=== PATIENT | female | born 1945 | race Caucasian/White ===

== ENCOUNTER 2020-04-28 06:48 | Day surgery (SDC) | payer MEDICARE, SELFPAY ==
[2020-04-22 16:08] VITALS: BMI 57.5
--- NOTE | 2020-04-24 07:47 | MHC.SHP ---
Pre-Procedural Eval Section A The patient is an INPATIENT: No The History & Physical has been completed within 30 days and I have reviewed it.: Yes Section B Chief Complaint: Cataract Right Eye Allergies: Allergies Allergy/AdvReac Type Severity Reaction Status Date / Time iodine [Iodine] Allergy Intermediate SWELLING, Verified 04/23/20 14:51 blister, hives Penicillins Allergy Intermediate SWELLING, Verified 04/23/20 14:51 hives, rash Iodinated Contrast Media Allergy Mild HIVES-CAT Verified 04/23/20 14:51 [IV Dye, Iodine Containing] SCAN DYE beeswax [BEESWAX] Allergy Unknown SWELLING Verified 04/23/20 14:51 tetanus toxoid, adsorbed Allergy Unknown LOCAL Verified 04/23/20 14:51 [Tetanus Toxoid,Adsorbed] INJ.SITE SWELLING pneumococcal vaccine AdvReac Unknown fever, Verified 04/23/20 14:51 chills Plan Diagnosis/Plan: Unchanged Patient has been examined and remains a candidate for the planned procedure
--- NOTE | 2020-04-25 13:00 | P.CONAN_ITS ---
Documented by User: Ximena Monet 04/25/20 13:01 HPI - Anesthesia Eval Consult details Narrative: 74yo F for cataract PMFSH Past Medical History Medical History Bladder cancer Cataract Dyslipidemia Endometrial cancer Essential hypertension Ex-smoker for more than 1 year GERD (gastroesophageal reflux disease) Hiatal hernia History of pneumonia Hx of Clostridium difficile infection Hx of gout Immunization refused Impaired fasting glucose Mild intermittent asthma without complication Mixed stress and urge urinary incontinence Morbid obesity Osteopenia of neck of left femur Recurrent major 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 Sleep apnea, unspecified Snores Urinary incontinence Family History Family History Father Heart disease Mother No problems noted. Maternal Grandfather Heart disease Maternal Grandmother Heart disease Paternal Grandfather Heart disease Paternal Grandmother Heart disease Surgical History Surgical History History of bladder surgery History of neck surgery History of vaginal hysterectomy Hx of colonoscopy Hx of cystoscopy Social History Social History Are you a primary career and guidance counselor to a significant other at home: No Do you presently have visiting nurse or other home services: No Alcohol intake: never Smoking Status: Former smoker Smoked in Last 30 Days: No Smoking Quit Date: 2007 Use of substances other than those prescribed or required for medical reasons: No Have you been hit, kicked, punched, or otherwise hurt by someone within the past year? If so, by whom?: No Advance Directives: No Advance Directives Information Provided: No Advance Directives on File: No Recently lost weight without trying: No Meds Allergies Allergy/AdvReac Type Severity Reaction Status Date / Time iodine [Iodine] Allergy Intermediate SWELLING, Verified 04/23/20 14:51 blister, hives Penicillins Allergy Intermediate SWELLING, Verified 04/23/20 14:51 hives, rash Iodinated Contrast Media Allergy Mild HIVES-CAT Verified 04/23/20 14:51 [IV Dye, Iodine Containing] SCAN DYE beeswax [BEESWAX] Allergy Unknown SWELLING Verified 04/23/20 14:51 tetanus toxoid, adsorbed Allergy Unknown LOCAL Verified 04/23/20 14:51 [Tetanus Toxoid,Adsorbed] INJ.SITE SWELLING pneumococcal vaccine AdvReac Unknown fever, Verified 04/23/20 14:51 chills Home Medications Medication Instructions Recorded Confirmed Type albuterol sulfate [ProAir HFA] 2 puff INHALATION Q4-6H PRN 04/22/20 04/23/20 History aspirin [Aspir-81] 81 mg PO DAILY 04/22/20 04/23/20 History cetirizine [Zyrtec] 5 mg PO DAILY 04/22/20 04/23/20 History cholecalciferol (vitamin D3) 25 mcg PO DAILY 04/22/20 04/23/20 History [Vitamin D3] citalopram 1 tab PO DAILY 04/22/20 04/23/20 History coenzyme Q10 [CoQ-10] 100 mg PO DAILY 04/22/20 04/23/20 History fluticasone propionate 1 spray INTRANASAL QAM PRN 04/22/20 04/23/20 History furosemide 20 mg PO DAILY 04/22/20 04/23/20 History lisinopril 1 tab PO DAILY 04/22/20 04/23/20 History metoprolol succinate 2 tab PO DAILY 04/22/20 04/23/20 History mirabegron [Myrbetriq] 1 tab PO DAILY 04/22/20 04/23/20 History pantoprazole 1 tab PO DAILY 04/22/20 04/23/20 History tolterodine 1 cap PO DAILY 04/22/20 04/23/20 History turmeric mg PO 04/22/20 04/23/20 History Exam Exam Date and Time: April 25, 2020 1300 Height,Weight and Vital Signs: Height 4 ft 9 in Weight 120.656 kg Pertinent Lab Results Pertinent Lab Results: Laboratory Tests 03/08/19 02/25/20 08:42 09:41 WBC 7.3 Hgb 13.5 Hct 41.8 Plt Count 204 D Sodium 142 Potassium 4.2 Chloride 102 BUN 19 H Creatinine 0.73 Assessment and Plan Assessment Anesthesia Assessment: Chart Reviewed Documented by User: Asiya Sandoval 04/28/20 07:35 [facility] Past Medical History Medical History Bladder cancer Cataract Dyslipidemia Endometrial cancer Essential hypertension Ex-smoker for more than 1 year GERD (gastroesophageal reflux disease) Hiatal hernia History of pneumonia Hx of Clostridium difficile infection Hx of gout Immunization refused Impaired fasting glucose Mild intermittent asthma without complication Mixed stress and urge urinary incontinence Morbid obesity Osteopenia of neck of left femur Recurrent major 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 Sleep apnea, unspecified Snores Urinary incontinence Family History Family History Father Heart disease Mother No problems noted. Maternal Grandfather Heart disease Maternal Grandmother Heart disease Paternal Grandfather Heart disease Paternal Grandmother Heart disease Surgical History Surgical History History of bladder surgery History of neck surgery History of vaginal hysterectomy Hx of colonoscopy Hx of cystoscopy Social History Social History Are you a primary career and guidance counselor to a significant other at home: No Do you presently have visiting nurse or other home services: No Alcohol intake: never Smoking Status: Former smoker Smoked in Last 30 Days: No Smoking Quit Date: 2007 Use of substances other than those prescribed or required for medical reasons: No Have you been hit, kicked, punched, or otherwise hurt by someone within the past year? If so, by whom?: No Advance Directives: No Advance Directives Information Provided: No Advance Directives on File: No Recently lost weight without trying: No Meds Allergies Allergy/AdvReac Type Severity Reaction Status Date / Time iodine [Iodine] Allergy Intermediate SWELLING, Verified 04/23/20 14:51 blister, hives Penicillins Allergy Intermediate SWELLING, Verified 04/23/20 14:51 hives, rash Iodinated Contrast Media Allergy Mild HIVES-CAT Verified 04/23/20 14:51 [IV Dye, Iodine Containing] SCAN DYE beeswax [BEESWAX] Allergy Unknown SWELLING Verified 04/23/20 14:51 tetanus toxoid, adsorbed Allergy Unknown LOCAL Verified 04/23/20 14:51 [Tetanus Toxoid,Adsorbed] INJ.SITE SWELLING pneumococcal vaccine AdvReac Unknown fever, Verified 04/23/20 14:51 chills Home Medications Medication Instructions Recorded Confirmed Type albuterol sulfate [ProAir HFA] 2 puff INHALATION Q4-6H PRN 04/22/20 04/23/20 History aspirin [Aspir-81] 81 mg PO DAILY 04/22/20 04/23/20 History cetirizine [Zyrtec] 5 mg PO DAILY 04/22/20 04/23/20 History cholecalciferol (vitamin D3) 25 mcg PO DAILY 04/22/20 04/23/20 History [Vitamin D3] citalopram 1 tab PO DAILY 04/22/20 04/23/20 History coenzyme Q10 [CoQ-10] 100 mg PO DAILY 04/22/20 04/23/20 History fluticasone propionate 1 spray INTRANASAL QAM PRN 04/22/20 04/23/20 History furosemide 20 mg PO DAILY 04/22/20 04/23/20 History lisinopril 1 tab PO DAILY 04/22/20 04/23/20 History metoprolol succinate 2 tab PO DAILY 04/22/20 04/23/20 History mirabegron [Myrbetriq] 1 tab PO DAILY 04/22/20 04/23/20 History pantoprazole 1 tab PO DAILY 04/22/20 04/23/20 History tolterodine 1 cap PO DAILY 04/22/20 04/23/20 History turmeric mg PO 04/22/20 04/23/20 History Exam Airway Mallampati Class: III TM Dist: <=3cm Neck ROM: Full Loose/Missing/Broken Teeth: Yes (Missing 1 bottom, top 2 front cemented, 1 broken bottom) Heart: RRR Lungs: CTA BL Assessment and Plan Final Anesthetic Review NPO: Yes ASA Class: III Final Preanesthetic Review: Meds/Allgs Chart Reviewed and Consent Obtained/Reviewed Patient Risk: Intermediate Procedure Risk: Low Anesthetic Plan Anesthetic Plan: MAC: Disposition: Standard PACU
[2020-04-28] MEDS: Tetracaine HCl/PF 0.5% Oph Sol 4 ML DROPS 1 DROP EYE-RIGHT (07:55)
[2020-04-28] MEDS: Tropicamide 1 % Ophth Sol 3 ML BTL 1 DROP EYE-RIGHT ×3 (07:56→08:06)
--- NOTE | 2020-04-28 08:27 | PC.NURSE ---
BP RANGES 207/71 PRE, 213/62, 230/92, 206/70 ANESTH AT [facility] [id number]
[2020-04-28 08:32] VITALS: BP 198/67; PULSE 74; RESP 18; O2SAT 92
[2020-04-28 08:37] VITALS: BP 149/72; PULSE 73; RESP 18; O2SAT 90
[2020-04-28 08:44] VITALS: BP 163/85; PULSE 71; RESP 20; O2SAT 92
[2020-04-28] MEDS: Lactated Ringers 500 ML 50 ML IV (08:49)
[2020-04-28 08:50] VITALS: BP 198/67; PULSE 74
[2020-04-28] MEDS: Labetalol HCL 100 MG/20 ML VIAL 10 MG IVPUSH (08:50)
--- NOTE | 2020-04-28 09:17 | HO.PNOPHT ---
Ophthalmology Procedure Procedure Ophthalmology Lenses: GLYNN [id number] (20) Procedure Notes: PREOPERATIVE DIAGNOSIS: Decreased visual acuity right eye secondary to cataract POSTOPERATIVE DIAGNOSIS: Same PROCEDURE: Right cataract extraction with intraocular lens insertion SURGEON: Reza Mckeon M.D. ANESTHESIA: Topical/MAC ESTIMATED BLOOD LOSS: None COMPLICATIONS: None After obtaining informed consent, the patient was brought to the operating room suite and placed in the supine position. After adequate sedation per anesthesia, topical drops of Tetracaine were given to the right eye. The eye was then prepped and draped in the usual sterile fashion. The operating room microscope was then positioned over the operative eye and a lid speculum placed. A paracentesis was created. Viscoelastic was then instilled into the anterior chamber. A three plane incision was then created temporally, utilizing a 2.85 mm keratome. Capsulotomy forceps were then utilized to create a circular tear capsulotomy. Hydrodissection and hydrodelineation were carried out until adequate mobilization of the nucleus occurred. Phacoemulsification was then utilized to remove the dense central nucleus followed by removal of the cortical material utilizing the automated aspiration irrigation unit. Viscoelastic was instilled into the posterior capsular bag followed by placement of a posterior chamber intraocular lens without difficulty. The residual Viscoelastic was then removed utilizing the automated IA machine. The wound was checked and found to be watertight. The patient tolerated the procedure well and the lid speculum was removed. Intracameral injection of Vigamox 0.1 mL followed by a subtenon injection of Kenalog-40 0.2 mL were administered. The patient will be seen in the a.m.
== END 2020-04-28 09:50 | disposition home or self-care (01) ==
PROVIDERS: PCP Internal Medicine; Visit Provider Ophthalmology
PROC: (CPT 66985; principal; 2020-04-28 08:20)
DX: H25.11 Age-related nuclear cataract, right eye (principal); H54.7 Unspecified visual loss; C67.9 Malignant neoplasm of bladder, unspecified; Z85.42 Personal history of malignant neoplasm of other parts of uterus; I10 Essential (primary) hypertension; J45.20 Mild intermittent asthma, uncomplicated; Z79.82 Long term (current) use of aspirin; Z79.51 Long term (current) use of inhaled steroids; Z79.899 Other long term (current) drug therapy; Z88.0 Allergy status to penicillin; Z91.041 Radiographic dye allergy status; Z87.891 Personal history of nicotine dependence
CPT/HCPCS: 66984; J2250; J3010; J3300; V2632

== ENCOUNTER 2020-05-12 07:23 | Day surgery (SDC) | payer MEDICARE, SELFPAY ==
--- NOTE | 2020-05-08 08:22 | MHC.SHP ---
Pre-Procedural Eval Section A The patient is an INPATIENT: No The History & Physical has been completed within 30 days and I have reviewed it.: Yes Section B Chief Complaint: Cataract Left Eye Allergies: Allergies Allergy/AdvReac Type Severity Reaction Status Date / Time iodine [Iodine] Allergy Intermediate SWELLING, Verified 04/23/20 14:51 blister, hives Penicillins Allergy Intermediate SWELLING, Verified 04/23/20 14:51 hives, rash Iodinated Contrast Media Allergy Mild HIVES-CAT Verified 04/23/20 14:51 [IV Dye, Iodine Containing] SCAN DYE beeswax [BEESWAX] Allergy Unknown SWELLING Verified 04/23/20 14:51 tetanus toxoid, adsorbed Allergy Unknown LOCAL Verified 04/23/20 14:51 [Tetanus Toxoid,Adsorbed] INJ.SITE SWELLING pneumococcal vaccine AdvReac Unknown fever, Verified 04/23/20 14:51 chills Plan Diagnosis/Plan: Unchanged Patient has been examined and remains a candidate for the planned procedure
[2020-05-08 09:37] VITALS: BMI 57.5
--- NOTE | 2020-05-09 08:50 | P.CONAN_ITS ---
Documented by User: Ximena Monet 05/09/20 14:03 HPI - Anesthesia Eval Consult details Narrative: 74yo F for cataract PCP cleared 1st eye 04/28/20: [facility] 1 PMFSH Past Medical History Medical History Bladder cancer Cataract Dyslipidemia Endometrial cancer Essential hypertension Ex-smoker for more than 1 year GERD (gastroesophageal reflux disease) Hiatal hernia History of pneumonia Hx of Clostridium difficile infection Hx of gout Immunization refused Impaired fasting glucose Mild intermittent asthma without complication Mixed stress and urge urinary incontinence Morbid obesity Osteopenia of neck of left femur Recurrent major 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 Sleep apnea, unspecified Snores Urinary incontinence Family History Family History Father Heart disease Mother No problems noted. Maternal Grandfather Heart disease Maternal Grandmother Heart disease Paternal Grandfather Heart disease Paternal Grandmother Heart disease Surgical History Surgical History Cataract extraction status, right eye History of bladder surgery History of neck surgery History of vaginal hysterectomy Hx of colonoscopy Hx of cystoscopy Social History Social History Alcohol intake: never Smoking Status: Former smoker Advance Directives: No Advance Directives Information Provided: No Advance Directives on File: No Meds Allergies Allergy/AdvReac Type Severity Reaction Status Date / Time iodine [Iodine] Allergy Intermediate SWELLING, Verified 04/23/20 14:51 blister, hives Penicillins Allergy Intermediate SWELLING, Verified 04/23/20 14:51 hives, rash Iodinated Contrast Media Allergy Mild HIVES-CAT Verified 04/23/20 14:51 [IV Dye, Iodine Containing] SCAN DYE beeswax [BEESWAX] Allergy Unknown SWELLING Verified 04/23/20 14:51 tetanus toxoid, adsorbed Allergy Unknown LOCAL Verified 04/23/20 14:51 [Tetanus Toxoid,Adsorbed] INJ.SITE SWELLING pneumococcal vaccine AdvReac Unknown fever, Verified 04/23/20 14:51 chills Home Medications Medication Instructions Recorded Confirmed Type albuterol sulfate [ProAir HFA] 2 puff INHALATION Q4-6H PRN 04/22/20 04/23/20 History aspirin [Aspir-81] 81 mg PO DAILY 04/22/20 04/23/20 History cetirizine [Zyrtec] 5 mg PO DAILY 04/22/20 04/23/20 History cholecalciferol (vitamin D3) 25 mcg PO DAILY 04/22/20 04/23/20 History [Vitamin D3] citalopram 1 tab PO DAILY 04/22/20 04/23/20 History coenzyme Q10 [CoQ-10] 100 mg PO DAILY 04/22/20 04/23/20 History fluticasone propionate 1 spray INTRANASAL QAM PRN 04/22/20 04/23/20 History furosemide 20 mg PO DAILY 04/22/20 04/23/20 History lisinopril 1 tab PO DAILY 04/22/20 04/23/20 History metoprolol succinate 2 tab PO DAILY 04/22/20 04/23/20 History mirabegron [Myrbetriq] 1 tab PO DAILY 04/22/20 04/23/20 History pantoprazole 1 tab PO DAILY 04/22/20 04/23/20 History tolterodine 1 cap PO DAILY 04/22/20 04/23/20 History turmeric mg PO 04/22/20 04/23/20 History Exam Exam Date and Time: May 09, 2020 0850 Height,Weight and Vital Signs: Height 4 ft 9 in Weight 120.6 kg Assessment and Plan Assessment Anesthesia Assessment: Chart Reviewed Documented by User: Diana Alba 05/12/20 08:35 [facility] Past Medical History Medical History Bladder cancer Cataract Dyslipidemia Endometrial cancer Essential hypertension Ex-smoker for more than 1 year GERD (gastroesophageal reflux disease) Hiatal hernia History of pneumonia Hx of Clostridium difficile infection Hx of gout Immunization refused Impaired fasting glucose Mild intermittent asthma without complication Mixed stress and urge urinary incontinence Morbid obesity Osteopenia of neck of left femur Recurrent major 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 Sleep apnea, unspecified Snores Urinary incontinence Family History Family History Father Heart disease Mother No problems noted. Maternal Grandfather Heart disease Maternal Grandmother Heart disease Paternal Grandfather Heart disease Paternal Grandmother Heart disease Surgical History Surgical History Cataract extraction status, right eye History of bladder surgery History of neck surgery History of vaginal hysterectomy Hx of colonoscopy Hx of cystoscopy Social History Social History Alcohol intake: never Smoking Status: Former smoker Advance Directives: No Advance Directives Information Provided: No Advance Directives on File: No Meds Allergies Allergy/AdvReac Type Severity Reaction Status Date / Time iodine [Iodine] Allergy Intermediate SWELLING, Verified 04/23/20 14:51 blister, hives Penicillins Allergy Intermediate SWELLING, Verified 04/23/20 14:51 hives, rash Iodinated Contrast Media Allergy Mild HIVES-CAT Verified 04/23/20 14:51 [IV Dye, Iodine Containing] SCAN DYE beeswax [BEESWAX] Allergy Unknown SWELLING Verified 04/23/20 14:51 tetanus toxoid, adsorbed Allergy Unknown LOCAL Verified 04/23/20 14:51 [Tetanus Toxoid,Adsorbed] INJ.SITE SWELLING pneumococcal vaccine AdvReac Unknown fever, Verified 04/23/20 14:51 chills Home Medications Medication Instructions Recorded Confirmed Type albuterol sulfate [ProAir HFA] 2 puff INHALATION Q4-6H PRN 04/22/20 04/23/20 History aspirin [Aspir-81] 81 mg PO DAILY 04/22/20 04/23/20 History cetirizine [Zyrtec] 5 mg PO DAILY 04/22/20 04/23/20 History cholecalciferol (vitamin D3) 25 mcg PO DAILY 04/22/20 04/23/20 History [Vitamin D3] citalopram 1 tab PO DAILY 04/22/20 04/23/20 History coenzyme Q10 [CoQ-10] 100 mg PO DAILY 04/22/20 04/23/20 History fluticasone propionate 1 spray INTRANASAL QAM PRN 04/22/20 04/23/20 History furosemide 20 mg PO DAILY 04/22/20 04/23/20 History lisinopril 1 tab PO DAILY 04/22/20 04/23/20 History metoprolol succinate 2 tab PO DAILY 04/22/20 04/23/20 History mirabegron [Myrbetriq] 1 tab PO DAILY 04/22/20 04/23/20 History pantoprazole 1 tab PO DAILY 04/22/20 04/23/20 History tolterodine 1 cap PO DAILY 04/22/20 04/23/20 History turmeric mg PO 04/22/20 04/23/20 History Exam Airway Mallampati Class: II TM Dist: >3cm Neck ROM: Limited Heart: RRR Lungs: CTA Assessment and Plan Assessment Anesthesia Assessment: Anesthesia Plan Discussed and Chart Reviewed Final Anesthetic Review NPO: Yes ASA Class: III Final Preanesthetic Review: Meds/Allgs Chart Reviewed, Consent Obtained/Reviewed and Anes Risks/Benef Reviewed Patient Risk: Intermediate Procedure Risk: Low Anesthetic Plan Anesthetic Plan: MAC: Disposition: Standard PACU
[2020-05-12] MEDS: Tetracaine HCl/PF 0.5% Oph Sol 4 ML DROPS 1 DROP EYE-LEFT (08:57)
[2020-05-12] MEDS: Tropicamide 1 % Ophth Sol 3 ML BTL 1 DROP EYE-LEFT ×3 (08:59→09:04)
[2020-05-12 09:07] VITALS: BP 186/66; PULSE 71; RESP 18; TEMP 36.2; O2SAT 94
--- NOTE | 2020-05-12 09:34 | HO.PNOPHT ---
Ophthalmology Procedure Procedure Ophthalmology Viscoelastic: Nguyen Brunsont Dual Pack Pro Ophthalmology Lenses: TECNIS [id number] (19.5) Procedure Notes: PREOPERATIVE DIAGNOSIS: Decreased visual acuity left eye secondary to cataract POSTOPERATIVE DIAGNOSIS: Same PROCEDURE: Left cataract extraction with intraocular lens insertion SURGEON: Reza Mckeon M.D. ANESTHESIA: Topical/MAC ESTIMATED BLOOD LOSS: None COMPLICATIONS: None After obtaining informed consent, the patient was brought to the operation room suite and placed in the supine position. After adequate sedation per anesthesia, topical drops of Tetracaine were given to the left eye. The eye was then prepped and draped in the usual sterile fashion. The operating room microscope was then positioned over the operative eye and a lid speculum placed. A paracentesis was created. Viscoelastic was then instilled into the anterior chamber. A three plane incision was then created temporally, utilizing a 2.85 mm keratome. Capsulotomy forceps were then utilized to create a circular tear capsulotomy. Hydrodissection and hydrodelineation were carried out until adequate mobilization of the nucleus occurred. Phacoemulsification was then utilized to remove the dense central nucleus followed by removal of the cortical material utilizing the automated aspiration irrigation unit. Viscoat elastic was instilled into the posterior capsular bag followed by placement of a posterior chamber intraocular lens without difficulty. The residual Viscoat elastic was then removed utilizing the automated IA machine. The wound was check and found to be watertight. The patient tolerated the procedure well and the lid speculum was removed. Intracameral injection of Vigamox 0.1 mL followed by a subtenon injection of Kenalog-40 0.2 mL were administered. The patient will be seen in the a.m.
[2020-05-12 09:37] VITALS: BP 146/76; PULSE 78; RESP 18; TEMP 36.4; O2SAT 100
== END 2020-05-12 10:00 | disposition home or self-care (01) ==
PROVIDERS: PCP Internal Medicine; Visit Provider Ophthalmology
PROC: (CPT 66985; principal; 2020-05-12 09:20)
DX: H25.12 Age-related nuclear cataract, left eye (principal); H54.7 Unspecified visual loss; H35.033 Hypertensive retinopathy, bilateral; I10 Essential (primary) hypertension; J45.20 Mild intermittent asthma, uncomplicated; C67.9 Malignant neoplasm of bladder, unspecified; G47.33 Obstructive sleep apnea (adult) (pediatric); Z85.42 Personal history of malignant neoplasm of other parts of uterus; Z79.51 Long term (current) use of inhaled steroids; Z79.82 Long term (current) use of aspirin; Z79.899 Other long term (current) drug therapy; Z87.891 Personal history of nicotine dependence; Z88.0 Allergy status to penicillin
CPT/HCPCS: 66984; J2250; J3300; V2632

== ENCOUNTER → 2020-07-24 11:03 | Outpatient (BNVA) | payer MEDICARE, SELFPAY | PROVIDERS: PCP Internal Medicine; Referring Provider Internal Medicine; Visit Provider Urology | DX: C67.9 Malignant neoplasm of bladder, unspecified (principal); N39.46 Mixed incontinence; Z79.899 Other long term (current) drug therapy | CPT/HCPCS: 52000; 81002; 99212 ==

== ENCOUNTER 2020-12-17 06:49 | Outpatient (REF) | payer MEDICARE, SELFPAY ==
[2020-12-17 11:37] LABS: Estimated Average Glucose 103 mg/dL; Hemoglobin A1c % 5.2 %
[2020-12-17 11:52] LABS: Alanine Aminotransferase 11 U/L (0-31); Anion Gap 12 (12-20); Aspartate Amino Transferase 13 U/L (5-31); Blood Urea Nitrogen 24 mg/dL (9-16); Calcium 9.1 mg/dL (8.4-10.2); Carbon Dioxide 34 mmol/L (22-29); Chloride 102 mmol/L (96-108); Cholesterol 128 mg/dL; Estimated Glomerular Filt Rate > 60; Glucose Fasting 114 mg/dL (60-99); HDL Cholesterol 36 mg/dL; LDL Cholesterol Calculated 70 mg/dl; Potassium 5.1 mmol/L (3.3-5.1); Sodium 143 mmol/L (135-145); Triglycerides 113 mg/dL
[2020-12-17 12:15] LABS: Vitamin D 25-OH Total 43.4 ng/mL (>30)
[2020-12-18 11:25] LABS: Glucose Urine UA NEG (NEG); Leukocyte Esterase Urine 1+ (NEG); Nitrite Urine NEG (NEG); Specific Gravity - Urine 1.025 (1.005-1.025); UACC Culture Trigger YES; Urine Blood TRACE (NEG); Urine Ketones NEG (NEG); Urine Protein TRACE MG/DL (NEG-TRACE)
[2020-12-18 11:26] LABS: Appearance Urine CLOUDY; Color Urine YELLOW
[2020-12-18 11:42] LABS: Bacteria Urine 2+ /LPF; Mucus Urine 1+ /LPF; RBC Urine 0 /HPF (0); Squamous Epithelial Cell Urine 1+ /LPF; WBC Urine TNTC /HPF (0-4)
== END 2020-12-17 06:50 | disposition home or self-care (01) ==
LOC: HO.HMGCLDS 06:49
PROVIDERS: PCP Internal Medicine; Visit Provider Internal Medicine
DX: E66.01 Morbid (severe) obesity due to excess calories (principal); E78.5 Hyperlipidemia, unspecified; I10 Essential (primary) hypertension; M85.852 Other specified disorders of bone density and structure, left thigh; R73.01 Impaired fasting glucose; Z78.0 Asymptomatic menopausal state
CPT/HCPCS: 36415; 80048; 80061; 81001; 81003; 82306; 83036; 84450; 84460; 87086; 87088; 87186

== ENCOUNTER 2021-01-28 08:24 | Outpatient (REF) | payer MEDICARE, SELFPAY ==
--- NOTE | ~2021-01-28 | MM_ITS ---
EXAMINATION: MM SCREENING DIGITAL BREAST TOMOSYNTHESIS, BILATERAL CLINICAL INFORMATION: Screening. Asymptomatic. The lifetime risk of breast cancer based on the Tyrer-Cuzick Model is 2%. COMPARISON: Mammography: 01/23/2020, 01/17/2019, 12/27/2017 TECHNIQUE: Digital breast tomosynthesis is performed in both the craniocaudal and mediolateral oblique views along with computer-aided detection (CAD). Synthesized 2D images are generated from the tomosynthesis. Additional right MLO and additional left MLO x2 views are provided. FINDINGS: There are scattered areas of fibroglandular density (ACR BI-RADS breast composition Category b). Breast tissue composition is on spectrum with dominantly fatty. Background stromal and fibroglandular densities are stable. There is no developing density. There is no interval mass or architectural abnormality or abnormal calcifications. The axilla and skin contours are unremarkable. MM/MM tomosynthesis screening BI IMPRESSION: No mammographic evidence of malignancy. ASSESSMENT: BI-RADS 1: Negative RECOMMENDATION: Routine annual mammography screening. This patient's information was entered into a reminder system with a target due date for their next mammogram.
== END 2021-01-28 08:25 | disposition home or self-care (01) ==
LOC: HO.MAMMO 08:24
PROVIDERS: Visit Provider Internal Medicine
DX: Z12.31 Encounter for screening mammogram for malignant neoplasm of breast (principal)
CPT/HCPCS: 77063; 77067

== ENCOUNTER → 2021-02-26 11:42 | Outpatient (BNVA) | payer MEDICARE, SELFPAY | PROVIDERS: PCP Internal Medicine; Visit Provider Urology | DX: N39.0 Urinary tract infection, site not specified (principal) | CPT/HCPCS: Q3014 ==

== ENCOUNTER 2021-03-17 10:01 | Outpatient (REF) | payer MEDICARE, SELFPAY ==
[2021-03-17 16:55] LABS: Urine Cytology See Pathology rpt
== END 2021-03-17 10:02 | disposition home or self-care (01) ==
LOC: HO.LAB 10:01
PROVIDERS: PCP Internal Medicine; Visit Provider Urology
DX: C67.9 Malignant neoplasm of bladder, unspecified (principal); N39.0 Urinary tract infection, site not specified
CPT/HCPCS: 52000; 88112; 99212

== ENCOUNTER → 2021-09-03 12:52 | Outpatient (BNVA) | payer MEDICARE, SELFPAY | PROVIDERS: PCP Internal Medicine; Visit Provider Urology | DX: Z13.89 Encounter for screening for other disorder (principal) ==

== ENCOUNTER → 2021-09-15 08:58 | Outpatient (BNVA) | payer MEDICARE, SELFPAY | PROVIDERS: PCP Internal Medicine; Visit Provider Urology | DX: N39.0 Urinary tract infection, site not specified (principal); N39.46 Mixed incontinence; C67.9 Malignant neoplasm of bladder, unspecified | CPT/HCPCS: 52000; 99212 ==

== ENCOUNTER → 2021-10-27 13:08 | Outpatient (BNVA) | payer MEDICARE, SELFPAY | PROVIDERS: PCP Internal Medicine; Visit Provider Urology | DX: Z13.89 Encounter for screening for other disorder (principal) | CPT/HCPCS: Q3014 ==

== ENCOUNTER → 2021-11-02 06:00 | Day surgery (SDC) | payer MEDICARE, SELFPAY ==
[2021-10-27 16:52] VITALS: BMI 57.6
--- NOTE | 2021-10-30 10:08 | HO.ANESPROP2 ---
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 (Acute) Impaired fasting glucose (Acute) Dyslipidemia (Acute) GERD (gastroesophageal reflux disease) (Acute) Osteopenia of neck of left femur (Acute) Mild intermittent asthma without complication (Acute) Bladder cancer (Acute) Essential hypertension (Acute) Cataract (Acute) Past Medical History Medical History (Updated 10/27/21 @ 16:59 by Brandi Goodman, RN) Bladder cancer Cataract Dyslipidemia Endometrial cancer Essential hypertension Ex-smoker for more than 1 year GERD (gastroesophageal reflux disease) Hiatal hernia History of pneumonia Hx of Clostridium difficile infection Hx of gout Immunization refused Impaired fasting glucose Mild intermittent asthma without complication Mixed stress and urge urinary incontinence Morbid obesity Murmur Nocturnal leg cramps OAB (overactive bladder) Osteopenia of neck of left femur Recurrent major 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 Sleep apnea, unspecified Snores Urinary incontinence UTI (urinary tract infection) Family History Family History Father Heart disease Mother No problems noted. Maternal Grandfather Heart disease Maternal Grandmother Heart disease Paternal Grandfather Heart disease Paternal Grandmother Heart disease Surgical History Surgical History (Updated 10/27/21 @ 16:46 by Brandi Goodman, MAKSIM) Cataract extraction status, right eye History of bladder surgery History of neck surgery History of vaginal hysterectomy Hx of bilateral cataract extraction Hx of colonoscopy Hx of cystoscopy Social History Social History Are you a primary assisted living care manager to a significant other at home: No Do you presently have visiting nurse or other home services: Yes ([employer] 4 hours/week) Alcohol intake: never Patient Tobacco Use Status: Former Tobacco user Quit Date: 2007 Tobacco use type: Cigarette Meds Allergies Allergy/AdvReac Type Severity Reaction Status Date / Time bee pollen [bee stings] Allergy Severe Anaphylaxis Verified 10/27/21 16:47 beeswax [BEESWAX] Allergy Intermediate Hives Verified 10/27/21 16:17 Iodinated Contrast Media Allergy Intermediate HIVES-CAT Verified 10/27/21 16:17 [IV Dye, Iodine Containing] SCAN DYE iodine [Iodine] Allergy Intermediate SWELLING, Verified 10/27/21 16:17 blister, hives Penicillins Allergy Intermediate SWELLING, Verified 10/27/21 16:17 hives, rash Sulfa (Sulfonamide Allergy Intermediate Hives Verified 10/27/21 16:17 Antibiotics) tetanus toxoid, adsorbed Allergy Intermediate LOCAL Verified 10/27/21 16:17 [Tetanus Toxoid,Adsorbed] INJ.SITE SWELLING pneumococcal vaccine AdvReac Intermediate fever, Verified 10/27/21 16:17 chills Home Medications Medication Instructions Recorded Confirmed Last Taken Type aspirin 81 mg tablet,delayed 81 mg PO DAILY 04/22/20 10/27/21 Unknown History release cetirizine 10 mg tablet (Zyrtec) 5 mg PO BEDTIME 04/22/20 10/27/21 Unknown History cholecalciferol (vitamin D3) 25 25 mcg PO DAILY 04/22/20 10/27/21 Unknown History mcg (1,000 unit) tablet (Vitamin D3) coenzyme Q10 100 mg capsule 100 mg PO DAILY 04/22/20 10/27/21 Unknown History (CoQ-10) turmeric 400 mg capsule 800 mg PO BID 04/22/20 10/27/21 Unknown History ascorbic acid (vitamin C) 500 mg 500 mg PO DAILY 10/27/21 10/27/21 Unknown History chewable tablet (Vitamin C) atorvastatin 40 mg tablet 40 mg PO BEDTIME 10/27/21 10/27/21 Unknown History tolterodine 4 mg capsule,extended 4 mg PO BEDTIME 10/27/21 10/27/21 Unknown History release 24 hr Exam Exam Date and Time: October 30, 2021 1008 Height,Weight and Vital Signs: Height 4 ft 10 in Weight 125.191 kg Assessment and Plan Assessment Anesthesia Assessment: Chart Reviewed
[2021-11-02 06:26] VITALS: BP 261/63; PULSE 84; RESP 20; TEMP 36.5; O2SAT 91
[2021-11-02] MEDS: Lactated Ringers 1,000 ML 100 ML IVCONT (06:44)
[2021-11-02 06:47] VITALS: BP 155/40; PULSE 74; RESP 20; O2SAT 89
[2021-11-02] MEDS: Albuterol Sulfate (0.083%) 2.5 MG/3 ML VIAL.NEB INHALE (06:56)
[2021-11-02 06:57] VITALS: PULSE 76; RESP 20; O2SAT 89
--- NOTE | 2021-11-02 07:04 | PC.NURSE ---
receiving resp treatment
--- NOTE | 2021-11-02 07:30 | MHC.SHP ---
Pre-Procedural Eval Section A Date of Service: 11/02/21 The patient is an INPATIENT: No Changes since office visit: No Cold of Flu in the past 2 weeks, No New Medical Problems, No Changes in Medication and No Patient answered all questions The History & Physical has been completed within 30 days and I have reviewed it.: Yes Section B Chief Complaint: urge incontinance Details of Present Illness: interstim lead and generator change Allergies: Allergies Allergy/AdvReac Type Severity Reaction Status Date / Time bee pollen [bee stings] Allergy Severe Anaphylaxis Verified 10/27/21 16:47 beeswax [BEESWAX] Allergy Intermediate Hives Verified 10/27/21 16:17 Iodinated Contrast Media Allergy Intermediate HIVES-CAT Verified 10/27/21 16:17 [IV Dye, Iodine Containing] SCAN DYE iodine [Iodine] Allergy Intermediate SWELLING, Verified 10/27/21 16:17 blister, hives Penicillins Allergy Intermediate SWELLING, Verified 10/27/21 16:17 hives, rash Sulfa (Sulfonamide Allergy Intermediate Hives Verified 10/27/21 16:17 Antibiotics) tetanus toxoid, adsorbed Allergy Intermediate LOCAL Verified 10/27/21 16:17 [Tetanus Toxoid,Adsorbed] INJ.SITE SWELLING pneumococcal vaccine AdvReac Intermediate fever, Verified 10/27/21 16:17 chills Plan Diagnosis/Plan: Unchanged (lead and generator change) I have reviewed the history and physical and performed a pertinent physical examination on my patient. No changes have occurred unless specified.
--- NOTE | 2021-11-02 07:41 | PC.NURSE ---
patient cancelled per anesthesia due to low o2 sats. patient states shes always low. no change in assessment after resp treatment. to be rescheduled.
--- NOTE | 2021-11-02 07:46 | PC.NURSE ---
iv removed asisted into wheelchair. ride already awaiting.
== END ==
PROVIDERS: PCP Internal Medicine; Visit Provider Urology
DX: N39.41 Urge incontinence (principal); Z53.8 Procedure and treatment not carried out for other reasons; R09.02 Hypoxemia; G47.33 Obstructive sleep apnea (adult) (pediatric); J45.20 Mild intermittent asthma, uncomplicated; Z87.891 Personal history of nicotine dependence
CPT/HCPCS: 94640

== ENCOUNTER → 2021-11-09 15:27 | Outpatient (BNVA) | payer MEDICARE, SELFPAY | PROVIDERS: PCP Internal Medicine; Visit Provider Internal Medicine | DX: Z01.811 Encounter for preprocedural respiratory examination (principal); J98.4 Other disorders of lung; J44.9 Chronic obstructive pulmonary disease, unspecified; G47.33 Obstructive sleep apnea (adult) (pediatric); E66.01 Morbid (severe) obesity due to excess calories; Z68.43 Body mass index [BMI] 50.0-59.9, adult | CPT/HCPCS: 99202 ==

== ENCOUNTER → 2021-12-07 10:55 | Outpatient (BNVA) | payer MEDICARE, SELFPAY | PROVIDERS: PCP Internal Medicine; Visit Provider Internal Medicine | DX: J44.9 Chronic obstructive pulmonary disease, unspecified (principal); J98.4 Other disorders of lung; G47.33 Obstructive sleep apnea (adult) (pediatric); E66.01 Morbid (severe) obesity due to excess calories; Z68.43 Body mass index [BMI] 50.0-59.9, adult | CPT/HCPCS: 94010; 99212 ==

== ENCOUNTER → 2021-12-11 14:18 | Outpatient (BNVA) | payer MEDICARE, SELFPAY | PROVIDERS: PCP Internal Medicine; Visit Provider Urology | DX: C67.9 Malignant neoplasm of bladder, unspecified (principal); N32.81 Overactive bladder | CPT/HCPCS: Q3014 ==

== ENCOUNTER 2021-12-21 05:59 | Day surgery (SDC) | payer MEDICARE, SELFPAY ==
[2021-12-14 12:32] VITALS: BMI 57.6
--- NOTE | 2021-12-18 08:43 | HO.ANESPROP2 ---
Documented by User: Ximena Monet NP 12/18/21 08:48 HPI - Anesthesia Eval Consult details Narrative: 76yo F for Interstim Generator Change Previously cx'd 10/2021 for low O2 sat. Seen by pulmo 12/07/21 - resp status stable, refuses NADEEM tx, remains high surgical risk PMF Active Problems Active Problems: All Active Problems (Updated 12/11/21 @ 14:27 by Sánchez Mcmillan MD) OAB (overactive bladder) (Acute) NADEEM (obstructive sleep apnea) (Acute) COPD (chronic obstructive pulmonary disease) (Acute) Restrictive lung disease (Acute) Recurrent UTI (Acute) Nocturnal leg cramps (Acute) UTI (urinary tract infection) (Acute) Immunization refused (Acute) Mixed stress and urge urinary incontinence (Acute) Morbid obesity (Acute) Recurrent major 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 (Acute) Impaired fasting glucose (Acute) Dyslipidemia (Acute) GERD (gastroesophageal reflux disease) (Acute) Osteopenia of neck of left femur (Acute) Mild intermittent asthma without complication (Acute) Bladder cancer (Acute) Essential hypertension (Acute) Cataract (Acute) Past Medical History Medical History Endometrial cancer Ex-smoker for more than 1 year Hiatal hernia History of pneumonia Hx of Clostridium difficile infection Hx of gout Murmur Sleep apnea, unspecified Snores Urinary incontinence Family History Family History Father Heart disease Mother No problems noted. Maternal Grandfather Heart disease Maternal Grandmother Heart disease Paternal Grandfather Heart disease Paternal Grandmother Heart disease Surgical History Surgical History Cataract extraction status, right eye History of bladder surgery History of neck surgery History of vaginal hysterectomy Hx of bilateral cataract extraction Hx of colonoscopy Hx of cystoscopy Social History Social History Are you a primary child care counselor to a significant other at home: No Do you presently have visiting nurse or other home services: No Alcohol intake: never Patient Tobacco Use Status: Former Tobacco user Quit Date: 2007 Tobacco use type: Cigarette Meds Allergies Allergy/AdvReac Type Severity Reaction Status Date / Time bee pollen [bee stings] Allergy Severe Anaphylaxis Verified 12/18/21 13:37 beeswax [BEESWAX] Allergy Intermediate Hives Verified 12/18/21 13:37 Iodinated Contrast Media Allergy Intermediate HIVES-CAT Verified 12/18/21 13:37 [IV Dye, Iodine Containing] SCAN DYE iodine [Iodine] Allergy Intermediate SWELLING, Verified 12/18/21 13:37 blister, hives Penicillins Allergy Intermediate SWELLING, Verified 12/18/21 13:37 hives, rash Sulfa (Sulfonamide Allergy Intermediate Hives Verified 12/18/21 13:37 Antibiotics) tetanus toxoid, adsorbed Allergy Intermediate LOCAL Verified 12/18/21 13:37 [Tetanus Toxoid,Adsorbed] INJ.SITE SWELLING pneumococcal vaccine AdvReac Intermediate fever, Verified 12/18/21 13:37 chills Home Medications Medication Instructions Recorded Confirmed Last Taken Type aspirin 81 mg tablet,delayed 81 mg PO DAILY 04/22/20 12/14/21 12/07/21 History release cetirizine 10 mg tablet (Zyrtec) 5 mg PO BEDTIME 04/22/20 12/14/21 Unknown History cholecalciferol (vitamin D3) 25 25 mcg PO DAILY 04/22/20 12/14/21 Unknown History mcg (1,000 unit) tablet (Vitamin D3) coenzyme Q10 100 mg capsule 100 mg PO DAILY 04/22/20 12/14/21 Unknown History (CoQ-10) turmeric 400 mg capsule 800 mg PO BID 04/22/20 12/14/21 Unknown History ascorbic acid (vitamin C) 500 mg 500 mg PO DAILY 10/27/21 12/14/21 Unknown History chewable tablet (Vitamin C) atorvastatin 40 mg tablet 40 mg PO BEDTIME 10/27/21 12/14/21 Unknown History tolterodine 4 mg capsule,extended 4 mg PO BEDTIME 10/27/21 12/14/21 Unknown History release 24 hr furosemide 20 mg tablet 20 mg PO DAILY PRN Edema 11/09/21 12/14/21 Unknown History Exam Exam Date and Time: December 18, 2021 0843 Height,Weight and Vital Signs: Height 4 ft 10 in Weight 125.191 kg Narrative Narrative: Per pulmo in office spirometry note: Severe obstructive and restrictive disorder. Numbers are slightly better than last month. Assessment and Plan Assessment Anesthesia Assessment: Chart Reviewed Documented by User: Matheus Vaughan MD 12/21/21 15:37 PMFSH Past Medical History Medical History Endometrial cancer Ex-smoker for more than 1 year Hiatal hernia History of pneumonia Hx of Clostridium difficile infection Hx of gout Murmur Sleep apnea, unspecified Snores Urinary incontinence Family History Family History Father Heart disease Mother No problems noted. Maternal Grandfather Heart disease Maternal Grandmother Heart disease Paternal Grandfather Heart disease Paternal Grandmother Heart disease Family history of problems with anesthesia: No Surgical History Surgical History Cataract extraction status, right eye History of bladder surgery History of neck surgery History of vaginal hysterectomy Hx of bilateral cataract extraction Hx of colonoscopy Hx of cystoscopy History of Problems with Anesthesia: No Social History Social History Are you a primary child care counselor to a significant other at home: No Do you presently have visiting nurse or other home services: No Alcohol intake: never Patient Tobacco Use Status: Former Tobacco user Quit Date: 2007 Tobacco use type: Cigarette Meds Allergies Allergy/AdvReac Type Severity Reaction Status Date / Time bee pollen [bee stings] Allergy Severe Anaphylaxis Verified 12/18/21 13:37 beeswax [BEESWAX] Allergy Intermediate Hives Verified 12/18/21 13:37 Iodinated Contrast Media Allergy Intermediate HIVES-CAT Verified 12/18/21 13:37 [IV Dye, Iodine Containing] SCAN DYE iodine [Iodine] Allergy Intermediate SWELLING, Verified 12/18/21 13:37 blister, hives Penicillins Allergy Intermediate SWELLING, Verified 12/18/21 13:37 hives, rash Sulfa (Sulfonamide Allergy Intermediate Hives Verified 12/18/21 13:37 Antibiotics) tetanus toxoid, adsorbed Allergy Intermediate LOCAL Verified 12/18/21 13:37 [Tetanus Toxoid,Adsorbed] INJ.SITE SWELLING pneumococcal vaccine AdvReac Intermediate fever, Verified 12/18/21 13:37 chills Home Medications Medication Instructions Recorded Confirmed Last Taken Type aspirin 81 mg tablet,delayed 81 mg PO DAILY 04/22/20 12/14/21 12/07/21 History release cetirizine 10 mg tablet (Zyrtec) 5 mg PO BEDTIME 04/22/20 12/14/21 Unknown History cholecalciferol (vitamin D3) 25 25 mcg PO DAILY 04/22/20 12/14/21 Unknown History mcg (1,000 unit) tablet (Vitamin D3) coenzyme Q10 100 mg capsule 100 mg PO DAILY 04/22/20 12/14/21 Unknown History (CoQ-10) turmeric 400 mg capsule 800 mg PO BID 04/22/20 12/14/21 Unknown History ascorbic acid (vitamin C) 500 mg 500 mg PO DAILY 10/27/21 12/14/21 Unknown History chewable tablet (Vitamin C) atorvastatin 40 mg tablet 40 mg PO BEDTIME 10/27/21 12/14/21 Unknown History tolterodine 4 mg capsule,extended 4 mg PO BEDTIME 10/27/21 12/14/21 Unknown History release 24 hr furosemide 20 mg tablet 20 mg PO DAILY PRN Edema 11/09/21 12/14/21 Unknown History Exam Airway Mallampati Class: III TM Dist: >3cm Neck ROM: Full Loose/Missing/Broken Teeth: Yes (Chipped teeth , extremely poor dentition ) Heart: S1,S2 Lungs: distant breath sounds Assessment and Plan Assessment Anesthesia Assessment: Anesthesia Plan Discussed Final Anesthetic Review Family History of Problems with Anesthesia: No History of Problems with Anesthesia: No NPO: Yes ASA Class: III Final Preanesthetic Review: Meds/Allgs Chart Reviewed, Consent Obtained/Reviewed and Anes Risks/Benef Reviewed Patient Risk: High Procedure Risk: Intermediate Anesthetic Plan Anesthetic Plan: MAC: Disposition: Standard PACU
--- NOTE | ~2021-12-21 | FL_ITS ---
EXAMINATION: XR FLUOROSCOPY WITH IMAGES CLINICAL INFORMATION: Interstim generator change. COMPARISON: None. TECHNIQUE: Fluoroscopy performed by Dr. Sánchez Mcmillan. Fluoroscopy time: 1.6 minutes DAP: 19.2 Gy-cm2 Images: 2 FINDINGS: Neurostimulator wire is seen traversing anterior to the right sacrum. FL/FL guidance in OR IMPRESSION: Fluoroscopy for pain management with neurostimulator.
[2021-12-21] MEDS: Lactated Ringers 1,000 ML 100 ML IVCONT (06:42)
[2021-12-21] MEDS: Albuterol Sulfate (0.083%) 2.5 MG/3 ML VIAL.NEB INHALE (06:52)
[2021-12-21 06:54] VITALS: PULSE 80; RESP 16; O2SAT 96
[2021-12-21 07:21] VITALS: BP 180/73; PULSE 79; RESP 20; TEMP 36.4; O2SAT 93
--- NOTE | 2021-12-21 07:22 | SUR.PREOP ---
pt required multiple iv attempts. dr. golden assisted and inserted iv
--- NOTE | 2021-12-21 07:36 | MHC.SHP ---
Pre-Procedural Eval Section A Date of Service: 12/21/21 The patient is an INPATIENT: No Changes since office visit: No Cold of Flu in the past 2 weeks, No New Medical Problems, No Changes in Medication and No Patient answered all questions The History & Physical has been completed within 30 days and I have reviewed it.: No Section B Chief Complaint: urge incontinence Details of Present Illness: interstim exchange Relevant Family History (Specify if Yes): Yes Relevant Social History: None Present Medications: see Short Stay Collaborative assessment Medical History: Significant History History of Previous Operations: Relevant previous surgery/procedure and date(s) Allergies: Allergies Allergy/AdvReac Type Severity Reaction Status Date / Time bee pollen [bee stings] Allergy Severe Anaphylaxis Verified 12/18/21 13:37 beeswax [BEESWAX] Allergy Intermediate Hives Verified 12/18/21 13:37 Iodinated Contrast Media Allergy Intermediate HIVES-CAT Verified 12/18/21 13:37 [IV Dye, Iodine Containing] SCAN DYE iodine [Iodine] Allergy Intermediate SWELLING, Verified 12/18/21 13:37 blister, hives Penicillins Allergy Intermediate SWELLING, Verified 12/18/21 13:37 hives, rash Sulfa (Sulfonamide Allergy Intermediate Hives Verified 12/18/21 13:37 Antibiotics) tetanus toxoid, adsorbed Allergy Intermediate LOCAL Verified 12/18/21 13:37 [Tetanus Toxoid,Adsorbed] INJ.SITE SWELLING pneumococcal vaccine AdvReac Intermediate fever, Verified 12/18/21 13:37 chills Review of Systems Sugical H&P ROS: Negative: Constitution, Cardiovascular, Respiratory, Neurological, Psychiatric, Hem-Onc, Allergic/Immunologic, Gastrointestinal, Genitourinary, Musculoskeletal, Integumentary, Endocrine and Eyes/Ears/Nose/Throat Exam Surgical H&P Exam: Normal: HEENT, Normal: Heart, Normal: Lungs, Normal: Extremities, Normal: Abdomen, Normal: Skin and Normal: Neurological Plan Diagnosis/Plan: Unchanged (pulmonary optimizeed - plan interstime generator and lead change) I have reviewed the history and physical and performed a pertinent physical examination on my patient. No changes have occurred unless specified.
--- NOTE | 2021-12-21 10:02 | W.PM.OPN ---
Operative Note Operative Note Date of Service: 12/21/21 Narrative: PreOperative Diagnosis: Overactive bladder with urinary urgency and frequency Post Operative Diagnosis: Overactive bladder with urinary urgency and frequency Procedure: 1.) Removal of InterStim lead 2.) Removal of InterStim battery 3.) Placement of InterStim lead - on left S3 4.) Placement of InterStim battery Surgeon: Dr Sánchez Mcmillan Anesthesia: sedation Indications for procedure: failing implant Procedure: After informed consent was verified the patient was brought to the operating room. Sedation anesthesia was administered per protocol. The patient was placed in a prone position and prepped and draped in a sterile fashion. Safety pause time-out was performed. Local anesthetic was infiltrated around the initial battery pocket incision on the right lateral superior buttock. Incision was made and taken down till the battery was encountered. The battery pocket was opened and a battery brought out to the skin. Using the C-arm and a snap the lead entering S3 on the right side was targeted. Local anesthetic was infiltrated around the prior incision and incision made through the skin. Using blunt dissection the original lead was isolated and brought up through our skin incision. This was get disconnected from the battery to give us the full lead in the sacral position. The lead was dissected down until we could palpate the transition to the thickened plastic. Using a right angle clamp we were able to fully withdrawal the old lead from its position in the S3 foramen. Using the C-arm in an AP and lateral view the finding needle was introduced into the S3 foramen running from a caudad to chordal direction. Using the group leader semiconductor testing we could confirm OK toe movement and Sintia response. The internal introducer from the needle was removed and the control lead placed. The find needle was removed and the dilator sheath introduced. Under fluoroscopic guidance the dilator sheath was advanced till the marker was seen mid point through the sacral bone on the lateral image. The internal cannula from the dilator was removed. The guidewire was removed. The active lead was then introduced through the dilator sheath and advanced so that the 3rd and 4th marked electrodes crossed the internal boundary line of the sacrum. The testing electrode was then hooked up to each of the wire electrodes 0 through 3 and Sintia and toe response is was seen at higher magnitude than desirable. Attention was directed to the left side. Using the C-arm in an AP and lateral view the finding needle was introduced into the S3 foramen running from a caudad to chordal direction. Using the group leader semiconductor testing we could confirm good toe movement and Sintia response. The internal introducer from the needle was removed and the control lead placed. The find needle was removed and the dilator sheath introduced. Under fluoroscopic guidance the dilator sheath was advanced till the marker was seen mid point through the sacral bone on the lateral image. Under live fluoroscopy the introducer sheath was removed deploying the tines of the wire ensuring that the live wire remained in the previously described position. The tunneling device was then used to bridge the distance between the sacral vertical incision and the desired location of the battery pocket. The live wire was placed through the tunneling device and brought out into the battery pocket. The sacral incision was washed with water. A new battery was connected to the live wire and placed into the subcutaneous pocket. The battery was tested and had positive garbage pick up man and displayed normal impedance on all 4 channels. The battery pocket had been washed with sterile water prior to placement of the battery. Interrupted 3-0 Vicryl sutures were used to close the defect spaces and bring skin edges together. Running 4-0 Monocryl sutures were used to appose skin edges. Incisions were dressed using skin glue followed by Tegaderm dressing. Patient tolerated procedure well was extubated in operating room transferred in stable condition to the recovery area. CPT full device replacement 80292, [id number], [id number]
[2021-12-21 10:09] VITALS: BP 116/96; PULSE 91; RESP 22; TEMP 37.3; O2SAT 97
[2021-12-21 10:14] VITALS: BP 136/69; PULSE 94; RESP 17; O2SAT 95
[2021-12-21 10:29] VITALS: BP 108/54; PULSE 87; RESP 20; O2SAT 93
== END 2021-12-21 11:00 | disposition home or self-care (01) ==
PROVIDERS: PCP Internal Medicine; Visit Provider Urology
PROC: (CPT 63685; principal; 2021-12-21 07:30)
DX: C67.9 Malignant neoplasm of bladder, unspecified (principal); N32.81 Overactive bladder; N39.46 Mixed incontinence; R39.15 Urgency of urination; R35.0 Frequency of micturition; G47.33 Obstructive sleep apnea (adult) (pediatric); J44.9 Chronic obstructive pulmonary disease, unspecified; J45.20 Mild intermittent asthma, uncomplicated; E78.5 Hyperlipidemia, unspecified; I10 Essential (primary) hypertension; R73.01 Impaired fasting glucose; Z88.0 Allergy status to penicillin; Z88.2 Allergy status to sulfonamides; Z88.7 Allergy status to serum and vaccine; Z91.041 Radiographic dye allergy status; Z87.891 Personal history of nicotine dependence
CPT/HCPCS: 64590; 64561; 94640; C1767; C1778; C1787; J1100; J1580; J1956; J2250; J2370; J2405; J3010

== ENCOUNTER 2022-01-05 14:52 | Outpatient (REF) | payer MEDICARE, SELFPAY | END 2022-01-05 14:53 | disposition home or self-care (01) | LOC: HO.LAB 14:52 | PROVIDERS: Visit Provider Urology | DX: C67.9 Malignant neoplasm of bladder, unspecified (principal); N32.81 Overactive bladder | CPT/HCPCS: 99212 ==

== ENCOUNTER → 2022-02-01 11:08 | Outpatient (BNVA) | payer MEDICARE, SELFPAY | PROVIDERS: PCP Internal Medicine; Visit Provider Internal Medicine | DX: J44.9 Chronic obstructive pulmonary disease, unspecified (principal); E66.01 Morbid (severe) obesity due to excess calories; Z68.43 Body mass index [BMI] 50.0-59.9, adult | CPT/HCPCS: 99212 ==

== ENCOUNTER → 2022-03-17 08:56 | Outpatient (BNVA) | payer MEDICARE, SELFPAY | PROVIDERS: PCP Internal Medicine; Visit Provider Urology | DX: C67.9 Malignant neoplasm of bladder, unspecified (principal); N32.81 Overactive bladder; N39.0 Urinary tract infection, site not specified | CPT/HCPCS: 52000; 88112; 99212 ==

== ENCOUNTER 2022-03-17 16:58 | Outpatient (REF) | payer MEDICARE, SELFPAY ==
[2022-03-17 17:01] LABS: Urine Cytology See Pathology rpt
== END 2022-03-17 16:59 | disposition home or self-care (01) ==
LOC: HO.LNP 16:58
PROVIDERS: Visit Provider Urology
DX: Z13.89 Encounter for screening for other disorder (principal)
CPT/HCPCS: 88112

== ENCOUNTER 2022-04-22 11:50 | Outpatient (REF) | payer MEDICARE, SELFPAY ==
[2022-04-22 14:05] LABS: Appearance Urine Cloudy; Color Urine Yellow; Glucose Urine UA Negative (Negative); Leukocyte Esterase Urine Moderate (2+) (Negative); Nitrite Urine Positive (Negative); UMIC TRIGGER UACC YES; Urine Blood Trace (Negative); Urine Ketones Negative (Negative); Urine Protein 30 (1+) mg/dL (Neg-Trace)
[2022-04-22 14:12] LABS: Alanine Aminotransferase 7 U/L (0-31); Anion Gap 17 (12-20); Aspartate Amino Transferase 13 U/L (5-31); Blood Urea Nitrogen 16 mg/dL (9-16); Calcium 9.1 mg/dL (8.4-10.2); Carbon Dioxide 31 mmol/L (22-29); Chloride 102 mmol/L (96-108); Cholesterol 140 mg/dL; Estimated Glomerular Filt Rate > 60; Glucose Fasting 107 mg/dL (60-99); HDL Cholesterol 35 mg/dL; LDL Cholesterol Calculated 83 mg/dl; Potassium 4.9 mmol/L (3.3-5.1); Sodium 145 mmol/L (135-145); Triglycerides 114 mg/dL
[2022-04-22 14:33] LABS: Vitamin D 25-OH Total 54.4 ng/mL (>30)
[2022-04-22 14:38] LABS: Bacteria Urine 4+ (None Seen); Hyaline Casts Urine 0-2 /LPF (0-2); RBC Urine 0-2 /HPF (0-2); UACC Culture Trigger YES; WBC Urine >50 /HPF (0-5)
== END 2022-04-22 11:51 | disposition home or self-care (01) ==
LOC: HO.HMGCLDS 11:50
PROVIDERS: PCP Internal Medicine; Visit Provider Internal Medicine
DX: E78.5 Hyperlipidemia, unspecified (principal); I10 Essential (primary) hypertension; M85.852 Other specified disorders of bone density and structure, left thigh; N39.0 Urinary tract infection, site not specified; R30.0 Dysuria; R73.01 Impaired fasting glucose; E66.01 Morbid (severe) obesity due to excess calories
CPT/HCPCS: 36415; 80048; 80061; 81001; 81003; 82306; 84450; 84460; 87086; 87088; 87186

== ENCOUNTER → 2022-09-08 11:17 | Outpatient (BNVA) | payer MEDICARE, SELFPAY | PROVIDERS: PCP Internal Medicine; Visit Provider Internal Medicine | DX: J44.9 Chronic obstructive pulmonary disease, unspecified (principal); E66.01 Morbid (severe) obesity due to excess calories; G47.33 Obstructive sleep apnea (adult) (pediatric) | CPT/HCPCS: 99212 ==

== ENCOUNTER 2022-09-13 14:51 | Outpatient (REF) | payer MEDICARE, SELFPAY ==
[2022-09-13 16:43] LABS: Appearance Urine Turbid; Color Urine Dark Yellow; Glucose Urine UA Negative (Negative); Leukocyte Esterase Urine Large (3+) (Negative); Nitrite Urine Positive (Negative); PH 5.5 (5.0-9.0); UMIC TRIGGER UA YES; Urine Blood Trace (Negative); Urine Ketones Trace mg/dL (Negative); Urine Protein 30 (1+) mg/dL (Neg-Trace)
[2022-09-13 17:00] LABS: Bacteria Urine 4+ (None Seen); Hyaline Casts Urine 0-2 /LPF (0-2); Squamous Epithelial Cell Urine >20 /HPF (0-2); WBC Urine >50 /HPF (0-5)
== END 2022-09-13 14:52 | disposition home or self-care (01) ==
LOC: HO.HMGCLDS 14:51
PROVIDERS: PCP Internal Medicine; Visit Provider Urology
DX: N39.0 Urinary tract infection, site not specified (principal)
CPT/HCPCS: 81001; 87086; 87088; 87186

== ENCOUNTER 2022-10-05 10:52 | Outpatient (REF) | payer MEDICARE, SELFPAY | END 2022-10-05 10:53 | disposition home or self-care (01) | LOC: HO.LAB 10:52 | PROVIDERS: PCP Internal Medicine; Visit Provider Urology | DX: C67.9 Malignant neoplasm of bladder, unspecified (principal) | CPT/HCPCS: 52000; 88121; 99212 ==

== ENCOUNTER → 2022-11-23 13:23 | Outpatient (REF) | payer MEDICARE, SELFPAY ==
--- NOTE | 2022-11-23 14:53 | ECG_ITS ---
Test Reason : HYPERKALEMIA Blood Pressure : / mmHG Vent. Rate : 079 BPM Atrial Rate : 079 BPM P-R Int : 164 ms QRS Dur : 092 ms QT Int : 374 ms P-R-T Axes : 036 026 005 degrees QTc Int : 428 ms Artifact in tracing Normal sinus rhythm Likely Normal ECG When compared with ECG of 18-APR-2017 12:58, due to artifact, difficult to compare pt sitting in wheelchair Referred By: Jessica Li Electronically Signed By:MAE MO
[2022-11-23 15:02] LABS: MANUAL DIFF FLAG NO
[2022-11-23 15:13] LABS: Basophils Absolute Auto 0.1 X10*3/uL (0.0-0.2); Basophils Percent Auto 0.7 % (0-2); Eosinophils Absolute Auto 0.1 X10*3/uL (0.0-0.4); Eosinophils Percent Auto 1.4 % (0-4); Hematocrit 43.6 % (37.0-47.0); Hemoglobin 13.1 g/dl (12.0-16.0); Imm Gran Abs Auto 0.12 X10*3/uL (0.00-0.03); Imm Gran Pct Auto 1.3 % (0.0-0.4); Lymphocytes Absolute Auto 1.4 X10*3/uL (1.2-4.9); Lymphocytes Percent Auto 15.4 % (20-40); Mean Corpuscular Volume 103.3 fL (80.0-98.0); Monocytes Absolute Auto 0.6 X10*3/uL (0.1-1.2); Monocytes Percent Auto 6.4 % (2-11); Neutrophils Absolute Auto 6.8 x10*3/uL (2.0-8.3); Neutrophils Percent Auto 74.8 % (45-73); Platelet Count 200 X10*3/uL (160-400); Red Blood Count 4.22 X10*6/uL (4.20-5.50); Red Cell Distribution Width 16.7 % (11.0-16.0); White Blood Count 9.1 X10*3/uL (4.8-10.8)
[2022-11-23 15:27] LABS: Estimated Average Glucose 100 mg/dL; Hemoglobin A1c % 5.1 %
[2022-11-23 15:42] LABS: Alanine Aminotransferase 11 U/L (0-31); Anion Gap 11 (12-20); Aspartate Amino Transferase 11 U/L (5-31); Blood Urea Nitrogen 19 mg/dL (9-16); Calcium 9.4 mg/dL (8.4-10.2); Carbon Dioxide 33 mmol/L (22-29); Chloride 104 mmol/L (96-108); Cholesterol 113 mg/dL; Estimated Glomerular Filt Rate > 60; Glucose Fasting 95 mg/dL (60-99); HDL Cholesterol 33 mg/dL; LDL Cholesterol Calculated 64 mg/dl; Sodium 143 mmol/L (135-145); Triglycerides 84 mg/dL
== END ==
LOC: HO.CARD 13:23
PROVIDERS: PCP Internal Medicine; Visit Provider Internal Medicine
DX: Z01.818 Encounter for other preprocedural examination (principal); E78.5 Hyperlipidemia, unspecified; I10 Essential (primary) hypertension; K21.9 Gastro-esophageal reflux disease without esophagitis; N39.0 Urinary tract infection, site not specified; C67.9 Malignant neoplasm of bladder, unspecified; E66.01 Morbid (severe) obesity due to excess calories; G47.33 Obstructive sleep apnea (adult) (pediatric); J44.9 Chronic obstructive pulmonary disease, unspecified; J45.20 Mild intermittent asthma, uncomplicated; R73.01 Impaired fasting glucose
CPT/HCPCS: 36415; 80048; 80061; 83036; 84450; 84460; 85025; 93005; 94010; 94618; 99212

== ENCOUNTER → 2022-11-30 10:29 | Outpatient (BNVA) | payer MEDICARE, SELFPAY | PROVIDERS: PCP Internal Medicine; Visit Provider Urology | DX: N32.81 Overactive bladder (principal); C67.9 Malignant neoplasm of bladder, unspecified; Z79.899 Other long term (current) drug therapy | CPT/HCPCS: Q3014 ==

== ENCOUNTER 2022-12-06 10:15 | Day surgery (SDC) | payer MEDICARE, SELFPAY ==
[2022-12-01 16:12] VITALS: BMI 55.2
--- NOTE | 2022-12-02 14:55 | P.CONAN_ITS ---
Documented by User: Ximena Monet NP 12/03/22 10:50 HPI - Anesthesia Eval Consult details Narrative: 77yo F for Cystoscopy Bladder biopsy and Fulguration with Gencitabine High pulmo risk per Dr Lozano - NADEEM but declines tx, new supplemental O2 @ 2L, wheelchair bound [facility] Active Problems Active Problems: All Active Problems (Updated 12/01/22 @ 16:08 by Brandi Goodman, RN) Recurrent UTI (Acute) Overactive bladder (Acute) Respiratory failure with hypoxia (Acute) Intertrigo (Acute) Pneumococcal vaccination declined (Acute) Influenza vaccination declined (Acute) NADEEM (obstructive sleep apnea) (Acute) COPD (chronic obstructive pulmonary disease) (Acute) Nocturnal leg cramps (Acute) UTI (urinary tract infection) (Acute) Immunization refused (Acute) Mixed stress and urge urinary incontinence (Acute) Morbid obesity (Acute) Recurrent major 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 (Acute) Impaired fasting glucose (Acute) Dyslipidemia (Acute) GERD (gastroesophageal reflux disease) (Acute) Osteopenia of neck of left femur (Acute) Mild intermittent asthma without complication (Acute) Bladder cancer (Acute) Essential hypertension (Acute) Cataract (Acute) Past Medical History Medical History (Updated 12/06/22 @ 10:28 by Dede Swann RN) Bladder cancer Cataract COPD (chronic obstructive pulmonary disease) Difficult intravenous access Dyslipidemia Endometrial cancer Essential hypertension Ex-smoker for more than 1 year GERD (gastroesophageal reflux disease) Hiatal hernia History of pneumonia Hx of Clostridium difficile infection Hx of gout Immunization refused Impaired fasting glucose Influenza vaccination declined Intertrigo Mild intermittent asthma without complication Mixed stress and urge urinary incontinence Morbid obesity Murmur Myocardial infarct Nocturnal leg cramps OAB (overactive bladder) NADEEM (obstructive sleep apnea) Osteopenia of neck of left femur Pneumococcal vaccination declined Recurrent major 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 Respiratory failure with hypoxia Restrictive lung disease Sleep apnea, unspecified Snores Supplemental oxygen dependent Urinary incontinence UTI (urinary tract infection) Family History Family History Father Heart disease Mother No problems noted. Maternal Grandfather Heart disease Maternal Grandmother Heart disease Paternal Grandfather Heart disease Paternal Grandmother Heart disease Family history of problems with anesthesia: No Surgical History Surgical History Cataract extraction status, right eye History of bladder surgery History of neck surgery History of urologic surgery History of vaginal hysterectomy Hx of bilateral cataract extraction Hx of colonoscopy Hx of cystoscopy History of Problems with Anesthesia: No Social History Social History Housing: House Are you a primary human services care specialist to a significant other at home: Yes (spouse had recent knee replacement) Do you presently have visiting nurse or other home services: No Alcohol intake: never Patient Tobacco Use Status: Former Tobacco user Quit Date: 2007 Tobacco use type: Cigarette e-Cigarette/Vaping Use: Never Used Second Hand Smoke Exposure: No Use of substances other than those prescribed or required for medical reasons: No Have you been hit, kicked, punched, or otherwise hurt by someone within the past year? If so, by whom?: No Are you DNR?: No Advance Directives: No Advance Directives Information Provided: Yes Advance Directives on File: No Recently lost weight without trying: No Current occupational status: disabled Cognitive needs: No Hearing needs: No Vision needs: Yes Meds Allergies Allergy/AdvReac Type Severity Reaction Status Date / Time bee pollen [bee stings] Allergy Severe Anaphylaxis Verified 12/03/22 02:48 tetanus toxoid, adsorbed Allergy Severe LOCAL Verified 12/03/22 02:48 [Tetanus Toxoid,Adsorbed] INJ.SITE SWELLING beeswax [BEESWAX] Allergy Intermediate Hives Verified 12/03/22 02:48 Iodinated Contrast Media Allergy Intermediate HIVES-CAT Verified 12/03/22 02:48 [IV Dye, Iodine Containing] SCAN DYE iodine [Iodine] Allergy Intermediate SWELLING, Verified 12/03/22 02:48 blister, hives Penicillins Allergy Intermediate SWELLING, Verified 12/03/22 02:48 hives, rash Sulfa (Sulfonamide Allergy Intermediate Hives Verified 12/03/22 02:48 Antibiotics) pneumococcal vaccine AdvReac Intermediate fever, Verified 12/03/22 02:48 chills pollen AdvReac Mild Nasal Uncoded 12/03/22 02:48 congestion Home Medications Medication Instructions Recorded Confirmed Last Taken Type aspirin 81 mg tablet,delayed 81 mg PO DAILY 04/22/20 12/01/22 12/07/21 History release cholecalciferol (vitamin D3) 25 25 mcg PO DAILY 04/22/20 12/01/22 Unknown History mcg (1,000 unit) tablet (Vitamin D3) coenzyme Q10 100 mg capsule 100 mg PO DAILY 04/22/20 12/01/22 Unknown History (CoQ-10) turmeric 400 mg capsule 800 mg PO BID 04/22/20 12/01/22 Unknown History ascorbic acid (vitamin C) 500 mg 500 mg PO DAILY 10/27/21 12/01/22 Unknown History chewable tablet (Vitamin C) furosemide 20 mg tablet 20 mg PO DAILY PRN Edema 11/09/21 12/01/22 Unknown History Exam Exam Date and Time: December 02, 2022 1455 Height,Weight and Vital Signs: Height 4 ft 10 in Weight 119.748 kg Pertinent Lab Results Pertinent Lab Results: Laboratory Tests 11/23/22 11/23/22 15:00 15:00 WBC 9.1 Hgb 13.1 Hct 43.6 Plt Count 200 Sodium 143 Potassium 5.0 Chloride 104 Carbon Dioxide 33 H BUN 19 H Creatinine 0.79 Narrative Narrative: EKG 11/2022 Vent. Rate : 079 BPM ? ? Atrial Rate : 079 BPM ?? P-R Int : 164 ms? QRS Dur : 092 ms ? ? QT Int : 374 ms ? ? ? P-R-T Axes : 036 026 005 degrees ?? QTc Int : 428 ms ? Artifact in tracing Normal sinus rhythm Likely? Normal ECG When compared with ECG of 18-APR-2017 12:58, due to artifact, difficult to compare pt sitting in wheelchair spirometry 11/2022 FVC 50%? FEV1 32%. ? FEV1/FVC 49 fef 25-75? 15% The results are similar to last year. O2 sat at rest 84%,? on O2 2 L/minute is 96% Assessment and Plan Assessment Anesthesia Assessment: Chart Reviewed Final Anesthetic Review Family History of Problems with Anesthesia: No History of Problems with Anesthesia: No Documented by User: Gaudencio Trivedi MD 12/06/22 11:40 [facility] Past Medical History Medical History (Updated 12/06/22 @ 10:28 by Dede Swann RN) Bladder cancer Cataract COPD (chronic obstructive pulmonary disease) Difficult intravenous access Dyslipidemia Endometrial cancer Essential hypertension Ex-smoker for more than 1 year GERD (gastroesophageal reflux disease) Hiatal hernia History of pneumonia Hx of Clostridium difficile infection Hx of gout Immunization refused Impaired fasting glucose Influenza vaccination declined Intertrigo Mild intermittent asthma without complication Mixed stress and urge urinary incontinence Morbid obesity Murmur Myocardial infarct Nocturnal leg cramps OAB (overactive bladder) NADEEM (obstructive sleep apnea) Osteopenia of neck of left femur Pneumococcal vaccination declined Recurrent major 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 Respiratory failure with hypoxia Restrictive lung disease Sleep apnea, unspecified Snores Supplemental oxygen dependent Urinary incontinence UTI (urinary tract infection) Family History Family History Father Heart disease Mother No problems noted. Maternal Grandfather Heart disease Maternal Grandmother Heart disease Paternal Grandfather Heart disease Paternal Grandmother Heart disease Surgical History Surgical History Cataract extraction status, right eye History of bladder surgery History of neck surgery History of urologic surgery History of vaginal hysterectomy Hx of bilateral cataract extraction Hx of colonoscopy Hx of cystoscopy Social History Social History Housing: House Are you a primary human services care specialist to a significant other at home: Yes (spouse had recent knee replacement) Do you presently have visiting nurse or other home services: No Alcohol intake: never Patient Tobacco Use Status: Former Tobacco user Quit Date: 2007 Tobacco use type: Cigarette e-Cigarette/Vaping Use: Never Used Second Hand Smoke Exposure: No Use of substances other than those prescribed or required for medical reasons: No Have you been hit, kicked, punched, or otherwise hurt by someone within the past year? If so, by whom?: No Are you DNR?: No Advance Directives: No Advance Directives Information Provided: Yes Advance Directives on File: No Recently lost weight without trying: No Current occupational status: disabled Cognitive needs: No Hearing needs: No Vision needs: Yes Meds Allergies Allergy/AdvReac Type Severity Reaction Status Date / Time bee pollen [bee stings] Allergy Severe Anaphylaxis Verified 12/03/22 02:48 tetanus toxoid, adsorbed Allergy Severe LOCAL Verified 12/03/22 02:48 [Tetanus Toxoid,Adsorbed] INJ.SITE SWELLING beeswax [BEESWAX] Allergy Intermediate Hives Verified 12/03/22 02:48 Iodinated Contrast Media Allergy Intermediate HIVES-CAT Verified 12/03/22 02:48 [IV Dye, Iodine Containing] SCAN DYE iodine [Iodine] Allergy Intermediate SWELLING, Verified 12/03/22 02:48 blister, hives Penicillins Allergy Intermediate SWELLING, Verified 12/03/22 02:48 hives, rash Sulfa (Sulfonamide Allergy Intermediate Hives Verified 12/03/22 02:48 Antibiotics) pneumococcal vaccine AdvReac Intermediate fever, Verified 12/03/22 02:48 chills pollen AdvReac Mild Nasal Uncoded 12/03/22 02:48 congestion Home Medications Medication Instructions Recorded Confirmed Last Taken Type aspirin 81 mg tablet,delayed 81 mg PO DAILY 04/22/20 12/01/22 12/07/21 History release cholecalciferol (vitamin D3) 25 25 mcg PO DAILY 04/22/20 12/01/22 Unknown History mcg (1,000 unit) tablet (Vitamin D3) coenzyme Q10 100 mg capsule 100 mg PO DAILY 04/22/20 12/01/22 Unknown History (CoQ-10) turmeric 400 mg capsule 800 mg PO BID 04/22/20 12/01/22 Unknown History ascorbic acid (vitamin C) 500 mg 500 mg PO DAILY 10/27/21 12/01/22 Unknown History chewable tablet (Vitamin C) furosemide 20 mg tablet 20 mg PO DAILY PRN Edema 11/09/21 12/01/22 Unknown History Exam Airway Mallampati Class: II TM Dist: >3cm Neck ROM: Limited Loose/Missing/Broken Teeth: No Heart: ok Lungs: Diminished BS, normal exp phase, no wheeze. Assessment and Plan Assessment Anesthesia Assessment: Anesthesia Plan Discussed Final Anesthetic Review NPO: Yes ASA Class: IV (very high risk) Final Preanesthetic Review: No Changes in Pt Med Stat, Meds/Allgs Chart Reviewed, Consent Obtained/Reviewed and Anes Risks/Benef Reviewed Patient Risk: High (very high risk. Extended disc of risk.) Procedure Risk: Low Anesthetic Plan Anesthetic Plan: MAC: and Agree w/ Assess. and Plan Disposition: Standard PACU
[2022-12-06] VITALS (10 sets, daily range): BP systolic 105–168; BP diastolic 64–106; PULSE 64–75; RESP 16–20; TEMP 36.2–36.8; O2SAT 92–100
[2022-12-06] MEDS: Lactated Ringers 1,000 ML 50 ML IVCONT (11:16)
--- NOTE | 2022-12-06 11:16 | P.HPSUR_ITS ---
Pre-Procedural Eval Section A Date of Service: 12/06/22 Changes since office visit: No Cold of Flu in the past 2 weeks, No New Medical Problems, No Changes in Medication and No Patient answered all questions The History & Physical has been completed within 30 days and I have reviewed it.: Yes Section B Chief Complaint: Malignant neoplasm of bladder, unspecified Details of Present Illness: recurrent superficial bladder cancer Allergies: Allergies Allergy/AdvReac Type Severity Reaction Status Date / Time bee pollen [bee stings] Allergy Severe Anaphylaxis Verified 12/03/22 02:48 tetanus toxoid, adsorbed Allergy Severe LOCAL Verified 12/03/22 02:48 [Tetanus Toxoid,Adsorbed] INJ.SITE SWELLING beeswax [BEESWAX] Allergy Intermediate Hives Verified 12/03/22 02:48 Iodinated Contrast Media Allergy Intermediate HIVES-CAT Verified 12/03/22 02:48 [IV Dye, Iodine Containing] SCAN DYE iodine [Iodine] Allergy Intermediate SWELLING, Verified 12/03/22 02:48 blister, hives Penicillins Allergy Intermediate SWELLING, Verified 12/03/22 02:48 hives, rash Sulfa (Sulfonamide Allergy Intermediate Hives Verified 12/03/22 02:48 Antibiotics) pneumococcal vaccine AdvReac Intermediate fever, Verified 12/03/22 02:48 chills pollen AdvReac Mild Nasal Uncoded 12/03/22 02:48 congestion Review of Systems Sugical H&P ROS: Negative: Constitution, Cardiovascular, Respiratory, Neurological, Psychiatric, Hem-Onc, Allergic/Immunologic, Gastrointestinal, Genitourinary, Musculoskeletal, Integumentary, Endocrine and Eyes/Ears/Nose/Throat Exam Surgical H&P Exam: Normal: HEENT, Normal: Heart, Normal: Lungs, Normal: Extremities, Normal: Abdomen, Normal: Skin and Normal: Neurological Plan Diagnosis/Plan: Unchanged ( cystoscopy, bladder biopsy, fulguration, gemci tabine) I have reviewed the history and physical and performed a pertinent physical examination on my patient. No changes have occurred unless specified. Time Spent With Patient Time: Total time managing care of this patient today ____ minutes.
--- NOTE | 2022-12-06 11:30 | PC.NURSE ---
PATIENT STATES SHES BEEN COUGHING UP WHITE AND YELLOW SPUTUM FOR A COUPLE OF WEEKS. NO RESP DISTRESS. HOB 90 DEGREES. USED BEDSIDE INHALER PER MD KHALIL.
--- NOTE | 2022-12-06 12:39 | W.PM.OPN ---
Operative Note Operative Note Date of Service: 12/06/22 Narrative: PreOperative Diagnosis: bladder cancer Post Operative Diagnosis: bladder cancer Procedure: cystoscopy, bladder biopsy, fulguration, gemcitabine Surgeon: Dr Sánchez Mcmillan Anesthesia: LMA Indications for procedure: Superficial bladder cancer. Here for cystoscopy, bladder biopsy. Evaluation. Procedure: After informed consent was verified the patient was brought to the operating room and placed in a supine position. Anesthesia was administered per protocol. The patient was placed in modified dorsal lithotomy position and prepped and draped in a sterile fashion. Safety pause time-out was performed. Antibiotics being given. Cystoscopy was performed. Red area midline posterior above trigone. Area biopsied. Area approximately size of 2 quarters was fulgurated. At the end of fulguration bladder was emptied. Eighteen Kiswahili Briggs catheter placed. 2 g of gemcitabine in 100 cc normal saline instilled. This will be kept for approximately 1 hour before being drained from bladder with 3 L of bladder irrigation. The patient tolerated the procedure well. They were extubated in operating room and transferred in stable conditions recovery area. Pathology: Bladder biopsies Drains: Briggs
== END 2022-12-06 15:26 | disposition home or self-care (01) ==
PROVIDERS: PCP Internal Medicine; Visit Provider Urology
PROC: 0T5B8ZZ Destruction of Bladder, Via Natural or Artificial Opening Endoscopic (ICD-10-PCS; CPT 52214; principal; 2022-12-06 12:20)
DX: C67.9 Malignant neoplasm of bladder, unspecified (principal); N39.46 Mixed incontinence; N32.81 Overactive bladder; G47.33 Obstructive sleep apnea (adult) (pediatric); I10 Essential (primary) hypertension; E78.5 Hyperlipidemia, unspecified; J44.9 Chronic obstructive pulmonary disease, unspecified; J45.20 Mild intermittent asthma, uncomplicated; R73.01 Impaired fasting glucose; E66.01 Morbid (severe) obesity due to excess calories; Z79.82 Long term (current) use of aspirin; Z79.899 Other long term (current) drug therapy; Z91.030 Bee allergy status; Z91.041 Radiographic dye allergy status; Z88.0 Allergy status to penicillin; Z88.7 Allergy status to serum and vaccine; Z88.2 Allergy status to sulfonamides; Z87.891 Personal history of nicotine dependence
CPT/HCPCS: 52214; 51720; J1956; J3010; J9201

== ENCOUNTER 2022-12-21 11:10 | Outpatient (AMB) | payer MEDICARE, SELFPAY ==
--- NOTE | 2022-12-21 11:15 | A.OFFVIS_ITS ---
Intake Intake Visit Reasons: 2 week (gemcitabine/bx results) Intake Note: Patient presents today for 2 weeks Biopsy Results. Welder Tack Required: No Accompanied by: Other Relationship Allergies bee pollen [bee stings] Allergy (Severe, Verified 03/14/23 11:18) Anaphylaxis tetanus toxoid, adsorbed [Tetanus Toxoid,Adsorbed] Allergy (Severe, Verified 03/14/23 11:18) LOCAL INJ.SITE SWELLING beeswax [BEESWAX] Allergy (Intermediate, Verified 03/14/23 11:18) Hives Iodinated Contrast Media [IV Dye, Iodine Containing] Allergy (Intermediate, Verified 03/14/23 11:18) HIVES-CAT SCAN DYE iodine [Iodine] Allergy (Intermediate, Verified 03/14/23 11:18) SWELLING, blister, hives Penicillins Allergy (Intermediate, Verified 03/14/23 11:18) SWELLING, hives, rash Sulfa (Sulfonamide Antibiotics) Allergy (Intermediate, Verified 03/14/23 11:18) Hives pneumococcal vaccine Adverse Reaction (Intermediate, Verified 03/14/23 11:18) fever, chills pollen Adverse Reaction (Mild, Uncoded 03/14/23 11:18) Nasal congestion HPI HPI Comments History of Present Illness Details Morena is a pleasant female. She is a patient Dr. Li. She is seen for the following urologic conditions - bladder cancer - urinary frequency urgency Biopsy performed Superficial bladder cancer biopsy with mitomycin-C Three month follow-up cystoscopy Bladder cancer - low-grade superficial Diagnosed by Dr. Betancourt 2019 Underwent TURBT with 6 week gemcitabine induction Cystoscopy - 03/24 NAD, 09/22 NAD - significant trabe culation, 03/25 diverticulum in bladder, redness right sidewall, 10/24 persistence area redness Cytology 03/25 NAD Urinary frequency/urgency Has InterStim had been placed many years ago InterStim revision 12/23 - new lead and battery InterStim had been working but decreased efficacy when came off medications Back on 15 mg Myrbetriq and restarted tolterodine PFSH Medical History Gait instability Restrictive lung disease Myocardial infarct Supplemental oxygen dependent Difficult intravenous access Respiratory failure with hypoxia Intertrigo Pneumococcal vaccination declined Influenza vaccination declined NADEEM (obstructive sleep apnea) COPD (chronic obstructive pulmonary disease) Restrictive lung disease OAB (overactive bladder) Murmur Nocturnal leg cramps UTI (urinary tract infection) Endometrial cancer Immunization refused Mixed stress and urge urinary incontinence Morbid obesity Recurrent major 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 Impaired fasting glucose Dyslipidemia Osteopenia of neck of left femur Mild intermittent asthma without complication Essential hypertension Cataract Hx of gout Hx of Clostridium difficile infection Urinary incontinence Hiatal hernia GERD (gastroesophageal reflux disease) Sleep apnea, unspecified Snores Ex-smoker for more than 1 year Bladder cancer History of pneumonia Surgical History History of urologic surgery Hx of bilateral cataract extraction Cataract extraction status, right eye Hx of colonoscopy Hx of cystoscopy History of neck surgery History of vaginal hysterectomy History of bladder surgery Family History Father Heart disease Mother No problems noted. Maternal Grandfather Heart disease Maternal Grandmother Heart disease Paternal Grandfather Heart disease Paternal Grandmother Heart disease Social History Housing: House Are you a primary healthcare business analyst to a significant other at home: Yes (spouse had recent knee replacement) Do you presently have visiting nurse or other home services: No Alcohol intake: never Patient Tobacco Use Status: Former Tobacco user Quit Date: 2007 Tobacco use type: Cigarette e-Cigarette/Vaping Use: Never Used Second Hand Smoke Exposure: No Current occupational status: disabled Cognitive needs: No Hearing needs: No Vision needs: Yes Review of Systems Const Denies chills and Denies fever(s) Card Reports no additional complaints and Denies syncope Resp Denies cough GI Denies abdominal pain and Denies heartburn Reports as per HPI and Denies change in libido Neuro Denies syncope Psych Denies change in libido Endo Denies change in libido Physical Exam Const General: cooperative, healthy appearing, comfortable and no acute distress Orientation/consciousness: patient oriented x3 HEENT Face and sinus: Yes normal facial exam Mouth: moist mucous membranes Neck Neck: Yes normal visual inspection, Yes full ROM and Yes trachea midline Chest Chest palpation & inspection: normal inspection of the chest Resp Effort & Inspection: normal respiratory effort, able to speak in complete sentences and no respiratory distress GI Inspection: Yes normal to inspection Back/Spine/Pelvis Cervical Spine: normal cervical lordosis Thoracic/Lumbar Spine: thoracic and lumbar spine normal to inspection Skin General skin exam: no rashes or lesions noted Neuro General: patient oriented x3, gait normal, tone normal and moves all extremities Extrem General: Yes normal to inspection and Yes capillary refill normal Assessment & Plan Assessment & Plan (1) Overactive bladder: Comment: InterStim revision in 2021 Code(s): N32.81 - Overactive bladder (2) Bladder cancer: Comment: 2019 low-grade Code(s): C67.9 - Malignant neoplasm of bladder, unspecified Plan Three month follow-up cystoscopy Patient Instructions: Imaging studies, laboratory and physical exam results were discussed and reviewed in detail. No major barriers to patient understanding were identified. An opportunity to ask questions regarding the treatment plan was provided. All questions were answered. The patient expressed understanding and agreement with the above treatment plan. The patient is aware they should contact our office by phone for worsening of their current condition or the appearance of new urologic symptoms. Compliance is encouraged with any medications and followup testing that is ordered. It is a privilege to participate in the urologic care of your patient. If you have any questions or concerns regarding treatment for the above conditions, or other urologic issues, please do not hesitate to contact me. The office telephone contact is [phone]. This note is constructed using voice recognition software. While every effort has been made to ensure accuracy director errors may have been included. Yours sincerely, Dr Sánchez Mcmillan MD, [facility] - Urology Providers of Expert, Compassionate Care for the Genitourinary System Coding Level of Care Code Est Pt Level 3 (18250) Diagnoses Overactive bladder N32.81 Bladder cancer C67.9
== END 2022-12-21 11:32 | disposition home or self-care (01) ==
LOC: HO.HUSH 11:10
PROVIDERS: PCP Internal Medicine; Visit Provider Urology
DX: N32.81 Overactive bladder (principal); C67.9 Malignant neoplasm of bladder, unspecified
CPT/HCPCS: 99213

== ENCOUNTER → 2022-12-21 11:10 | Outpatient (BNVA) | payer MEDICARE, SELFPAY | PROVIDERS: PCP Internal Medicine; Visit Provider Urology | DX: C67.9 Malignant neoplasm of bladder, unspecified (principal); R39.15 Urgency of urination; R35.0 Frequency of micturition; Z96.0 Presence of urogenital implants | CPT/HCPCS: 99212 ==

== ENCOUNTER → 2022-12-23 13:45 | Outpatient (BNVA) | payer MEDICARE, SELFPAY | PROVIDERS: PCP Internal Medicine; Visit Provider Internal Medicine | DX: J44.9 Chronic obstructive pulmonary disease, unspecified (principal); J96.91 Respiratory failure, unspecified with hypoxia; J98.4 Other disorders of lung; G47.33 Obstructive sleep apnea (adult) (pediatric); E66.01 Morbid (severe) obesity due to excess calories; Z87.891 Personal history of nicotine dependence; Z99.81 Dependence on supplemental oxygen | CPT/HCPCS: 99212 ==

== ENCOUNTER 2023-01-27 13:22 | Outpatient (REF) | payer MEDICARE, SELFPAY ==
[2023-01-27 13:34] LABS: Appearance Urine Cloudy; Color Urine Yellow; Glucose Urine UA Negative (Negative); Leukocyte Esterase Urine Moderate (2+) (Negative); Nitrite Urine Negative (Negative); PH 6.5 (5.0-9.0); Specific Gravity - Urine 1.015 (1.005-1.025); UMIC TRIGGER UACC YES; Urine Blood Trace (Negative); Urine Ketones Negative (Negative); Urine Protein 30 (1+) mg/dL (Neg-Trace)
[2023-01-27 13:39] LABS: Bacteria Urine 4+ (None Seen); Hyaline Casts Urine 0-2 /LPF (0-2); UACC Culture Trigger YES; WBC Urine >50 /HPF (0-5)
== END 2023-01-27 13:23 | disposition home or self-care (01) ==
LOC: HO.LNP 13:22
PROVIDERS: Visit Provider Urology
DX: N39.0 Urinary tract infection, site not specified (principal)
CPT/HCPCS: 81001; 87086; 87088; 87186

== ENCOUNTER 2023-02-09 10:00 | Outpatient (AMB) | payer MEDICARE, SELFPAY ==
[2023-02-09 11:03] VITALS: BP 140/68; PULSE 83; O2SAT 96
--- NOTE | 2023-02-09 11:03 | A.OFFVIS_ITS ---
Intake Vital Signs 02/09/23 11:03 BP 140/68 H Blood Pressure Location Lt radial Position Sitting Pulse 83 Pulse Source Pulse Oximeter Pulse Oximetry (%) 96 Oxygen Delivery Method Nasal Cannula Oxygen Flow Rate 2 Intake Visit Reasons: 6 minute walk Allergies bee pollen [bee stings] Allergy (Severe, Verified 02/09/23 11:04) Anaphylaxis tetanus toxoid, adsorbed [Tetanus Toxoid,Adsorbed] Allergy (Severe, Verified 03/26 11:04) LOCAL INJ.SITE SWELLING beeswax [BEESWAX] Allergy (Intermediate, Verified 02/09/23 11:04) Hives Iodinated Contrast Media [IV Dye, Iodine Containing] Allergy (Intermediate, Verified 02/09/23 11:04) HIVES-CAT SCAN DYE iodine [Iodine] Allergy (Intermediate, Verified 02/09/23 11:04) SWELLING, blister, hives Penicillins Allergy (Intermediate, Verified 02/09/23 11:04) SWELLING, hives, rash Sulfa (Sulfonamide Antibiotics) Allergy (Intermediate, Verified 02/09/23 11:04) Hives pneumococcal vaccine Adverse Reaction (Intermediate, Verified 02/09/23 11:04) fever, chills pollen Adverse Reaction (Mild, Uncoded 02/09/23 11:04) Nasal congestion Medication List - Last Reconciled 02/09/23 by Jennifer Philip LPN albuterol sulfate 90 mcg/actuation 2 puffs inhalation Q6H PRN ascorbic acid (vitamin C) (Vitamin C) 500 mg PO DAILY aspirin 81 mg PO DAILY atorvastatin 40 mg PO BEDTIME [bariatric wheelchair As directed] cholecalciferol (vitamin D3) (Vitamin D3) 25 mcg PO DAILY citalopram 20 mg PO DAILY clotrimazole-betamethasone 1-0.05 % 1 appl topical BID 10 days coenzyme Q10 (CoQ-10) 200 mg PO DAILY fluticasone propionate 50 mcg/actuation 1 spray intranasal QAM PRN 30 days furosemide 20 mg PO DAILY PRN ipratropium-albuterol 0.5 mg-3 mg(2.5 mg base)/3 mL 3 mL inhalation Q4-6H PRN 30 days lisinopril 2.5 mg PO DAILY metoprolol succinate ER 100 mg (2 x 50 mg) PO DAILY mirabegron ER (Myrbetriq) 50 mg PO DAILY 90 days pantoprazole 40 mg PO DAILY tolterodine ER 4 mg PO BEDTIME turmeric 500 mg PO DAILY turmeric root extract 500 mg PO DAILY PFSH Medical History (Updated 02/08/23 @ 15:35 by Jessica Li MD) Bladder cancer Cataract COPD (chronic obstructive pulmonary disease) Difficult intravenous access Dyslipidemia Endometrial cancer Essential hypertension Ex-smoker for more than 1 year Gait instability GERD (gastroesophageal reflux disease) Hiatal hernia History of pneumonia Hx of Clostridium difficile infection Hx of gout Immunization refused Impaired fasting glucose Influenza vaccination declined Intertrigo Mild intermittent asthma without complication Mixed stress and urge urinary incontinence Morbid obesity Murmur Myocardial infarct Nocturnal leg cramps OAB (overactive bladder) NADEEM (obstructive sleep apnea) Osteopenia of neck of left femur Pneumococcal vaccination declined Recurrent major 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 Respiratory failure with hypoxia Restrictive lung disease Restrictive lung disease Sleep apnea, unspecified Snores Supplemental oxygen dependent Urinary incontinence UTI (urinary tract infection) Surgical History Cataract extraction status, right eye History of bladder surgery History of neck surgery History of urologic surgery History of vaginal hysterectomy Hx of bilateral cataract extraction Hx of colonoscopy Hx of cystoscopy Family History Father Heart disease Mother No problems noted. Maternal Grandfather Heart disease Maternal Grandmother Heart disease Paternal Grandfather Heart disease Paternal Grandmother Heart disease Social History Housing: House Are you a primary care management associate to a significant other at home: Yes (spouse had recent knee replacement) Do you presently have visiting nurse or other home services: No Alcohol intake: never Patient Tobacco Use Status: Former Tobacco user Quit Date: 2007 Tobacco use type: Cigarette e-Cigarette/Vaping Use: Never Used Second Hand Smoke Exposure: No Current occupational status: disabled Cognitive needs: No Hearing needs: No Vision needs: Yes Office Procedures 6 Minute Walk Time:: 10:00 SPO2 % at rest: 91 (on room air) Pulse at rest: 83 SPO2 % during excercise: 83 Pulse during excercise: 106 SPO2 % after excercise: 95 Pulse after excercise: 88 Distance in yards walked: 150 Rudy Score: 2 Performance Observations:: Morena walked on level ground with the assistance of a walker. Her SPO2 decreased to 87% on room air, pulsed O2 started and did not recover her SPO2 at any setting as it dropped to 83%. O2 started at 2 lpm continuous with an increase of her SPO2 to 87%, O2 increased to 3 lpm and her SPO2 recovered to 94%. She maintained her SPO2 90-94% on 3 lpm continuous O2. 15582 - 6 Minute Walk Assessment & Plan Assessment & Plan (1) COPD (chronic obstructive pulmonary disease): Comment: PATIENT DOES HAVE CHRONIC COUGH WITH CHEST CONGESTION PROBABLY DUE TO CHRONIC OBSTRUCTIVE PULMONARY DISORDER. FOR THIS SHE HAS BEEN PRESCRIBED IPRATROPIUM/ALBUTEROL SOLUTION TO USE IN THE NEBULIZER Q 6 HOURS W/A AND P.R.N. THIS WORKS MUCH BETTER FOR HER THAN USE OF ANY INHALERS. Code(s): J44.9 - Chronic obstructive pulmonary disease, unspecified Orders: Orders AMB 6 minute walk Today J44.9 - Chronic obstructive pulmonary disease, unspecified Coding Level of Care Code Established Pt Est Pt Level 1 (38707) Patient Type Established Diagnoses COPD (chronic obstructive pulmonary disease) J44.9 CPT Codes Coding ([id number]) Comment NURSE VISIT ONLY
[2023-02-09 11:32] VITALS: PULSE 83; O2SAT 91
== END 2023-02-09 10:46 | disposition home or self-care (01) ==
PROVIDERS: PCP Internal Medicine; Visit Provider Internal Medicine
DX: J44.9 Chronic obstructive pulmonary disease, unspecified (principal)
CPT/HCPCS: 94618

== ENCOUNTER → 2023-02-09 10:00 | Outpatient (BNVA) | payer MEDICARE, SELFPAY | PROVIDERS: PCP Internal Medicine; Visit Provider Internal Medicine | DX: J44.9 Chronic obstructive pulmonary disease, unspecified (principal) | CPT/HCPCS: 94618; 99211 ==

== ENCOUNTER 2023-03-04 13:07 | Outpatient (REF) | payer MEDICARE, SELFPAY ==
[2023-03-04 16:45] LABS: Appearance Urine Cloudy; Color Urine Yellow; Glucose Urine UA Negative (Negative); Leukocyte Esterase Urine Small (1+) (Negative); Nitrite Urine Negative (Negative); Specific Gravity - Urine 1.015 (1.005-1.025); UMIC TRIGGER UACC YES; Urine Blood Large (3+) (Negative); Urine Ketones Negative (Negative); Urine Protein 100 (2+) mg/dL (Neg-Trace)
[2023-03-04 18:29] LABS: Bacteria Urine 2+ (None Seen); Hyaline Casts Urine 0-2 /LPF (0-2); Squamous Epithelial Cell Urine >20 /HPF (0-2); UACC Culture Trigger YES; WBC Urine 21-50 /HPF (0-5)
== END 2023-03-04 13:08 | disposition home or self-care (01) ==
LOC: HO.HMGCLNP 13:07
PROVIDERS: PCP Internal Medicine; Visit Provider Urology
DX: N39.0 Urinary tract infection, site not specified (principal)
CPT/HCPCS: 81001; 81003; 87086; 87088; 87186

== ENCOUNTER 2023-03-14 10:54 | Outpatient (AMB) | payer MEDICARE, SELFPAY ==
--- NOTE | 2023-03-14 10:59 | MHC.OFFVIS ---
Intake Vital Signs 03/14/23 11:13 Height 4 ft 10 in Weight 258 lb BMI 53.9 BMI Reason not done Patient refused/unable BP 120/52 L Blood Pressure Location Lt brachial Position Sitting Pulse 69 Pulse Source Pulse Oximeter Pulse Oximetry (%) 98 Oxygen Delivery Method Nasal Cannula Oxygen Flow Rate 2 Intake Visit Reasons: Obstructive sleep apnea, COPD follow-up Intake Note: pt is here for follow up and states she is doing well, she is doing fine. Automation Test Engineer Required: No Allergies bee pollen [bee stings] Allergy (Severe, Verified 03/14/23 11:18) Anaphylaxis tetanus toxoid, adsorbed [Tetanus Toxoid,Adsorbed] Allergy (Severe, Verified 03/14/23 11:18) LOCAL INJ.SITE SWELLING beeswax [BEESWAX] Allergy (Intermediate, Verified 03/14/23 11:18) Hives Iodinated Contrast Media [IV Dye, Iodine Containing] Allergy (Intermediate, Verified 03/14/23 11:18) HIVES-CAT SCAN DYE iodine [Iodine] Allergy (Intermediate, Verified 03/14/23 11:18) SWELLING, blister, hives Penicillins Allergy (Intermediate, Verified 03/14/23 11:18) SWELLING, hives, rash Sulfa (Sulfonamide Antibiotics) Allergy (Intermediate, Verified 03/14/23 11:18) Hives pneumococcal vaccine Adverse Reaction (Intermediate, Verified 03/14/23 11:18) fever, chills pollen Adverse Reaction (Mild, Uncoded 03/14/23 11:18) Nasal congestion Medication List - Last Reconciled 03/14/23 by Bonnie Lozano MD albuterol sulfate 90 mcg/actuation 2 puffs inhalation Q6H PRN ascorbic acid (vitamin C) (Vitamin C) 500 mg PO DAILY aspirin 81 mg PO DAILY atorvastatin 40 mg PO BEDTIME [bariatric transport wheelchair As directed] cholecalciferol (vitamin D3) (Vitamin D3) 25 mcg PO DAILY citalopram 20 mg PO DAILY clotrimazole-betamethasone 1-0.05 % 1 appl topical BID 10 days coenzyme Q10 (CoQ-10) 200 mg PO DAILY estradiol 0.01%(0.1mg/gram) 1 appful vaginal BID fluticasone propionate 50 mcg/actuation 1 spray intranasal QAM PRN 30 days furosemide 20 mg PO DAILY PRN ipratropium-albuterol 0.5 mg-3 mg(2.5 mg base)/3 mL 3 mL inhalation Q4-6H PRN 30 days lisinopril 2.5 mg PO DAILY metoprolol succinate ER 100 mg (2 x 50 mg) PO DAILY mirabegron ER (Myrbetriq) 50 mg PO DAILY 90 days pantoprazole 40 mg PO DAILY tolterodine ER 4 mg PO BEDTIME turmeric 500 mg PO DAILY turmeric root extract 500 mg PO DAILY Do you need a note to return to daycare/school/sports/work: No HPI Obstructive sleep apnea HPI Details 77 years old morbidly obese confined to the wheelchair, but very pleasant lady, Is here for follow-up after she was started on oxygen during the daytime as well. She does have obstructive sleep apnea but has not been able to use CPAP. She uses O2 2.5 L/minute during the night, claims that she sleeps well mostly with propped up had side of the bed. During the daytime she is using oxygen continuously and breathing has been stable. Luckily she has had no respiratory infection. She does have DuoNeb updrafts at home which she uses only once or twice a day, but she can use every 6 hours as needed. In her case we cannot expect her to lose much weight, but she claims that she is a few lb vice president tax than before and this is probably due to diuresis . [facility] Medical History Gait instability Restrictive lung disease Myocardial infarct Supplemental oxygen dependent Difficult intravenous access Respiratory failure with hypoxia Intertrigo Pneumococcal vaccination declined Influenza vaccination declined NADEEM (obstructive sleep apnea) COPD (chronic obstructive pulmonary disease) Restrictive lung disease OAB (overactive bladder) Murmur Nocturnal leg cramps UTI (urinary tract infection) Endometrial cancer Immunization refused Mixed stress and urge urinary incontinence Morbid obesity Recurrent major 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 Impaired fasting glucose Dyslipidemia Osteopenia of neck of left femur Mild intermittent asthma without complication Essential hypertension Cataract Hx of gout Hx of Clostridium difficile infection Urinary incontinence Hiatal hernia GERD (gastroesophageal reflux disease) Sleep apnea, unspecified Snores Ex-smoker for more than 1 year Bladder cancer History of pneumonia Surgical History History of urologic surgery Hx of bilateral cataract extraction Cataract extraction status, right eye Hx of colonoscopy Hx of cystoscopy History of neck surgery History of vaginal hysterectomy History of bladder surgery Family History Father Heart disease Mother No problems noted. Maternal Grandfather Heart disease Maternal Grandmother Heart disease Paternal Grandfather Heart disease Paternal Grandmother Heart disease Social History Housing: House Are you a primary career transition specialist to a significant other at home: Yes (spouse had recent knee replacement) Do you presently have visiting nurse or other home services: No Alcohol intake: never Patient Tobacco Use Status: Former Tobacco user Quit Date: 2007 Tobacco use type: Cigarette e-Cigarette/Vaping Use: Never Used Second Hand Smoke Exposure: No Current occupational status: disabled Cognitive needs: No Hearing needs: No Vision needs: Yes Review of Systems Const All systems reviewed & are unremarkable except as noted in HPI and below Eyes Reports no additional complaints ENT Reports no additional complaints Card Denies chest pain, Denies irregular heart rhythm and Reports leg edema Resp Reports cough (mild intermittent ) and Denies wheezing GI Reports no additional complaints Reports urinary incontinence Musc Reports no additional complaints and Reports abnormal gait (Non ambulatory) Skin/Breast Reports system reviewed and no additional complaints, except as documented Neuro Reports abnormal gait (Non ambulatory) Psych Reports no additional complaints Aller/Immun Denies wheezing Physical Exam Vital Signs: Last Vital Signs Pulse 69 03/14/23 11:13 BP 120/52 L 03/14/23 11:13 Pulse Ox 98 03/14/23 11:13 Oxygen Delivery Method Nasal Cannula 03/14/23 11:13 Oxygen Flow Rate 2 03/14/23 11:13 BMI result Body Mass Index 53.9 Const Other: SHE IS GROSSLY OBESE, BUT CANNOT BE WEIGHED. HAS A LARGE AND SHORT NECK. WITH A ROUND FACE. TYPICAL PHYSICAL FEATURES OF OBSTRUCTIVE SLEEP APNEA. General: comfortable (In a wheelchair), no acute distress, alert and awake Orientation/consciousness: patient oriented x3 HEENT Head: Yes normal to inspection General nose exam: No nasal polyps present and No nasal discharge present Face and sinus: Yes sinuses nontender Mouth: oropharynx abnormals (Oropharynx is crowded, Mallampati class 4) Throat: Yes posterior oropharynx normal Eyes General: appearance normal, both eyes and all related structures Neck Neck: Yes normal visual inspection, Yes no lymphadenopathy, Yes trachea midline, Yes no JVD and Yes other (Very obese and short) Thyroid: Thyroid normal Chest Chest palpation & inspection: normal inspection of the chest, normal palpation of entire chest wall and no tenderness Resp Other: Percussion note is not perceptible because of gross obesity. Breath sounds are heard equally in the upper parts of the chest and diminished over the lower lobes. No wheezes rhonchi or crepitations were heard. Cardio Palpation: normal PMI Rate: regular rate Rhythm: regular rhythm Heart sounds: no gallops and no murmurs GI Palpation (GI): Soft to palpation, nontender, No hepatosplenomegaly present, no masses and Other GI palpation findings present (Abdomen grossly obese) Auscultation: normal bowel sounds Back/Spine/Pelvis Thoracic/Lumbar Spine: thoracic and lumbar spine normal to inspection and thoraco-lumbar ROM limited Skin General skin exam: no rashes or lesions noted Neuro General: patient oriented x3, No gait normal (Gait is impaired because of her morbid obesity) and no focal motor deficits Cranial nerves: Yes CN's II-XII intact bilaterally Extrem General: Yes normal to inspection, Yes no calf tenderness and Yes edema (Edema around the ankles, stasis edema) Psych Appearance: grossly normal and well kempt Speech and movement: Normal speech and movement present Assessment & Plan Assessment & Plan (1) Morbid obesity: Comment: THIS PATIENT HAS SUPER MORBID OBESITY. PATIENT CLAIMS THAT SHE HAS LOST ABOUT 8 LB OF WEIGHT, BUT COULD NOT BE WEIGHED HERE IN THE OFFICE. THERE IS NO POTENTIAL FOR HER TO LOSE WEIGHT. Code(s): E66.01 - Morbid (severe) obesity due to excess calories (2) COPD (chronic obstructive pulmonary disease): Comment: PATIENT DOES HAVE CHRONIC COUGH WITH CHEST CONGESTION PROBABLY DUE TO CHRONIC OBSTRUCTIVE PULMONARY DISORDER. FOR THIS SHE HAS BEEN PRESCRIBED IPRATROPIUM/ALBUTEROL SOLUTION TO USE IN THE NEBULIZER Q 6 HOURS W/A AND P.R.N. THIS WORKS MUCH BETTER FOR HER THAN USE OF ANY INHALERS. Code(s): J44.9 - Chronic obstructive pulmonary disease, unspecified (3) Restrictive lung disease: Comment: PATIENT MUST HAVE SIGNIFICANT RESTRICTIVE LUNG DISORDER BECAUSE OF HER MORBID OBESITY. SHE WILL TRY TO LOSE WEIGHT. SHE DOES HAVE INCENTIVE SPIROMETRY DEVICE AT HOME AND IS INSTRUCTED TO DO DEEP BREATHING EXERCISES 3 TO 4 TIMES A DAY. Code(s): J98.4 - Other disorders of lung (4) NADEEM (obstructive sleep apnea): Comment: *BECAUSE OF HER MORBID OBESITY SHE HAS FEATURES OF OBSTRUCTIVE SLEEP APNEA. HOWEVER SHE WOULD NOT CONSENT FOR ANY WORKUP OR TREATMENT AT THIS TIME . Code(s): G47.33 - Obstructive sleep apnea (adult) (pediatric) Coding Level of Care Code Est Pt Level 4 (85105) Diagnoses Morbid obesity E66.01 COPD (chronic obstructive pulmonary disease) J44.9 Restrictive lung disease J98.4 NADEEM (obstructive sleep apnea) G47.33
[2023-03-14 11:13] VITALS: BP 120/52; PULSE 69; O2SAT 98; BMI 53.9
== END 2023-03-14 11:33 | disposition home or self-care (01) ==
PROVIDERS: PCP Internal Medicine; Visit Provider Internal Medicine
DX: E66.01 Morbid (severe) obesity due to excess calories (principal); J44.9 Chronic obstructive pulmonary disease, unspecified; J98.4 Other disorders of lung; G47.33 Obstructive sleep apnea (adult) (pediatric)
CPT/HCPCS: 99214

== ENCOUNTER → 2023-03-14 10:54 | Outpatient (BNVA) | payer MEDICARE, SELFPAY | PROVIDERS: Visit Provider Internal Medicine | DX: J44.9 Chronic obstructive pulmonary disease, unspecified (principal); J98.4 Other disorders of lung; E66.01 Morbid (severe) obesity due to excess calories; Z68.43 Body mass index [BMI] 50.0-59.9, adult; G47.33 Obstructive sleep apnea (adult) (pediatric) | CPT/HCPCS: 99212 ==

== ENCOUNTER 2023-03-28 09:13 | Outpatient (REF) | payer MEDICARE, SELFPAY ==
[2023-03-28 12:31] LABS: Hematocrit 37.8 % (37.0-47.0); Hemoglobin 11.7 g/dl (12.0-16.0)
[2023-03-28 13:03] LABS: Alanine Aminotransferase 9 U/L (0-31); Anion Gap 14 (12-20); Aspartate Amino Transferase 15 U/L (5-31); Blood Urea Nitrogen 13 mg/dL (9-16); Calcium 9.3 mg/dL (8.4-10.2); Carbon Dioxide 29 mmol/L (22-29); Chloride 102 mmol/L (96-108); Cholesterol 130 mg/dL (<200); Estimated Glomerular Filt Rate > 60; Glucose Fasting 98 mg/dL (60-99); HDL Cholesterol 39 mg/dL (>40); LDL Cholesterol Calculated 75 mg/dL (<100); Potassium 4.1 mmol/L (3.3-5.1); Sodium 141 mmol/L (135-145); Triglycerides 84 mg/dL (<150); Vitamin D 25-OH Total 45.4 ng/mL (>30)
== END 2023-03-28 09:14 | disposition home or self-care (01) ==
LOC: HO.HMGCLDS 09:13
PROVIDERS: PCP Internal Medicine; Visit Provider Internal Medicine
DX: Z00.01 Encounter for general adult medical examination with abnormal findings (principal); C67.9 Malignant neoplasm of bladder, unspecified; I10 Essential (primary) hypertension; J45.20 Mild intermittent asthma, uncomplicated; M85.852 Other specified disorders of bone density and structure, left thigh; K21.9 Gastro-esophageal reflux disease without esophagitis; E78.5 Hyperlipidemia, unspecified; R73.01 Impaired fasting glucose; E66.01 Morbid (severe) obesity due to excess calories
CPT/HCPCS: 36415; 80048; 80061; 82306; 84450; 84460; 85014; 85018

== ENCOUNTER 2023-03-30 09:31 | Outpatient (AMB) | payer MEDICARE, SELFPAY ==
[2023-03-30 09:33] VITALS: BP 132/62; PULSE 73; O2SAT 99; BMI 54.1
--- NOTE | 2023-03-30 09:33 | MHC.OFFWIV ---
Intake Vital Signs 03/30/23 09:33 Height 4 ft 10 in Intake Visit Reasons: pe Intake Note: pt is here for physical exam Patient Tobacco Use Status: Former Tobacco user Quit Date: 2007 Allergies bee pollen [bee stings] Allergy (Severe, Verified 03/30/23 09:34) Anaphylaxis tetanus toxoid, adsorbed [Tetanus Toxoid,Adsorbed] Allergy (Severe, Verified 03/30/23 09:34) LOCAL INJ.SITE SWELLING beeswax [BEESWAX] Allergy (Intermediate, Verified 03/30/23 09:34) Hives Iodinated Contrast Media [IV Dye, Iodine Containing] Allergy (Intermediate, Verified 03/30/23 09:34) HIVES-CAT SCAN DYE iodine [Iodine] Allergy (Intermediate, Verified 03/30/23 09:34) SWELLING, blister, hives Penicillins Allergy (Intermediate, Verified 03/30/23 09:34) SWELLING, hives, rash Sulfa (Sulfonamide Antibiotics) Allergy (Intermediate, Verified 03/30/23 09:34) Hives pneumococcal vaccine Adverse Reaction (Intermediate, Verified 03/30/23 09:34) fever, chills pollen Adverse Reaction (Mild, Uncoded 03/14/23 11:18) Nasal congestion Do you need a note to return to daycare/school/sports/work: Yes PFSH Medical History Gait instability Restrictive lung disease Myocardial infarct Supplemental oxygen dependent Difficult intravenous access Respiratory failure with hypoxia Intertrigo Pneumococcal vaccination declined Influenza vaccination declined NADEEM (obstructive sleep apnea) COPD (chronic obstructive pulmonary disease) Restrictive lung disease OAB (overactive bladder) Murmur Nocturnal leg cramps UTI (urinary tract infection) Endometrial cancer Immunization refused Mixed stress and urge urinary incontinence Morbid obesity Recurrent major 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 Impaired fasting glucose Dyslipidemia Osteopenia of neck of left femur Mild intermittent asthma without complication Essential hypertension Cataract Hx of gout Hx of Clostridium difficile infection Urinary incontinence Hiatal hernia GERD (gastroesophageal reflux disease) Sleep apnea, unspecified Snores Ex-smoker for more than 1 year Bladder cancer History of pneumonia Surgical History History of urologic surgery Hx of bilateral cataract extraction Cataract extraction status, right eye Hx of colonoscopy Hx of cystoscopy History of neck surgery History of vaginal hysterectomy History of bladder surgery Family History Father Heart disease Mother No problems noted. Maternal Grandfather Heart disease Maternal Grandmother Heart disease Paternal Grandfather Heart disease Paternal Grandmother Heart disease Social History Housing: House Are you a primary manager care management to a significant other at home: Yes (spouse had recent knee replacement) Do you presently have visiting nurse or other home services: No Alcohol intake: never Patient Tobacco Use Status: Former Tobacco user Quit Date: 2007 Tobacco use type: Cigarette e-Cigarette/Vaping Use: Never Used Second Hand Smoke Exposure: No Current occupational status: disabled Cognitive needs: No Hearing needs: No Vision needs: Yes Coding
--- NOTE | 2023-03-30 09:42 | MHC.PC.OV ---
Vital Signs 03/30/23 09:33 Height 4 ft 10 in Weight 259 lb BMI 54.1 BP 132/62 Blood Pressure Location Lt brachial Position Sitting Pulse 73 Pulse Source Pulse Oximeter Pulse Oximetry (%) 99 Intake Visit Reasons: pe Intake Note: pt is here for physical exam Accompanied by: Spouse Allergies bee pollen [bee stings] Allergy (Severe, Verified 03/30/23 10:05) Anaphylaxis tetanus toxoid, adsorbed [Tetanus Toxoid,Adsorbed] Allergy (Severe, Verified 03/30/23 10:05) LOCAL INJ.SITE SWELLING beeswax [BEESWAX] Allergy (Intermediate, Verified 03/30/23 10:05) Hives Iodinated Contrast Media [IV Dye, Iodine Containing] Allergy (Intermediate, Verified 03/30/23 10:05) HIVES-CAT SCAN DYE iodine [Iodine] Allergy (Intermediate, Verified 03/30/23 10:05) SWELLING, blister, hives Penicillins Allergy (Intermediate, Verified 03/30/23 10:05) SWELLING, hives, rash Sulfa (Sulfonamide Antibiotics) Allergy (Intermediate, Verified 03/30/23 10:05) Hives pneumococcal vaccine Adverse Reaction (Intermediate, Verified 03/30/23 10:05) fever, chills pollen Adverse Reaction (Mild, Uncoded 03/30/23 10:05) Nasal congestion Medication List - Last Reconciled 03/30/23 by Jessica Li MD albuterol sulfate 90 mcg/actuation 2 puffs inhalation Q6H PRN ascorbic acid (vitamin C) (Vitamin C) 500 mg PO DAILY aspirin 81 mg PO DAILY atorvastatin 40 mg PO BEDTIME [bariatric transport wheelchair As directed] cholecalciferol (vitamin D3) (Vitamin D3) 25 mcg PO DAILY citalopram 20 mg PO DAILY clotrimazole-betamethasone 1-0.05 % 1 appl topical BID 10 days coenzyme Q10 (CoQ-10) 300 mg PO DAILY estradiol 0.01%(0.1mg/gram) 1 appful vaginal BID fluticasone propionate 50 mcg/actuation 1 spray intranasal QAM PRN 30 days ipratropium-albuterol 0.5 mg-3 mg(2.5 mg base)/3 mL 3 mL inhalation Q4-6H PRN 30 days lisinopril 2.5 mg PO DAILY metoprolol succinate ER 100 mg (2 x 50 mg) PO DAILY mirabegron ER (Myrbetriq) 50 mg PO DAILY 90 days pantoprazole 40 mg PO DAILY tolterodine ER 4 mg PO BEDTIME turmeric 500 mg PO DAILY Tobacco use date assessed: 11/30/22 Fall risk assessment: No Falls in past year Last assessed Fall Risk: 03/30/23 Dental Screening Dental Screen Date: 03/30/23 Did you have a dental visit in the last 12 months?: No Did you have a dental problem in the last 6 months where you did not have access to dental care?: No Was dental information given to patient?: Patient declined HPI pe HPI Details 77-year-old lady with obstructive sleep apnea currently on nasal oxygen, COPD, morbid obesity, dyslipidemia, impaired fasting glucose, GERD, osteopenia mild intermittent asthma and history of bladder cancer, here today for her physical exam. She has been trying to follow recommended diet, but unable to do any exercise, confined to her wheelchair. Has no new complaints at present time. [facility] Medical History (Updated 03/30/23 @ 10:24 by Jessica Li MD) History of ME (myocardial infarction) Anemia Heartburn symptom Gait instability Restrictive lung disease Myocardial infarct Supplemental oxygen dependent Difficult intravenous access Respiratory failure with hypoxia Intertrigo Pneumococcal vaccination declined Influenza vaccination declined NADEEM (obstructive sleep apnea) COPD (chronic obstructive pulmonary disease) Restrictive lung disease OAB (overactive bladder) Murmur Nocturnal leg cramps UTI (urinary tract infection) Endometrial cancer Immunization refused Mixed stress and urge urinary incontinence Morbid obesity Recurrent major 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 Impaired fasting glucose Dyslipidemia Osteopenia of neck of left femur Mild intermittent asthma without complication Essential hypertension Cataract Hx of gout Hx of Clostridium difficile infection Urinary incontinence Hiatal hernia GERD (gastroesophageal reflux disease) Sleep apnea, unspecified Snores Ex-smoker for more than 1 year Bladder cancer History of pneumonia Surgical History History of urologic surgery Hx of bilateral cataract extraction Cataract extraction status, right eye Hx of colonoscopy Hx of cystoscopy History of neck surgery History of vaginal hysterectomy History of bladder surgery Family History Father Heart disease Mother No problems noted. Maternal Grandfather Heart disease Maternal Grandmother Heart disease Paternal Grandfather Heart disease Paternal Grandmother Heart disease Social History Housing: House Are you a primary insurance healthcare representative to a significant other at home: Yes (spouse had recent knee replacement) Do you presently have visiting nurse or other home services: No Alcohol intake: never Patient Tobacco Use Status: Former Tobacco user Quit Date: 2007 Tobacco use type: Cigarette e-Cigarette/Vaping Use: Never Used Second Hand Smoke Exposure: No Current occupational status: disabled Cognitive needs: No Hearing needs: No Vision needs: Yes Questionnaire PHQ-9 Over the last 2 weeks, how often have you been bothered by any of the following problems? 1. Little interest or pleasure in doing things: not at all 2. Feeling down, depressed, or hopeless: several days 3. Trouble falling or staying asleep, or sleeping too much: nearly every day 4. Feeling tired or having little energy: nearly every day 5. Poor appetite or overeating: not at all 6. Feeling bad about yourself - or that you are a failure or have let yourself or your family down: not at all 7. Trouble concentrating on things, such as reading the newspaper or watching television: not at all 8. Moving or speaking so slowly that other people could have noticed. Or the opposite - being so fidgety or restless that you have been moving around a lot more than usual: not at all 9. Thoughts that you would be better off or of hurting yourself in some way: not at all Total score: 7 Depression Screening Interpretation: Positive Depression Screening Follow-up: Existing condition, In treatment and Community Mental Health Worker F/U 11589 - PHQ-9 Billing: Yes Source: Developed by Drs. Flaco Banuelos, Gracia Cash, Roque Seo and colleagues, with an educational glory from [employer]. Thrive Questionnaire Date Thrive assessed: 03/30/23 I am a: Patient What is your living situation today?: I have a steady place to live Within the past 12 months, did the food you bought not last and you didn't have the money to get more?: Never true Within the past 12 months, did you worry whether your food would run out before you got money to buy more?: Never true Do you have trouble paying for medicines?: Yes Do you have trouble getting transportation to medical appointments?: No Do you have trouble paying your heating and electricity bill?: Yes Do you have trouble taking care of your child, family member or friend?: No Do you have trouble with day-to-day activities such as bathing, preparing meals, shopping, managing finances, etc.?: Yes Are you interested in more education?: No Please select the resources that you would like help with: None Currently or been in a relationship where the following occur: no concerns reported DEONTE-7 AMB Questionnaire DEONTE-7 Date DEONTE - 7 assessed: 03/30/23 Feeling nervous, anxious, or on edge: 1 = Several days Not being able to stop or control worryin = Several days Worrying too much about different things: 1 = Several days Trouble relaxin = Several days Being so restless that it is hard to sit still: 0 = Not at all Becoming easily annoyed or irritable: 1 = Several days Feeling afraid as if something awful might happen: 0 = Not at all Total DEONTE-7 score (0-4 normal; 5-9 mild; 10-14 moderate; 15-21 severe): 5 Source: Developed by Drs. Flaco Banuelos, Gracia Cash, Roque Seo and colleagues, with an educational glory from [employer]. DEONTE-7 Assessment Billing DEONTE-7 Assessment Tool: DEONTE-7 Assessment 93258 Review of Systems Const Denies fever(s), Denies headache(s), Denies weakness and Denies weight loss Eyes Reports no additional complaints ENT Reports no additional complaints and Denies headache(s) Card Denies chest pain, Denies irregular heart rhythm and Reports leg edema Resp Reports cough (mild intermittent ) and Denies wheezing GI Reports no additional complaints Denies dysuria and Reports urinary incontinence Musc Reports no additional complaints and Reports abnormal gait (Wheelchair borne) Skin/Breast Reports system reviewed and no additional complaints, except as documented Neuro Reports abnormal gait (Wheelchair borne), Denies headache(s) and Denies weakness Psych Reports no additional complaints Endo Reports no additional complaints Chuck/Lymph Reports no additional complaints Aller/Immun Denies wheezing Physical exam (Primary Care) Vital Signs: Last Vital Signs Pulse 73 09/27/23 09:33 BP 132/62 03/30/23 09:33 Pulse Ox 99 03/30/23 09:33 BMI result Body Mass Index 54.1 Tobacco/Smoking Status: Tobacco use Status Tobacco use date assessed 11/30/22 03/30/23 09:48 Patient Tobacco Use Status Former Tobacco user 03/30/23 09:48 Tobacco use type Cigarette 03/30/23 09:48 e-Cigarette/Vaping Use Never Used 03/30/23 09:48 PHQ-9: PHQ-9 Score PHQ-9: Total score 7 03/30/23 10:42 Depression Screening Interpretation: Positive Depression Screening Follow-up: Existing condition, In treatment and Community Mental Health Worker F/U Thrive Assessment: Date of Thrive Assessment Date Thrive assessed 03/30/23 03/30/23 10:42 Currently or been in a relationship where the following occur: no concerns reported Const Other: Alert oriented x3, no acute cardiorespiratory distress noted morbidly obese, partner present in room Orientation/consciousness: patient oriented x3 HENMT Head: Yes normocephalic and Yes atraumatic Mouth: Normal oral and palatal mucosa present and moist mucous membranes Eyes General: appearance normal, both eyes and all related structures Neck Neck: Yes full ROM, Yes no lymphadenopathy and Yes supple Resp Auscultation: clear to auscultation bilaterally and other (Oxygen supplementation by nasal cannula) Cardio Other: S1-S2 present regular rate and rhythm GI Inspection: Yes obesity Palpation (GI): Soft to palpation, nontender, no guarding and no masses Auscultation: normal bowel sounds General: Yes no CVA tenderness Back/Spine/Pelvis Back: no CVA tenderness and No back tenderness Neuro Other: Uses a walker General: patient oriented x3, moves all extremities, Normal light touch and pain sensation, no focal motor deficits and CN's II-XI intact bilaterally Psych Appearance: grossly normal and well kempt Mental Status: mental status grossly normal Speech and movement: Normal speech and movement present Affect: normal affect Attitude: cooperative Thought process: Normal thought process present Results Reviewed Results Reviewed: ENTERED: 03/28/23 ANDRE ASHLEY: ORDERED: Met Prof Fast, AST, ALT, Lipid Panel, Vitamin D 25-OH Test Result Flag Reference Site Sodium 141 135-145 mmol/L Potassium 4.1 3.3-5.1 mmol/L CL 102 96-108 mmol/L CO2 29 22-29 mmol/L Gap 14 12-20 BUN 13 9-16 mg/dL Creat 0.67 0.5-1.4 mg/dL EGFR > 60 NOTE: For -[place] individuals, multiply the result by 1.210. Chronic Kidney Disease: Estimated GFR < 60 mL/min/1.73m2 Severe Kidney Disease: Estimated GFR < 15 mL/min/1.73m2 FBS 98 60-99 mg/dL CA 9.3 8.4-10.2 mg/dL AST (GOT) 15 5-31 U/L ALT (GPT) 9 0-31 U/L Triglyceride 84 <150 mg/dL Desirable Triglyceride: less than 150 mg/dL Borderline High Triglyceride 150-199 mg/dL High Triglyceride: 200-499 mg/dL Very High Triglyceride: greater than or equal to 5OO mg/dL Cholesterol 130 <200 mg/dL Desirable Cholesterol: less than 200 mg/dL Borderline High Cholesterol: 200-239 mg/dL High Cholesterol: greater than 239 mg/dL LDL Calculated 75 <100 mg/dL Desirable LDL: less than 100 mg/dL Near Optimal/Above Optimal LDL: 110-129 mg/dL Borderline High LDL: 130-159 mg/dL High LDL: 160-189 mg/dL Very High LDL: greater than or equal to 190 mg/dL HDL 39 L >40 mg/dL Desirable HDL: greater than 40 mg/dL Note: This HDL assay may give artificially low results in patients with liver disease. Vit D 25-OH Tot 45.4 >30 ng/mL Health Based Reference Values* < 20 ng/mL Deficient 20-30 ng/mL Insufficient > 30 ng/mL Sufficient Laboratory Tests 03/28/23 09:18 Hgb 11.7 L Hct 37.8 Assessment and Plan Assessment & Plan (1) Annual visit for general adult medical examination with abnormal findings: Code(s): Z00.01 - Encounter for general adult medical examination with abnormal findings Plan: Will check appropriate labs. Recommended dental visit every 6 months and regular eye exams. Take adequate calcium in diet and vitamin-D 3 at 2000 IU per cap once a day, in addition to weight-bearing exercises to help maintain good muscle tone and weight control. Instructed to do self-breast exam, and recommended to get yearly mammogram,. Patient does not want to get any vaccines. Declines colonoscopy (2) GERD (gastroesophageal reflux disease): Code(s): K21.9 - Gastro-esophageal reflux disease without esophagitis Plan: currently on pantoprazole which was discontinued and changed to famotidine 40 mg daily, avoidance of triggers for heartburn (3) Essential hypertension: Code(s): I10 - Essential (primary) hypertension Plan: Blood pressure at goal of less than 130/80. Continue with current medication. Reinforced importance of following a low sodium diet, getting regular exercise, and lowering stress levels. (4) Osteopenia of neck of left femur: Code(s): M85.852 - Other specified disorders of bone density and structure, left thigh Plan: Continue taking vitamin-D 3 supplements at least 2000 units daily and increase adequate calcium from dietary sources. (5) Mild intermittent asthma without complication: Code(s): J45.20 - Mild intermittent asthma, uncomplicated Plan: Continue with albuterol inhaler as needed for episodes of bronchospasm and wheezing (6) Bladder cancer: Comment: 2019 low-grade Code(s): C67.9 - Malignant neoplasm of bladder, unspecified Plan: Followed by urology (7) Recurrent major 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: Code(s): F33.42 - Major depressive disorder, recurrent, in full remission Plan: Currently on citalopram 20 mg once a day (8) Pneumococcal vaccination declined: Code(s): Z28.21 - Immunization not carried out because of patient refusal Plan: Patient does not want to get any vaccines (9) Influenza vaccination declined: Code(s): Z28.21 - Immunization not carried out because of patient refusal Plan: Declines getting any vaccination (10) NADEEM (obstructive sleep apnea): Comment: *BECAUSE OF HER MORBID OBESITY SHE HAS FEATURES OF OBSTRUCTIVE SLEEP APNEA. HOWEVER SHE WOULD NOT CONSENT FOR ANY WORKUP OR TREATMENT AT THIS TIME . Code(s): G47.33 - Obstructive sleep apnea (adult) (pediatric) Plan: Followed by Pulmonary (11) COPD (chronic obstructive pulmonary disease): Comment: PATIENT DOES HAVE CHRONIC COUGH WITH CHEST CONGESTION PROBABLY DUE TO CHRONIC OBSTRUCTIVE PULMONARY DISORDER. FOR THIS SHE HAS BEEN PRESCRIBED IPRATROPIUM/ALBUTEROL SOLUTION TO USE IN THE NEBULIZER Q 6 HOURS W/A AND P.R.N. THIS WORKS MUCH BETTER FOR HER THAN USE OF ANY INHALERS. Code(s): J44.9 - Chronic obstructive pulmonary disease, unspecified Plan: Followed by Pulmonary (12) Overactive bladder: Comment: InterStim revision in 2021 Code(s): N32.81 - Overactive bladder Plan: Currently onTolterodine ER 4 mg at bedtime (13) Restrictive lung disease: Comment: PATIENT MUST HAVE SIGNIFICANT RESTRICTIVE LUNG DISORDER BECAUSE OF HER MORBID OBESITY. SHE WILL TRY TO LOSE WEIGHT. SHE DOES HAVE INCENTIVE SPIROMETRY DEVICE AT HOME AND IS INSTRUCTED TO DO DEEP BREATHING EXERCISES 3 TO 4 TIMES A DAY. Code(s): J98.4 - Other disorders of lung Plan: Followed by Dr. Lozano (14) History of ME (myocardial infarction): Code(s): I25.2 - Old myocardial infarction Plan: Continue aspirin 81 mg daily (15) Anemia: Code(s): D64.9 - Anemia, unspecified Orders: Orders Complete Blood Count Auto Diff 3 Months D64.9 - Anemia, unspecified IRON PROFILE 3 Months D64.9 - Anemia, unspecified Medications: New famotidine 40 mg PO DAILY 90 tabs 2RF R12 - Heartburn, K21.9 - Gastro-esophageal reflux disease without esophagitis Discontinued pantoprazole Discontinued Reason: Doctor's Order 40 mg PO DAILY 90 tabs 1RF Coding Level of Care Code Est Pt Prev Care >65y(90746) Diagnoses Annual visit for general adult medical examination with abnormal findings Z00.01 GERD (gastroesophageal reflux disease) K21.9 Essential hypertension I10 Osteopenia of neck of left femur M85.852 Mild intermittent asthma without complication J45.20 Bladder cancer C67.9 Recurrent major 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 F33.42 Pneumococcal vaccination declined Z28.21 Influenza vaccination declined Z28.21 NADEEM (obstructive sleep apnea) G47.33 COPD (chronic obstructive pulmonary disease) J44.9 Overactive bladder N32.81 Restrictive lung disease J98.4 History of ME (myocardial infarction) I25.2 Anemia D64.9 Additional Codes DEONTE-7 Assessment Billing - DEONET-7 Assessment Tool: DEONTE-7 Assessment 32953 ([id number])
== END 2023-03-30 10:23 | disposition home or self-care (01) ==
PROVIDERS: Visit Provider Internal Medicine
DX: J44.9 Chronic obstructive pulmonary disease, unspecified (principal); F33.42 Major depressive disorder, recurrent, in full remission; Z85.51 Personal history of malignant neoplasm of bladder; K21.9 Gastro-esophageal reflux disease without esophagitis; I10 Essential (primary) hypertension; M85.852 Other specified disorders of bone density and structure, left thigh; J45.20 Mild intermittent asthma, uncomplicated; Z28.21 Immunization not carried out because of patient refusal; G47.33 Obstructive sleep apnea (adult) (pediatric); N32.81 Overactive bladder
CPT/HCPCS: 99214

== ENCOUNTER 2023-04-20 09:34 | Outpatient (AMB) | payer MEDICARE, SELFPAY ==
--- NOTE | 2023-04-20 09:36 | MHC.OFFVIS ---
Intake Intake Visit Reasons: Cysto Intake Note: Patient presents today for a CYSTOSCOPY Procedure: Meds: Tolterodine, Myrbetriq, Estradiol & Furosemide Allergies to Antibiotic: Penicillin & Sulfa Blood Thinner: Aspirin Urinalysis test cleared for Cysto Disposable Uro-G Cystoscope Cannula: Lot: [id number] Exp: 11/14/2024 After School Program Assistant Required: No Accompanied by: Self / Same As Patient Allergies bee pollen [bee stings] Allergy (Severe, Verified 04/20/23 09:53) Anaphylaxis tetanus toxoid, adsorbed [Tetanus Toxoid,Adsorbed] Allergy (Severe, Verified 04/20/23 09:53) LOCAL INJ.SITE SWELLING beeswax [BEESWAX] Allergy (Intermediate, Verified 04/20/23 09:53) Hives Iodinated Contrast Media [IV Dye, Iodine Containing] Allergy (Intermediate, Verified 04/20/23 09:53) HIVES-CAT SCAN DYE iodine [Iodine] Allergy (Intermediate, Verified 04/20/23 09:53) SWELLING, blister, hives Penicillins Allergy (Intermediate, Verified 04/20/23 09:53) SWELLING, hives, rash Sulfa (Sulfonamide Antibiotics) Allergy (Intermediate, Verified 04/20/23 09:53) Hives pneumococcal vaccine Adverse Reaction (Intermediate, Verified 04/20/23 09:53) fever, chills pollen Adverse Reaction (Mild, Uncoded 04/20/23 09:53) Nasal congestion Medication List - Last Reconciled 04/20/23 by Asuncion Ace MD albuterol sulfate 90 mcg/actuation 2 puffs inhalation Q6H PRN ascorbic acid (vitamin C) (Vitamin C) 500 mg PO DAILY aspirin 81 mg PO DAILY atorvastatin 40 mg PO BEDTIME [bariatric transport wheelchair As directed] cholecalciferol (vitamin D3) (Vitamin D3) 25 mcg PO DAILY citalopram 20 mg PO DAILY clotrimazole-betamethasone 1-0.05 % 1 appl topical BID 10 days coenzyme Q10 (CoQ-10) 300 mg PO DAILY estradiol 0.01%(0.1mg/gram) 1 appful vaginal BID famotidine 40 mg PO DAILY fluticasone propionate 50 mcg/actuation 1 spray intranasal QAM PRN 30 days ipratropium-albuterol 0.5 mg-3 mg(2.5 mg base)/3 mL 3 mL inhalation Q4-6H PRN 30 days lisinopril 2.5 mg PO DAILY metoprolol succinate ER 100 mg (2 x 50 mg) PO DAILY mirabegron ER (Myrbetriq) 50 mg PO DAILY 90 days nitrofurantoin monohyd/m-cryst 100 mg (Macrobid) 100 mg PO BID 3 days tolterodine ER 4 mg PO BEDTIME turmeric 500 mg PO DAILY HPI HPI Comments History of Present Illness Details Morena is a 77-year-old female who presents today to the office for a follow-up. 04/20/23? She is followed today for a Cystoscopy procedure. She has a past medical history significant for bladder cancer, diagnosed by Dr. Betancourt in 2019. She is currently followed by Dr. Mcmillan. Most recent Cystoscopy on 12/06/22, I reviewed the operative notes which indicates erythematous area and gemcitabine irrigation was done at that time. The Patient is also followed for mixed urinary incontinence and has InterStim placed. She is also on medications for the bladder, Myrbetriq 50 mg and tolterodine 4 mg. I reviewed the urine culture results from 03/04/23 which came back Escherichia coli > 100,000 cfu/mL.? 04/20/23: Evaluation today?UA?Leukocytes: 1 +; blood: negative. Cystoscopy procedure: Consent was obtained to perform cystoscopy procedure. Cystoscopy findings: Small erythematous area noted as described by Dr. Mcmillan notes, no other new findings noted. 04/20/23: Plan: Re-ordered tolterodine 4 mg. Continue Myrbetriq 50 mg. Follow-up office cystoscopy with Dr. Mcmillan in 6 months. [facility] Medical History History of ND (myocardial infarction) Anemia Heartburn symptom Gait instability Restrictive lung disease Myocardial infarct Supplemental oxygen dependent Difficult intravenous access Respiratory failure with hypoxia Intertrigo Pneumococcal vaccination declined Influenza vaccination declined NADEEM (obstructive sleep apnea) COPD (chronic obstructive pulmonary disease) Restrictive lung disease OAB (overactive bladder) Murmur Nocturnal leg cramps UTI (urinary tract infection) Endometrial cancer Immunization refused Mixed stress and urge urinary incontinence Morbid obesity Recurrent major 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 Impaired fasting glucose Dyslipidemia Osteopenia of neck of left femur Mild intermittent asthma without complication Essential hypertension Cataract Hx of gout Hx of Clostridium difficile infection Urinary incontinence Hiatal hernia GERD (gastroesophageal reflux disease) Sleep apnea, unspecified Snores Ex-smoker for more than 1 year Bladder cancer History of pneumonia Surgical History History of urologic surgery Hx of bilateral cataract extraction Cataract extraction status, right eye Hx of colonoscopy Hx of cystoscopy History of neck surgery History of vaginal hysterectomy History of bladder surgery Family History Father Heart disease Mother No problems noted. Maternal Grandfather Heart disease Maternal Grandmother Heart disease Paternal Grandfather Heart disease Paternal Grandmother Heart disease Social History Housing: House Are you a primary healthcare recruiter to a significant other at home: Yes (spouse had recent knee replacement) Do you presently have visiting nurse or other home services: No Alcohol intake: never Patient Tobacco Use Status: Former Tobacco user Quit Date: 2007 Tobacco use type: Cigarette e-Cigarette/Vaping Use: Never Used Second Hand Smoke Exposure: No Current occupational status: disabled Cognitive needs: No Hearing needs: No Vision needs: Yes Review of Systems Const All systems reviewed & are unremarkable except as noted in HPI and below Reports no additional complaints Eyes Reports no additional complaints ENT Reports no additional complaints Resp Details: O2 Therapy nasal cannula GI Reports no additional complaints Reports no additional complaints Musc Reports no additional complaints Skin/Breast Denies rash and Denies unusual bruising Neuro Reports no additional complaints Psych Reports no additional complaints Endo Reports no additional complaints Chuck/Lymph Reports no additional complaints Aller/Immun Reports no additional complaints Office Procedures Cystoscopy Consent Discussed risk and benefit or proposed procedure with the patient. Information consent for procedure given to the patient. Discussed technical aspects, risks, benefits and alternatives in full. Addressed all of the patient's questions and concerns regarding the procedure. The patient demonstrated knowledge and understanding. They wish to proceed with this procedure. Preparation The patient was prepped in the usual manner. A nailhead setter was present and in the room. Genitalia was prepped with betadine solution in a sterile manner. Lidocaine Jelly 2% was placed into the urethra and 16Fr flexible Olympus cystoscope was inserted into the meatus after adequate lubrication. Procedure Time out per protocol performed. Bladder Inspection Cystoscopy findings: Bladder Inspection: The bladder was inspected in its entirety with utilization retroflexion displaying: Tumor(s): no papillary lesions noted Trabeculation: N/A Mucosal Erthema: mild erythematous area, similar finding as noted in prior op findings, no new lesions noted Urethra: normal [id number] DISPOSABLE SCOPE URO-G FLEXIBLE SCOPE Procedure code (CPT) selection complete Office Meds lidocaine HCl 2 % mucosal jelly in applicator Performing Provider: Asuncion Ace MD Performing Location: [facility] Administered by: Tello Lee LPN on 04/20/23 10:30 Dose Route Admin Location Dispensed Lot Number Expiration Date ND Clean Up Worker 10 mL intra-urethral 20 mL naproxen 500 mg tablet Performing Provider: Asuncion Ace MD Performing Location: [facility] Administered by: Tello Lee LPN on 04/20/23 10:30 Dose Route Admin Location Dispensed Lot Number Expiration Date NDC Clean Up Worker 500 mg PO 1 tab ciprofloxacin HCl 500 mg tablet Performing Provider: Asuncion Ace MD Performing [facility] Administered by: Tello Lee LPN on 04/20/23 10:30 Dose Route Admin Location Dispensed Lot Number Expiration Date NDC Clean Up Worker 500 mg PO 1 tab Results AMB Urinalysis, Automated UA Leukoctes 70 Brodie/uL Last Edit by VITALY Galvez on 04/20/23 10:22 1+ Cas Parks 04/20/23 10:22 UA Nitrite Negative Last Edit by VITALY Galvez on 04/20/23 10:22 UA Urobilinogen 0.2 mg/dL Last Edit by VITALY Galvez on 04/20/23 10:22 UA Protein 15 mg/dL Last Edit by VITALY Galvez on 04/20/23 10:22 UA pH 6.0 Last Edit by VITALY Galvez on 04/20/23 10:22 UA Blood 0 Kye/uL Last Edit by VITALY Galvez on 04/20/23 10:22 UA Specific [place] 1.015 Last Edit by Cas Parks VITALY on 04/20/23 10:22 UA Ketone Negative Last Edit by Maryannellen Charly VITALY on 04/20/23 10:22 UA Bilirubin 0 mg/dL Last Edit by Cas Parks JASONA on 04/20/23 10:22 UA Glucose 0 mg/dL Last Edit by Maryannellen Charly VITALY on 04/20/23 10:22 Results Reviewed Results Reviewed: Laboratory Last Values Urine pH (Auto) 6.0 04/20/23 10:09 Specific [place] (Auto) 1.015 04/20/23 10:09 Urine Protein (Auto) 15 mg/dL 04/20/23 10:09 Glucose (UA)(Auto) 0 mg/dL 04/20/23 10:09 Urine Ketones (Auto) Negative 04/20/23 10:09 Urine Blood (Auto) 0 Kye/uL 04/20/23 10:09 Urine Nitrite (Auto) Negative 04/20/23 10:09 Urine Bilirubin (Auto) 0 mg/dL 04/20/23 10:09 Urine Urobilinogen (Auto) 0.2 mg/dL 04/20/23 10:09 Leukocyte Esterase (Auto) 70 Brodie/uL 04/20/23 10:09 Ordered:? Urine Culture? Procedure?Result?Verified?Site ? Urine Culture? Final?03/06/23 ? ? ?Organism 1?Escherichia coli ? Quant?> 100,000 cfu/mL ? E coli? M.I.C.? ? RX? --------- ---?Ampicillin?8? S?Ceftriaxone? <=0.25? ? ?S?Gentamicin?<=1? S?Levofloxacin?<=0.12? ? ?S?Nitrofurantoin?<=16?S?Trimethoprim/Sulfamethoxazole? <=20?S Assessment & Plan Assessment & Plan (1) Overactive bladder: Comment: InterStim revision in 2021 Code(s): N32.81 - Overactive bladder (2) Bladder cancer: Comment: 2018 low-grade Code(s): C67.9 - Malignant neoplasm of bladder, unspecified Plan Re-ordered tolterodine 4 mg. Continue Myrbetriq 50 mg. Follow-up office cystoscopy with Dr. Mcmillan in 6 months.? Orders: Orders AMB Urinalysis Automated 04/20/23 Z13.9 - Encounter for screening, unspecified AMB Cystoscopy 04/20/23 C67.9 - Malignant neoplasm of bladder, unspecified Medications: New nitrofurantoin monohyd/m-cryst 100 mg (Macrobid) must administer with a meal/food 100 mg PO BID 6 caps 0RF 3 days Refilled tolterodine ER 4 mg PO BEDTIME 90 caps 2RF mirabegron ER (Myrbetriq) 50 mg PO DAILY 90 tabs 2RF 90 days Patient Instructions: The patient had an opportunity to ask questions regarding treatment plan. All questions were answered. Imaging, Laboratory studies and physical exam results were discussed and reviewed in detail. No major barriers to understanding were identified. The patient expressed understanding and agreement with the above treatment plan.? ? ? The patient is aware they should contact our office by phone for worsening of their current condition or the appearance of new symptoms. Compliance is encouraged with any medications and followup testing that is ordered.? ? ? It is a privilege to be allowed the opportunity to participate in the urologic care of your patient. If you have any questions or concerns regarding treatment for the above conditions please do not hesitate to contact me. The office telephone contact is [phone].? ? ? This note is constructed in part using voice recognition software. While every effort has been made to ensure accuracy fermentation scientist errors may have been included.? ? ? Yours sincerely,? ? ? Asuncion Ace MD? ? Coding Level of Care Code Est Pt Level 3 (01338) Diagnoses Overactive bladder N32.81 Bladder cancer C67.9 CPT Codes Cystoscopy - CPT: 18885-[id number] ([id number])
== END 2023-04-20 11:31 | disposition home or self-care (01) ==
PROVIDERS: PCP Internal Medicine; Visit Provider Urology
DX: N32.81 Overactive bladder (principal); C67.9 Malignant neoplasm of bladder, unspecified
CPT/HCPCS: 52000; 99213

== ENCOUNTER → 2023-04-20 09:34 | Outpatient (BNVA) | payer MEDICARE, SELFPAY | PROVIDERS: PCP Internal Medicine; Visit Provider Urology | DX: N32.81 Overactive bladder (principal); C67.9 Malignant neoplasm of bladder, unspecified | CPT/HCPCS: 52000; 81003; 99212 ==

== ENCOUNTER 2023-06-30 10:49 | Outpatient (REF) | payer MEDICARE, SELFPAY ==
[2023-06-30 13:35] LABS: MANUAL DIFF FLAG NO
[2023-06-30 13:47] LABS: Basophils Percent Auto 0.4 % (0-2); Eosinophils Absolute Auto 0.1 X10*3/uL (0.0-0.4); Eosinophils Percent Auto 1.9 % (0-4); Hematocrit 35.2 % (37.0-47.0); Hemoglobin 10.7 g/dl (12.0-16.0); Imm Gran Abs Auto 0.08 X10*3/uL (0.00-0.03); Imm Gran Pct Auto 1.2 % (0.0-0.4); Lymphocytes Absolute Auto 1.2 X10*3/uL (1.2-4.9); Lymphocytes Percent Auto 17.8 % (20-40); Mean Corpuscular HGB Conc 30.4 g/dl (31.0-35.0); Mean Corpuscular Hemoglobin 31.5 pg (27.0-33.0); Mean Corpuscular Volume 103.5 fL (80.0-98.0); Mean Platelet Volume 11.2 fL (9.4-12.3); Monocytes Absolute Auto 0.5 X10*3/uL (0.1-1.2); Monocytes Percent Auto 6.9 % (2-11); Neutrophils Absolute Auto 4.8 x10*3/uL (2.0-8.3); Neutrophils Percent Auto 71.8 % (45-73); Platelet Count 180 X10*3/uL (160-400); Red Cell Distribution Width 14.2 % (11.0-16.0); White Blood Count 6.7 X10*3/uL (4.8-10.8)
[2023-06-30 14:06] LABS: Iron 82 mcg/dL (30-160); Percent Iron Saturation 29 % (15-50); Total Iron Binding Capacity 278 mcg/dL (228-428); Unsaturated Iron Binding 196 ug/dL
== END 2023-06-30 10:50 | disposition home or self-care (01) ==
LOC: HO.HMGCLDS 10:49
PROVIDERS: PCP Internal Medicine; Visit Provider Internal Medicine
DX: D64.9 Anemia, unspecified (principal)
CPT/HCPCS: 36415; 83540; 85025

== ENCOUNTER 2023-08-24 09:35 | Outpatient (AMB) | payer MEDICARE, SELFPAY ==
[2023-08-24 09:39] VITALS: BP 122/78; PULSE 79; O2SAT 97
--- NOTE | 2023-08-24 09:39 | A.OFFVIS_ITS ---
Intake Vital Signs 08/24/23 09:39 Height 4 ft 10 in BP 122/78 Blood Pressure Location Lt brachial Position Sitting Pulse 79 Pulse Source Pulse Oximeter Pulse Oximetry (%) 97 Oxygen Delivery Method Nasal Cannula Oxygen Flow Rate 3 Intake Visit Reasons: copd Intake Note: pt is here for follow up and has not been feeling well for a couple of weeks, using mucinex, and cough syrup, cough drops, and is struggling with this, in am when coughing it is very thick and dark brown, almost black than turns to green. Imaging Technologist Required: No Allergies bee pollen [bee stings] Allergy (Severe, Verified 08/24/23 09:51) Anaphylaxis tetanus toxoid, adsorbed [Tetanus Toxoid,Adsorbed] Allergy (Severe, Verified 08/24/23 09:51) LOCAL INJ.SITE SWELLING beeswax [BEESWAX] Allergy (Intermediate, Verified 08/24/23 09:51) Hives Iodinated Contrast Media [IV Dye, Iodine Containing] Allergy (Intermediate, Verified 08/24/23 09:51) HIVES-CAT SCAN DYE iodine [Iodine] Allergy (Intermediate, Verified 08/24/23 09:51) SWELLING, blister, hives Penicillins Allergy (Intermediate, Verified 08/24/23 09:51) SWELLING, hives, rash Sulfa (Sulfonamide Antibiotics) Allergy (Intermediate, Verified 08/24/23 09:51) Hives pneumococcal vaccine Adverse Reaction (Intermediate, Verified 08/24/23 09:51) fever, chills pollen Adverse Reaction (Mild, Uncoded 08/24/23 09:51) Nasal congestion Medication List - Last Reconciled 08/24/23 by Bonnie Lozano MD albuterol sulfate 90 mcg/actuation 2 puffs inhalation Q6H PRN ascorbic acid (vitamin C) (Vitamin C) 500 mg PO DAILY aspirin 81 mg PO DAILY atorvastatin 40 mg PO BEDTIME [bariatric transport wheelchair As directed] cholecalciferol (vitamin D3) (Vitamin D3) 25 mcg PO DAILY citalopram 20 mg PO DAILY clotrimazole-betamethasone 1-0.05 % 1 appl topical BID 10 days coenzyme Q10 (CoQ-10) 300 mg PO DAILY estradiol 0.01%(0.1mg/gram) 1 appful vaginal BID estradiol 0.01%(0.1mg/gram) pea-sized to urethra daily; 30 days famotidine 40 mg PO DAILY fluticasone propionate 50 mcg/actuation 1 spray intranasal QAM PRN 30 days furosemide 20 mg PO QAM PRN ipratropium-albuterol 0.5 mg-3 mg(2.5 mg base)/3 mL 3 mL inhalation Q4-6H PRN 30 days lisinopril 2.5 mg PO DAILY metoprolol succinate ER 100 mg (2 x 50 mg) PO DAILY mirabegron ER (Myrbetriq) 50 mg PO DAILY 90 days pantoprazole 40 mg PO DAILY tolterodine ER 4 mg PO BEDTIME turmeric 500 mg PO DAILY HPI copd HPI Details 78 years old female with morbid obesity and confined to the wheelchair, Comes for her. Follow-up after 2 months During the past 1 week she had many members of the family in the house, She has contracted upper respiratory infection. She has had frequent cough with congested feeling, and complains of increased shortness. Of breath on minimal effort Denies fever chills or expectoration of any yellowish phlegm. In general she feels quite tired. [facility] Medical History (Updated 08/24/23 @ 10:39 by Bonnie Lozano MD) Acute bronchitis Anemia, macrocytic History of [place] (myocardial infarction) Anemia Heartburn symptom Gait instability Restrictive lung disease Myocardial infarct Supplemental oxygen dependent Difficult intravenous access Respiratory failure with hypoxia Intertrigo Pneumococcal vaccination declined Influenza vaccination declined NADEEM (obstructive sleep apnea) COPD (chronic obstructive pulmonary disease) Restrictive lung disease OAB (overactive bladder) Murmur Nocturnal leg cramps UTI (urinary tract infection) Endometrial cancer Immunization refused Mixed stress and urge urinary incontinence Morbid obesity Recurrent major 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 Impaired fasting glucose Dyslipidemia Osteopenia of neck of left femur Mild intermittent asthma without complication Essential hypertension Cataract Hx of gout Hx of Clostridium difficile infection Urinary incontinence Hiatal hernia GERD (gastroesophageal reflux disease) Sleep apnea, unspecified Snores Ex-smoker for more than 1 year Bladder cancer History of pneumonia Surgical History History of urologic surgery Hx of bilateral cataract extraction Cataract extraction status, right eye Hx of colonoscopy Hx of cystoscopy History of neck surgery History of vaginal hysterectomy History of bladder surgery Family History Father Heart disease Mother No problems noted. Maternal Grandfather Heart disease Maternal Grandmother Heart disease Paternal Grandfather Heart disease Paternal Grandmother Heart disease Social History Housing: House Are you a primary healthcare corporate account director to a significant other at home: Yes (spouse had recent knee replacement) Do you presently have visiting nurse or other home services: No Alcohol intake: never Patient Tobacco Use Status: Former Tobacco user Quit Date: 2007 Tobacco use type: Cigarette e-Cigarette/Vaping Use: Never Used Second Hand Smoke Exposure: No Current occupational status: disabled Cognitive needs: No Hearing needs: No Vision needs: Yes Review of Systems Const All systems reviewed & are unremarkable except as noted in HPI and below Eyes Reports no additional complaints ENT Reports no additional complaints Card Denies chest pain, Denies irregular heart rhythm and Reports leg edema Resp Reports cough (mild intermittent ) and Denies wheezing GI Reports no additional complaints Reports urinary incontinence Musc Reports no additional complaints and Reports abnormal gait (Non ambulatory) Skin/Breast Reports system reviewed and no additional complaints, except as documented Neuro Reports abnormal gait (Non ambulatory) Psych Reports no additional complaints Aller/Immun Denies wheezing Physical Exam Vital Signs: Last Vital Signs Pulse 79 08/24/23 09:39 BP 122/78 08/24/23 09:39 Pulse Ox 97 08/24/23 09:39 Oxygen Delivery Method Nasal Cannula 08/24/23 09:39 Oxygen Flow Rate 3 08/24/23 09:39 Const Other: SHE IS GROSSLY OBESE, BUT CANNOT BE WEIGHED. HAS A LARGE AND SHORT NECK. WITH A ROUND FACE. TYPICAL PHYSICAL FEATURES OF OBSTRUCTIVE SLEEP APNEA. General: comfortable (In a wheelchair), no acute distress, alert and awake Orientation/consciousness: patient oriented x3 HEENT Head: Yes normal to inspection General nose exam: No nasal polyps present and No nasal discharge present Face and sinus: Yes sinuses nontender Mouth: oropharynx abnormals (Oropharynx is crowded, Mallampati class 4) Throat: Yes posterior oropharynx normal Eyes General: appearance normal, both eyes and all related structures Neck Neck: Yes normal visual inspection, Yes no lymphadenopathy, Yes trachea midline, Yes no JVD and Yes other (Very obese and short) Thyroid: Thyroid normal Chest Chest palpation & inspection: normal inspection of the chest, normal palpation of entire chest wall and no tenderness Resp Other: Percussion note is not perceptible because of gross obesity. Breath sounds are heard equally in the upper parts of the chest and diminished over the lower lobes. No wheezes rhonchi or crepitations were heard. However during breathing she had dry hacking cough, Cardio Palpation: normal PMI Rate: regular rate Rhythm: regular rhythm Heart sounds: no gallops and no murmurs GI Palpation (GI): Soft to palpation, nontender, No hepatosplenomegaly present, no masses and Other GI palpation findings present (Abdomen grossly obese) Auscultation: normal bowel sounds Back/Spine/Pelvis Thoracic/Lumbar Spine: thoracic and lumbar spine normal to inspection and t horaco-lumbar ROM limited Skin General skin exam: no rashes or lesions noted Neuro General: patient oriented x3, No gait normal (Gait is impaired because of her morbid obesity) and no focal motor deficits Cranial nerves: Yes CN's II-XII intact bilaterally Extrem General: Yes normal to inspection, Yes no calf tenderness and Yes edema (Edema around the ankles, stasis edema) Psych Appearance: grossly normal and well kempt Speech and movement: Normal speech and movement present Assessment & Plan Assessment & Plan (1) Morbid obesity: Comment: THIS PATIENT HAS SUPER MORBID OBESITY. THERE IS NO POTENTIAL FOR HER TO LOSE WEIGHT. Code(s): E66.01 - Morbid (severe) obesity due to excess calories Plan: Again discussed about her obesity . (2) NADEEM (obstructive sleep apnea): Comment: *BECAUSE OF HER MORBID OBESITY SHE HAS FEATURES OF OBSTRUCTIVE SLEEP APNEA. HOWEVER SHE WOULD NOT CONSENT FOR ANY WORKUP OR TREATMENT AT THIS TIME . Code(s): G47.33 - Obstructive sleep apnea (adult) (pediatric) Plan: No further action. Do use O2 2 L/minute at night, (3) COPD (chronic obstructive pulmonary disease): Comment: PATIENT DOES HAVE CHRONIC COUGH WITH CHEST CONGESTION PROBABLY DUE TO CHRONIC OBSTRUCTIVE PULMONARY DISORDER. She is prone to have recurrent acute bronchitis causing acute exacerbation. Code(s): J44.9 - Chronic obstructive pulmonary disease, unspecified Plan: Continue DuoNeb updrafts Q 4-6 hours while awake. Albuterol HFA 2 puffs Q 4-6 hours p.r.n. during the daytime Continue to do deep breathing exercises 3 to 4 times a day. (4) Acute bronchitis: Comment: At present she seems to have acute viral bronchitis, causing an acute exacerbation of COPD. Code(s): J20.9 - Acute bronchitis, unspecified Plan: Doxycycline 100 b.i.d. for 10 days. Prednisone 20 mg b.i.d. for 1 week. .Steam inhalations 2 to 3 times a day (5) Restrictive lung disease: Comment: PATIENT MUST HAVE SIGNIFICANT RESTRICTIVE LUNG DISORDER BECAUSE OF HER MORBID OBESITY. SHE WILL TRY TO LOSE WEIGHT. SHE DOES HAVE INCENTIVE SPIROMETRY DEVICE AT HOME AND IS INSTRUCTED TO DO DEEP BREATHING EXERCISES 3 TO 4 TIMES A DAY. Code(s): J98.4 - Other disorders of lung Plan: Patient was given a new incentive spirometry device. From the office Again reinforced that she should do deep breathing exercises every 2-3 hours during the daytime. Medications: New doxycycline hyclate 100 mg PO BID 10 days 20 tabs 0RF prednisone 20 mg PO BID 1 week 14 tabs 0RF ac excerbation of copd Coding Level of Care Code Est Pt Level 4 (62062) Diagnoses Morbid obesity E66.01 NADEEM (obstructive sleep apnea) G47.33 COPD (chronic obstructive pulmonary disease) J44.9 Acute bronchitis J20.9 Restrictive lung disease J98.4
== END 2023-08-24 10:05 | disposition home or self-care (01) ==
PROVIDERS: PCP Internal Medicine; Visit Provider Internal Medicine
DX: E66.01 Morbid (severe) obesity due to excess calories (principal); G47.33 Obstructive sleep apnea (adult) (pediatric); J44.9 Chronic obstructive pulmonary disease, unspecified; J20.9 Acute bronchitis, unspecified; J98.4 Other disorders of lung
CPT/HCPCS: 99214

== ENCOUNTER → 2023-08-24 09:35 | Outpatient (BNVA) | payer MEDICARE, SELFPAY | PROVIDERS: PCP Internal Medicine; Visit Provider Internal Medicine | DX: G47.33 Obstructive sleep apnea (adult) (pediatric) (principal); J44.9 Chronic obstructive pulmonary disease, unspecified; J20.9 Acute bronchitis, unspecified; J98.4 Other disorders of lung; E66.01 Morbid (severe) obesity due to excess calories | CPT/HCPCS: 99212 ==

== ENCOUNTER 2023-09-20 09:52 | Outpatient (REF) | payer MEDICARE, SELFPAY ==
[2023-09-20 13:43] LABS: Basophils Percent Auto 0.5 % (0-2); Eosinophils Absolute Auto 0.2 X10*3/uL (0.0-0.4); Eosinophils Percent Auto 3.2 % (0-4); Hematocrit 37.3 % (37.0-47.0); Hemoglobin 11.4 g/dl (12.0-16.0); Imm Gran Abs Auto 0.06 X10*3/uL (0.00-0.03); Lymphocytes Absolute Auto 1.2 X10*3/uL (1.2-4.9); Lymphocytes Percent Auto 20.7 % (20-40); MANUAL DIFF FLAG SCAN; Mean Corpuscular HGB Conc 30.6 g/dl (31.0-35.0); Mean Corpuscular Volume 101.4 fL (80.0-98.0); Monocytes Absolute Auto 0.4 X10*3/uL (0.1-1.2); Monocytes Percent Auto 7.1 % (2-11); Neutrophils Percent Auto 67.5 % (45-73); PLT CLUMP 1; Red Blood Count 3.68 X10*6/uL (4.20-5.50); Red Cell Distribution Width 14.6 % (11.0-16.0); SCAN SMEAR FLAG 1
[2023-09-20 14:17] LABS: SLIDE REVIEW VERIFIED
[2023-09-20 14:29] LABS: Vitamin D 25-OH Total 39.3 ng/mL (>30)
[2023-09-20 14:30] LABS: Folate 11.2 ng/mL (> or = 4.0); Vitamin B12 365 pg/mL (200-900)
[2023-09-20 14:31] LABS: Alanine Aminotransferase 12 U/L (0-31); Anion Gap 16 (12-20); Aspartate Amino Transferase 24 U/L (5-31); Blood Urea Nitrogen 14 mg/dL (9-16); Calcium 9.5 mg/dL (8.4-10.2); Carbon Dioxide 30 mmol/L (22-29); Chloride 100 mmol/L (96-108); Cholesterol 138 mg/dL (<200); Estimated Glomerular Filt Rate > 60; Glucose Fasting 99 mg/dL (60-99); HDL Cholesterol 44 mg/dL (>40); Iron 83 mcg/dL (30-160); LDL Cholesterol Calculated 78 mg/dL (<100); Percent Iron Saturation 30 % (15-50); Potassium 4.8 mmol/L (3.3-5.1); Sodium 141 mmol/L (135-145); Total Iron Binding Capacity 277 mcg/dL (228-428); Triglycerides 83 mg/dL (<150); Unsaturated Iron Binding 194 ug/dL
== END 2023-09-20 09:53 | disposition home or self-care (01) ==
LOC: HO.HMGCLDS 09:52
PROVIDERS: PCP Internal Medicine; Visit Provider Internal Medicine
DX: D53.9 Nutritional anemia, unspecified (principal); I25.2 Old myocardial infarction; E78.5 Hyperlipidemia, unspecified; R73.01 Impaired fasting glucose; I10 Essential (primary) hypertension
CPT/HCPCS: 36415; 80048; 80061; 82306; 82607; 82746; 83540; 84450; 84460; 85025

== ENCOUNTER 2023-09-30 10:38 | Outpatient (AMB) | payer MEDICARE, SELFPAY ==
--- NOTE | 2023-09-30 11:23 | A.OFFPC_ITS ---
Vital Signs 09/30/23 11:28 Height 4 ft 10 in Weight 256 lb BMI 53.5 BP 130/80 Blood Pressure Location Lt radial Position Sitting Pulse 73 Pulse Source Pulse Oximeter Pulse Oximetry (%) 99 Oxygen Delivery Method Nasal Cannula Intake Visit Reasons: follow up for anemia Intake Note: Pt is here today for her f/u anemia Allergies bee pollen [bee stings] Allergy (Severe, Verified 10/02/23 01:26) Anaphylaxis tetanus toxoid, adsorbed [Tetanus Toxoid,Adsorbed] Allergy (Severe, Verified 10/02/23 01:26) LOCAL INJ.SITE SWELLING beeswax [BEESWAX] Allergy (Intermediate, Verified 10/02/23 01:26) Hives Iodinated Contrast Media [IV Dye, Iodine Containing] Allergy (Intermediate, Verified 10/02/23:26) HIVES-CAT SCAN DYE iodine [Iodine] Allergy (Intermediate, Verified 10/02/23 01:26) SWELLING, blister, hives Penicillins Allergy (Intermediate, Verified 10/02/23 01:26) SWELLING, hives, rash Sulfa (Sulfonamide Antibiotics) Allergy (Intermediate, Verified 10/02/23 01:26) Hives pneumococcal vaccine Adverse Reaction (Intermediate, Verified 10/02/23 01:26) fever, chills pollen Adverse Reaction (Mild, Uncoded 10/02/23:26) Nasal congestion Medication List - Last Reconciled 10/02/23 by Jessica Li MD ascorbic acid (vitamin C) (Vitamin C) 500 mg PO DAILY aspirin 81 mg PO DAILY atorvastatin 40 mg PO BEDTIME [bariatric transport wheelchair As directed] cholecalciferol (vitamin D3) (Vitamin D3) 25 mcg PO DAILY citalopram 20 mg PO DAILY clotrimazole-betamethasone 1-0.05 % 1 appl topical BID 10 days coenzyme Q10 (CoQ-10) 300 mg PO DAILY commode (bedside commode) Bariatric commode estradiol 0.01%(0.1mg/gram) pea-sized to urethra daily; 30 days fluticasone propionate 50 mcg/actuation 1 spray intranasal QAM PRN 30 days furosemide 20 mg PO QAM PRN ipratropium-albuterol 0.5 mg-3 mg(2.5 mg base)/3 mL 3 mL inhalation Q4-6H PRN 30 days lisinopril 2.5 mg PO DAILY metoprolol succinate ER 100 mg (2 x 50 mg) PO DAILY mirabegron ER (Myrbetriq) 50 mg PO DAILY 90 days pantoprazole 40 mg PO DAILY [Transport chair As directed] turmeric 500 mg PO DAILY Tobacco use date assessed: 09/30/23 Fall risk assessment: No Falls in past year Last assessed Fall Risk: 09/30/23 Dental Screening Dental Screen Date: 09/30/23 Did you have a dental visit in the last 12 months?: No Was dental information given to patient?: No HPI follow up for anemia HPI Details 78-year-old lady with history of bladder cancer diagnosed in 2019, has history of mixed urinary incontinence currently followed by Urology. She had InterStim placed did not really of afford any of her incontinence and is currently on Mybetriq and tolterodine, which patient states only helps a little bit. She is requesting a prescription for bedside commode at as she is having difficulty controlling her urine and occasionally has accidents , as she is unable to make it to the bathroom in time. Is also requesting a prescription for a transport chair will refer with of 22 in to accommodate her size. Latest fasting labs showed results within normal except for presence of anemia, which is actually improved from last check. Iron levels are normal. [facility] Medical History (Updated 10/02/23 @ 01:48 by Jessica Li MD) Acute bronchitis Anemia, macrocytic History of AR (myocardial infarction) Heartburn symptom Gait instability Restrictive lung disease Myocardial infarct Supplemental oxygen dependent Difficult intravenous access Respiratory failure with hypoxia Intertrigo Pneumococcal vaccination declined Influenza vaccination declined NADEEM (obstructive sleep apnea) COPD (chronic obstructive pulmonary disease) Restrictive lung disease OAB (overactive bladder) Murmur Nocturnal leg cramps UTI (urinary tract infection) Endometrial cancer Immunization refused Mixed stress and urge urinary incontinence Morbid obesity Recurrent major 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 Impaired fasting glucose Dyslipidemia Osteopenia of neck of left femur Mild intermittent asthma without complication Essential hypertension Cataract Hx of gout Hx of Clostridium difficile infection Urinary incontinence Hiatal hernia GERD (gastroesophageal reflux disease) Sleep apnea, unspecified Snores Ex-smoker for more than 1 year Bladder cancer History of pneumonia Surgical History History of urologic surgery Hx of bilateral cataract extraction Cataract extraction status, right eye Hx of colonoscopy Hx of cystoscopy History of neck surgery History of vaginal hysterectomy History of bladder surgery Family History Father Heart disease Mother No problems noted. Maternal Grandfather Heart disease Maternal Grandmother Heart disease Paternal Grandfather Heart disease Paternal Grandmother Heart disease Social History Housing: House Are you a primary managed care director to a significant other at home: Yes (spouse had recent knee replacement) Do you presently have visiting nurse or other home services: No Alcohol intake: never Patient Tobacco Use Status: Former Tobacco user Quit Date: 2007 Tobacco use type: Cigarette e-Cigarette/Vaping Use: Never Used Second Hand Smoke Exposure: No Current occupational status: disabled Cognitive needs: No Hearing needs: No Vision needs: Yes Questionnaire Thrive Questionnaire Date Thrive assessed: 03/30/23 AUDIT C Alcohol Use Questionnaire (AUDIT-C) 1. How often do you have a drink containing alcohol?: Monthly or less 2. How many drinks containing alcohol do you have on a typical day when you are drinking?: 1 or 2 3. How often do you have six or more drinks on one occasion?: Never Total Score: 1 DEONTE-7 AMB Questionnaire DEONTE-7 Date DEONTE - 7 assessed: 03/30/23 Feeling nervous, anxious, or on edge: 1 = Several days Not being able to stop or control worryin = Several days Worrying too much about different things: 1 = Several days Trouble relaxin = Not at all Being so restless that it is hard to sit still: 0 = Not at all Becoming easily annoyed or irritable: 1 = Several days Feeling afraid as if something awful might happen: 0 = Not at all Total DEONTE-7 score (0-4 normal; 5-9 mild; 10-14 moderate; 15-21 severe): 4 Source: Developed by Drs. Flaco Banuelos, Gracia Cash, Roque Seo and colleagues, with an educational glory from [employer]. DEONTE-7 Assessment Billing DEONTE-7 Assessment Tool: DEONTE-7 Assessment 04797 Review of Systems Const Denies daytime sleepiness, Denies difficulty sleeping, Denies fever(s), Denies frequent falls and Denies headache(s) Eyes Details: sees Dr Mckeon Reports no additional complaints ENT Reports no additional complaints and Denies headache(s) Card Denies chest pain, Denies irregular heart rhythm and Reports leg edema Resp Reports cough (mild intermittent ) and Denies wheezing GI Reports no additional complaints Reports as per HPI Musc Reports no additional complaints and Reports abnormal gait (Non ambulatory) Skin/Breast Reports system reviewed and no additional complaints, except as documented Neuro Reports abnormal gait (Non ambulatory), Denies frequent falls and Denies headache(s) Psych Reports no additional complaints Endo Reports no additional complaints Chuck/Lymph Reports no additional complaints Aller/Immun Denies wheezing Physical exam (Primary Care) Vital Signs: Last Vital Signs Pulse 73 09/30/23 11:28 BP 130/80 09/30/23 11:28 Pulse Ox 99 09/30/23 11:28 Oxygen Delivery Method Nasal Cannula 09/30/23 11:28 BMI result Body Mass Index 53.5 Tobacco/Smoking Status: Tobacco use Status Tobacco use date assessed 09/30/23 09/30/23 11:35 Patient Tobacco Use Status Former Tobacco user 09/30/23 11:24 Tobacco use type Cigarette 09/30/23 11:24 e-Cigarette/Vaping Use Never Used 09/30/23 11:24 Thrive Assessment: Date of Thrive Assessment Date Thrive assessed 03/30/23 09/30/23 11:24 Const Other: Alert oriented x3, no acute cardiorespiratory distress noted morbidly obese, partner present in room Orientation/consciousness: patient oriented x3 HENMN Head: Yes normocephalic and Yes atraumatic Mouth: Normal oral and palatal mucosa present and moist mucous membranes Eyes General: appearance normal, both eyes and all related structures Neck Neck: Yes full ROM, Yes no lymphadenopathy and Yes supple Resp Auscultation: clear to auscultation bilaterally and other (Oxygen supplementation by nasal cannula) Cardio Other: S1-S2 present regular rate and rhythm GI Inspection: Yes obesity Palpation (GI): Soft to palpation, nontender, no guarding and no masses Auscultation: normal bowel sounds General: Yes no CVA tenderness Back/Spine/Pelvis Back: no CVA tenderness and No back tenderness Skin General skin exam: no rashes or lesions noted Neuro Other: Uses a walker General: patient oriented x3, moves all extremities, Normal light touch and pain sensation, no focal motor deficits and CN's II-XI intact bilaterally Psych Appearance: grossly normal and well kempt Mental Status: mental status grossly normal Speech and movement: Normal speech and movement present Affect: normal affect Attitude: cooperative Thought process: Normal thought process present Results Reviewed Results Reviewed: Name: Morena Estrada Age/Sex: 78/F : 1945 Unit#: [id number] Attend Dr: Jessica Li MD Re09/20/23 Status: DEP REF Location: [facility] Disch: SPEC : [id number] SANDEE: 09/20/23 STATUS: COMP REQ : [id number] RECD: 09/20/[address]: Jessica Li MD COMP: 09/20/23 ENTERED: 09/20/[address] [facility] [address]: ORDERED: CBC Auto Diff, SLIDE REVIEW Test Result Flag Reference WBC 6.0 4.8-10.8 X10*3/uL RBC 3.68 L 4.20-5.50 X10*6/uL HGB 11.4 L 12.0-16.0 g/dl HCT 37.3 37.0-47.0 % MCV 101.4 H 80.0-98.0 fL MCH 31.0 27.0-33.0 pg MCHC 30.6 L 31.0-35.0 g/dl RDW 14.6 11.0-16.0 % PLT Test not performed 160-400 X10*3/uL Unable to obtain an accurate platelet count. Short draw - platelet clumps noted on smear. MPV Test not performed 9.4-12.3 fL Neut Pct Auto 67.5 45-73 % ImGran Pct Auto 1.0 H 0.0-0.4 % Lymp Pct Auto 20.7 20-40 % [place] Pct Auto 7.1 2-11 % Eos Pct Auto 3.2 0-4 % Baso Pct Auto 0.5 0-2 % NRBC Pct Auto 0.0 0.0-0.2 /100WBC ANC Neut Abs # 4.0 2.0-8.3 x10*3/uL ImGran Abs Auto 0.06 H 0.00-0.03 X10*3/uL Lymph Abs Auto 1.2 1.2-4.9 X10*3/uL [place] Abs Auto 0.4 0.1-1.2 X10*3/uL Eos Abs Auto 0.2 0.0-0.4 X10*3/uL Baso Abs Auto 0.0 0.0-0.2 X10*3/uL NRBC Abs Auto 0.000 0.0-0.012 X10*3/uL SLIDE REVIEW VERIFIED Name: Morena Estrada Age/Sex: 78/F : 1945 Unit#: [id number] Attend Dr: Jessica Li MD Re09/20/23 Status: DEP REF Location: [facility] Disch: SPEC : [id number] SANDEE: 09/20/23 STATUS: COMP REQ : [id number] RECD: 09/20/[address]: Jessica Li MD COMP: 09/20/23 ENTERED: 09/20/[address]: ORDERED: Met Prof Fast, IRON PROF, AST, ALT, Lipid Panel, Vitamin D 25-OH Test Result Flag Reference Sodium 141 135-145 mmol/L Potassium 4.8 3.3-5.1 mmol/L Moderate Hemolysis CL 100 96-108 mmol/L CO2 30 H 22-29 mmol/L Gap 16 12-20 BUN 14 9-16 mg/dL Creat 0.71 0.5-1.4 mg/dL EGFR > 60 NOTE: For -Japanese individuals, multiply the result by 1.210. Chronic Kidney Disease: Estimated GFR < 60 mL/min/1.73m2 Severe Kidney Disease: Estimated GFR < 15 mL/min/1.73m2 FBS 99 60-99 mg/dL CA 9.5 8.4-10.2 mg/dL Iron 83 30-160 mcg/dL Moderate Hemolysis TIBC 277 228-428 mcg/dL Saturation 30 15-50 % UIBC 194 ug/dL AST (GOT) 24 5-31 U/L Moderate Hemolysis ALT (GPT) 12 0-31 U/L Triglyceride 83 <150 mg/dL Desirable Triglyceride: less than 150 mg/dL Borderline High Triglyceride 150-199 mg/dL High Triglyceride: 200-499 mg/dL Very High Triglyceride: greater than or equal to 5OO mg/dL Cholesterol 138 <200 mg/dL Desirable Cholesterol: less than 200 mg/dL Borderline High Cholesterol: 200-239 mg/dL High Cholesterol: greater than 239 mg/dL LDL Calculated 78 <100 mg/dL Desirable LDL: less than 100 mg/dL Near Optimal/Above Optimal LDL: 110-129 mg/dL Borderline High LDL: 130-159 mg/dL High LDL: 160-189 mg/dL Very High LDL: greater than or equal to 190 mg/dL HDL 44 >40 mg/dL Desirable HDL: greater than 40 mg/dL Note: This HDL assay may give artificially low results in patients with liver disease. Vit D 25-OH Tot 39.3 >30 ng/mL Health Based Reference Values* < 20 ng/mL Deficient 20-30 ng/mL Insufficient > 30 ng/mL Sufficient Assessment and Plan Assessment & Plan (1) Gait instability: Code(s): R26.81 - Unsteadiness on feet Plan: Prescription was sent for a transport chair measuring approximately 22 in she needs widest diameter (2) COPD (chronic obstructive pulmonary disease): Comment: PATIENT DOES HAVE CHRONIC COUGH WITH CHEST CONGESTION PROBABLY DUE TO CHRONIC OBSTRUCTIVE PULMONARY DISORDER. She is prone to have recurrent acute bronchitis causing acute exacerbation. Code(s): J44.9 - Chronic obstructive pulmonary disease, unspecified Plan: Followed by Pulmonary (3) Bladder cancer: Comment: 2019 low-grade Code(s): C67.9 - Malignant neoplasm of bladder, unspecified Plan: Followed by Urology (4) Mixed stress and urge urinary incontinence: Code(s): N39.46 - Mixed incontinence Plan: Currently on Mirabegron and tolterodine, which affords only slight improvement. Prescription was sent for bedside commode, as she has difficulty reaching the bathroom in time whenever she needs to urinate. Occasionally gets accidents on the way to the bathroom. (5) Anemia, macrocytic: Code(s): D53.9 - Nutritional anemia, unspecified Plan: Latest CBC showed improving hemoglobin hematocrit level as compared to last check. Continue healthy eating habits , with diet filled with green leafy vegetables , fish, dairy, whole grain Medications: New [Transport chair] As directed 1 ea 0RF Gait instability C67.9 - Malignant neoplasm of bladder, unspecified, J44.9 - Chronic obstructive pulmonary disease, unspecified, J98.4 - Other disorders of lung, R26.81 - Unsteadiness on feet Coding Level of Care Code Est Pt Level 4 (68524) Diagnoses Gait instability R26.81 COPD (chronic obstructive pulmonary disease) J44.9 Bladder cancer C67.9 Mixed stress and urge urinary incontinence N39.46 Anemia, macrocytic D53.9 Additional Codes DEONTE-7 Assessment Billing - DEONTE-7 Assessment Tool: DEONTE-7 Assessment 83921 ([id number])
[2023-09-30 11:28] VITALS: BP 130/80; PULSE 73; O2SAT 99; BMI 53.5
== END 2023-09-30 14:02 | disposition home or self-care (01) ==
PROVIDERS: PCP Internal Medicine; Visit Provider Internal Medicine
DX: R26.81 Unsteadiness on feet (principal); J44.9 Chronic obstructive pulmonary disease, unspecified; C67.9 Malignant neoplasm of bladder, unspecified; N39.46 Mixed incontinence; D53.9 Nutritional anemia, unspecified
CPT/HCPCS: 99214

== ENCOUNTER 2023-10-20 09:05 | Outpatient (REF) | payer MEDICARE, SELFPAY | END 2023-10-20 09:06 | disposition home or self-care (01) | LOC: HO.LNP 09:05 | PROVIDERS: PCP Internal Medicine; Visit Provider Urology | DX: C67.9 Malignant neoplasm of bladder, unspecified (principal); N32.81 Overactive bladder; Z79.899 Other long term (current) drug therapy | CPT/HCPCS: 52000; 81003; 88121; 99212 ==

== ENCOUNTER 2023-10-20 09:05 | Outpatient (AMB) | payer MEDICARE, SELFPAY ==
--- NOTE | 2023-10-20 09:07 | A.OFFVIS_ITS ---
Intake Intake Visit Reasons: cysto(Confirmed) Intake Note: Patient is Present for Cystoscopy Urology Med: Myrbetriq, Estradiol Antibiotic Allergy: Penicillins, Sulfa, Blood Thinner: Aspirin URO- G Disposable Cystoscope lot: [id number] exp:05/12/2026 Allergies bee pollen [bee stings] Allergy (Severe, Verified 10/20/23 09:14) Anaphylaxis tetanus toxoid, adsorbed [Tetanus Toxoid,Adsorbed] Allergy (Severe, Verified 10/20/23 09:14) LOCAL INJ.SITE SWELLING beeswax [BEESWAX] Allergy (Intermediate, Verified 10/20/23 09:14) Hives Iodinated Contrast Media [IV Dye, Iodine Containing] Allergy (Intermediate, Verified 10/20/23 09:14) HIVES-CAT SCAN DYE iodine [Iodine] Allergy (Intermediate, Verified 10/20/23 09:14) SWELLING, blister, hives Penicillins Allergy (Intermediate, Verified 10/20/23 09:14) SWELLING, hives, rash Sulfa (Sulfonamide Antibiotics) Allergy (Intermediate, Verified 10/20/23 09:14) Hives pneumococcal vaccine Adverse Reaction (Intermediate, Verified 10/20/23 09:14) fever, chills pollen Adverse Reaction (Mild, Uncoded 10/20/23 09:14) Nasal congestion HPI HPI Comments History of Present Illness Details Morena is a pleasant female. She is a patient Dr. Li. She is seen for the following urologic conditions - bladder cancer - urinary frequency urgency Continues with Bladder cancer - low-grade superficial Diagnosed by Dr. Betancourt 2019 Underwent TURBT with 6 week gemcitabine induction Cystoscopy - 03/24 NAD, 09/22 NAD - significant trabe culation, 03/25 diverticulum in bladder, redness right sidewall, 10/24 persistence area redness, 10/25 persistent red area Cytology 03/25 NAD Urinary frequency/urgency Has InterStim had been placed many years ago InterStim revision 12/23 - new lead and battery InterStim had been working but decreased efficacy when came off medications [facility] Medical History (Updated 10/02/23 @ 01:48 by Jessica Li MD) Acute bronchitis Anemia, macrocytic History of CT (myocardial infarction) Heartburn symptom Gait instability Restrictive lung disease Myocardial infarct Supplemental oxygen dependent Difficult intravenous access Respiratory failure with hypoxia Intertrigo Pneumococcal vaccination declined Influenza vaccination declined NADEEM (obstructive sleep apnea) COPD (chronic obstructive pulmonary disease) Restrictive lung disease OAB (overactive bladder) Murmur Nocturnal leg cramps UTI (urinary tract infection) Endometrial cancer Immunization refused Mixed stress and urge urinary incontinence Morbid obesity Recurrent major 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 Impaired fasting glucose Dyslipidemia Osteopenia of neck of left femur Mild intermittent asthma without complication Essential hypertension Cataract Hx of gout Hx of Clostridium difficile infection Urinary incontinence Hiatal hernia GERD (gastroesophageal reflux disease) Sleep apnea, unspecified Snores Ex-smoker for more than 1 year Bladder cancer History of pneumonia Surgical History History of urologic surgery Hx of bilateral cataract extraction Cataract extraction status, right eye Hx of colonoscopy Hx of cystoscopy History of neck surgery History of vaginal hysterectomy History of bladder surgery Family History Father Heart disease Mother No problems noted. Maternal Grandfather Heart disease Maternal Grandmother Heart disease Paternal Grandfather Heart disease Paternal Grandmother Heart disease Social History Housing: House Are you a primary home health caregiver to a significant other at home: Yes (spouse had recent knee replacement) Do you presently have visiting nurse or other home services: No Alcohol intake: never Patient Tobacco Use Status: Former Tobacco user Quit Date: 2007 Tobacco use type: Cigarette e-Cigarette/Vaping Use: Never Used Second Hand Smoke Exposure: No Current occupational status: disabled Cognitive needs: No Hearing needs: No Vision needs: Yes Review of Systems Const Denies chills and Denies fever(s) Card Reports no additional complaints and Denies syncope Resp Denies cough GI Denies abdominal pain and Denies heartburn Reports as per HPI and Denies change in libido Neuro Denies syncope Psych Denies change in libido Endo Denies change in libido Physical Exam Const General: cooperative, healthy appearing, comfortable and no acute distress Orientation/consciousness: patient oriented x3 HEENT Face and sinus: Yes normal facial exam Mouth: moist mucous membranes Neck Neck: Yes normal visual inspection, Yes full ROM and Yes trachea midline Chest Chest palpation & inspection: normal inspection of the chest Resp Effort & Inspection: normal respiratory effort, able to speak in complete sentences and no respiratory distress GI Inspection: Yes normal to inspection Back/Spine/Pelvis Cervical Spine: normal cervical lordosis Thoracic/Lumbar Spine: thoracic and lumbar spine normal to inspection Skin General skin exam: no rashes or lesions noted Neuro General: patient oriented x3, gait normal, tone normal and moves all extremities Extrem General: Yes normal to inspection and Yes capillary refill normal Office Procedures Cystoscopy Consent Discussed risk and benefit or proposed procedure with the patient. Information consent for procedure given to the patient. Discussed technical aspects, risks, benefits and alternatives in full. Addressed all of the patient's questions and concerns regarding the procedure. The patient demonstrated knowledge and understanding. They wish to proceed with this procedure. Preparation The patient was prepped in the usual manner. A sql programmer analyst was present and in the room. Genitalia was prepped with betadine solution in a sterile manner. Lidocaine Jelly 2% was placed into the urethra and 16Fr flexible Olympus cystoscope was inserted into the meatus after adequate lubrication. Procedure Meatus normal position Urethra normal Bladder examination with retroflexion of cystoscope Bladder Orifices normal shape and position Trigone normal Bladder Capacity normal Trabeculations grade 1 Cellule Formation - Diverticulum Formation - Mucosal Erythema posterior wall slight redness patch stable Bladder Tumor - [id number] DISPOSABLE SCOPE URO-G FLEXIBLE SCOPE Procedure code (CPT) selection complete Office Meds lidocaine HCl 2 % mucosal jelly in applicator Performing Provider: Sánchez Mcmillan MD Performing Location: [facility] Administered by: Tello Lee LPN on 10/20/23 09:36 Dose Route Admin Location Dispensed Lot Number Expiration Date NDC Sample Checker 10 mL intra-urethral 10 mL nitrofurantoin monohydrate/macrocrystals 100 mg capsule Performing Provider: Sánchez Mcmillan MD Performing Location: [facility] Administered by: Tello Lee LPN on 10/20/23 09:36 Dose Route Admin Location Dispensed Lot Number Expiration Date NDC Sample Checker 100 mg PO 1 cap naproxen 500 mg tablet Performing Provider: Sánchez Mcmillan MD Performing Location: [facility] Administered by: Tello Lee LPN on 10/20/23 09:36 Dose Route Admin Location Dispensed Lot Number Expiration Date NDC Sample Checker 500 mg PO 1 tab Results AMB Urinalysis, Automated UA Leukoctes 0 Brodie/uL Last Edit by Lisa Do, RMA on 10/20/23 09:25 UA Nitrite Negative Last Edit by Lisa Do, RMA on 10/20/23 09:25 UA Urobilinogen 1 mg/dL Last Edit by Lisa Do, RMA on 10/20/23 09:25 UA Protein 15 mg/dL Last Edit by Lisa Do, RMA on 10/20/23 09:25 UA pH 6.0 Last Edit by Lisa Do, RMA on 10/20/23 09:25 UA Blood 0 Kye/uL Last Edit by Lisa Do, RMA on 10/20/23 09:25 UA Specific Roberts 1.015 Last Edit by Lisa Do, A on 10/20/23 09: 25 UA Ketone Negative Last Edit by Lsia Do, RMA on 10/20/23 09:25 UA Bilirubin 0 mg/dL Last Edit by Lisa Do, A on 10/20/23 09:25 UA Glucose 0 mg/dL Last Edit by Lisa Do, A on 10/20/23 09:25 Results Reviewed Results Reviewed: Laboratory Last Values Urine pH (Auto) 6.0 10/20/23 09:08 Specific Roberts (Auto) 1.015 10/20/23 09:08 Urine Protein (Auto) 15 mg/dL 10/20/23 09:08 Glucose (UA)(Auto) 0 mg/dL 10/20/23 09:08 Urine Ketones (Auto) Negative 10/20/23 09:08 Urine Blood (Auto) 0 Kye/uL 10/20/23 09:08 Urine Nitrite (Auto) Negative 10/20/23 09:08 Urine Bilirubin (Auto) 0 mg/dL 10/20/23 09:08 Urine Urobilinogen (Auto) 1 mg/dL 10/20/23 09:08 Leukocyte Esterase (Auto) 0 Brodie/uL 10/20/23 09:08 Assessment & Plan Assessment & Plan (1) Overactive bladder: Comment: InterStim revision in 2021 Code(s): N32.81 - Overactive bladder (2) Bladder cancer: Comment: 2019 low-grade Code(s): C67.9 - Malignant neoplasm of bladder, unspecified Plan Six-month follow-up cystoscopy Orders: Orders AMB Urinalysis Automated Today C67.9 - Malignant neoplasm of bladder, unspecified, Z13.9 - Encounter for screening, unspecified AMB Cystoscopy Today C67.9 - Malignant neoplasm of bladder, unspecified FISH Bladder Cancer Today C67.9 - Malignant neoplasm of bladder, unspecified Patient Instructions: Imaging studies, laboratory and physical exam results were discussed and reviewed in detail. No major barriers to patient understanding were identified. An opportunity to ask questions regarding the treatment plan was provided. All questions were answered. The patient expressed understanding and agreement with the above treatment plan. The patient is aware they should contact our office by phone for worsening of their current condition or the appearance of new urologic symptoms. Compliance is encouraged with any medications and followup testing that is ordered. It is a privilege to participate in the urologic care of your patient. If you have any questions or concerns regarding treatment for the above conditions, or other urologic issues, please do not hesitate to contact me. The office telephone contact is [phone]. This note is constructed using voice recognition software. While every effort has been made to ensure accuracy primary care md errors may have been included. Yours sincerely, Dr Sánchez Mcmillan MD, [facility] - Urology Providers of Expert, Compassionate Care for the Genitourinary System Coding Level of Care Code Est Pt Level 3 (64350) Diagnoses Overactive bladder N32.81 Bladder cancer C67.9 CPT Codes Cystoscopy - CPT: 74892-[id number] ([id number])
== END 2023-10-20 09:47 | disposition home or self-care (01) ==
PROVIDERS: PCP Internal Medicine; Visit Provider Urology
DX: C67.9 Malignant neoplasm of bladder, unspecified (principal); N32.81 Overactive bladder
CPT/HCPCS: 52000; 99213

== ENCOUNTER 2023-10-26 09:25 | Outpatient (AMB) | payer MEDICARE, SELFPAY ==
[2023-10-26 09:32] VITALS: BP 110/70; PULSE 69; O2SAT 100
--- NOTE | 2023-10-26 09:32 | MHC.OFFVIS ---
Vital Signs 10/26/23 09:32 Height 4 ft 10 in BP 110/70 Blood Pressure Location Lt radial Pulse 69 Pulse Source Pulse Oximeter Pulse Oximetry (%) 100 Oxygen Delivery Method Nasal Cannula Oxygen Flow Rate 3 Intake Visit Reasons: COPD Intake Note: pt is here for follow up and still have her legs swelling, some breaks of O2, does not do too much. 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 Allergies bee pollen [bee stings] Allergy (Severe, Verified 10/26/23 09:40) Anaphylaxis tetanus toxoid, adsorbed [Tetanus Toxoid,Adsorbed] Allergy (Severe, Verified 10/26/23 09:40) LOCAL INJ.SITE SWELLING beeswax [BEESWAX] Allergy (Intermediate, Verified 10/26/23 09:40) Hives Iodinated Contrast Media [IV Dye, Iodine Containing] Allergy (Intermediate, Verified 10/26/23 09:40) HIVES-CAT SCAN DYE iodine [Iodine] Allergy (Intermediate, Verified 10/26/23 09:40) SWELLING, blister, hives Penicillins Allergy (Intermediate, Verified 10/26/23 09:40) SWELLING, hives, rash Sulfa (Sulfonamide Antibiotics) Allergy (Intermediate, Verified 10/26/23 09:40) Hives pneumococcal vaccine Adverse Reaction (Intermediate, Verified 10/26/23 09:40) fever, chills pollen Adverse Reaction (Mild, Uncoded 10/26/23 09:40) Nasal congestion Medication List - Last Reconciled 10/26/23 by Bonnie Lozano MD ascorbic acid (vitamin C) (Vitamin C) 500 mg PO DAILY aspirin 81 mg PO DAILY atorvastatin 40 mg PO BEDTIME [bariatric transport wheelchair As directed] cholecalciferol (vitamin D3) (Vitamin D3) 25 mcg PO DAILY citalopram 20 mg PO DAILY clotrimazole-betamethasone 1-0.05 % 1 appl topical BID 10 days coenzyme Q10 (CoQ-10) 300 mg PO DAILY commode (bedside commode) Bariatric commode estradiol 0.01%(0.1mg/gram) pea-sized to urethra daily; 30 days fluticasone propionate 50 mcg/actuation 1 spray intranasal QAM PRN 30 days furosemide 20 mg PO QAM PRN ipratropium-albuterol 0.5 mg-3 mg(2.5 mg base)/3 mL 3 mL inhalation Q4-6H PRN 30 days lisinopril 2.5 mg PO DAILY metoprolol succinate ER 100 mg (2 x 50 mg) PO DAILY mirabegron ER (Myrbetriq) 50 mg PO DAILY 90 days pantoprazole 40 mg PO DAILY [Transport chair As directed] turmeric 500 mg PO DAILY Do you need a note to return to daycare/school/sports/work: No HPI HPI COPD: Details: 78 years old, morbidly obese, pleasant lady, who has very severe restrictive lung disorder due to obesity, NADEEM, and chronic respiratory insufficiency, Comes here for follow-up after 2 months. She has been doing well, except that she is confined to the large bariatric chair and does not move around much. Has been free from any. Acute respiratory infection She uses DuoNeb, updrafts t.i.d. oxygen 2 L/minute continuously at night and p.r.n. during the daytime. Remains in good spirits. [facility] Medical History Acute bronchitis Anemia, macrocytic History of [place] (myocardial infarction) Heartburn symptom Gait instability Restrictive lung disease Myocardial infarct Supplemental oxygen dependent Difficult intravenous access Respiratory failure with hypoxia Intertrigo Pneumococcal vaccination declined Influenza vaccination declined NADEEM (obstructive sleep apnea) COPD (chronic obstructive pulmonary disease) Restrictive lung disease OAB (overactive bladder) Murmur Nocturnal leg cramps UTI (urinary tract infection) Endometrial cancer Immunization refused Mixed stress and urge urinary incontinence Morbid obesity Recurrent major 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 Impaired fasting glucose Dyslipidemia Osteopenia of neck of left femur Mild intermittent asthma without complication Essential hypertension Cataract Hx of gout Hx of Clostridium difficile infection Urinary incontinence Hiatal hernia GERD (gastroesophageal reflux disease) Sleep apnea, unspecified Snores Ex-smoker for more than 1 year Bladder cancer History of pneumonia Surgical History History of urologic surgery Hx of bilateral cataract extraction Cataract extraction status, right eye Hx of colonoscopy Hx of cystoscopy History of neck surgery History of vaginal hysterectomy History of bladder surgery Family History Father Heart disease Mother No problems noted. Maternal Grandfather Heart disease Maternal Grandmother Heart disease Paternal Grandfather Heart disease Paternal Grandmother Heart disease Social History Housing: House Are you a primary care director rn to a significant other at home: Yes (spouse had recent knee replacement) Do you presently have visiting nurse or other home services: No Alcohol intake: never Patient Tobacco Use Status: Former Tobacco user Quit Date: 2007 Tobacco use type: Cigarette e-Cigarette/Vaping Use: Never Used Second Hand Smoke Exposure: No Current occupational status: disabled Cognitive needs: No Hearing needs: No Vision needs: Yes Review of Systems Const All systems reviewed & are unremarkable except as noted in HPI and below Eyes Reports no additional complaints ENT Reports no additional complaints Card Denies chest pain, Denies irregular heart rhythm and Reports leg edema Resp Reports cough (mild intermittent ) and Denies wheezing GI Reports no additional complaints Reports urinary incontinence Musc Reports no additional complaints and Reports abnormal gait (Non ambulatory) Skin/Breast Reports system reviewed and no additional complaints, except as documented Neuro Reports abnormal gait (Non ambulatory) Psych Reports no additional complaints Aller/Immun Denies wheezing Physical Exam Const Other: SHE IS GROSSLY OBESE, BUT CANNOT BE WEIGHED. HAS A LARGE AND SHORT NECK. WITH A ROUND FACE. TYPICAL PHYSICAL FEATURES OF OBSTRUCTIVE SLEEP APNEA. General: comfortable (In a wheelchair), no acute distress, alert and awake Orientation/consciousness: patient oriented x3 HEENT Head: Yes normal to inspection General nose exam: No nasal polyps present and No nasal discharge present Face and sinus: Yes sinuses nontender Mouth: oropharynx abnormals (Oropharynx is crowded, Mallampati class 4) Throat: Yes posterior oropharynx normal Eyes General: appearance normal, both eyes and all related structures Neck Neck: Yes normal visual inspection, Yes no lymphadenopathy, Yes trachea midline, Yes no JVD and Yes other (Very obese and short) Thyroid: Thyroid normal Chest Chest palpation & inspection: normal inspection of the chest, normal palpation of entire chest wall and no tenderness Resp Other: Percussion note is not perceptible because of gross obesity. Breath sounds are heard equally in the upper parts of the chest and diminished over the lower lobes. No wheezes rhonchi or crepitations were heard. NO COUGH with breathing efforts . Cardio Palpation: normal PMI Rate: regular rate Rhythm: regular rhythm Heart sounds: no gallops and no murmurs GI Palpation (GI): Soft to palpation, nontender, No hepatosplenomegaly present, no masses and Other GI palpation findings present (Abdomen grossly obese) Auscultation: normal bowel sounds Back/Spine/Pelvis Thoracic/Lumbar Spine: thoracic and lumbar spine normal to inspection and thoraco-lumbar ROM limited Skin General skin exam: no rashes or lesions noted Neuro General: patient oriented x3, No gait normal (Gait is impaired because of her morbid obesity) and no focal motor deficits Cranial nerves: Yes CN's II-XII intact bilaterally Extrem General: Yes normal to inspection, Yes no calf tenderness and Yes edema (Edema around the ankles, stasis edema) Psych Appearance: grossly normal and well kempt Speech and movement: Normal speech and movement present Assessment & Plan Assessment & Plan (1) Morbid obesity: Comment: THIS PATIENT HAS SUPER MORBID OBESITY. THERE IS NO POTENTIAL FOR HER TO LOSE WEIGHT. Code(s): E66.01 - Morbid (severe) obesity due to excess calories Category: Medical Plan: as above (2) COPD (chronic obstructive pulmonary disease): Comment: PATIENT DOES HAVE CHRONIC COUGH WITH CHEST CONGESTION PROBABLY DUE TO CHRONIC OBSTRUCTIVE PULMONARY DISORDER. She is prone to have recurrent acute bronchitis causing acute exacerbation. Code(s): J44.9 - Chronic obstructive pulmonary disease, unspecified Category: Medical Plan: Continue DuoNeb updrafts t.i.d. and q.6 hours p.r.n. (3) NADEEM (obstructive sleep apnea): Comment: *BECAUSE OF HER MORBID OBESITY SHE HAS FEATURES OF OBSTRUCTIVE SLEEP APNEA. HOWEVER SHE WOULD NOT CONSENT FOR ANY WORKUP OR TREATMENT AT THIS TIME . Code(s): G47.33 - Obstructive sleep apnea (adult) (pediatric) Category: Medical Plan: as above (4) Restrictive lung disease: Comment: PATIENT MUST HAVE SIGNIFICANT RESTRICTIVE LUNG DISORDER BECAUSE OF HER MORBID OBESITY. SHE WILL TRY TO LOSE WEIGHT. SHE DOES HAVE INCENTIVE SPIROMETRY DEVICE AT HOME AND IS INSTRUCTED TO DO DEEP BREATHING EXERCISES 3 TO 4 TIMES A DAY. Code(s): J98.4 - Other disorders of lung Category: Medical Plan: Stressed that she should do deep breathing exercises 3 to 4 times a day, and actually as much as possible Coding Level of Care Code Est Pt Level 3 (33714) Diagnoses Morbid obesity E66.01 COPD (chronic obstructive pulmonary disease) J44.9 NADEEM (obstructive sleep apnea) G47.33 Restrictive lung disease J98.4
== END 2023-10-26 09:50 | disposition home or self-care (01) ==
PROVIDERS: PCP Internal Medicine; Visit Provider Internal Medicine
DX: E66.01 Morbid (severe) obesity due to excess calories (principal); J44.9 Chronic obstructive pulmonary disease, unspecified; G47.33 Obstructive sleep apnea (adult) (pediatric); J98.4 Other disorders of lung
CPT/HCPCS: 99213

== ENCOUNTER → 2023-10-26 09:25 | Outpatient (BNVA) | payer MEDICARE, SELFPAY | PROVIDERS: PCP Internal Medicine; Visit Provider Internal Medicine | DX: J44.9 Chronic obstructive pulmonary disease, unspecified (principal); G47.33 Obstructive sleep apnea (adult) (pediatric); J98.4 Other disorders of lung; E66.01 Morbid (severe) obesity due to excess calories | CPT/HCPCS: 99212 ==

== ENCOUNTER 2023-12-29 08:49 | Outpatient (REF) | payer MEDICARE, SELFPAY ==
[2023-12-29 11:40] LABS: MANUAL DIFF FLAG NO
[2023-12-29 11:41] LABS: Basophils Absolute Auto 0.1 X10*3/uL (0.0-0.2); Basophils Percent Auto 0.7 % (0-2); Eosinophils Absolute Auto 0.2 X10*3/uL (0.0-0.4); Eosinophils Percent Auto 2.4 % (0-4); Hematocrit 37.2 % (37.0-47.0); Hemoglobin 11.1 g/dl (12.0-16.0); Imm Gran Abs Auto 0.06 X10*3/uL (0.00-0.03); Imm Gran Pct Auto 0.9 % (0.0-0.4); Lymphocytes Absolute Auto 1.3 X10*3/uL (1.2-4.9); Lymphocytes Percent Auto 18.6 % (20-40); Mean Corpuscular HGB Conc 29.8 g/dl (31.0-35.0); Mean Corpuscular Hemoglobin 30.4 pg (27.0-33.0); Mean Corpuscular Volume 101.9 fL (80.0-98.0); Monocytes Absolute Auto 0.4 X10*3/uL (0.1-1.2); Monocytes Percent Auto 6.2 % (2-11); Neutrophils Absolute Auto 4.8 x10*3/uL (2.0-8.3); Neutrophils Percent Auto 71.2 % (45-73); Platelet Count 173 X10*3/uL (160-400); Red Blood Count 3.65 X10*6/uL (4.20-5.50); Red Cell Distribution Width 14.5 % (11.0-16.0); White Blood Count 6.8 X10*3/uL (4.8-10.8)
[2023-12-29 12:13] LABS: Alanine Aminotransferase 10 U/L (0-31); Anion Gap 13 (12-20); Aspartate Amino Transferase 14 U/L (5-31); Blood Urea Nitrogen 15 mg/dL (9-16); Calcium 9.5 mg/dL (8.4-10.2); Carbon Dioxide 31 mmol/L (22-29); Chloride 104 mmol/L (96-108); Cholesterol 119 mg/dL (<200); Estimated Glomerular Filt Rate > 60; Glucose Fasting 105 mg/dL (60-99); HDL Cholesterol 42 mg/dL (>40); LDL Cholesterol Calculated 67 mg/dL (<100); Potassium 5.2 mmol/L (3.3-5.1); Sodium 143 mmol/L (135-145); Triglycerides 50 mg/dL (<150)
== END 2023-12-29 08:50 | disposition home or self-care (01) ==
LOC: HO.HMGCLDS 08:49
PROVIDERS: PCP Internal Medicine; Visit Provider Internal Medicine
DX: D53.9 Nutritional anemia, unspecified (principal); I10 Essential (primary) hypertension; E78.5 Hyperlipidemia, unspecified; R73.01 Impaired fasting glucose
CPT/HCPCS: 36415; 80048; 80061; 84450; 84460; 85025

== ENCOUNTER 2023-12-30 09:13 | Outpatient (AMB) | payer MEDICARE, SELFPAY ==
--- NOTE | 2023-12-30 09:05 | MHC.PC.OV ---
Intake Visit Reasons: 3 mo. f/u Andr. [phone] Intake Note: Pt is having a telehealth for her 3mo. f/u Allergies bee pollen [bee stings] Allergy (Severe, Verified 12/30/23 09:29) Anaphylaxis tetanus toxoid, adsorbed [Tetanus Toxoid,Adsorbed] Allergy (Severe, Verified 12/30/23 09:29) LOCAL INJ.SITE SWELLING beeswax [BEESWAX] Allergy (Intermediate, Verified 12/30/23 09:29) Hives Iodinated Contrast Media [IV Dye, Iodine Containing] Allergy (Intermediate, Verified 12/30/23 09:29) HIVES-CAT SCAN DYE iodine [Iodine] Allergy (Intermediate, Verified 12/30/23 09:29) SWELLING, blister, hives Penicillins Allergy (Intermediate, Verified 12/30/23 09:29) SWELLING, hives, rash Sulfa (Sulfonamide Antibiotics) Allergy (Intermediate, Verified 12/30/23 09:29) Hives pneumococcal vaccine Adverse Reaction (Intermediate, Verified 12/30/23 09:29) fever, chills pollen Adverse Reaction (Mild, Uncoded 12/30/23 09:29) Nasal congestion Medication List - Last Reconciled 12/30/23 by Jessica Li MD ascorbic acid (vitamin C) (Vitamin C) 500 mg PO DAILY aspirin 81 mg PO DAILY atorvastatin 40 mg PO BEDTIME [bariatric transport wheelchair As directed] cholecalciferol (vitamin D3) (Vitamin D3) 25 mcg PO DAILY citalopram 20 mg PO DAILY clotrimazole-betamethasone 1-0.05 % 1 appl topical BID 10 days coenzyme Q10 (CoQ-10) 300 mg PO DAILY commode (bedside commode) Bariatric commode estradiol 0.01%(0.1mg/gram) pea-sized to urethra daily; 30 days fluticasone propionate 50 mcg/actuation 1 spray intranasal QAM PRN 30 days furosemide 20 mg PO QAM PRN ipratropium-albuterol 0.5 mg-3 mg(2.5 mg base)/3 mL mL inhalation Q4-6H PRN lisinopril 2.5 mg PO DAILY metoprolol succinate ER 100 mg (2 x 50 mg) PO DAILY mirabegron ER (Myrbetriq) 50 mg PO DAILY 90 days pantoprazole 40 mg PO DAILY [Transport chair As directed] turmeric 500 mg PO DAILY Tobacco use date assessed: 12/30/23 Fall risk assessment: No Falls in past year Last assessed Fall Risk: 12/30/23 Dental Screening Dental Screen Date: 12/30/23 Did you have a dental visit in the last 12 months?: No Was dental information given to patient?: Patient has dentist HPI 3 mo. f/u Andr. [phone] HPI Details 78-year-old lady with history of bladder cancer , mixed urinary incontinence currently followed by Urology, has history of myocardial infarction, restrictive lung disease due to morbid obesity and obstructive sleep apnea, has prediabetes , dyslipidemia , osteopenia, and hypertension, here today for follow-up.. She is mostly housebound now, has to have her oxygen tank nearby at all times , and has urinary incontinence. She states that her depression is is mostly coming from from a lot of stress dealing with her son and granddaughter who are both living with them. [facility] Medical History Pain around toenail Hypertrophic toenail Acute bronchitis Anemia, macrocytic History of [place] (myocardial infarction) Heartburn symptom Gait instability Restrictive lung disease Myocardial infarct Supplemental oxygen dependent Difficult intravenous access Respiratory failure with hypoxia Intertrigo Pneumococcal vaccination declined Influenza vaccination declined NADEEM (obstructive sleep apnea) COPD (chronic obstructive pulmonary disease) Restrictive lung disease OAB (overactive bladder) Murmur Nocturnal leg cramps UTI (urinary tract infection) Endometrial cancer Immunization refused Mixed stress and urge urinary incontinence Morbid obesity Recurrent major 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 Impaired fasting glucose Dyslipidemia Osteopenia of neck of left femur Mild intermittent asthma without complication Essential hypertension Cataract Hx of gout Hx of Clostridium difficile infection Urinary incontinence Hiatal hernia GERD (gastroesophageal reflux disease) Sleep apnea, unspecified Snores Ex-smoker for more than 1 year Bladder cancer History of pneumonia Surgical History History of urologic surgery Hx of bilateral cataract extraction Cataract extraction status, right eye Hx of colonoscopy Hx of cystoscopy History of neck surgery History of vaginal hysterectomy History of bladder surgery Family History Father Heart disease Mother No problems noted. Maternal Grandfather Heart disease Maternal Grandmother Heart disease Paternal Grandfather Heart disease Paternal Grandmother Heart disease Social History Housing: House Are you a primary daycare teacher to a significant other at home: Yes (spouse had recent knee replacement) Do you presently have visiting nurse or other home services: No Alcohol intake: never Patient Tobacco Use Status: Former Tobacco user Tobacco use type: Cigarette e-Cigarette/Vaping Use: Never Used Second Hand Smoke Exposure: No Current occupational status: disabled Cognitive needs: No Hearing needs: No Vision needs: Yes Questionnaire PHQ-9 Over the last 2 weeks, how often have you been bothered by any of the following problems? 1. Little interest or pleasure in doing things: not at all 2. Feeling down, depressed, or hopeless: several days 3. Trouble falling or staying asleep, or sleeping too much: more than half the days 4. Feeling tired or having little energy: several days 5. Poor appetite or overeating: several days 6. Feeling bad about yourself - or that you are a failure or have let yourself or your family down: not at all 7. Trouble concentrating on things, such as reading the newspaper or watching television: several days 8. Moving or speaking so slowly that other people could have noticed. Or the opposite - being so fidgety or restless that you have been moving around a lot more than usual: several days 9. Thoughts that you would be better off or of hurting yourself in some way: not at all Total score: 7 Depression Screening Interpretation: Positive Depression Screening Follow-up: Existing condition and In treatment Depression Screening Done: Yes 96209 - PHQ-9 Billing: Yes Source: Developed by Drs. Flaco Banuelos, Gracia Cash, Roque Seo and colleagues, with an educational glory from [employer]. Thrive Questionnaire Date Thrive assessed: 12/30/23 I am a: Patient What is your living situation today?: I have a steady place to live Within the past 12 months, did the food you bought not last and you didn't have the money to get more?: Never true Within the past 12 months, did you worry whether your food would run out before you got money to buy more?: Never true Do you have trouble paying for medicines?: Yes Do you have trouble getting transportation to medical appointments?: No Do you have trouble paying your heating and electricity bill?: No Do you have trouble taking care of your child, family member or friend?: No Do you have trouble with day-to-day activities such as bathing, preparing meals, shopping, managing finances, etc.?: No Are you currently unemployed and looking for a job?: No Are you interested in more education?: No THRIVE Score: 0 AUDIT C Alcohol Use Questionnaire (AUDIT-C) 1. How often do you have a drink containing alcohol?: Never Total Score: 0 DEONTE-7 AMB Questionnaire DEONTE-7 Date DEONTE - 7 assessed: 12/30/23 Feeling nervous, anxious, or on edge: 1 = Several days Not being able to stop or control worryin = Several days Worrying too much about different things: 1 = Several days Trouble relaxin = Several days Being so restless that it is hard to sit still: 0 = Not at all Becoming easily annoyed or irritable: 0 = Not at all Feeling afraid as if something awful might happen: 1 = Several days Total DEONTE-7 score (0-4 normal; 5-9 mild; 10-14 moderate; 15-21 severe): 5 Source: Developed by Drs. Flaco Banuelos, Gracia Cash, Roque Seo and colleagues, with an educational glory from [employer]. DEONTE-7 Assessment Billing DEONTE-7 Assessment Tool: DEONTE-7 Assessment 20608 Review of Systems Const All systems reviewed & are unremarkable except as noted in HPI and below Eyes Reports no additional complaints ENT Reports no additional complaints Card Denies chest pain, Denies irregular heart rhythm and Reports leg edema Resp Reports cough (mild intermittent ) and Denies wheezing GI Reports no additional complaints Reports urinary incontinence Musc Reports no additional complaints and Reports abnormal gait (Non ambulatory) Skin/Breast Reports system reviewed and no additional complaints, except as documented Neuro Reports abnormal gait (Non ambulatory) Psych Reports no additional complaints Chuck/Lymph Reports no additional complaints Aller/Immun Denies wheezing Physical exam (Primary Care) Tobacco/Smoking Status: Tobacco use Status Tobacco use date assessed 12/30/23 12/30/23 09:08 Patient Tobacco Use Status Former Tobacco user 12/30/23 09:08 Tobacco use type Cigarette 12/30/23 09:08 e-Cigarette/Vaping Use Never Used 12/30/23 09:08 PHQ-9: PHQ-9 Score PHQ-9: Total score 9 12/30/23 09:38 Depression Screening Interpretation: Positive Depression Screening Follow-up: Existing condition and In treatment Thrive Assessment: Date of Thrive Assessment Date Thrive assessed 12/30/23 12/30/23 09:09 Telehealth Telehealth Telehealth Platform: combionic Location of provider rendering services: practice address Location of patient: address on file Patient Identification confirmed using: Name, : Yes Telehealth method: video Patient verbally consented to treatment: Yes Patient verbally consented to billing insurance company: Yes Patient informed of any privacy concerns related to visit: Yes Minutes spent on Phone/Video with Pt.: 15 Results Reviewed Results Reviewed: Name: Morena Estrada Age/Sex: 78/F : 1945 Unit#: [id number] Attend Dr: Jessica Li MD Re12/29/23 Status: DEP [facility] Disch: SPEC : [id number] SANDEE: 12/29/23 STATUS: COMP REQ : [id number] RECD: 12/29/23-[address]: Jessica Li MD COMP: 12/29/23-1212 ENTERED: 12/29/23-[address]: ORDERED: Met Prof Fast, AST, ALT, Lipid Panel Test Result Flag Reference Sodium 143 135-145 mmol/L Potassium 5.2 H 3.3-5.1 mmol/L CL 104 96-108 mmol/L CO2 31 H 22-29 mmol/L Gap 13 12-20 BUN 15 9-16 mg/dL Creat 0.73 0.5-1.4 mg/dL EGFR > 60 NOTE: For -[place] individuals, multiply the result by 1.210. Chronic Kidney Disease: Estimated GFR < 60 mL/min/1.73m2 Severe Kidney Disease: Estimated GFR < 15 mL/min/1.73m2 FBS 105 H 60-99 mg/dL A fasting glucose from 100-125 mg/dl is considered impaired (pre-diabetes). CA 9.5 8.4-10.2 mg/dL AST (GOT) 14 5-31 U/L ALT (GPT) 10 0-31 U/L Triglyceride 50 <150 mg/dL Desirable Triglyceride: less than 150 mg/dL Borderline High Triglyceride 150-199 mg/dL High Triglyceride: 200-499 mg/dL Very High Triglyceride: greater than or equal to 5OO mg/dL Cholesterol 119 <200 mg/dL Desirable Cholesterol: less than 200 mg/dL Borderline High Cholesterol: 200-239 mg/dL High Cholesterol: greater than 239 mg/dL LDL Calculated 67 <100 mg/dL Desirable LDL: less than 100 mg/dL Near Optimal/Above Optimal LDL: 110-129 mg/dL Borderline High LDL: 130-159 mg/dL High LDL: 160-189 mg/dL Very High LDL: greater than or equal to 190 mg/dL HDL 42 >40 mg/dL Desirable HDL: greater than 40 mg/dL Note: This HDL assay may give artificially low results in patients with liver disease. Assessment and Plan Assessment & Plan (1) Recurrent major 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: Code(s): F33.42 - Major depressive disorder, recurrent, in full remission Plan: Continue with citalopram 20 mg once a day, declines counseling. (2) Impaired fasting glucose: Code(s): R73.01 - Impaired fasting glucose Plan: Your previous fasting blood sugars were elevated above 100 mg/dL. Impaired glucose metabolism increases the risk for developing diabetes mellitus type 2, as well as heart attack and stroke later on. Lifestyle changes that promotes weight loss, healthy eating habits, and regular exercise are important, and can prevent the progression to diabetes (3) Dyslipidemia: Code(s): E78.5 - Hyperlipidemia, unspecified Plan: Currently on atorvastatin 40 mg at night (4) Anemia, macrocytic: Code(s): D53.9 - Nutritional anemia, unspecified Plan: Likely due to chronic disease, will recheck another CBC in 4 months. Orders: Orders Basic Metabolic Panel Fasting 04/03/24 D53.9 - Nutritional anemia, unspecified, E78.5 - Hyperlipidemia, unspecified, F33.42 - Major depressive disorder, recurrent, in full remission, I10 - Essential (primary) hypertension, I25.2 - Old myocardial infarction, R73.01 - Impaired fasting glucose Complete Blood Count Auto Diff 04/03/24 D53.9 - Nutritional anemia, unspecified, E78.5 - Hyperlipidemia, unspecified, F33.42 - Major depressive disorder, recurrent, in full remission, I10 - Essential (primary) hypertension, I25.2 - Old myocardial infarction, R73.01 - Impaired fasting glucose Aspartate Amino Transferase 04/03/24 D53.9 - Nutritional anemia, unspecified, E78.5 - Hyperlipidemia, unspecified, F33.42 - Major depressive disorder, recurrent, in full remission, I10 - Essential (primary) hypertension, I25.2 - Old myocardial infarction, R73.01 - Impaired fasting glucose Lipid Panel 04/03/24 D53.9 - Nutritional anemia, unspecified, E78.5 - Hyperlipidemia, unspecified, F33.42 - Major depressive disorder, recurrent, in full remission, I10 - Essential (primary) hypertension, I25.2 - Old myocardial infarction, R73.01 - Impaired fasting glucose Alanine Aminotransferase 04/03/24 D53.9 - Nutritional anemia, unspecified, E78.5 - Hyperlipidemia, unspecified, F33.42 - Major depressive disorder, recurrent, in full remission, I10 - Essential (primary) hypertension, I25.2 - Old myocardial infarction, R73.01 - Impaired fasting glucose Vitamin D 25-OH Total 04/03/24 D53.9 - Nutritional anemia, unspecified, E78.5 - Hyperlipidemia, unspecified, F33.42 - Major depressive disorder, recurrent, in full remission, I10 - Essential (primary) hypertension, I25.2 - Old myocardial infarction, R73.01 - Impaired fasting glucose Coding Level of Care Code Tele Est Pt Level 4 (69212) Complex EM visit Add On G2211 Diagnoses Recurrent major 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 F33.42 Impaired fasting glucose R73.01 Dyslipidemia E78.5 Anemia, macrocytic D53.9 Additional Codes DEONTE-7 Assessment Billing - DEONTE-7 Assessment Tool: DEONTE-7 Assessment 27326 ([id number])
== END 2023-12-30 11:48 | disposition home or self-care (01) ==
LOC: HO.HMGC 09:13
PROVIDERS: PCP Internal Medicine; Visit Provider Internal Medicine
DX: R73.01 Impaired fasting glucose (principal); F33.42 Major depressive disorder, recurrent, in full remission; E78.5 Hyperlipidemia, unspecified; D53.9 Nutritional anemia, unspecified
CPT/HCPCS: 99214; G2211

== ENCOUNTER 2024-02-23 09:49 | Outpatient (AMB) | payer MEDICARE, SELFPAY ==
--- NOTE | 2024-02-23 09:54 | MHC.OFFVIS ---
Vital Signs 02/23/24 09:55 Height 4 ft 10 in Weight 261 lb 3.964 oz BMI 54.6 BP 124/78 Blood Pressure Location Lt radial Position Sitting Pulse 67 Pulse Source Pulse Oximeter Pulse Oximetry (%) 96 Oxygen Delivery Method Nasal Cannula Oxygen Flow Rate 2.5 Intake Visit Reasons: COPD Intake Note: pt is here for follow up and states she is feeling tired, using nebulizer 3-4 times a day. Electrostatic Painter Required: No Allergies bee pollen [bee stings] Allergy (Severe, Verified 02/23/24 10:02) Anaphylaxis tetanus toxoid, adsorbed [Tetanus Toxoid,Adsorbed] Allergy (Severe, Verified 02/23/24 10:02) LOCAL INJ.SITE SWELLING beeswax [BEESWAX] Allergy (Intermediate, Verified 02/23/24 10:02) Hives Iodinated Contrast Media [IV Dye, Iodine Containing] Allergy (Intermediate, Verified 02/23/24 10:02) HIVES-CAT SCAN DYE iodine [Iodine] Allergy (Intermediate, Verified 02/23/24 10:02) SWELLING, blister, hives Penicillins Allergy (Intermediate, Verified 02/23/24 10:02) SWELLING, hives, rash Sulfa (Sulfonamide Antibiotics) Allergy (Intermediate, Verified 02/23/24 10:02) Hives pneumococcal vaccine Adverse Reaction (Intermediate, Verified 02/23/24 10:02) fever, chills pollen Adverse Reaction (Mild, Uncoded 02/23/24 10:02) Nasal congestion Medication List - Last Reconciled 02/23/24 by Bonnie Lozano MD ascorbic acid (vitamin C) (Vitamin C) 500 mg PO DAILY aspirin 81 mg PO DAILY atorvastatin 40 mg PO BEDTIME [bariatric transport wheelchair As directed] cholecalciferol (vitamin D3) (Vitamin D3) 25 mcg PO DAILY citalopram 20 mg PO DAILY clotrimazole-betamethasone 1-0.05 % 1 appl topical BID 10 days coenzyme Q10 (CoQ-10) 300 mg PO DAILY commode (bedside commode) Bariatric commode estradiol 0.01%(0.1mg/gram) pea-sized to urethra daily; 30 days fluticasone propionate 50 mcg/actuation 1 spray intranasal QAM PRN 30 days furosemide 20 mg PO QAM PRN ipratropium-albuterol 0.5 mg-3 mg(2.5 mg base)/3 mL mL inhalation Q4-6H PRN lisinopril 2.5 mg PO DAILY metoprolol succinate ER 100 mg (2 x 50 mg) PO DAILY mirabegron ER (Myrbetriq) 50 mg PO DAILY 90 days pantoprazole 40 mg PO DAILY [Transport chair As directed] turmeric 500 mg PO DAILY Do you need a note to return to daycare/school/sports/work: No HPI HPI COPD: Details: 78 years old female very pleasant, with super morbid obesity, , COPD chronic respiratory failure, mostly in bariatric chair, Comes for follow.-up after 6 months . she is doing fairly well with her usual, shortness of breath mild cough but no wheezing . As put on a few more lb of weight. Claims that she feels more tired. Not doing deep breathing exercises because there is something wrong with the incentive spirometry device. Uses O2 2 L/minute continuously and also using updrafts 4 times a day. [facility] Medical History (Updated 02/23/24 @ 10:23 by Bonnie Lozano MD) Respiratory failure with hypoxia Pain around toenail Hypertrophic toenail Acute bronchitis Anemia, macrocytic History of [place] (myocardial infarction) Heartburn symptom Gait instability Restrictive lung disease Myocardial infarct Supplemental oxygen dependent Difficult intravenous access Intertrigo Pneumococcal vaccination declined Influenza vaccination declined NADEEM (obstructive sleep apnea) COPD (chronic obstructive pulmonary disease) Restrictive lung disease OAB (overactive bladder) Murmur Nocturnal leg cramps UTI (urinary tract infection) Endometrial cancer Immunization refused Mixed stress and urge urinary incontinence Morbid obesity Recurrent major 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 Impaired fasting glucose Dyslipidemia Osteopenia of neck of left femur Mild intermittent asthma without complication Essential hypertension Cataract Hx of gout Hx of Clostridium difficile infection Urinary incontinence Hiatal hernia GERD (gastroesophageal reflux disease) Sleep apnea, unspecified Snores Ex-smoker for more than 1 year Bladder cancer History of pneumonia Surgical History History of urologic surgery Hx of bilateral cataract extraction Cataract extraction status, right eye Hx of colonoscopy Hx of cystoscopy History of neck surgery History of vaginal hysterectomy History of bladder surgery Family History Father Heart disease Mother No problems noted. Maternal Grandfather Heart disease Maternal Grandmother Heart disease Paternal Grandfather Heart disease Paternal Grandmother Heart disease Social History Housing: House Are you a primary care worker to a significant other at home: Yes (spouse had recent knee replacement) Do you presently have visiting nurse or other home services: No Alcohol intake: never Patient Tobacco Use Status: Former Tobacco user Tobacco use type: Cigarette e-Cigarette/Vaping Use: Never Used Second Hand Smoke Exposure: No Current occupational status: disabled Cognitive needs: No Hearing needs: No Vision needs: Yes Review of Systems Const All systems reviewed & are unremarkable except as noted in HPI and below Eyes Reports no additional complaints ENT Reports no additional complaints Card Denies chest pain, Denies irregular heart rhythm and Reports leg edema Resp Reports cough (mild intermittent ) and Denies wheezing GI Reports no additional complaints Reports urinary incontinence Musc Reports no additional complaints and Reports abnormal gait (Non ambulatory) Skin/Breast Reports system reviewed and no additional complaints, except as documented Neuro Reports abnormal gait (Non ambulatory) Psych Reports no additional complaints Aller/Immun Denies wheezing Physical Exam Vital Signs: Last Vital Signs Pulse 67 02/23/24 09:55 BP 124/78 02/23/24 09:55 Pulse Ox 96 02/23/24 09:55 Oxygen Delivery Method Nasal Cannula 02/23/24 09:55 Oxygen Flow Rate 2.5 02/23/24 09:55 BMI result Body Mass Index 54.6 Const Other: SHE IS GROSSLY OBESE, BUT CANNOT BE WEIGHED. HAS A LARGE AND SHORT NECK. WITH A ROUND FACE. TYPICAL PHYSICAL FEATURES OF OBSTRUCTIVE SLEEP APNEA. General: comfortable (In a wheelchair), no acute distress, alert and awake Orientation/consciousness: patient oriented x3 HEENT Head: Yes normal to inspection General nose exam: No nasal polyps present and No nasal discharge present Face and sinus: Yes sinuses nontender Mouth: oropharynx abnormals (Oropharynx is crowded, Mallampati class 4) Throat: Yes posterior oropharynx normal Eyes General: appearance normal, both eyes and all related structures Neck Neck: Yes normal visual inspection, Yes no lymphadenopathy, Yes trachea midline, Yes no JVD and Yes other (Very obese and short) Thyroid: Thyroid normal Chest Chest palpation & inspection: normal inspection of the chest, normal palpation of entire chest wall and no tenderness Resp Other: Percussion note is not perceptible because of gross obesity. Breath sounds are heard equally in the upper parts of the chest and diminished over the lower lobes. No wheezes rhonchi or crepitations were heard. NO COUGH with breathing efforts . Cardio Palpation: normal PMI Rate: regular rate Rhythm: regular rhythm Heart sounds: no gallops and no murmurs GI Palpation (GI): Soft to palpation, nontender, No hepatosplenomegaly present, no masses and Other GI palpation findings present (Abdomen grossly obese) Auscultation: normal bowel sounds Back/Spine/Pelvis Thoracic/Lumbar Spine: thoracic and lumbar spine normal to inspection and thoraco-lumbar ROM limited Skin General skin exam: no rashes or lesions noted Neuro General: patient oriented x3, No gait normal (Gait is impaired because of her morbid obesity) and no focal motor deficits Cranial nerves: Yes CN's II-XII intact bilaterally Extrem General: Yes normal to inspection, Yes no calf tenderness, Yes edema (Edema around the ankles, stasis edema) and Yes venous stasis dermatitis Psych Appearance: grossly normal and well kempt Speech and movement: Normal speech and movement present Assessment & Plan Assessment & Plan (1) Morbid obesity: Comment: THIS PATIENT HAS SUPER MORBID OBESITY. THERE IS NO POTENTIAL FOR HER TO LOSE WEIGHT. Code(s): E66.01 - Morbid (severe) obesity due to excess calories Category: Medical Plan: talked to her about her being overweight again. as noted already she does not have any potential to lose weight. (2) NADEEM (obstructive sleep apnea): Comment: *BECAUSE OF HER MORBID OBESITY SHE HAS FEATURES OF OBSTRUCTIVE SLEEP APNEA. HOWEVER SHE WOULD NOT CONSENT FOR ANY WORKUP OR TREATMENT AT THIS TIME . Code(s): G47.33 - Obstructive sleep apnea (adult) (pediatric) Category: Medical Plan: as above (3) COPD (chronic obstructive pulmonary disease): Comment: PATIENT DOES HAVE CHRONIC COUGH WITH CHEST CONGESTION PROBABLY DUE TO CHRONIC OBSTRUCTIVE PULMONARY DISORDER. She is prone to have recurrent acute bronchitis causing acute exacerbation. Code(s): J44.9 - Chronic obstructive pulmonary disease, unspecified Category: Medical Plan: continue to use ipratropium -albuterol solution in the nebulizer 3 times a day. and may use an extra treatment p.r.n. if there is any acute distress. (4) Restrictive lung disease: Comment: PATIENT MUST HAVE SIGNIFICANT RESTRICTIVE LUNG DISORDER BECAUSE OF HER MORBID OBESITY. SHE WILL TRY TO LOSE WEIGHT. SHE DOES HAVE INCENTIVE SPIROMETRY DEVICE AT HOME AND IS INSTRUCTED TO DO DEEP BREATHING EXERCISES 3 TO 4 TIMES A DAY. Code(s): J98.4 - Other disorders of lung Category: Medical Plan: I GAVE HER A NEW INCENTIVE SPIROMETRY DEVICE ,WITH DEMONSTRATION TO DO DEEP BREATHING EXERCISES. SHE SHOULD DO THE BREATHING EXERCISES OFTEN SHE CAN. Coding Level of Care Code Est Pt Level 3 (82869) Diagnoses Morbid obesity E66.01 NADEEM (obstructive sleep apnea) G47.33 COPD (chronic obstructive pulmonary disease) J44.9 Restrictive lung disease J98.4
[2024-02-23 09:55] VITALS: BP 124/78; PULSE 67; O2SAT 96; BMI 54.6
== END 2024-02-23 10:15 | disposition home or self-care (01) ==
PROVIDERS: PCP Internal Medicine; Visit Provider Internal Medicine
DX: E66.01 Morbid (severe) obesity due to excess calories (principal); G47.33 Obstructive sleep apnea (adult) (pediatric); J44.9 Chronic obstructive pulmonary disease, unspecified; J98.4 Other disorders of lung
CPT/HCPCS: 99213

== ENCOUNTER → 2024-02-23 09:49 | Outpatient (BNVA) | payer MEDICARE, SELFPAY | PROVIDERS: PCP Internal Medicine; Visit Provider Internal Medicine | DX: J44.9 Chronic obstructive pulmonary disease, unspecified (principal); J96.10 Chronic respiratory failure, unspecified whether with hypoxia or hypercapnia; J98.4 Other disorders of lung; E66.01 Morbid (severe) obesity due to excess calories; G47.33 Obstructive sleep apnea (adult) (pediatric); Z99.81 Dependence on supplemental oxygen | CPT/HCPCS: 99212 ==

== ENCOUNTER → 2024-02-29 13:31 | Outpatient (RCR) | payer MEDICARE, SELFPAY ==
[2020-04-24 13:27] VITALS: BP 184/80; PULSE 81; RESP 20; TEMP 37; O2SAT 93
[2020-04-24 13:29] VITALS: BMI 53.6
[2020-04-24 14:15] LABS: Glucose Urine UA NEG (NEG); Leukocyte Esterase Urine 2+ (NEG); Nitrite Urine NEG (NEG); Urine Blood NEG (NEG); Urine Ketones NEG (NEG); Urine Protein NEG (NEG-TRACE)
[2020-04-24 14:19] LABS: Appearance Urine HAZY; Color Urine YELLOW
[2020-04-24 14:34] LABS: Bacteria Urine 1+ /LPF; RBC Urine 0 /HPF (0); Squamous Epithelial Cell Urine 1+ /LPF; WBC Urine TNTC /HPF (0-4)
[2020-04-24] MEDS: Lidocaine HCl 2 % Urojet 10 ML JEL.PF.APP TOPICAL (15:09)
--- NOTE | 2020-04-24 16:46 | MHC.HEMONC ---
pt here for 1st Gemcitabine via urinary catheter She was educated re: procedure and post procedure voiding and joycelyn care. She did her u/a and it was reviewed by Dr Mcmillan who came over for consent signing. U/A showed WBC TNTC but he wanted us to proceed with Gemcitabine. Pt tolerated insertion of catheter with moderate discomfort, tolerated Gemcitabine installation. She did have some trouble holding urine and was a little incontinent so was placed on bedpan. She was cleaned thoroughly and she did her first void post procedure in our toilet. Bleach routine reviewed with her and used here. Environmental services to clean the stretcher appropriately.
[2020-05-01 13:36] VITALS: BP 194/89; PULSE 68; RESP 14; TEMP 36.5; O2SAT 96; BMI 54.8
[2020-05-01 13:47] LABS: Glucose Urine UA NEG (NEG); Leukocyte Esterase Urine NEG (NEG); Nitrite Urine NEG (NEG); Specific Gravity - Urine 1.025 (1.005-1.025); Urine Blood NEG (NEG); Urine Ketones NEG (NEG); Urine Protein NEG (NEG-TRACE)
[2020-05-01 13:53] LABS: Appearance Urine HAZY; Color Urine YELLOW
[2020-05-01] MEDS: Lidocaine HCl 2 % Urojet 10 ML JEL.PF.APP TOPICAL (14:07)
[2020-05-01 14:15] LABS: Bacteria Urine TRACE /LPF; RBC Urine 0 /HPF (0)
[2020-05-01 14:16] LABS: Squamous Epithelial Cell Urine 2+ /LPF
--- NOTE | 2020-05-01 16:49 | MHC.HEMONC ---
Pt here for bladder installation. Urine sent to lab, results reported to Dr Cornoa. Order received to proceed with procedure. Pt catheterized, bladder emptied. Medication instilled into catheter. Pt placed on bedpan, encouraged to hold urine for 1 hour. After 1 hour, pt to BR, voided, joycelyn area washed. Next appointment scheduled in 1 week. Pt tolerated procedure well.
[2020-05-08 13:52] LABS: Glucose Urine UA NEG (NEG); Leukocyte Esterase Urine NEG (NEG); Nitrite Urine NEG (NEG); PH 5.5 (5.0-8.0); Urine Blood NEG (NEG); Urine Ketones NEG (NEG); Urine Protein NEG (NEG-TRACE)
[2020-05-08 13:56] LABS: Appearance Urine CLEAR; Color Urine YELLOW
[2020-05-08 14:08] LABS: RBC Urine 0 /HPF (0); Squamous Epithelial Cell Urine TRACE /LPF; WBC Urine 0-2 /HPF (0-4)
[2020-05-08] MEDS: Lidocaine HCl 2 % Urojet 10 ML JEL.PF.APP TOPICAL (14:30)
--- NOTE | 2020-05-08 15:20 | MHC.HEMONC ---
pt here for #3/#3 Intravesicular Gemcitabine. She has been doing well except for fatigue. Urine analysis looks improved and Dr Mcmillan informed. Pt tolerated catheterization and installation of Gemcitabine without difficulty. remained on bedpan for skight urinary incontinence after procedure.
[2020-05-08 15:25] VITALS: BP 139/60; PULSE 79; RESP 20; TEMP 37; O2SAT 98
[2020-05-15 13:12] LABS: Glucose Urine UA NEG (NEG); Leukocyte Esterase Urine 1+ (NEG); Nitrite Urine NEG (NEG); PH 5.5 (5.0-8.0); Urine Blood NEG (NEG); Urine Ketones NEG (NEG); Urine Protein NEG (NEG-TRACE)
[2020-05-15 13:13] LABS: Appearance Urine CLEAR; Color Urine YELLOW
[2020-05-15 13:18] LABS: Bacteria Urine 1+ /LPF; RBC Urine 0 /HPF (0); Squamous Epithelial Cell Urine 1+ /LPF
[2020-05-15] MEDS: Lidocaine HCl 2 % Urojet 10 ML JEL.PF.APP TOPICAL (14:05)
[2020-05-15 14:20] VITALS: BP 184/76; PULSE 85; TEMP 37.2; O2SAT 92
--- NOTE | 2020-05-15 15:46 | MHC.HEMONC ---
u/a scanned to Dr Mcmillan and orders to proceed with intravesicular Gemcitabine giiven. Pt has no new c/o. She has been fatigued but otherwise no changes in bladder. Conts to have urinary urgency with some incontinence. Pt jessica procedure well today and urinated on bedpan after procedure. She held in what she was able to. Return next week for week #5.
[2020-05-22 13:16] LABS: Glucose Urine UA NEG (NEG); Leukocyte Esterase Urine NEG (NEG); Nitrite Urine NEG (NEG); Specific Gravity - Urine >= 1.030 (1.005-1.025); Urine Blood NEG (NEG); Urine Ketones NEG (NEG); Urine Protein NEG (NEG-TRACE)
[2020-05-22 13:18] LABS: Appearance Urine CLOUDY; Color Urine YELLOW
[2020-05-22 13:26] LABS: Bacteria Urine 2+ /LPF; RBC Urine 0 /HPF (0); Squamous Epithelial Cell Urine 3+ /LPF; WBC Urine 0-2 /HPF (0-4)
[2020-05-22 13:46] VITALS: BP 160/78; PULSE 76; RESP 18; TEMP 36.6; O2SAT 96; BMI 54.3
[2020-05-22] MEDS: Lidocaine HCl 2 % Urojet 10 ML JEL.PF.APP TOPICAL (14:15)
--- NOTE | 2020-05-22 16:27 | MHC.HEMONC ---
Pt here for bladder installation. Straight cath done, bladder emptied. Med instilled, pt placed on bedpan. After one hour, pt taken off bedpan, joycelyn care done. Did void some in bedpan. Next appointment scheduled for 05/28/20
[2020-05-28 13:01] LABS: Glucose Urine UA NEG (NEG); Leukocyte Esterase Urine 1+ (NEG); Nitrite Urine NEG (NEG); PH 5.5 (5.0-8.0); Specific Gravity - Urine 1.025 (1.005-1.025); Urine Blood NEG (NEG); Urine Ketones NEG (NEG); Urine Protein NEG (NEG-TRACE)
[2020-05-28 13:03] LABS: Appearance Urine HAZY; Color Urine YELLOW
[2020-05-28 13:08] LABS: WBC Urine 30-49 /HPF (0-4)
[2020-05-28 13:09] LABS: Bacteria Urine TRACE /LPF; RBC Urine 0 /HPF (0); Squamous Epithelial Cell Urine 2+ /LPF
[2020-05-28 13:26] VITALS: BMI 54.2
[2020-05-28] MEDS: Lidocaine HCl 2 % Urojet 10 ML JEL.PF.APP TOPICAL (13:59)
[2020-05-28 15:16] VITALS: BP 138/64; PULSE 72; RESP 18; TEMP 36.7; O2SAT 93
--- NOTE | 2020-05-28 16:15 | MHC.HEMONC ---
Pt here for last bladder instillation. Straight cath done, bladder emptied. Gemcitabine instilled and bed diaz placed under pt. After one hr, bed diaz removed, pt voided small amount. Akua care done. Pt then dressed and home. Plan is for cysto with bladder biopsy in [address] Betancourt. To be scheduled through office. Pt plans to call office on Saturday 06/02 to obtain date and time of procedure.
== END | disposition home or self-care (01) ==
LOC: HO.ONC 04-24 12:59
PROVIDERS: PCP Internal Medicine; Visit Provider Urology
DX: Z51.11 Encounter for antineoplastic chemotherapy (principal); C67.9 Malignant neoplasm of bladder, unspecified
CPT/HCPCS: 51720; 81001; J9201

== ENCOUNTER 2024-04-02 08:30 | Outpatient (AMB) | payer MEDICARE, SELFPAY ==
[2024-04-02 08:41] VITALS: BP 154/78; PULSE 75; O2SAT 96; BMI 53.5
--- NOTE | 2024-04-02 08:41 | A.OFFVIS_ITS ---
Intake Vital Signs 04/02/24 08:41 Height 4 ft 10 in Weight 256 lb BMI 53.5 BP 154/78 H Blood Pressure Location Lt radial Position Sitting Pulse 75 Pulse Source Pulse Oximeter Pulse Oximetry (%) 96 Oxygen Delivery Method Nasal Cannula Intake Visit Reasons: BLAYNE G0439 Intake Note: Pt is here today for her SWV Last mammogram 01/28/21 Allergies bee pollen [bee stings] Allergy (Severe, Verified 04/02/24 09:05) Anaphylaxis tetanus toxoid, adsorbed [Tetanus Toxoid,Adsorbed] Allergy (Severe, Verified 04/02/24 09:05) LOCAL INJ.SITE SWELLING beeswax [BEESWAX] Allergy (Intermediate, Verified 04/02/24 09:05) Hives Iodinated Contrast Media [IV Dye, Iodine Containing] Allergy (Intermediate, Verified 04/02/24 09:05) HIVES-CAT SCAN DYE iodine [Iodine] Allergy (Intermediate, Verified 04/02/24 09:05) SWELLING, blister, hives Penicillins Allergy (Intermediate, Verified 04/02/24 09:05) SWELLING, hives, rash Sulfa (Sulfonamide Antibiotics) Allergy (Intermediate, Verified 04/02/24 09:05) Hives pneumococcal vaccine Adverse Reaction (Intermediate, Verified 04/02/24 09:05) fever, chills pollen Adverse Reaction (Mild, Uncoded 04/02/24 09:05) Nasal congestion Medication List - Last Reconciled 04/02/24 by Jessica Li MD ascorbic acid (vitamin C) (Vitamin C) 500 mg PO DAILY aspirin 81 mg PO DAILY atorvastatin 40 mg PO BEDTIME [bariatric transport wheelchair As directed] cholecalciferol (vitamin D3) (Vitamin D3) 25 mcg PO DAILY citalopram 20 mg PO DAILY clotrimazole-betamethasone 1-0.05 % 1 appl topical BID 10 days coenzyme Q10 (CoQ-10) 300 mg PO DAILY commode (bedside commode) Bariatric commode estradiol 0.01%(0.1mg/gram) pea-sized to urethra daily; 30 days fluticasone propionate 50 mcg/actuation 1 spray intranasal QAM PRN 30 days ipratropium-albuterol 0.5 mg-3 mg(2.5 mg base)/3 mL mL inhalation Q4-6H PRN lisinopril 2.5 mg PO DAILY metoprolol succinate ER 100 mg (2 x 50 mg) PO DAILY mirabegron ER (Myrbetriq) 50 mg PO DAILY 90 days pantoprazole 40 mg PO DAILY [Transport chair As directed] turmeric 500 mg PO DAILY HPI SWV G0439 HPI Details SWV ? 78 year old lady , with history of bladder cancer , has dyslipidemia, obstructive sleep apnea, COPD, restrictive lung disease, morbid obesity, depression in remission, GERD, osteopenia, and hypertension,presents for her ? subsequent Annual Wellness Visit. She had her screening? mammogram 01/28/2021, does not want to get any further testing. Tried having a bone density scan done but had a panic attack, while lying on the exam table, does not want to do any further testing. She had screening colonoscopy done by Dr. Acosta 05/02/2017 , which only showed presence of internal hemorrhoids and sigmoid diverticulosis, no further testing needed. Her last fasting lipids and fasting blood sugar check was done 12/29/2023 both of which were normal. She declines getting any vaccination , had COVID vaccine in the past , received 2 Ketty vaccine, initial and booster dose. ?? Medical / Social History Reviewed? Past Medical History ?Yes . ? [place] of Care / Care Team list updated ?Yes . ? Surgical/Hospitalization History ?Yes . ? Current Medications (including OTC and supplements) ?Yes . ? Family History ?Yes . ? Tobacco Control form ?Yes . ? AUDIT-C (Alcohol use) form ?Yes . ? Illicit drug use in Social History ?Yes . ? Current diagnosis of depression? ?Yes ? Appropriate PHQ2/PHQ9 completed ?Yes . ? Data entered by ?State [employer] Relations Deputy Director and reviewed by provider ? Fall Risk ? Fall History? Have you had any falls with injury in the past year? ?No . ? Have you had two or more falls in the past year? ?No . ? Fall Risk Assessment: ?No falls in the past year . ? HRA filled out by the patient, reviewed by Provider and scanned. ? AWV ? Balance? Romberg ?unable ? Tandem walk ?unable to do . ? Walk and Turn ?Yes . ? Rise from sit to stand ?Yes . ?Vision? Corrective lens ?Yes ? Vision screen ? Up-to-date, sees dr del rosario who diagnosed her to have hypertensive retinopathy in both eyes. ?Hearing? Whisper test ?pass . ?Written Plan?Completed. See Patient Documents.? HPI Comments History of Present Illness Details Morena is also here complaining of recurrent swelling now in both lower extremities right more than the left. Has tried wearing compression socks did only reaches only just below the knee, and still gets swelling in her thighs towards the end of the day when she is upright. Her blood pressure today was also elevated. Currently on lisinopril 2.5 mg daily together with metoprolol succinate ER 100 mg once a day. [facility] Medical History Swelling of lower leg Respiratory failure with hypoxia Pain around toenail Hypertrophic toenail Acute bronchitis Anemia, macrocytic History of [place] (myocardial infarction) Heartburn symptom Gait instability Restrictive lung disease Myocardial infarct Supplemental oxygen dependent Difficult intravenous access Intertrigo Pneumococcal vaccination declined Influenza vaccination declined NADEEM (obstructive sleep apnea) COPD (chronic obstructive pulmonary disease) Restrictive lung disease OAB (overactive bladder) Murmur Nocturnal leg cramps UTI (urinary tract infection) Endometrial cancer Immunization refused Mixed stress and urge urinary incontinence Morbid obesity Recurrent major 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 Impaired fasting glucose Dyslipidemia Osteopenia of neck of left femur Mild intermittent asthma without complication Essential hypertension Cataract Hx of gout Hx of Clostridium difficile infection Urinary incontinence Hiatal hernia GERD (gastroesophageal reflux disease) Sleep apnea, unspecified Snores Ex-smoker for more than 1 year Bladder cancer History of pneumonia Surgical History History of urologic surgery Hx of bilateral cataract extraction Cataract extraction status, right eye Hx of colonoscopy Hx of cystoscopy History of neck surgery History of vaginal hysterectomy History of bladder surgery Family History Father Heart disease Mother No problems noted. Maternal Grandfather Heart disease Maternal Grandmother Heart disease Paternal Grandfather Heart disease Paternal Grandmother Heart disease Social History Housing: House Are you a primary director career services to a significant other at home: Yes (spouse had recent knee replacement) Do you presently have visiting nurse or other home services: No Alcohol intake: never Patient Tobacco Use Status: Former Tobacco user Tobacco use type: Cigarette e-Cigarette/Vaping Use: Never Used Second Hand Smoke Exposure: No Current occupational status: disabled Cognitive needs: No Hearing needs: No Vision needs: Yes Questionnaire Medicare Wellness Checkup [age] What gender do you identify with?: female During the past 4 weeks, how much have you been bothered by emotional problems such as feeling anxious, depressed, irritable, sad or downhearted, and blue?: moderately During the past 4 weeks, has your physical & emotional health limited your social activities with family, friends, neighbors, or groups?: not at all During the past 4 weeks, how much bodily pain have you generally had?: moderate pain During the past 4 weeks, was someone available to help you if you needed & wanted help?: yes, as much as I wanted During the past 4 weeks, what was the hardest physical activity you could do for at least 2 minutes?: very light Can you get to places out of walking distance without help? (For eg., can you travel alone on buses, taxis or drive your car?): No Can you go shopping for groceries or clothes without someone's help?: No Can you prepare your own meals?: No Can you do your housework without help?: No Because of any health problems, do you need the help of another person with your personal care needs such as eating, bathing, dressing or getting around the house?: Yes Can you handle your own money without help?: Yes During the past 4 weeks, how would you rate your health in general?: fair During the past 4 weeks how have things been going for you?: good & bad parts about equal Do you always fasten your seat belt when you are in a car?: no During past 4 weeks, have you been bothered by the following: never: Sexual problems? and Problems using the telephone?, seldom: Falling or dizzy when jayce ding up, sometimes: Trouble eating well?, often: Tiredness or fatigue? and always: Teeth or denture problems? Have you fallen 2 or more times in the past year?: No Are you afraid of falling?: Yes Are you a smoker?: no During the past 4 weeks, how many drinks of wine, beer, or other alcoholic beverages did you have?: no alcohol at all Do you exercise for about 20 minutes 3 or more times a week?: no, I usually do not exercise this much Have you been given information to help with the following?: yes: Hazards in your house that might hurt you? and yes: Keeping track of your medications? How often do you have trouble taking medicines the way you have been told to take them?: I do not have to take medicine How confident are you that you can control & manage most of your health problems?: very confident What is your race?: White Mini Mental State Exam (MMSE) Orientation What is the (year) (season) (date) (day) (month)?: year (2023), season (fall), date (04/02/2024), day (tuesday) and month (march) Where are we (state) (county) (town or city) (hospital) (floor)?: state ([place]), county ([place]), town or city ([place]) and hospital/clinic ([facility]) Score Score: 9 Activity of Daily Living Bathing - sponge bath, tub bath or shower: receives help in bathing only one body part (such as back or leg) Dressing - getting clothes from closets & drawers, including inner/outer garments & fasteners.: gets clothes & gets completely dressed without help Toileting - going to the 'toilet room' for urine/bowel elimination & cleaning self/arranging clothes: goes to toilet room, cleans self, arranges clothes without help Transfer: moves in & out of bed and chair without help (may use support object) Continence: supervision helps urination/bowel control; catheter use; incontinent Feeding: feeds self without help Total Score: 1 Information obtained from: patient Using telephone: independent Traveling: dependent Shopping: dependent Preparing meals: independent Housework: dependent Taking medicine: independent Managing money: independent PHQ-9 Over the last 2 weeks, how often have you been bothered by any of the following problems? 1. Little interest or pleasure in doing things: several days 2. Feeling down, depressed, or hopeless: several days 3. Trouble falling or staying asleep, or sleeping too much: several days 4. Feeling tired or having little energy: several days 5. Poor appetite or overeating: not at all 6. Feeling bad about yourself - or that you are a failure or have let yourself or your family down: not at all 7. Trouble concentrating on things, such as reading the newspaper or watching television: not at all 8. Moving or speaking so slowly that other people could have noticed. Or the opposite - being so fidgety or restless that you have been moving around a lot more than usual: not at all 9. Thoughts that you would be better off or of hurting yourself in some way: not at all Total score: 4 Depression Screening Interpretation: Positive Depression Screening Follow-up: Existing condition, In treatment and Community Mental Health Worker F/U Depression Screening Done: Yes 31735 - PHQ-9 Billing: Yes Source: Developed by DrsDivya Banuelos, Gracia Cash, Roque Seo and colleagues, with an educational glory from [employer]. Review of Systems Const Reports no additional complaints Card Reports no additional complaints Resp Reports no additional complaints Reports urinary incontinence Physical Exam Vital Signs: Last Vital Signs Pulse 75 04/02/24 08:41 BP 154/78 H 04/02/24 08:41 Pulse Ox 96 04/02/24 08:41 Oxygen Delivery Method Nasal Cannula 04/02/24 08:41 BMI result Body Mass Index 53.5 Const Other: Morbidly obese female, alert oriented x3, ambulatory with a walker Neck Neck: Yes full ROM, Yes no lymphadenopathy and Yes supple Resp Auscultation: clear to auscultation bilaterally Cardio Other: S1-S2 present regular rate and rhythm Extrem Other: Marked swelling noted in both lower extremity extending from thighs to lower legs, right more than the left, no erythema or tenderness on palpation Assessment & Plan Assessment & Plan (1) Swelling of lower leg: Code(s): M79.89 - Other specified soft tissue disorders Plan: Prescription sent for furosemide 20 mg per tablet to take 1 tablet as needed in a.m. for edema in legs. Referred back to vascular surgery for further evaluation manage (2) Essential hypertension: Code(s): I10 - Essential (primary) hypertension Plan: Increase lisinopril dose to 5 mg taken once a day in a.m. continue with metoprolol succinate ER 100 mg daily, continue checking blood pressure at home and keep a log of the readings will have her see Nayla next week for blood pressure check, and see me back for follow-up in 3 months.. Repeat another basic metabolic to in a week after starting lisinopril 5 mg daily (3) Dyslipidemia: Code(s): E78.5 - Hyperlipidemia, unspecified Plan: Continue atorvastatin 40 mg daily (4) GERD (gastroesophageal reflux disease): Code(s): K21.9 - Gastro-esophageal reflux disease without esophagitis Plan: Continue on pantoprazole 40 mg daily (5) Osteopenia of neck of left femur: Code(s): M85.852 - Other specified disorders of bone density and structure, left thigh Plan: Continue taking vitamin-D 3 supplements at least 2000 units daily take adequate calcium dietary sources, patient has not been able to get a repeat bone density scan done as she is unable to lie flat in bed. (6) Morbid obesity: Comment: THIS PATIENT HAS SUPER MORBID OBESITY. THERE IS NO POTENTIAL FOR HER TO LOSE WEIGHT. Code(s): E66.01 - Morbid (severe) obesity due to excess calories Plan: Has been compliant with adhering to healthy eating habits but unable to exercise due to her incontinence and weight (7) Immunization refused: Code(s): Z28.21 - Immunization not carried out because of patient refusal Plan: Recent declines vaccine (8) Mixed stress and urge urinary incontinence: Code(s): N39.46 - Mixed incontinence Plan: Followed by Urology, currently on mirabegron ER 50 mg once a day, wears diapers all the time (9) COPD (chronic obstructive pulmonary disease): Comment: PATIENT DOES HAVE CHRONIC COUGH WITH CHEST CONGESTION PROBABLY DUE TO CHRONIC O BSTRUCTIVE PULMONARY DISORDER. She is prone to have recurrent acute bronchitis causing acute exacerbation. Code(s): J44.9 - Chronic obstructive pulmonary disease, unspecified Plan: Followed by Dr. Lozano currently on DuoNeb via nebulizer (10) NADEEM (obstructive sleep apnea): Comment: *BECAUSE OF HER MORBID OBESITY SHE HAS FEATURES OF OBSTRUCTIVE SLEEP APNEA. HOWEVER SHE WOULD NOT CONSENT FOR ANY WORKUP OR TREATMENT AT THIS TIME . Code(s): G47.33 - Obstructive sleep apnea (adult) (pediatric) Plan: Currently followed by Pulmonary, declined further workup regarding sleep apnea at present time (11) Encounter for subsequent annual wellness visit (AWV) in Medicare patient: Code(s): Z00.00 - Encounter for general adult medical examination without abnormal findings Plan: Medical wellness checklist reviewed, discussed with patient and updated, copy getting. Patient however does not want to get any further vaccinations were testing Orders: Orders Basic Metabolic Panel Fasting 1 Week I10 - Essential (primary) hypertension, M79.89 - Other specified soft tissue disorders Referrals Vascular Surgery Referral M79.89 - Other specified soft tissue disorders Medications: New lisinopril 5 mg PO DAILY 90 tabs 1RF furosemide 20 mg PO QAM PRN 30 tabs 0RF leg swelling Discontinued lisinopril Discontinued Reason: Doctor's Order 2.5 mg PO DAILY 90 tabs 1RF Quality Reporting (2019) Depression/Bipolar (159/160/161/177) PHQ-9: Total score: 4 Coding Level of Care Code Medicare Subsequent (G0439) Est Pt Level 3 (70090) Diagnoses Swelling of lower leg M79.89 Essential hypertension I10 Dyslipidemia E78.5 GERD (gastroesophageal reflux disease) K21.9 Osteopenia of neck of left femur M85.852 Morbid obesity E66.01 Immunization refused Z28.21 Mixed stress and urge urinary incontinence N39.46 COPD (chronic obstructive pulmonary disease) J44.9 NADEEM (obstructive sleep apnea) G47.33 Encounter for subsequent annual wellness visit (AWV) in Medicare patient Z00.00 CPT Codes Advance Care Planning - Advance Care Planning discussion: On file, no changes ([id number]) Advance Care Planning - Time spent: 1-15 minutes, on File ([id number]) Advance Care Planning Advance Care Planning discussion: On file, no changes Date of discussion: 04/02/24 Who was present: Patient and partner Forms completed: Health Care Proxy and MOLST Time spent: 1-15 minutes, on File Actual minutes spent: 15
== END 2024-04-02 09:51 | disposition home or self-care (01) ==
PROVIDERS: PCP Internal Medicine; Visit Provider Internal Medicine
DX: Z00.00 Encounter for general adult medical examination without abnormal findings (principal); J44.9 Chronic obstructive pulmonary disease, unspecified; E66.01 Morbid (severe) obesity due to excess calories; Z68.43 Body mass index [BMI] 50.0-59.9, adult; M79.89 Other specified soft tissue disorders; I10 Essential (primary) hypertension; E78.5 Hyperlipidemia, unspecified; K21.9 Gastro-esophageal reflux disease without esophagitis; Z28.21 Immunization not carried out because of patient refusal; M85.852 Other specified disorders of bone density and structure, left thigh; N39.46 Mixed incontinence; G47.33 Obstructive sleep apnea (adult) (pediatric)

== ENCOUNTER → 2024-04-02 08:30 | Outpatient (BNVA) | payer MEDICARE, SELFPAY | PROVIDERS: PCP Internal Medicine; Visit Provider Internal Medicine | DX: M79.89 Other specified soft tissue disorders (principal); I10 Essential (primary) hypertension; E78.5 Hyperlipidemia, unspecified; K21.9 Gastro-esophageal reflux disease without esophagitis; M85.852 Other specified disorders of bone density and structure, left thigh; E66.01 Morbid (severe) obesity due to excess calories; J44.9 Chronic obstructive pulmonary disease, unspecified; N39.46 Mixed incontinence; G47.33 Obstructive sleep apnea (adult) (pediatric) | CPT/HCPCS: 96127; 99212 ==

== ENCOUNTER → 2024-04-18 10:20 | Outpatient (BNVA) | payer MEDICARE, SELFPAY | PROVIDERS: PCP Internal Medicine ==

== ENCOUNTER → 2024-04-25 13:50 | Outpatient (BNVA) | payer MEDICARE, SELFPAY | PROVIDERS: PCP Internal Medicine ==

== ENCOUNTER 2024-05-04 15:00 | Outpatient (REF) | payer MEDICARE, SELFPAY ==
[2024-05-04 16:50] LABS: Appearance Urine Cloudy; Color Urine Yellow; Glucose Urine UA Negative (Negative); Leukocyte Esterase Urine Large (3+) (Negative); Nitrite Urine Negative (Negative); Specific Gravity - Urine <= 1.005 (1.005-1.025); UMIC TRIGGER UACC YES; Urine Blood Moderate (2+) (Negative); Urine Ketones Negative (Negative); Urine Protein 100 (2+) mg/dL (Neg-Trace)
[2024-05-04 17:25] LABS: Bacteria Urine 1+ (None Seen); Hyaline Casts Urine 0-2 /LPF (0-2); RBC Urine 0-2 /HPF (0-2); UACC Culture Trigger YES; WBC Urine >50 /HPF (0-5)
== END 2024-05-04 15:01 | disposition home or self-care (01) ==
LOC: HO.HMGCLNP 15:00
PROVIDERS: PCP Internal Medicine; Visit Provider Internal Medicine
DX: R35.0 Frequency of micturition (principal); R30.0 Dysuria
CPT/HCPCS: 81001; 87086

== ENCOUNTER 2024-05-18 09:54 | Outpatient (AMB) | payer MEDICARE, SELFPAY ==
--- NOTE | 2024-05-18 09:57 | A.OFFVIS_ITS ---
Intake Visit Reasons: Cystoscopy(Bladder Ca) Intake Note: Patient is present for Cystoscopy Urology Med: Myrbetriq, Estradiol Antibiotic Allergy: Penicillins, Sulfa Blood Thinner: Aspirin Last FISH Cytology- 10/20/23- RESULT: NEGATIVE RESULTS FOR THE UROVYSION FISH ASSAY Last Urine Cytology- 03/18/22- Negative for high grade urothelial carcinoma Uro GHD Disposable Cystoscope LOT:[id number] EXP: 08/04/2026 Patient has reported today that her urinary frequency has increased very much so, states that she has a hard time controlling her bladder, she has multiple accidents during the day She has been taking Myrbetriq but symptoms has not improved. She also reports she was recently treated for UTI Metal Fabricator Required: No Allergies bee pollen [bee stings] Allergy (Severe, Verified 05/18/24 09:57) Anaphylaxis tetanus toxoid, adsorbed [Tetanus Toxoid,Adsorbed] Allergy (Severe, Verified 05/18/24 09:57) LOCAL INJ.SITE SWELLING beeswax [BEESWAX] Allergy (Intermediate, Verified 05/18/24 09:57) Hives Iodinated Contrast Media [IV Dye, Iodine Containing] Allergy (Intermediate, Verified 05/18/24 09:57) HIVES-CAT SCAN DYE iodine [Iodine] Allergy (Intermediate, Verified 05/18/24 09:57) SWELLING, blister, hives Penicillins Allergy (Intermediate, Verified 05/18/24 09:57) SWELLING, hives, rash Sulfa (Sulfonamide Antibiotics) Allergy (Intermediate, Verified 05/18/24 09:57) Hives pneumococcal vaccine Adverse Reaction (Intermediate, Verified 05/18/24 09:57) fever, chills pollen Adverse Reaction (Mild, Uncoded 05/18/24 09:57) Nasal congestion HPI Comments Details: Morena is a pleasant female. She is a patient Dr. Li. She is seen for the following urologic conditions - bladder cancer - urinary frequency urgency Continues with on sensed urination Discussed weight loss Persistent redness with some changes suspicious for recurrent superficial bladder cancer Recommend cystoscopy, bladder biopsy, fulguration Bladder cancer - low-grade superficial Diagnosed by Dr. Betancourt 2019 Underwent TURBT with 6 week gemcitabine induction Cystoscopy - 03/24 NAD, 09/22 NAD - significant trabeculation, 03/25 diverticulum in bladder, redness right sidewall, 10/24 persistence area redness, 10/25 persistent red area Cytology 03/25 NAD Urinary frequency/urgency Has InterStim had been placed many years ago InterStim revision 12/23 - new lead and battery InterStim had been working but decreased efficacy when came off medications [facility] Medical History Swelling of lower leg Respiratory failure with hypoxia Pain around toenail Hypertrophic toenail Acute bronchitis Anemia, macrocytic History of [place] (myocardial infarction) Heartburn symptom Gait instability Restrictive lung disease Myocardial infarct Supplemental oxygen dependent Difficult intravenous access Intertrigo Pneumococcal vaccination declined Influenza vaccination declined NADEEM (obstructive sleep apnea) COPD (chronic obstructive pulmonary disease) Restrictive lung disease OAB (overactive bladder) Murmur Nocturnal leg cramps UTI (urinary tract infection) Endometrial cancer Immunization refused Mixed stress and urge urinary incontinence Morbid obesity Recurrent major 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 Impaired fasting glucose Dyslipidemia Osteopenia of neck of left femur Mild intermittent asthma without complication Essential hypertension Cataract Hx of gout Hx of Clostridium difficile infection Urinary incontinence Hiatal hernia GERD (gastroesophageal reflux disease) Sleep apnea, unspecified Snores Ex-smoker for more than 1 year Bladder cancer History of pneumonia Surgical History History of urologic surgery Hx of bilateral cataract extraction Cataract extraction status, right eye Hx of colonoscopy Hx of cystoscopy History of neck surgery History of vaginal hysterectomy History of bladder surgery Family History Father Heart disease Mother No problems noted. Maternal Grandfather Heart disease Maternal Grandmother Heart disease Paternal Grandfather Heart disease Paternal Grandmother Heart disease Social History Housing: House Are you a primary managed care nurse to a significant other at home: Yes (spouse had recent knee replacement) Do you presently have visiting nurse or other home services: No Alcohol intake: never Patient Tobacco Use Status: Former Tobacco user Tobacco use type: Cigarette e-Cigarette/Vaping Use: Never Used Second Hand Smoke Exposure: No Current occupational status: disabled Cognitive needs: No Hearing needs: No Vision needs: Yes Review of Systems Const Denies chills and Denies fever(s) Card Reports no additional complaints and Denies syncope Resp Denies cough GI Denies abdominal pain and Denies heartburn Reports as per HPI and Denies change in libido Neuro Denies syncope Psych Denies change in libido Endo Denies change in libido Physical Exam Const General: cooperative, healthy appearing, comfortable and no acute distress Orientation/consciousness: patient oriented x3 HEENT Face and sinus: Yes normal facial exam Mouth: moist mucous membranes Neck Neck: Yes normal visual inspection, Yes full ROM and Yes trachea midline Chest Chest palpation & inspection: normal inspection of the chest Resp Effort & Inspection: normal respiratory effort, able to speak in complete sentences and no respiratory distress GI Inspection: Yes normal to inspection Back/Spine/Pelvis Cervical Spine: normal cervical lordosis Thoracic/Lumbar Spine: thoracic and lumbar spine normal to inspection Skin General skin exam: no rashes or lesions noted Neuro General: patient oriented x3, gait normal, tone normal and moves all extremities Extrem General: Yes normal to inspection and Yes capillary refill normal Office Procedures Cystoscopy Consent Discussed risk and benefit or proposed procedure with the patient. Information consent for procedure given to the patient. Discussed technical aspects, risks, benefits and alternatives in full. Addressed all of the patient's questions and concerns regarding the procedure. The patient demonstrated knowledge and understanding. They wish to proceed with this procedure. Preparation The patient was prepped in the usual manner. A substation engineer was present and in the room. Genitalia was prepped with betadine solution in a sterile manner. Lidocaine Jelly 2% was placed into the urethra and 16Fr flexible Olympus cystoscope was inserted into the meatus after adequate lubrication. Procedure Meatus normal position Urethra normal Bladder examination with retroflexion of cystoscope Bladder Orifices normal shape and position Trigone normal Bladder Capacity median Trabeculations grade 1 Cellule Formation - Diverticulum Formation - Mucosal Erythema patchy redness posterior wall suspicious Bladder Tumor - DISPOSABLE SCOPE URO-G FLEXIBLE SCOPE Procedure code (CPT) selection complete Office Meds lidocaine HCl 2 % mucosal jelly in applicator Performing Provider: Sánchez Mcmillan MD Performing Location: [facility] [place] [facility] Administered by: VITALY Anguiano on 05/18/24 10:56 Dose Route Admin Location Dispensed Lot Number Expiration Date [facility] Propulsion Machinery Service Engineer 10 mL intra-urethral 10 mL nitrofurantoin monohydrate/macrocrystals 100 mg capsule Performing Provider: Sánchez Mcmillan MD Performing Location: [facility] [place] [facility] Administered by: VITALY Anguiano on 05/18/24 10:56 Dose Route Admin Location Dispensed Lot Number Expiration Date [employer] Machinery Service Engineer 100 mg PO 1 cap naproxen 500 mg tablet Performing Provider: Sánchez Mcmillan MD Performing Location: [facility] [place] [facility] Administered by: VITALY Anguiano on 05/18/24 10:56 Dose Route Admin Location Dispensed Lot Number Expiration Date [employer] Mach[employer] Service Engineer 500 mg PO 1 tab Results AMB Urinalysis, Automated UA Leukoctes 0 Brodie/uL Last Edit by Lisa Do [facility] on 05/18/24 10:40 UA Nitrite Negative Last Edit by Lisa Do [facility] on 05/18/24 10:40 UA Urobilinogen 17 mg/dL Last Edit by Lisa Do [facility] on 05/18/24 10:40 UA Protein 15 mg/dL Last Edit by Lisa Do [facility] on 05/18/24 10:40 UA pH 6.0 Last Edit by Lisa Do [facility] on 05/18/24 10:40 UA Blood 0 Kye/uL Last Edit by Lisa Do [facility] on 05/18/24 10:40 UA Specific Waldron 1.015 Last Edit by Lisa Do [facility] on 05/18/24 10: 40 UA Ketone Negative Last Edit by Lisa Do [facility] on 05/18/24 10:40 UA Bilirubin 0 mg/dL Last Edit by Lisa Do [facility] on 05/18/24 10:40 UA Glucose 0 mg/dL Last Edit by Lisa Do [facility] on 05/18/24 10:40 Results Reviewed Results Reviewed: Laboratory Last Values Urine pH (Auto) 6.0 05/18/24 09:59 Specific Waldron (Auto) 1.015 05/18/24 09:59 Urine Protein (Auto) 15 mg/dL 05/18/24 09:59 Glucose (UA)(Auto) 0 mg/dL 05/18/24 09:59 Urine Ketones (Auto) Negative 05/18/24 09:59 Urine Blood (Auto) 0 Kye/uL 05/18/24 09:59 Urine Nitrite (Auto) Negative 05/18/24 09:59 Urine Bilirubin (Auto) 0 mg/dL 05/18/24 09:59 Urine Urobilinogen (Auto) 17 mg/dL 05/18/24 09:59 Leukocyte Esterase (Auto) 0 Brodie/uL 05/18/24 09:59 Assessment & Plan Assessment & Plan (1) Bladder cancer: Comment: 2019 low-grade Code(s): C67.9 - Malignant neoplasm of bladder, unspecified Category: Medical Plan Risks, benefits and alternatives to therapy were discussed. These include but are not limited to infection, bleeding, damage to local organs and tissues, need for further interventions. Anesthetic risks regarding cardiac arrhythmia, blood clots, and potential mortality were discussed. The patient understands the typical recovery time and the outpatient nature of the procedure. After consideration of these risks the patient gives full informed consent and they wish to move ahead with the procedure. - cystoscopy, bladder biopsy, fulguration Orders: Orders AMB Urinalysis Automated Today Z13.9 - Encounter for screening, unspecified Urine Cytology Today C67.9 - Malignant neoplasm of bladder, unspecified AMB Cystoscopy Today C67.9 - Malignant neoplasm of bladder, unspecified Patient Instructions: Imaging studies, laboratory and physical exam results were discussed and reviewed in detail. No major barriers to patient understanding were identified. An opportunity to ask questions regarding the treatment plan was provided. All questions were answered. The patient expressed understanding and agreement with the above treatment plan. The patient is aware they should contact our office by phone for worsening of their current condition or the appearance of new urologic symptoms. Compliance is encouraged with any medications and followup testing that is ordered. It is a privilege to participate in the urologic care of your patient. If you have any questions or concerns regarding treatment for the above conditions, or other urologic issues, please do not hesitate to contact me. The office telephone contact is [phone]. This note is constructed using voice recognition software. While every effort has been made to ensure accuracy sexual assault counsellor errors may have been included. Yours sincerely, Dr Sánchez Mcmillan MD, [facility] - Urology Providers of Expert, Compassionate Care for the Genitourinary System Coding Level of Care Code Est Pt Level 4 (96940) Diagnoses Bladder cancer C67.9
== END 2024-05-18 11:40 | disposition home or self-care (01) ==
PROVIDERS: PCP Internal Medicine; Visit Provider Urology
DX: C67.4 Malignant neoplasm of posterior wall of bladder (principal); Z13.9 Encounter for screening, unspecified
CPT/HCPCS: 52000; 99214

== ENCOUNTER 2024-05-18 09:54 | Outpatient (REF) | payer MEDICARE, SELFPAY ==
[2024-05-18 16:41] LABS: Urine Cytology See Pathology rpt
== END 2024-05-18 09:55 | disposition home or self-care (01) ==
LOC: HO.LAB 09:54
PROVIDERS: PCP Internal Medicine; Visit Provider Urology
DX: C67.9 Malignant neoplasm of bladder, unspecified (principal)
CPT/HCPCS: 52000; 81003; 88112; 99212

== ENCOUNTER 2024-06-06 14:37 | Outpatient (AMB) | payer MEDICARE, SELFPAY ==
--- NOTE | 2024-06-06 14:43 | MHC.OFFVIS ---
Vital Signs 06/06/24 14:44 Height 4 ft 10 in BP 130/78 Blood Pressure Location Lt radial Position Sitting Pulse 65 Pulse Source Pulse Oximeter Pulse Oximetry (%) 98 Oxygen Delivery Method Nasal Cannula Oxygen Flow Rate 2.5 Intake Visit Reasons: pre-op dr Mcmillan Intake Note: prte-op clearance bladder surgery here at by Dr. Mcmillan on Tuesday06/11/24. Golf Stud Riveter Required: No Allergies bee pollen [bee stings] Allergy (Severe, Verified 06/06/24 15:12) Anaphylaxis tetanus toxoid, adsorbed [Tetanus Toxoid,Adsorbed] Allergy (Severe, Verified 06/06/24 15:12) LOCAL INJ.SITE SWELLING beeswax [BEESWAX] Allergy (Intermediate, Verified 06/06/24 15:12) Hives Iodinated Contrast Media [IV Dye, Iodine Containing] Allergy (Intermediate, Verified 06/06/24 15:12) HIVES-CAT SCAN DYE iodine [Iodine] Allergy (Intermediate, Verified 06/06/24 15:12) SWELLING, blister, hives Penicillins Allergy (Intermediate, Verified 06/06/24 15:12) SWELLING, hives, rash Sulfa (Sulfonamide Antibiotics) Allergy (Intermediate, Verified 06/06/24 15:12) Hives pneumococcal vaccine Adverse Reaction (Intermediate, Verified 06/06/24 15:12) fever, chills pollen Adverse Reaction (Mild, Uncoded 06/06/24 15:12) Nasal congestion Medication List - Last Reconciled 06/06/24 by Bonnie Lozano MD ascorbic acid (vitamin C) (Vitamin C) 500 mg PO DAILY aspirin 81 mg PO DAILY atorvastatin 40 mg PO BEDTIME [bariatric transport wheelchair As directed] cholecalciferol (vitamin D3) (Vitamin D3) 25 mcg PO DAILY citalopram 30 mg (1.5 x 20 mg) PO DAILY 3 months clotrimazole-betamethasone 1-0.05 % 1 appl topical BID 10 days coenzyme Q10 (CoQ-10) 300 mg PO DAILY commode (bedside commode) Bariatric commode estradiol 0.01%(0.1mg/gram) pea-sized to urethra daily; 30 days fluticasone propionate 50 mcg/actuation 1 spray intranasal QAM PRN 30 days ipratropium-albuterol 0.5 mg-3 mg(2.5 mg base)/3 mL 3 mL inhalation Q4-6H PRN lisinopril 10 mg PO DAILY metoprolol succinate ER 100 mg (2 x 50 mg) PO DAILY mirabegron ER (Myrbetriq) 50 mg PO DAILY 90 days nitrofurantoin monohyd/m-cryst 100 mg 100 mg PO Q12H 10 days pantoprazole 40 mg PO DAILY [purewick 1 purewick daily; ] [Transport chair As directed] turmeric 500 mg PO DAILY HPI HPI pre-op dr Mcmillan: Details: THIS 78 YEARS OLD VERY PLEASANT FEMALE, A CASE OF SUPER MORBID OBESITY, COPD/RESTRICTIVE LUNG DISEASE, WITH HYPOVENTILATION AND HYPOXEMIA, IS HERE TODAY FOR PULMONARY CLEARANCE, FOR A PLANNED UROLOGIC PROCEDURE ( CYSTOSCOPY ) SHE HAS HER USUAL SYMPTOM OF, SHORTNESS OF BREATH IF. SHE TRIES TO STAND AND WALK, MILD INTERMITTENT COUGH, SIGNIFICANT PHYSICAL IMPAIRMENT AND SHE IS ALL THE TIME IN BARIATRIC WHEELCHAIR. SHE USES O2 2.5 L/MINUTE 24 HOURS A DAY SHE DOES USE THE DUONEB UPDRAFTS 4 TIMES A DAY. HAS NOT BEEN DOING DEEP BREATHING EXERCISES. RETAINS FLUID IN THE LOWER EXTREMITIES BUT DOES NOT WANT TO USE THE DIURETICS . OVERALL HER CONDITION HAS NOT CHANGED AND SHE HAS HAD NO RECENT RESPIRATORY INFECTION. [facility] Medical History Swelling of lower leg Respiratory failure with hypoxia Pain around toenail Hypertrophic toenail Acute bronchitis Anemia, macrocytic History of [place] (myocardial infarction) Heartburn symptom Gait instability Restrictive lung disease Myocardial infarct Supplemental oxygen dependent Difficult intravenous access Intertrigo Pneumococcal vaccination declined Influenza vaccination declined NADEEM (obstructive sleep apnea) COPD (chronic obstructive pulmonary disease) Restrictive lung disease OAB (overactive bladder) Murmur Nocturnal leg cramps UTI (urinary tract infection) Endometrial cancer Immunization refused Mixed stress and urge urinary incontinence Morbid obesity Recurrent major 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 Impaired fasting glucose Dyslipidemia Osteopenia of neck of left femur Mild intermittent asthma without complication Essential hypertension Cataract Hx of gout Hx of Clostridium difficile infection Urinary incontinence Hiatal hernia GERD (gastroesophageal reflux disease) Sleep apnea, unspecified Snores Ex-smoker for more than 1 year Bladder cancer History of pneumonia Surgical History History of urologic surgery Hx of bilateral cataract extraction Cataract extraction status, right eye Hx of colonoscopy Hx of cystoscopy History of neck surgery History of vaginal hysterectomy History of bladder surgery Family History Father Heart disease Mother No problems noted. Maternal Grandfather Heart disease Maternal Grandmother Heart disease Paternal Grandfather Heart disease Paternal Grandmother Heart disease Social History Housing: House Are you a primary manager long term care to a significant other at home: Yes (spouse had recent knee replacement) Do you presently have visiting nurse or other home services: No Alcohol intake: never Patient Tobacco Use Status: Former Tobacco user Tobacco use type: Cigarette e-Cigarette/Vaping Use: Never Used Second Hand Smoke Exposure: No Current occupational status: disabled Cognitive needs: No Hearing needs: No Vision needs: Yes Review of Systems Const All systems reviewed & are unremarkable except as noted in HPI and below Eyes Reports no additional complaints ENT Reports no additional complaints Card Denies chest pain, Denies irregular heart rhythm and Reports leg edema Resp Reports cough (mild intermittent ) and Denies wheezing GI Reports no additional complaints Reports urinary incontinence Musc Reports no additional complaints and Reports abnormal gait (Non ambulatory) Skin/Breast Reports system reviewed and no additional complaints, except as documented Neuro Reports abnormal gait (Non ambulatory) Psych Reports no additional complaints Aller/Immun Denies wheezing Physical Exam Vital Signs: Last Vital Signs Pulse 65 06/06/24 14:44 BP 130/78 06/06/24 14:44 Pulse Ox 98 06/06/24 14:44 Oxygen Delivery Method Nasal Cannula 06/06/24 14:44 Oxygen Flow Rate 2.5 06/06/24 14:44 Const Other: SHE IS GROSSLY OBESE, BUT CANNOT BE WEIGHED. HAS A LARGE AND SHORT NECK. WITH A ROUND FACE. TYPICAL PHYSICAL FEATURES OF OBSTRUCTIVE SLEEP APNEA. General: comfortable (In a wheelchair), no acute distress, alert and awake Orientation/consciousness: patient oriented x3 HEENT Head: Yes normal to inspection General nose exam: No nasal polyps present and No nasal discharge present Face and sinus: Yes sinuses nontender Mouth: oropharynx abnormals (Oropharynx is crowded, Mallampati class 4) Throat: Yes posterior oropharynx normal Eyes General: appearance normal, both eyes and all related structures Neck Neck: Yes normal visual inspection, Yes no lymphadenopathy, Yes trachea midline, Yes no JVD and Yes other (Very obese and short) Thyroid: Thyroid normal Chest Chest palpation & inspection: normal inspection of the chest, normal palpation of entire chest wall and no tenderness Resp Other: Percussion note is not perceptible because of gross obesity. Breath sounds are heard equally in the upper parts of the chest and diminished over the lower lobes. No wheezes rhonchi or crepitations were heard. NO COUGH with breathing efforts . Cardio Palpation: normal PMI Rate: regular rate Rhythm: regular rhythm Heart sounds: no gallops and no murmurs GI Palpation (GI): Soft to palpation, nontender, No hepatosplenomegaly present, no masses and Other GI palpation findings present (Abdomen grossly obese) Auscultation: normal bowel sounds Back/Spine/Pelvis Thoracic/Lumbar Spine: thoracic and lumbar spine normal to inspection and thoraco-lumbar ROM limited Skin General skin exam: no rashes or lesions noted Neuro General: patient oriented x3, No gait normal (Gait is impaired because of her morbid obesity) and no focal motor deficits Cranial nerves: Yes CN's II-XII intact bilaterally Extrem General: Yes normal to inspection, Yes no calf tenderness, Yes edema (Edema around the ankles, stasis edema) and Yes venous stasis dermatitis Psych Appearance: grossly normal and well kempt Speech and movement: Normal speech and movement present Assessment & Plan Assessment & Plan (1) Morbid obesity: Comment: THIS PATIENT HAS SUPER MORBID OBESITY. THERE IS NO POTENTIAL FOR HER TO LOSE WEIGHT. Code(s): E66.01 - Morbid (severe) obesity due to excess calories Category: Medical Plan: TALKED ABOUT THE DIET. SHE IS NOT. CANDIDATE DO ANY EXERCISE THERE IS VERY LITTLE POTENTIAL FOR HER TO LOSE WEIGHT. (2) COPD (chronic obstructive pulmonary disease): Comment: PATIENT DOES HAVE CHRONIC COUGH WITH CHEST CONGESTION PROBABLY DUE TO CHRONIC OBSTRUCTIVE PULMONARY DISORDER. She is prone to have recurrent acute bronchitis causing acute exacerbation. Code(s): J44.9 - Chronic obstructive pulmonary disease, unspecified Category: Medical Plan: CONTINUE TREATMENT WITH IPRATROPIUM-ALBUTEROL SOLUTION IN THE NEBULIZER Q 6 HOURS WHILE AWAKE. MAY USE AN EXTRA TREATMENT DURING THE NIGHT IF NEEDED. (3) NADEEM (obstructive sleep apnea): Comment: *BECAUSE OF HER MORBID OBESITY SHE HAS FEATURES OF OBSTRUCTIVE SLEEP APNEA. HOWEVER SHE WOULD NOT CONSENT FOR ANY WORKUP OR TREATMENT AT THIS TIME . Code(s): G47.33 - Obstructive sleep apnea (adult) (pediatric) Category: Medical Plan: NOTED ABOVE SHE DOES NOT WANT TO GO THROUGH ANY STUDY OR USE CPAP (4) Restrictive lung disease: Comment: PATIENT MUST HAVE SIGNIFICANT RESTRICTIVE LUNG DISORDER BECAUSE OF HER MORBID OBESITY. SHE CAN NOT LOSE WEIGHT SHE DOES HAVE INCENTIVE SPIROMETRY DEVICE AT HOME AND IS INSTRUCTED TO DO DEEP BREATHING EXERCISES 3 TO 4 TIMES A DAY. Code(s): J98.4 - Other disorders of lung Category: Medical Plan: SHE WAS NOT DOING THE DEEP BREATHING EXERCISES. DOES NOT SEEM TO BE WELL MOTIVATED. I HAVE STRESSED AGAIN THAT SHE SHOULD USE THE INCENTIVE SPIROMETRY DEVICE AND DO DEEP BREATHING EXERCISES EVERY 2 HOURS WHILE AWAKE. (5) Respiratory failure with hypoxia: Comment: SHE HAS BEEN NOTED TO BE HYPOXEMIC EVEN AT REST. HAS BEEN STARTED ON OXYGEN TO USE 24 HOURS A DAY . CURRENTLY SHE NEEDS TO USE 2.5 L PER MINUTE TO KEEP HER O2 SAT ABOVE 90%. SHE IS USING IT MOST OF THE TIME AND IS FEELING MUCH BETTER. Code(s): J96.91 - Respiratory failure, unspecified with hypoxia Category: Medical Plan: ADVISE THAT SHE SHOULD CONTINUE USING OXYGEN REGULARLY AT LEAST FOR 22 HOURS PER DAY. Plan * FAR CLEARANCE THE UROLOGIC PROCEDURE IS CONCERNED, SHE IS A POOR SURGICAL RISK FOR ANY MAJOR SURGERY. BUT I THINK SHE CAN UNDERGO THE UROLOGIC PROCEDURE SAFELY, LONG SHE IS NOT GOING TO REQUIRE GENERAL ANESTHESIA. SHE SHOULD BE KEPT ON O2 2.5-3 L/MINUTE TO KEEP O2 SAT ABOVE 90%. IF SHE DEVELOPS ANY RESPIRATORY DISTRESS SHE CAN BE TREATED WITH DUONEB UPDRAFT Q.4 HOURS P.R.N.. Coding Level of Care Code Est Pt Level 3 (27967) Diagnoses Morbid obesity E66.01 COPD (chronic obstructive pulmonary disease) J44.9 NADEEM (obstructive sleep apnea) G47.33 Restrictive lung disease J98.4 Respiratory failure with hypoxia J96.91
[2024-06-06 14:44] VITALS: BP 130/78; PULSE 65; O2SAT 98
== END 2024-06-06 15:23 | disposition home or self-care (01) ==
PROVIDERS: PCP Internal Medicine; Visit Provider Internal Medicine
DX: E66.01 Morbid (severe) obesity due to excess calories (principal); J44.9 Chronic obstructive pulmonary disease, unspecified; G47.33 Obstructive sleep apnea (adult) (pediatric); J98.4 Other disorders of lung; J96.91 Respiratory failure, unspecified with hypoxia
CPT/HCPCS: 99213

== ENCOUNTER → 2024-06-06 14:37 | Outpatient (BNVA) | payer MEDICARE, SELFPAY | PROVIDERS: PCP Internal Medicine; Visit Provider Internal Medicine | DX: Z01.811 Encounter for preprocedural respiratory examination (principal); E66.01 Morbid (severe) obesity due to excess calories; J44.9 Chronic obstructive pulmonary disease, unspecified; J98.4 Other disorders of lung; J96.91 Respiratory failure, unspecified with hypoxia; Z99.81 Dependence on supplemental oxygen; Z99.3 Dependence on wheelchair | CPT/HCPCS: 99212 ==

== ENCOUNTER 2024-06-11 06:09 | Day surgery (SDC) | payer MEDICARE, SELFPAY ==
--- NOTE | 2024-06-07 13:06 | HO.ANESPROP2 ---
Documented by User: Ximena Monet NP 06/08/24 10:10 HPI - Anesthesia Eval Consult details Narrative: 78yo F for Cystoscopy & Bladder Biopsy with fulguration s/p same 12/2022 with TIVA No recent weight. BMI 52 as of 12/2022 procedure. High pulmo risk per office eval 06/06/24. Plan * FAR CLEARANCE THE UROLOGIC PROCEDURE IS CONCERNED, SHE IS A POOR SURGICAL RISK FOR ANY MAJOR SURGERY. BUT I THINK SHE CAN UNDERGO THE UROLOGIC PROCEDURE SAFELY, LONG SHE IS NOT GOING TO REQUIRE GENERAL ANESTHESIA. SHE SHOULD BE KEPT ON O2 2.5-3 L/MINUTE TO KEEP O2 SAT ABOVE 90%. IF SHE DEVELOPS ANY RESPIRATORY DISTRESS SHE CAN BE TREATED WITH DUONEB UPDRAFT Q.4 HOURS P.R.N.. Nebulizer QID, no inhalers Case reviewed with Dr Moreland. OK for DOS eval PMFSH Active Problems Active Problems: All Active Problems Swelling of lower leg (Acute) Respiratory failure with hypoxia (Acute) Hypertrophic toenail (Acute) Anemia, macrocytic (Acute) History of AR (myocardial infarction) (Acute) Heartburn symptom (Acute) Gait instability (Acute) Restrictive lung disease (Acute) Recurrent UTI (Acute) Overactive bladder (Acute) Intertrigo (Acute) Pneumococcal vaccination declined (Acute) Influenza vaccination declined (Acute) NADEEM (obstructive sleep apnea) (Acute) COPD (chronic obstructive pulmonary disease) (Acute) Nocturnal leg cramps (Acute) Immunization refused (Acute) Mixed stress and urge urinary incontinence (Acute) Morbid obesity (Acute) Recurrent major 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 (Acute) Impaired fasting glucose (Acute) Dyslipidemia (Acute) GERD (gastroesophageal reflux disease) (Acute) Osteopenia of neck of left femur (Acute) Mild intermittent asthma without complication (Acute) Bladder cancer (Acute) Essential hypertension (Acute) Cataract (Acute) Past Medical History Medical History Swelling of lower leg Respiratory failure with hypoxia Pain around toenail Hypertrophic toenail Acute bronchitis Anemia, macrocytic History of AR (myocardial infarction) Heartburn symptom Gait instability Restrictive lung disease Myocardial infarct Supplemental oxygen dependent Difficult intravenous access Intertrigo Pneumococcal vaccination declined Influenza vaccination declined NADEEM (obstructive sleep apnea) COPD (chronic obstructive pulmonary disease) Restrictive lung disease OAB (overactive bladder) Murmur Nocturnal leg cramps UTI (urinary tract infection) Endometrial cancer Immunization refused Mixed stress and urge urinary incontinence Morbid obesity Recurrent major 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 Impaired fasting glucose Dyslipidemia Osteopenia of neck of left femur Mild intermittent asthma without complication Essential hypertension Cataract Hx of gout Hx of Clostridium difficile infection Urinary incontinence Hiatal hernia GERD (gastroesophageal reflux disease) Sleep apnea, unspecified Snores Ex-smoker for more than 1 year Bladder cancer History of pneumonia Family History Family History Father Heart disease Mother No problems noted. Maternal Grandfather Heart disease Maternal Grandmother Heart disease Paternal Grandfather Heart disease Paternal Grandmother Heart disease Family history of problems with anesthesia: No Surgical History Surgical History History of urologic surgery Hx of bilateral cataract extraction Cataract extraction status, right eye Hx of colonoscopy Hx of cystoscopy History of neck surgery History of vaginal hysterectomy History of bladder surgery History of Problems with Anesthesia: No Social History Social History Housing: House Are you a primary lawn care professional to a significant other at home: No Do you presently have visiting nurse or other home services: No Alcohol intake: never Patient Tobacco Use Status: Former Tobacco user Tobacco use type: Cigarette Smoked in Last 30 Days: No e-Cigarette/Vaping Use: Never Used Second Hand Smoke Exposure: No Use of substances other than those prescribed or required for medical reasons: No Have you been hit, kicked, punched, or otherwise hurt by someone within the past year? If so, by whom?: No Are you DNR?: No Advance Directives: Yes Advance Directives Information Provided: Yes Advance Directives on File: Yes Advance Directives Date on File: 12/21/21 Recently lost weight without trying: No How much weight loss: Not applicable Eating poorly because of decreased appetite: No Nutrition screen score: 0 Nutrition Risks: No Nutritional Risk Patient : No : No Poor oral hygiene: Yes (broken and missing teeth throughout) Current occupational status: disabled Cognitive needs: No Hearing needs: No Vision needs: Yes Meds Allergies Allergy/AdvReac Type Severity Reaction Status Date / Time bee pollen [bee stings] Allergy Severe Anaphylaxis Verified 06/11/24 06:36 tetanus toxoid, adsorbed Allergy Severe LOCAL Verified 06/11/24 06:36 [Tetanus Toxoid,Adsorbed] INJ.SITE SWELLING beeswax [BEESWAX] Allergy Intermediate Hives Verified 06/11/24 06:36 Iodinated Contrast Media Allergy Intermediate HIVES-CAT Verified 06/11/24 06:36 [IV Dye, Iodine Containing] SCAN DYE iodine [Iodine] Allergy Intermediate SWELLING, Verified 06/11/24 06:36 blister, hives Penicillins Allergy Intermediate SWELLING, Verified 06/11/24 06:36 hives, rash Sulfa (Sulfonamide Allergy Intermediate Hives Verified 06/11/24 06:36 Antibiotics) pneumococcal vaccine AdvReac Intermediate fever, Verified 06/11/24 06:36 chills pollen AdvReac Mild Nasal Uncoded 06/11/24 06:36 congestion Home Medications ?Medication ?Instructions ?Recorded ?Confirmed ?Last Taken ?Type aspirin 81 mg tablet,delayed 81 mg PO DAILY 04/22/20 06/11/24 06/03/24 History release cholecalciferol (vitamin D3) 25 25 mcg PO DAILY 04/22/20 06/11/24 Unknown History mcg (1,000 unit) tablet (Vitamin D3) ascorbic acid (vitamin C) 500 mg 500 mg PO DAILY 10/27/21 06/11/24 Unknown History chewable tablet (Vitamin C) turmeric 400 mg capsule 500 mg PO DAILY 02/07/23 06/11/24 06/03/24 History coenzyme Q10 100 mg capsule 300 mg PO DAILY 03/30/23 06/11/24 Unknown History (CoQ-10) Exam Height,Weight and Vital Signs: Height 4 ft 10 in Pertinent Lab Results Pertinent Lab Results: Laboratory Tests 12/29/23 08:54 WBC 6.8 Hgb 11.1 L Hct 37.2 Plt Count 173 Sodium 143 Potassium 5.2 H Chloride 104 Carbon Dioxide 31 H BUN 15 Creatinine 0.73 Narrative Narrative: EKG 2022 Vent. Rate : 079 BPM Atrial Rate : 079 BPM P-R Int : 164 ms QRS Dur : 092 ms QT Int : 374 ms P-R-T Axes : 036 026 005 degrees QTc Int : 428 ms Artifact in tracing Normal sinus rhythm Likely Normal ECG When compared with ECG of 18-APR-2017 12:58, due to artifact, difficult to compare pt sitting in wheelchair Assessment and Plan Assessment Anesthesia Assessment: Chart Reviewed Final Anesthetic Review Family History of Problems with Anesthesia: No History of Problems with Anesthesia: No Documented by User: Gaudencio Trivedi MD 06/11/24 07:41 [facility], [facility] Past Medical History Medical History Swelling of lower leg Respiratory failure with hypoxia Pain around toenail Hypertrophic toenail Acute bronchitis Anemia, macrocytic History of AR (myocardial infarction) Heartburn symptom Gait instability Restrictive lung disease Myocardial infarct Supplemental oxygen dependent Difficult intravenous access Intertrigo Pneumococcal vaccination declined Influenza vaccination declined NADEEM (obstructive sleep apnea) COPD (chronic obstructive pulmonary disease) Restrictive lung disease OAB (overactive bladder) Murmur Nocturnal leg cramps UTI (urinary tract infection) Endometrial cancer Immunization refused Mixed stress and urge urinary incontinence Morbid obesity Recurrent major 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 Impaired fasting glucose Dyslipidemia Osteopenia of neck of left femur Mild intermittent asthma without complication Essential hypertension Cataract Hx of gout Hx of Clostridium difficile infection Urinary incontinence Hiatal hernia GERD (gastroesophageal reflux disease) Sleep apnea, unspecified Snores Ex-smoker for more than 1 year Bladder cancer History of pneumonia Family History Family History Father Heart disease Mother No problems noted. Maternal Grandfather Heart disease Maternal Grandmother Heart disease Paternal Grandfather Heart disease Paternal Grandmother Heart disease Surgical History Surgical History History of urologic surgery Hx of bilateral cataract extraction Cataract extraction status, right eye Hx of colonoscopy Hx of cystoscopy History of neck surgery History of vaginal hysterectomy History of bladder surgery Social History Social History Housing: House Are you a primary lawn care professional to a significant other at home: No Do you presently have visiting nurse or other home services: No Alcohol intake: never Patient Tobacco Use Status: Former Tobacco user Tobacco use type: Cigarette Smoked in Last 30 Days: No e-Cigarette/Vaping Use: Never Used Second Hand Smoke Exposure: No Use of substances other than those prescribed or required for medical reasons: No Have you been hit, kicked, punched, or otherwise hurt by someone within the past year? If so, by whom?: No Are you DNR?: No Advance Directives: Yes Advance Directives Information Provided: Yes Advance Directives on File: Yes Advance Directives Date on File: 12/21/21 Recently lost weight without trying: No How much weight loss: Not applicable Eating poorly because of decreased appetite: No Nutrition screen score: 0 Nutrition Risks: No Nutritional Risk Patient : No : No Poor oral hygiene: Yes (broken and missing teeth throughout) Current occupational status: disabled Cognitive needs: No Hearing needs: No Vision needs: Yes Meds Allergies Allergy/AdvReac Type Severity Reaction Status Date / Time bee pollen [bee stings] Allergy Severe Anaphylaxis Verified 06/11/24 06:36 tetanus toxoid, adsorbed Allergy Severe LOCAL Verified 06/11/24 06:36 [Tetanus Toxoid,Adsorbed] INJ.SITE SWELLING beeswax [BEESWAX] Allergy Intermediate Hives Verified 06/11/24 06:36 Iodinated Contrast Media Allergy Intermediate HIVES-CAT Verified 06/11/24 06:36 [IV Dye, Iodine Containing] SCAN DYE iodine [Iodine] Allergy Intermediate SWELLING, Verified 06/11/24 06:36 blister, hives Penicillins Allergy Intermediate SWELLING, Verified 06/11/24 06:36 hives, rash Sulfa (Sulfonamide Allergy Intermediate Hives Verified 06/11/24 06:36 Antibiotics) pneumococcal vaccine AdvReac Intermediate fever, Verified 06/11/24 06:36 chills pollen AdvReac Mild Nasal Uncoded 06/11/24 06:36 congestion Home Medications ?Medication ?Instructions ?Recorded ?Confirmed ?Last Taken ?Type aspirin 81 mg tablet,delayed 81 mg PO DAILY 04/22/20 06/11/24 06/03/24 History release cholecalciferol (vitamin D3) 25 25 mcg PO DAILY 04/22/20 06/11/24 Unknown History mcg (1,000 unit) tablet (Vitamin D3) ascorbic acid (vitamin C) 500 mg 500 mg PO DAILY 10/27/21 06/11/24 Unknown History chewable tablet (Vitamin C) turmeric 400 mg capsule 500 mg PO DAILY 02/07/23 06/11/24 06/03/24 History coenzyme Q10 100 mg capsule 300 mg PO DAILY 03/30/23 06/11/24 Unknown History (CoQ-10) Exam Airway Mallampati Class: II TM Dist: <=3cm Neck ROM: Full Loose/Missing/Broken Teeth: Yes Heart: see above. likely RHF. Lungs: severe CLD. Prob more than RLD. Assessment and Plan Assessment Anesthesia Assessment: Anesthesia Plan Discussed (High risk d/w patient.) Final Anesthetic Review NPO: Yes ASA Class: IV Final Preanesthetic Review: No Changes in Pt Med Stat, Meds/Allgs Chart Reviewed, Consent Obtained/Reviewed and Anes Risks/Benef Reviewed Patient Risk: High (very) Procedure Risk: Low Anesthetic Plan Anesthetic Plan: Agree w/ Assess. and Plan and TIVA Disposition: Standard PACU
[2024-06-11 06:41] VITALS: BMI 51.2
[2024-06-11 06:47] VITALS: BP 190/66; PULSE 74; RESP 18; TEMP 36.2; O2SAT 97
[2024-06-11 06:48] VITALS: O2SAT 97
[2024-06-11] MEDS: Lactated Ringers 1,000 ML 100 ML IVCONT (07:03)
[2024-06-11 07:27] VITALS: PULSE 72; RESP 18; O2SAT 97
[2024-06-11] MEDS: Albuterol Sulfate (0.083%) 2.5 MG/3 ML VIAL.NEB INHALE (07:27)
--- NOTE | 2024-06-11 07:44 | P.HPSUR_ITS ---
Pre-Procedural Eval Section A - 24 Hr Update-Section A only Date of Service: 06/11/24 The patient is an INPATIENT: No Changes since office visit: No Cold of Flu in the past 2 weeks, No New Medical Problems, No Changes in Medication and No Patient answered all questions The patient has been examined within 24 hours of the surgical procedure. The History & Physical has been completed within 30 days and I have reviewed it.: Yes Section B - Complete if H&P > 30 days Chief Complaint: Malignant neoplasm of bladder, unspecified Details of Present Illness: cystoscopy, bladder biopsy, fulgeration Allergies: Allergies Allergy/AdvReac Type Severity Reaction Status Date / Time bee pollen [bee stings] Allergy Severe Anaphylaxis Verified 06/11/24 06:36 tetanus toxoid, adsorbed Allergy Severe LOCAL Verified 06/11/24 06:36 [Tetanus Toxoid,Adsorbed] INJ.SITE SWELLING beeswax [BEESWAX] Allergy Intermediate Hives Verified 06/11/24 06:36 Iodinated Contrast Media Allergy Intermediate HIVES-CAT Verified 06/11/24 06:36 [IV Dye, Iodine Containing] SCAN DYE iodine [Iodine] Allergy Intermediate SWELLING, Verified 06/11/24 06:36 blister, hives Penicillins Allergy Intermediate SWELLING, Verified 06/11/24 06:36 hives, rash Sulfa (Sulfonamide Allergy Intermediate Hives Verified 06/11/24 06:36 Antibiotics) pneumococcal vaccine AdvReac Intermediate fever, Verified 06/11/24 06:36 chills pollen AdvReac Mild Nasal Uncoded 06/11/24 06:36 congestion Review of Systems Sugical H&P ROS: Negative: Constitution, Cardiovascular, Respiratory, Neurological, Psychiatric, Hem-Onc, Allergic/Immunologic, Gastrointestinal, Genitourinary, Musculoskeletal, Integumentary, Endocrine and Eyes/Ears/Nose/Throat Exam Surgical H&P Exam: Normal: HEENT, Normal: Heart, Normal: Lungs, Normal: Extremi ties, Normal: Abdomen, Normal: Skin and Normal: Neurological Plan Diagnosis/Plan: Unchanged I have reviewed the history and physical and performed a pertinent physical examination on my patient. No changes have occurred unless specified. Time Spent With Patient Time: Total time managing care of this patient today ____ minutes.
[2024-06-11] MEDS: levoFLOXacin 500 MG TABLET PO (07:45)
[2024-06-11 08:26] VITALS: BP 155/67; PULSE 78; RESP 20; TEMP 36.8; O2SAT 96
[2024-06-11 08:42] VITALS: BP 172/68; PULSE 76; RESP 18; TEMP 36.8; O2SAT 98
--- NOTE | 2024-06-11 08:49 | W.PM.OPN ---
Operative Note Operative Note Date of Service: 06/11/24 Narrative: PreOperative Diagnosis: bladder cancer Post Operative Diagnosis: bladder cancer Procedure: cystoscopy, bladder biopsy, fulguration Surgeon: Dr Sánchez Mcmillan Anesthesia: LMA Indications for procedure: Superficial bladder cancer. Here for cystoscopy, bladder biopsy. Evaluation. Procedure: After informed consent was verified the patient was brought to the operating room and placed in a supine position. Anesthesia was administered per protocol. The patient was placed in modified dorsal lithotomy position and prepped and draped in a sterile fashion. Safety pause time-out was performed. Antibiotics being given. Uro jet performed for postprocedure control Cystoscopy was performed. Red area on posterior wall of bladder at cervical cuff. Biopsy performed in fulguration performed The patient tolerated the procedure well. They were extubated in operating room and transferred in stable conditions recovery area. Pathology: Bladder biopsies Drains: None
== END 2024-06-11 08:59 | disposition home or self-care (01) ==
PROVIDERS: PCP Internal Medicine; Visit Provider Urology
PROC: (CPT 52234; principal; 2024-06-11 07:30)
DX: N30.20 Other chronic cystitis without hematuria (principal); Z85.51 Personal history of malignant neoplasm of bladder; N39.46 Mixed incontinence; N32.81 Overactive bladder; R35.0 Frequency of micturition; J96.91 Respiratory failure, unspecified with hypoxia; Z99.81 Dependence on supplemental oxygen; J44.9 Chronic obstructive pulmonary disease, unspecified; D53.9 Nutritional anemia, unspecified; R73.01 Impaired fasting glucose; I10 Essential (primary) hypertension; G47.33 Obstructive sleep apnea (adult) (pediatric); I25.2 Old myocardial infarction; E66.01 Morbid (severe) obesity due to excess calories; Z79.899 Other long term (current) drug therapy; Z88.0 Allergy status to penicillin; Z88.2 Allergy status to sulfonamides; Z87.891 Personal history of nicotine dependence; Z98.890 Other specified postprocedural states
CPT/HCPCS: 52234; 88305; 94640; J2003; J2704; J3010

== ENCOUNTER → 2024-06-11 06:09 | Outpatient (BNV) | payer MEDICARE, SELFPAY | PROVIDERS: PCP Internal Medicine; Visit Provider Urology | DX: C67.4 Malignant neoplasm of posterior wall of bladder (principal) | CPT/HCPCS: 52204 ==

== ENCOUNTER 2024-06-21 13:44 | Outpatient (AMB) | payer MEDICARE, SELFPAY ==
--- NOTE | 2024-06-21 13:45 | A.OFFVIS_ITS ---
Intake Visit Reasons: Bladder Biopsy results Intake Note: Patient is present for BLADDER BIOPSY RESULTS Urology Medication:MIRABEGRON,ESTRADIOL Antibiotic Allergy:PENICILLIN,SULFA Blood Thinner:ASPIRIN [employer] Required: No Allergies bee pollen [bee stings] Allergy (Severe, Verified 06/21/24 13:46) Anaphylaxis tetanus toxoid, adsorbed [Tetanus Toxoid,Adsorbed] Allergy (Severe, Verified 06/21/24 13:46) LOCAL INJ.SITE SWELLING beeswax [BEESWAX] Allergy (Intermediate, Verified 06/21/24 13:46) Hives Iodinated Contrast Media [IV Dye, Iodine Containing] Allergy (Intermediate, Verified 06/21/24 13:46) HIVES-CAT SCAN DYE iodine [Iodine] Allergy (Intermediate, Verified 06/21/24 13:46) SWELLING, blister, hives Penicillins Allergy (Intermediate, Verified 06/21/24 13:46) SWELLING, hives, rash Sulfa (Sulfonamide Antibiotics) Allergy (Intermediate, Verified 06/21/24 13:46) Hives pneumococcal vaccine Adverse Reaction (Intermediate, Verified 06/21/24 13:46) fever, chills pollen Adverse Reaction (Mild, Uncoded 06/21/24 13:46) Nasal congestion HPI Comments Details: Morena is a pleasant female. She is a patient Dr. Li. She is seen for the following urologic conditions - bladder cancer - urinary frequency urgency Telemedicine Evaluation 15 min Consultation Doximity David Video Discussion regarding biopsy Chronic cystitis Add methenamine to vitamin-C Continue with estradiol and Myrbetriq Bladder cancer - low-grade superficial Diagnosed by Dr. Betancourt 2019 Underwent TURBT with 6 week gemcitabine induction Cystoscopy - 03/24 NAD, 09/22 NAD - significant trabeculation, 03/25 diverticulum in bladder, redness right sidewall, 10/24 persistence area redness, 10/25 persistent red area Cytology 03/25 NAD Urinary frequency/urgency Has InterStim had been placed many years ago InterStim revision 12/23 - new lead and battery InterStim had been working but decreased efficacy when came off medications [facility] Medical History Swelling of lower leg Respiratory failure with hypoxia Pain around toenail Hypertrophic toenail Acute bronchitis Anemia, macrocytic History of AK (myocardial infarction) Heartburn symptom Gait instability Restrictive lung disease Myocardial infarct Supplemental oxygen dependent Difficult intravenous access Intertrigo Pneumococcal vaccination declined Influenza vaccination declined NADEEM (obstructive sleep apnea) COPD (chronic obstructive pulmonary disease) Restrictive lung disease OAB (overactive bladder) Murmur Nocturnal leg cramps UTI (urinary tract infection) Endometrial cancer Immunization refused Mixed stress and urge urinary incontinence Morbid obesity Recurrent major 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 Impaired fasting glucose Dyslipidemia Osteopenia of neck of left femur Mild intermittent asthma without complication Essential hypertension Cataract Hx of gout Hx of Clostridium difficile infection Urinary incontinence Hiatal hernia GERD (gastroesophageal reflux disease) Sleep apnea, unspecified Snores Ex-smoker for more than 1 year Bladder cancer History of pneumonia Surgical History History of urologic surgery Hx of bilateral cataract extraction Cataract extraction status, right eye Hx of colonoscopy Hx of cystoscopy History of neck surgery History of vaginal hysterectomy History of bladder surgery Family History Father Heart disease Mother No problems noted. Maternal Grandfather Heart disease Maternal Grandmother Heart disease Paternal Grandfather Heart disease Paternal Grandmother Heart disease Social History Housing: House Are you a primary senior caregiver to a significant other at home: No Do you presently have visiting nurse or other home services: No Alcohol intake: never Patient Tobacco Use Status: Former Tobacco user Tobacco use type: Cigarette e-Cigarette/Vaping Use: Never Used Second Hand Smoke Exposure: No Advance Directives Date on File: 12/21/21 Current occupational status: disabled Cognitive needs: No Hearing needs: No Vision needs: Yes Review of Systems Const All systems reviewed & are unremarkable except as noted in HPI and below Reports no additional complaints Resp Reports no additional complaints GI Reports no additional complaints Reports as per HPI Musc Reports no additional complaints Physical Exam Telemedicine evaluation Appropriate responses Regular breathing rate and rhythm HEENT Head: Yes normal to inspection Ears: hearing grossly normal bilaterally Eyes General: appearance normal, both eyes and all related structures Neck Neck: Yes normal visual inspection Chest Chest palpation & inspection: normal inspection of the chest Resp Effort & Inspection: normal respiratory effort and able to speak in complete sentences Telehealth Telehealth Telehealth Platform: [facility] Location of provider rendering services: practice address Location of patient: address on file Patient Identification confirmed using: Name, : Yes Telehealth method: video Patient verbally consented to treatment: Yes Patient verbally consented to billing insurance company: Yes Patient informed of any privacy concerns related to visit: Yes Minutes spent on Phone/Video with Pt.: 15 Assessment & Plan Assessment & Plan (1) Chronic cystitis: Code(s): N30.20 - Other chronic cystitis without hematuria Category: Medical Plan Add methenamine Six-month follow-up Medications: New methenamine hippurate 1 g PO DAILY 90 days 90 tabs 1RF C67.9 - Malignant neoplasm of bladder, unspecified, N39.0 - Urinary tract infection, site not specified Patient Instructions: Imaging studies, laboratory and physical exam results were discussed and reviewed in detail. No major barriers to patient understanding were identified. An opportunity to ask questions regarding the treatment plan was provided. All questions were answered. The patient expressed understanding and agreement with the above treatment plan. The patient is aware they should contact our office by phone for worsening of their current condition or the appearance of new urologic symptoms. Compliance is encouraged with any medications and followup testing that is ordered. It is a privilege to participate in the urologic care of your patient. If you have any questions or concerns regarding treatment for the above conditions, or other urologic issues, please do not hesitate to contact me. The office telephone contact is [phone]. This note is constructed using voice recognition software. While every effort has been made to ensure accuracy obstetrical anesthesiologist errors may have been included. Yours sincerely, Dr Sánchez Mcmillan MD, [facility] - Urology Providers of Expert, Compassionate Care for the Genitourinary System Coding Level of Care Code Tele Est Pt Level 3 (86529) Diagnoses Chronic cystitis N30.20
== END 2024-06-21 15:49 | disposition home or self-care (01) ==
LOC: HO.HUSH 13:44
PROVIDERS: PCP Internal Medicine; Visit Provider Urology
DX: N30.20 Other chronic cystitis without hematuria (principal)
CPT/HCPCS: 99213

== ENCOUNTER → 2024-06-21 13:44 | Outpatient (BNVA) | payer MEDICARE, SELFPAY | PROVIDERS: PCP Internal Medicine; Visit Provider Urology ==

== ENCOUNTER 2024-06-22 14:39 | Outpatient (AMB) | payer MEDICARE, SELFPAY ==
[2024-06-22 15:22] VITALS: BP 122/74; PULSE 95; TEMP 36.8; O2SAT 93
--- NOTE | 2024-06-22 15:22 | AM.OFFWIN_ITS ---
Intake Vital Signs 06/22/24 15:22 Height 4 ft 10 in BP 122/74 Blood Pressure Location Rt brachial Position Sitting Pulse 95 Pulse Source Pulse Oximeter Temp 98.3 F Temp Source Oral Pulse Oximetry (%) 93 Intake Visit Reasons: EP-cough, sob, copd Patient Tobacco Use Status: Former Tobacco user Allergies bee pollen [bee stings] Allergy (Severe, Verified 06/21/24 13:46) Anaphylaxis tetanus toxoid, adsorbed [Tetanus Toxoid,Adsorbed] Allergy (Severe, Verified 06/21/24 13:46) LOCAL INJ.SITE SWELLING beeswax [BEESWAX] Allergy (Intermediate, Verified 06/21/24 13:46) Hives Iodinated Contrast Media [IV Dye, Iodine Containing] Allergy (Intermediate, Verified 06/21/24 13:46) HIVES-CAT SCAN DYE iodine [Iodine] Allergy (Intermediate, Verified 06/21/24 13:46) SWELLING, blister, hives Penicillins Allergy (Intermediate, Verified 06/21/24 13:46) SWELLING, hives, rash Sulfa (Sulfonamide Antibiotics) Allergy (Intermediate, Verified 06/21/24 13:46) Hives pneumococcal vaccine Adverse Reaction (Intermediate, Verified 06/21/24 13:46) fever, chills pollen Adverse Reaction (Mild, Uncoded 06/21/24 13:46) Nasal congestion HPI HPI Comments History of Present Illness Details History The patient is an 79-year-old female presenting with shortness of breath and coughing. The patient reports coughing with brown sputum, which began a few days after returning home from bladder surgery. Her granddaughter, who previously had a cough but no antibiotics, tested negative for flu, COVID, and RSV, and has since recovered. The patient?s current symptoms are affecting her sleep, and she reports wheezing and dyspnea, particularly when recumbent. She has a history of Chronic Obstructive Pulmonary Disease (COPD) for which she uses inhalers frequently, up to four times daily, and is maintained on three liters of oxygen therapy, which remains unchanged during the illness. Additionally, she reports new peripheral edema in the legs, accompanied by some difficulty with urinary incontinence, compounded by the use of Lasix, which she has at home but has not started. She does not report any significant ear, head congestion, or sinus pain but acknowledges a limited hearing and some fluid in the ear. The patient is concerned about her family history as her siblings have experienced cardiovascular episodes, and cancers have been prevalent in her family. Physical Exam General: Cooperative, healthy appearing, comfortable and no acute distress Orientation/consciousness: Patient oriented x3 Limitations: wheelchair, oxygen dependant Head: Normal to inspection Ears: Hearing diminished, fluid present, wax obstructing view Nose: Normal external nose present, Normal nares present and No nasal discharge present Face and sinus: Normal facial exam and Yes sinuses nontender Mouth: Normal oral and palatal mucosa present and moist mucous membranes Throat: Yes tonsils normal, Yes uvula midline. Posterior oropharynx erythema Eyes: Appearance normal, both eyes and all related structures Neck: Normal visual inspection Respiratory: 2L NC in place, Expiratory Wheezing. Normal respiratory effort, able to speak in complete sentences, Actively coughing, no respiratory distress, not tachypneic, no tripod positioning and no use of accessory muscles. Cardiovascular: Regular rate and rhythm. Normal S1 and S2 Skin: No rashes or lesions noted Neuro: Patient oriented x3 Extremities: non pitting edema R>L, no clubbing or cyanosis [facility] Medical History Swelling of lower leg Respiratory failure with hypoxia Pain around toenail Hypertrophic toenail Acute bronchitis Anemia, macrocytic History of PA (myocardial infarction) Heartburn symptom Gait instability Restrictive lung disease Myocardial infarct Supplemental oxygen dependent Difficult intravenous access Intertrigo Pneumococcal vaccination declined Influenza vaccination declined NADEEM (obstructive sleep apnea) COPD (chronic obstructive pulmonary disease) Restrictive lung disease OAB (overactive bladder) Murmur Nocturnal leg cramps UTI (urinary tract infection) Endometrial cancer Immunization refused Mixed stress and urge urinary incontinence Morbid obesity Recurrent major 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 Impaired fasting glucose Dyslipidemia Osteopenia of neck of left femur Mild intermittent asthma without complication Essential hypertension Cataract Hx of gout Hx of Clostridium difficile infection Urinary incontinence Hiatal hernia GERD (gastroesophageal reflux disease) Sleep apnea, unspecified Snores Ex-smoker for more than 1 year Bladder cancer History of pneumonia Surgical History History of urologic surgery Hx of bilateral cataract extraction Cataract extraction status, right eye Hx of colonoscopy Hx of cystoscopy History of neck surgery History of vaginal hysterectomy History of bladder surgery Family History Father Heart disease Mother No problems noted. Maternal Grandfather Heart disease Maternal Grandmother Heart disease Paternal Grandfather Heart disease Paternal Grandmother Heart disease Social History Housing: House Are you a primary medical care evaluation specialist to a significant other at home: No Do you presently have visiting nurse or other home services: No Alcohol intake: never Patient Tobacco Use Status: Former Tobacco user Tobacco use type: Cigarette e-Cigarette/Vaping Use: Never Used Second Hand Smoke Exposure: No Advance Directives Date on File: 12/21/21 Current occupational status: disabled Cognitive needs: No Hearing needs: No Vision needs: Yes Review of Systems Const All systems reviewed & are unremarkable except as noted in HPI and below Physical Exam Vital Signs: Last Vital Signs Temp 98.3 F 06/22/24 15:22 Pulse 95 06/22/24 15:22 BP 122/74 06/22/24 15:22 Pulse Ox 93 06/22/24 15:22 Assessment & Plan Assessment & Plan (1) Lower respiratory infection (e.g., bronchitis, pneumonia, pneumonitis, pulmonitis): Code(s): J22 - Unspecified acute lower respiratory infection Plan: Plan - Conduct flu, COVID, and RSV testing to rule out viral etiologies for respiratory symptoms. - Prescribe Azithromycin Z-Edenilson for possible bacterial respiratory infection, considering it has anti-inflammatory effects for lung symptoms. - Initiate Prednisone regimen 50 mg daily for 5 days for COPD exacerbation. - Recommend commencing Furosemide Lasix 20 mg daily for 2-3 days for treatment of bilateral peripheral edema to alleviate dyspnea due to fluid overload.Patient has prescribed meds at home, rx'd by her PCP. Suggestive use of urinary incontinence aids during diuretic therapy to manage urinary challenges. - If pneumonia is confirmed on chest x-ray, will add Augmentin and monitor patient's response. - Provide Tessalon Perles to manage cough symptoms but advise against daytime use to promote productive coughing to prevent pneumonia. - Discussed potential side effects of Azithromycin with SSRIs, and determined it safe for temporary use based on last QT interval and temp usage. - Order chest x-ray to evaluate for pulmonary congestion or pneumonia, I interpretation of the chest x-ray is streaky opacities in the right lower lobe, patient was prescribed Levaquin already. Patient was informed and verbally consented to the use of an ambient scribe for clinic note documentation during this visit Orders: Orders SARS-CoV2/FLU/RSV Today J22 - Unspecified acute lower respiratory infection XR chest 2V Today R05.9 - Cough, unspecified Medications: New prednisone 50 mg PO QAM 5 tabs 0RF azithromycin For 250 mg dose pack: take 500 mg today (day 1), then 250 mg for 4 days (days 2-5) PO 6 tabs 0RF benzonatate 200 mg PO TID PRN 10 caps 0RF cough Coding Level of Care Code Est Pt Level 5 (27043) Diagnoses Lower respiratory infection (e.g., bronchitis, pneumonia, pneumonitis, pulmonitis) J22
== END 2024-06-22 16:05 | disposition home or self-care (01) ==
PROVIDERS: PCP Internal Medicine; Visit Provider Physician Assistant
DX: J22 Unspecified acute lower respiratory infection (principal)

== ENCOUNTER 2024-06-22 14:39 | Outpatient (REF) | payer MEDICARE, SELFPAY ==
[2024-06-23 12:38] LABS: Influenza A PCR NEGATIVE (Negative); Influenza B PCR NEGATIVE (Negative); Resp Syncy Virus RNA Qual PCR NEGATIVE (Negative); SARS COV2 PCR INHOUSE NEGATIVE (Negative)
== END 2024-06-22 14:40 | disposition home or self-care (01) ==
LOC: HO.LNP 14:39
PROVIDERS: PCP Internal Medicine; Visit Provider Physician Assistant
DX: J22 Unspecified acute lower respiratory infection (principal); R05.9 Cough, unspecified
CPT/HCPCS: 0241U; 99212

== ENCOUNTER 2024-06-22 16:01 | Outpatient (REF) | payer MEDICARE, SELFPAY ==
--- NOTE | ~2024-06-22 | XR_ITS ---
EXAMINATION: XR CHEST CLINICAL INFORMATION: R05.9 - Cough, unspecified COMPARISON: July 06, 2019 TECHNIQUE: 3 views of the chest FINDINGS: There is no gross pneumothorax. Cardiac silhouette is enlarged. Possible trace bilateral pleural effusions. Degenerative changes in the thoracic spine. Patchy bibasilar opacities. Rounded device with clip overlies the upper thorax on the lateral view. XR/XR chest 2V IMPRESSION: 1. Patchy bibasilar opacities. Possible trace bilateral pleural effusions. Enlarged cardiac silhouette. This study was presented today to June 25, 2024 for interpretation. Stat results provided at this time as requested by referring provider. Electronically signed by: Renée Gusman MD 06/25/2024 06:02 AM HALIE LUGO
== END 2024-06-22 16:02 | disposition home or self-care (01) ==
LOC: HO.HMGCX 16:01
PROVIDERS: PCP Internal Medicine; Visit Provider Physician Assistant
DX: R05.9 Cough, unspecified (principal)
CPT/HCPCS: 71046

== ENCOUNTER 2024-07-24 09:45 | Outpatient (AMB) | payer MEDICARE, SELFPAY ==
--- NOTE | 2024-07-24 09:47 | MHC.OFFVIS ---
Vital Signs 07/24/24 09:49 Height 4 ft 10 in Weight 256 lb BMI 53.5 Intake Visit Reasons: TROMPER Lower Extremity Swelling Intake Note: TROMPER for bilateral LE swelling and pain. Pt states Right LE is worse than LEft LE. States it started years ago. Pt states she does get LE discoloration. Pt states she has had multiple surgeries for cancer, hysterectomy and bladder cancer treatment. Railroad Repairer Required: No Accompanied by: Spouse Allergies bee pollen [bee stings] Allergy (Severe, Verified 07/24/24 09:58) Anaphylaxis tetanus toxoid, adsorbed [Tetanus Toxoid,Adsorbed] Allergy (Severe, Verified 07/24/24 09:58) LOCAL INJ.SITE SWELLING beeswax [BEESWAX] Allergy (Intermediate, Verified 07/24/24 09:58) Hives Iodinated Contrast Media [IV Dye, Iodine Containing] Allergy (Intermediate, Verified 07/24/24 09:58) HIVES-CAT SCAN DYE iodine [Iodine] Allergy (Intermediate, Verified 07/24/24 09:58) SWELLING, blister, hives Penicillins Allergy (Intermediate, Verified 07/24/24 09:58) SWELLING, hives, rash Sulfa (Sulfonamide Antibiotics) Allergy (Intermediate, Verified 07/24/24 09:58) Hives pneumococcal vaccine Adverse Reaction (Intermediate, Verified 07/24/24 09:58) fever, chills pollen Adverse Reaction (Mild, Uncoded 07/24/24 09:58) Nasal congestion HPI HPI TROMPER Lower Extremity Swelling: Details: Very complex 79-year-old female who is morbidly obese and a history of malignant neoplasm of the bladder, hyperlipidemia, obstructive sleep apnea, COPD which is O2 dependent, restrictive lung disease and GERD presents for evaluation regarding swollen lower extremities. This has been going on for several years. She is minimally ambulatory and actually presented to our office in a wheelchair. She now presents for evaluation regarding her swollen lower extremities. Patient denies any previous venous surgery or injections. Patient denies any history of DVT/ PE. Patient denies any history of phlebitis. Trial of compression includes - unable to wear They now present for vascular evaluation regarding their varicose veins. [facility] Medical History Swelling of lower leg Respiratory failure with hypoxia Pain around toenail Hypertrophic toenail Acute bronchitis Anemia, macrocytic History of [place] (myocardial infarction) Heartburn symptom Gait instability Restrictive lung disease Myocardial infarct Supplemental oxygen dependent Difficult intravenous access Intertrigo Pneumococcal vaccination declined Influenza vaccination declined NADEEM (obstructive sleep apnea) COPD (chronic obstructive pulmonary disease) Restrictive lung disease OAB (overactive bladder) Murmur Nocturnal leg cramps UTI (urinary tract infection) Endometrial cancer Immunization refused Mixed stress and urge urinary incontinence Morbid obesity Recurrent major 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 Impaired fasting glucose Dyslipidemia Osteopenia of neck of left femur Mild intermittent asthma without complication Essential hypertension Cataract Hx of gout Hx of Clostridium difficile infection Urinary incontinence Hiatal hernia GERD (gastroesophageal reflux disease) Sleep apnea, unspecified Snores Ex-smoker for more than 1 year Bladder cancer History of pneumonia Surgical History History of urologic surgery Hx of bilateral cataract extraction Cataract extraction status, right eye Hx of colonoscopy Hx of cystoscopy History of neck surgery History of vaginal hysterectomy History of bladder surgery Family History Father Heart disease Mother No problems noted. Maternal Grandfather Heart disease Maternal Grandmother Heart disease Paternal Grandfather Heart disease Paternal Grandmother Heart disease Social History Housing: House Are you a primary critical care registered nurse to a significant other at home: No Do you presently have visiting nurse or other home services: No Alcohol intake: never Patient Tobacco Use Status: Former Tobacco user Tobacco use type: Cigarette e-Cigarette/Vaping Use: Never Used Second Hand Smoke Exposure: No Advance Directives Date on File: 12/21/21 Current occupational status: disabled Cognitive needs: No Hearing needs: No Vision needs: Yes Review of Systems Const Reports as per HPI ENT Reports no additional complaints Card Denies chest pain, Denies chest pain at rest and Denies chest pain with activity Resp Denies chest congestion and Denies cough GI Reports no additional complaints Musc Details: pain over varicosities, aching of lower extremities, swelling, cramping, heaviness and tiredness, itching Denies abnormal gait Skin/Breast Reports pruritus and Denies wounds Neuro Reports no additional complaints and Denies abnormal gait Psych Denies no additional complaints Physical Exam Vital Signs: BMI result Body Mass Index 53.5 Const General: cooperative, healthy appearing and comfortable Orientation/consciousness: oriented to person, oriented to place and oriented to time Neck Carotids: no bruits Chest Chest palpation & inspection: normal inspection of the chest and normal palpation of entire chest wall Resp Effort & Inspection: normal respiratory effort and able to speak in complete sentences Cardio Rate: regular rate Heart sounds: S1 normal heart sound present and S2 normal heart sound present Peripheral pulses: Peripheral pulses 2+ throughout GI Inspection: Yes normal to inspection Skin Other: +2 edema, CEAP Classification C4 - skin color changes Ep - Etiology Primary As - superficial veins P - reflux General skin exam: dry skin Neuro General: oriented to person, oriented to place and oriented to time Extrem Right lower extremity: full ROM, normal capillary refill and edema Left lower extremity: full ROM, normal capillary refill and edema Psych Mental Status: mental status grossly normal Assessment & Plan Assessment & Plan (1) Varicose veins of right lower extremity with inflammation: Code(s): I83.11 - Varicose veins of right lower extremity with inflammation Category: Medical Plan: Patient does have edema of the lower extremities. This may be multifactorial in nature inclusive of her morbid obesity malignancy history and cardiac and pulmonary issues. I have taken the liberty of ordering venous insufficiency testing to rule that out. We did discuss conservative measures including compression, elevation, exercise. She will follow up with us after testing. Thank you for allowing us to assist in her care. If there are any questions or concerns please do not hesitate to contact us. Orders: Orders US arterial duplex LE BI 1 Week I83.11 - Varicose veins of right lower extremity with inflammation Coding Level of Care Code New Pt Level 4 (14292) Diagnoses Varicose veins of right lower extremity with inflammation I83.11
[2024-07-24 09:49] VITALS: BMI 53.5
--- OUTSIDE RECORDS SUMMARY | 2024-07-24 10:44 | XMS_ITS ---
Author Organization [facility] Address [address] [facility] [place] [address] Care Team Providers Care Assistant Director Of Admissions Name Role Phone Guillermo MURRAY, Jessica Espinoza Primary Care Provider Un available Mariluz Villeda Unavailable [phone] Allergies Allergen (clinical drug ingredient) Drug/Non Drug Allergy documented on EMR Reaction Allergy Type Onset Date Status sulfamethoxazole / trimethoprim Bactrim Unknown Drug Allergy Active Iodine blistered skin Drug Allergy Ac tive benzalkonium Merthiolate blistered skin Drug Allergy Active Bee [...] 1 TABLET BY MOUTH EVERY DAY Oral for 90 Days Active Metoprolol Succinate ER 50 MG TAKE 2 TABLETS BY MOUTH EVERY DAY Oral for 90 Days Active Estradiol 0.1 MG/GM Vaginal for 90 Days Active Ipratropium-Albuterol 0.5-2.5 (3) MG/3ML INHALE 1 VIAL EVERY 4 TO 6 HOURS NEEDED FOR WHEEZING/COPD Inhalation for 30 Days Active Myrbetriq 50 MG Oral for 90 Days Active Lisinopril 2.5 MG Oral for 90 Days Active Citalopram Hydrobromide 20 MG TAKE 1 TABLET BY MOUTH EVERY DAY Oral for 90 Days Active Turmeric 400 MG as directed Orally Active Atorvastatin Calcium 40 MG TAKE 1 TABLET (40 MG) ORALLY BEDTIME Oral for 90 Days Active Furosemide 20 MG 1 tablet Orally Once a day Active Fluticasone Propionate 50 MCG/ACT 1 spray in each nostril Nasally Once a day for 30 day(s) 02/20/2024 Active Co Q 10 100 MG as directed Orally 02/20/2024 Active Vitamin D3 25 MCG (1000 UT) 1 tablet Ora lly Once a day for 30 day(s) 02/20/2024 Active Vitamin C 500 [...] nsmoker Encounters Encounter Location Date Provider Diagnosis [facility] [address] [place] [address] 07/13/2024 Mariluz Villeda Plan Of Treatment No Information Progress Notes * Morena BRONSON PDOB: [birth year] (79 yo F)Acc No.[id number]:07/13/2024 Progress Notes Patient:?Morena BRONSON Provider:?Mariluz Villeda DPM :1945???Age:79 Y???Sex:Female D ate:07/13/2024 Address:[address] [place], [place] [id number] Pcp:Hilda Wright Subjective: * Chief Complaints: * ??? * ROS:?General/Constitutional:?Nausea?denies.?Vomiting?denies.?Hunger Thirst?denies.?Loss appetite?denies.?Chills?denies.?Fatigue?admits.?Fever?denies.?Night Sweats?denies.?Unexplained weight loss?denies.?Unexplained weight gain?denies.?HEENTM:?Dentures?denies.?Dizziness?denies.?Glasses/contacts?admits.?Retinopathy?de nies.?Blurred/double vision?denies.?TMJ?denies.?Discharge/drainage?denies.?Implants?denies.?Sore throat?denies.?Dental implants?denies.?Hard of hearing ?denies.?Difficulty chewing/swallowing/speaking?denies.?Nose bleeds?denies.?Sore mouth?denies.?Respiratory:?On Oxygen?admits.?Pneumonia/pleurisy?admits.?Bronchitis?admits.?Emphysema?admits.?C oughing?admits.?Cough blood?denies.?Shortness of breath?admits.?Wheezing?admits.?Cardiovascular:?Pacemaker?denies.?MVP?denies.?WPW?denies.?CHF?denies.?Heart attack?denies.?Septal defect?denies.?Rapid beat?denies.?Chest pain ?denies.?Atrial Fib.?denies.?Murmur/Palpitations?denies.?Gastrointestinal:?Hemorrhoids?denies.?Stomach/Abdominal pain?denies.?Dark blood stool?denies.?Irritable bowel ?denies.?Constipation?denies.?Diarrhea?denies.?Hematology:?Swelling?admits.?Clots?denies.?Varicose Veins?denies.?Bruising?denies.?Bleeding problem?denies.?Genitourinary:?Blood urine?denies.?Frequent/Painfu/urination/bladder control?admits.?Kidney stones?denies.?Infection (UTI)?denies.?Nephropathy?denies.?sex trans dis (STD)?denies.?Prostate?denies.?Musculoskeletal:?Hammertoes?denies.?Bunions?denies.?Back Pain?denies.?Muscle Cramps/ Resting?admits.?Muscle cramps / walking?admits.?Generalized aches and pains?admits.?Weakness?denies.?Integ.:?Zhao?denies.?Scars?denies.?Corns/calluses?denies.?Ingrown nails?denies.?Painful nails?admits.?Open Sores?denies.?Rashes?denies.?Neurologic:?Difficulty sleeping?denies.?Brain disorder?denies.?Numbness?denies.?Balance trouble?denies.?Confusion?denies.?Fainting/blackouts?denies.?Tingling?denies.?Tr emors?denies.? * Medical History:?Anemia, Ang jamar, Anxiety, Arthritis, Asthma, Back,Hip,and Knee pain, CAD (Cholesterol), Bladder cancer, Cataracts, Depression, Gout, Headaches/Migraines, Hiatal hernia, High blood pressure, Lung disease, Poor circulation, Reflux ( GERD), Sinusitis, Measles, Mumps, Chicken pox. * Surgical History:?hysterecto my 11/2010, insertion of bladder sling , removal of bladder sling , bilateral cataract 04/2020, bladder tumor removal 12/06/2022, cystoscopy . * Family History:?Mother: dece ased, heart attack, diagnosed with Unspecified essential hypertension, Family history of arthritis.?Father: , heart attack, diagnosed with Unspecified essential hypertension, Family history of arthritis.?Maternal uncle: stroke.?Siblings: unknown, strokeheart attack- sisterkidney/liver disease- brother, diagnosed with Unspecified essential hypertension.? Nephew - defects. * Social History:?Tobacco Use:?Tobacco use other than smoking?Are you an other tobacco user??No ?Tobacco Control (Standard)?Tobacco use:?Former smoker ?Additional Findings: Tobacco non-user?Current nonsmoker ???Drugs/Alcohol:?Drugs?Have you used drugs other than those for medical reasons in the past 12 months??No ?Alcohol Screen?Did you have a drink containing alcohol in the past year??No ?Points?0 ?Interpretation?Negative ???Miscellaneous:?Caffeine: yes, frequency:, 1-2 cups per day. ?Children: yes, 1. ?Exercise: none- sedentary due to illness. ?Marital status: . * Medications:?Taking Turmeric 400 MG Capsule as directed Orally [...] 100 MG Capsule as directed Orally * Allergies:?Penicillin: short ness of breath, Sulfa Antibiotics, Iodine: blistered skin, Merthiolate: blistered skin, Bactrim, Bee Sting: Allergy, Tetanus Immune Globulin: Allergy. Objective: * Vitals:? Assessment: Plan: * Treatment: * Images: * The named appointment provid er may or may not be the originator of this progress note, and it is not deemed complete until electronically signed by the appointment provider. Sign off status: Pending * Provider:?Mariluz Villeda DPM Date:?04/2025 Generated for Gavi cruz/Armen/eTransmitting on:?07/24/2024 10:44 AM EST
--- OUTSIDE RECORDS SUMMARY | 2024-07-24 10:45 | XMS_ITS ---
Author Organization [facility] Address [address] [place] [address] Care Team Providers Care Vortex Operator Name Role Phone Guillermo MURRAY, Jessica Espinoza Primary Care Provider Un available Mariluz Villeda Unavailable [phone] REASON FOR VISIT Cancel Encounters Encounter Location Date Provider Diagnosis [facility] [address] [place] [address] 07/12/2024 Mariluz Villeda Plan Of Treatment No Information Progress Notes * Morena BRONSON PDOB: [birth year] (79 yo F)Acc No.[id number]:07/12/2024 Patient:?Morena BRONSON :1945???Age:79 Y???Sex:Female Address:[address] [place], [address] * true * Date:? Generated for Benitoi anthony/Armen/eTransmitting on:?07/24/2024 10:44 AM EST
--- OUTSIDE RECORDS SUMMARY | 2024-07-24 10:45 | XMS_ITS ---
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 Generated for Printi anthony/Armen/eTransmitting on:?07/24/2024 10:45 AM EST
--- OUTSIDE RECORDS SUMMARY | 2024-07-24 10:45 | XMS_ITS | Patient Health Record ---
Author Organization [facility] Address [address] [facility] [place] [address] Care Team Providers Care Websphere Commerce Architect Name Role Phone Guillermo MURRAY, Jessica Espinoza Primary Care Provider Un available Mariluz Villeda Unavailable [phone] Allergies Allergen (clinical drug ingredient) Drug/Non Drug [...] Tetanus Immune Globulin Unknown Drug Allergy Active Reason For Referral No Information Medications Medication SIG (Take, Route, Frequency, Duration) Notes Start Date End Date Status Pantoprazole Sodium 40 MG TAKE 1 TABLET BY MOUTH EVERY DAY Oral for 90 Days Active Metoprolol Succinate ER 50 MG TAKE 2 TABLETS BY MOUTH EVERY DAY Oral for 90 Days Active Lisinopril 2.5 MG Oral for 90 Days Active Citalopram Hydrobromide 20 MG TAKE 1 TABLET BY MOUTH EVERY DAY Oral for 90 Days Active Fluticasone Propionate 50 MCG/ACT 1 spray in each nostril Nasally Once a day for 30 day(s) 02/20/2024 Active Estradiol 0.1 MG/GM Vaginal for 90 Days Active Ipratropium-Albuterol 0.5-2.5 (3) MG/3ML INHALE 1 VIAL EVERY 4 TO 6 HOURS NEEDED FOR WHEEZING/COPD Inhalation for 30 Days Active Myrbetriq 50 MG Oral for 90 Days Active Turmeric 400 MG as directed Orally Active Atorvastatin Calcium 40 MG TAKE 1 TABLET (40 MG) ORALLY BEDTIME Oral for 90 Days Active Co Q 10 100 MG as directed Orally 02/20/2024 Active Furosemide 20 MG 1 tablet Orally [...] nsmoker Encounters Encounter Location Date Provider Diagnosis [facility] [address] [address] 03/16/2024 Mariluz [facility] [address] [address] 07/03/2024 Mariluz [facility] [address] 07/12/2024 Mariluz Villeda Plan Of Treatment No Information Insurance Providers Payer Name Payer Address Payer Phone Subscriber Number Group Number Insured Name Patient Relationship to Insured Coverage Start Date Coverage End Date Medicare National [employer]t Sv[employer] [address] [place] [id number] [phone] Morena Estrada Self - patient is the insured [facility] [address] [place] [address] Morena Estrada Self - patient is the insured Medical (General) History Medical History History ICD Code Anemia Angina Anxiety Arthritis asthma Back,Hip,and Knee pain CAD (Cholesterol) bladder cancer Cataracts Depression Gout Headaches/Migraines Hiatal hernia High blood pressure Lung disease Poor circulation Reflux ( GERD) sinusitis Measles Mumps Chicken pox Surgical History Surgery Date(Month/Year) hysterectomy 11/2010 insertion of bladder sling removal of bladder sling bilateral cataract 04/2020 bladder tumor removal 12/06/2022 cystoscopy
== END 2024-07-24 10:23 | disposition home or self-care (01) ==
PROVIDERS: PCP Internal Medicine; Visit Provider Surgery Vascular Surgery
DX: I83.11 Varicose veins of right lower extremity with inflammation (principal)
CPT/HCPCS: 99204

== ENCOUNTER → 2024-07-24 09:45 | Outpatient (BNVA) | payer MEDICARE, SELFPAY | PROVIDERS: PCP Internal Medicine; Visit Provider Surgery Vascular Surgery | DX: I83.11 Varicose veins of right lower extremity with inflammation (principal) | CPT/HCPCS: 99202 ==

== ENCOUNTER 2024-08-27 10:05 | Outpatient (AMB) | payer MEDICARE, SELFPAY ==
--- NOTE | 2024-08-27 10:24 | MHC.OFFVIS ---
Vital Signs 08/27/24 10:25 Height 4 ft 10 in BP 120/68 Blood Pressure Location Lt brachial Position Sitting Pulse 70 Pulse Source Pulse Oximeter Pulse Oximetry (%) 97 Oxygen Delivery Method Nasal Cannula Oxygen Flow Rate 2.5 Intake Visit Reasons: COPD Intake Note: pt is here for follow up and states her tubing is giving her a hard time, [facility] is DME and I can send someone out to check concentrator and tubing. Derrick Boat Runner Required: No Allergies bee pollen [bee stings] Allergy (Severe, Verified 08/27/24 10:55) Anaphylaxis tetanus toxoid, adsorbed [Tetanus Toxoid,Adsorbed] Allergy (Severe, Verified 08/27/24 10:55) LOCAL INJ.SITE SWELLING beeswax [BEESWAX] Allergy (Intermediate, Verified 08/27/24 10:55) Hives Iodinated Contrast Media [IV Dye, Iodine Containing] Allergy (Intermediate, Verified 08/27/24 10:55) HIVES-CAT SCAN DYE iodine [Iodine] Allergy (Intermediate, Verified 08/27/24 10:55) SWELLING, blister, hives Penicillins Allergy (Intermediate, Verified 08/27/24 10:55) SWELLING, hives, rash Sulfa (Sulfonamide Antibiotics) Allergy (Intermediate, Verified 08/27/24 10:55) Hives pneumococcal vaccine Adverse Reaction (Intermediate, Verified 08/27/24 10:55) fever, chills pollen Adverse Reaction (Mild, Uncoded 08/27/24 10:55) Nasal congestion Medication List - Last Reconciled 08/27/24 by Bonnie Lozano MD ascorbic acid (vitamin C) 1 g PO DAILY 90 days aspirin 81 mg PO DAILY atorvastatin 40 mg PO BEDTIME [bariatric transport wheelchair As directed] cholecalciferol (vitamin D3) (Vitamin D3) 25 mcg PO DAILY citalopram 30 mg (1.5 x 20 mg) PO DAILY 3 months clotrimazole-betamethasone 1-0.05 % 1 appl topical BID 10 days coenzyme Q10 (CoQ-10) 300 mg PO DAILY commode (bedside commode) Bariatric commode estradiol 0.01%(0.1mg/gram) pea-sized to urethra daily; 30 days fluticasone propionate 50 mcg/actuation 1 spray intranasal QAM PRN 30 days ipratropium-albuterol 0.5 mg-3 mg(2.5 mg base)/3 mL 3 mL inhalation Q4-6H PRN lisinopril 10 mg PO DAILY methenamine hippurate 1 g PO DAILY 90 days metoprolol succinate ER 100 mg (2 x 50 mg) PO DAILY pantoprazole 40 mg PO DAILY [Transport chair As directed] turmeric 500 mg PO DAILY HPI HPI COPD: Details: KAYLEEN, 79 YEARS OLD, WITH MORBID OBESITY, NADEEM/HYPOVENTILATION SYNDROME BUT NOT ABLE TO USE CPAP, COMES AFTER 3 MONTHS FOR FOLLOW-UP. PULMONARY TERRY SHE HAS BEEN STABLE EXCEPT HAVING SOME ISSUES WITH THE LONG TUBE FOR OXYGEN USAGE. SHE DENIES ANY WHEEZING OR COUGH . SHE DOES SLEEP A FEW HOURS AT NIGHT AND THEN REMAINS SOMEWHAT SLEEPY DURING THE DAYTIME . SHE IS SITTING IN THE WHEELCHAIR MOST OF THE DAY, REMAINS VERY INACTIVE. USES O2 2.5 L/MINUTE CONTINUOUSLY, NOT DOING ANY BREATHING EXERCISES. LUCKILY HAS HAD NO RESPIRATORY INFECTION IN THE LAST FEW MONTHS. [facility] Medical History Swelling of lower leg Respiratory failure with hypoxia Pain around toenail Hypertrophic toenail Acute bronchitis Anemia, macrocytic History of [place] (myocardial infarction) Heartburn symptom Gait instability Restrictive lung disease Myocardial infarct Supplemental oxygen dependent Difficult intravenous access Intertrigo Pneumococcal vaccination declined Influenza vaccination declined NADEEM (obstructive sleep apnea) COPD (chronic obstructive pulmonary disease) Restrictive lung disease OAB (overactive bladder) Murmur Nocturnal leg cramps UTI (urinary tract infection) Endometrial cancer Immunization refused Mixed stress and urge urinary incontinence Morbid obesity Recurrent major 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 Impaired fasting glucose Dyslipidemia Osteopenia of neck of left femur Mild intermittent asthma without complication Essential hypertension Cataract Hx of gout Hx of Clostridium difficile infection Urinary incontinence Hiatal hernia GERD (gastroesophageal reflux disease) Sleep apnea, unspecified Snores Ex-smoker for more than 1 year Bladder cancer History of pneumonia Surgical History History of urologic surgery Hx of bilateral cataract extraction Cataract extraction status, right eye Hx of colonoscopy Hx of cystoscopy History of neck surgery History of vaginal hysterectomy History of bladder surgery Family History Father Heart disease Mother No problems noted. Maternal Grandfather Heart disease Maternal Grandmother Heart disease Paternal Grandfather Heart disease Paternal Grandmother Heart disease Social History Housing: House Are you a primary animal care worker to a significant other at home: No Do you presently have visiting nurse or other home services: No Alcohol intake: never Patient Tobacco Use Status: Former Tobacco user Tobacco use type: Cigarette e-Cigarette/Vaping Use: Never Used Second Hand Smoke Exposure: No Advance Directives Date on File: 12/21/21 Current occupational status: disabled Cognitive needs: No Hearing needs: No Vision needs: Yes Review of Systems Const All systems reviewed & are unremarkable except as noted in HPI and below Eyes Reports no additional complaints ENT Reports no additional complaints Card Denies chest pain, Denies irregular heart rhythm and Reports leg edema Resp Reports cough (mild intermittent ) and Denies wheezing GI Reports no additional complaints Reports urinary incontinence Musc Reports no additional complaints and Reports abnormal gait (Non ambulatory) Skin/Breast Reports system reviewed and no additional complaints, except as documented Neuro Reports abnormal gait (Non ambulatory) Psych Reports no additional complaints Aller/Immun Denies wheezing Physical Exam Vital Signs: Last Vital Signs Pulse 70 08/27/24 10:25 BP 120/68 08/27/24 10:25 Pulse Ox 97 08/27/24 10:25 Oxygen Delivery Method Nasal Cannula 08/27/24 10:25 Oxygen Flow Rate 2.5 08/27/24 10:25 Const Other: SHE IS GROSSLY OBESE, BUT CANNOT BE WEIGHED. HAS A LARGE AND SHORT NECK. WITH A ROUND FACE. TYPICAL PHYSICAL FEATURES OF OBSTRUCTIVE SLEEP APNEA. General: comfortable (In a wheelchair), no acute distress, alert and awake Orientation/consciousness: patient oriented x3 HEENT Head: Yes normal to inspection General nose exam: No nasal polyps present and No nasal discharge present Face and sinus: Yes sinuses nontender Mouth: oropharynx abnormals (Oropharynx is crowded, Mallampati class 4) Throat: Yes posterior oropharynx normal Eyes General: appearance normal, both eyes and all related structures Neck Neck: Yes normal visual inspection, Yes no lymphadenopathy, Yes trachea midline, Yes no JVD and Yes other (Very obese and short) Thyroid: Thyroid normal Chest Chest palpation & inspection: normal inspection of the chest, normal palpation of entire chest wall and no tenderness Resp Other: Percussion note is not perceptible because of gross obesity. Breath sounds are heard equally in the upper parts of the chest and diminished over the lower lobes. No wheezes rhonchi or crepitations were heard. NO COUGH with breathing efforts . Cardio Palpation: normal PMI Rate: regular rate Rhythm: regular rhythm Heart sounds: no gallops and no murmurs GI Palpation (GI): Soft to palpation, nontender, No hepatosplenomegaly present, no masses and Other GI palpation findings present (Abdomen grossly obese) Auscultation: normal bowel sounds Back/Spine/Pelvis Thoracic/Lumbar Spine: thoracic and lumbar spine normal to inspection and thoraco-lumbar ROM limited Skin General skin exam: no rashes or lesions noted Neuro General: patient oriented x3, No gait normal (Gait is impaired because of her morbid obesity) and no focal motor deficits Cranial nerves: Yes CN's II-XII intact bilaterally Extrem General: Yes normal to inspection, Yes no calf tenderness, Yes edema (Edema around the ankles, stasis edema) and Yes venous stasis dermatitis Psych Appearance: grossly normal and well kempt Speech and movement: Normal speech and movement present Assessment & Plan Assessment & Plan (1) Morbid obesity: Comment: THIS PATIENT HAS SUPER MORBID OBESITY. THERE IS NO POTENTIAL FOR HER TO LOSE WEIGHT. Code(s): E66.01 - Morbid (severe) obesity due to excess calories Category: Medical Plan: I ADVISED TO KEEP ON SEEING HER PRIMARY CARE PHYSICIAN REGULARLY AND STAY ON APPROPRIATE DOSE OF DIURETIC THERAPY. (2) COPD (chronic obstructive pulmonary disease): Comment: PATIENT DOES HAVE CHRONIC COUGH WITH CHEST CONGESTION PROBABLY DUE TO CHRONIC OBSTRUCTIVE PULMONARY DISORDER. She is prone to have recurrent acute bronchitis causing acute exacerbation. Code(s): J44.9 - Chronic obstructive pulmonary disease, unspecified Category: Medical Plan: ADVISED TO CONTINUE USING IPRATROPIUM-ALBUTEROL SOLUTION IN THE NEBULIZER Q 6 HOURS WHILE AWAKE (3) NADEEM (obstructive sleep apnea): Comment: *BECAUSE OF HER MORBID OBESITY SHE HAS FEATURES OF OBSTRUCTIVE SLEEP APNEA. HOWEVER SHE WOULD NOT CONSENT FOR ANY WORKUP OR TREATMENT AT THIS TIME . Code(s): G47.33 - Obstructive sleep apnea (adult) (pediatric) Category: Medical Plan: CONTINUE TO USE O2 2.5 l/MT AT NIGHT (4) Restrictive lung disease: Comment: PATIENT MUST HAVE SIGNIFICANT RESTRICTIVE LUNG DISORDER BECAUSE OF HER MORBID OBESITY. SHE CAN NOT LOSE WEIGHT SHE DOES HAVE INCENTIVE SPIROMETRY DEVICE AT HOME AND IS INSTRUCTED TO DO DEEP BREATHING EXERCISES 3 TO 4 TIMES A DAY. Code(s): J98.4 - Other disorders of lung Category: Medical Plan: ADVISED TO DO DEEP BREATHING EXERCISES AT LEAST 3-4 TIMES EVERY DAY. (5) Respiratory failure with hypoxia: Comment: SHE HAS BEEN NOTED TO BE HYPOXEMIC EVEN AT REST. HAS BEEN ON OXYGEN THERAPY 24 HOURS A DAY . CURRENTLY SHE NEEDS TO USE 2.5 L PER MINUTE TO KEEP HER O2 SAT ABOVE 90%. SHE IS HAVING SOME ISSUES WITH THE O2 TUBING. SHE IS USING IT MOST OF THE TIME AND IS FEELING MUCH BETTER. Code(s): J96.91 - Respiratory failure, unspecified with hypoxia Category: Medical Plan: WILL MAKE ARRANGEMENT FOR HER TO HAVE NEW TUBING. ADVISED TO KEEP ON USING O2 24 HOURS A DAY. Coding Level of Care Code Est Pt Level 3 (05746) Diagnoses Morbid obesity E66.01 COPD (chronic obstructive pulmonary disease) J44.9 NADEEM (obstructive sleep apnea) G47.33 Restrictive lung disease J98.4 Respiratory failure with hypoxia J96.91
[2024-08-27 10:25] VITALS: BP 120/68; PULSE 70; O2SAT 97
--- OUTSIDE RECORDS SUMMARY | 2024-08-27 11:13 | XMS_ITS ---
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 Generated for Benitoi anthony/Armen/eTransmitting on:?08/27/2024 11:13 AM EST
--- OUTSIDE RECORDS SUMMARY | 2024-08-27 11:14 | XMS_ITS | Patient Health Record ---
Author [facility] Address [address] [facility] [place] [address] Care Team Providers Care Veneer Sorter Name Role Phone Guillermo MURRAY, Jessica Espinoza Primary Care Provider Un available Mariluz Villeda Unavailable [phone] Allergies Allergen (clinical drug ingredient) Drug/Non Drug [...] nsmoker Encounters Encounter Location Date Provider Diagnosis [facility] [address] [address] 03/16/2024 Mariluz [facility] [address] [address] 07/03/2024 Mariluz [facility] [address] 07/12/2024 Mariluz Villeda Plan Of Treatment No Information Insurance Providers Payer Name Payer Address Payer Phone Subscriber Number Group Number Insured Name Patient Relationship to Insured Coverage Start Date Coverage End Date Medicare National Govt Sv[employer] [address] [place] [id number] Morena Estrada Self - patient is the insured [facility] [address] [place] [address] [phone] Morena Estrada Self - patient is the [...]
== END 2024-08-27 10:53 | disposition home or self-care (01) ==
PROVIDERS: PCP Internal Medicine; Visit Provider Internal Medicine
DX: E66.01 Morbid (severe) obesity due to excess calories (principal); J44.9 Chronic obstructive pulmonary disease, unspecified; G47.33 Obstructive sleep apnea (adult) (pediatric); J98.4 Other disorders of lung; J96.91 Respiratory failure, unspecified with hypoxia
CPT/HCPCS: 99213

== ENCOUNTER → 2024-08-27 10:05 | Outpatient (BNVA) | payer MEDICARE, SELFPAY | PROVIDERS: PCP Internal Medicine; Visit Provider Internal Medicine | DX: J44.9 Chronic obstructive pulmonary disease, unspecified (principal); J98.4 Other disorders of lung; J96.91 Respiratory failure, unspecified with hypoxia; G47.33 Obstructive sleep apnea (adult) (pediatric); E66.01 Morbid (severe) obesity due to excess calories | CPT/HCPCS: 99212 ==

== ENCOUNTER 2024-08-30 10:22 | Outpatient (REF) | payer MEDICARE, SELFPAY ==
--- NOTE | ~2024-08-30 | US_ITS ---
EXAMINATION: US VENOUS ULTRASOUND WITH DOPPLER LOWER EXTREMITY, BILATERAL CLINICAL INFORMATION: Varicose veins of right lower extremity with inflammation. COMPARISON: Duplex ultrasound right lower extremity 08/19/2013. TECHNIQUE: Ultrasound of the superficial venous system of the bilateral lower extremities is performed from the hip to the calf with compression sonography and color and pulse Doppler assessment. Spectral analysis with color-flow imaging is performed with the patient in reverse Trendelenburg positioning. FINDINGS: RIGHT SIDE: GREATER SAPHENOUS VEIN: The right saphenofemoral junction diameter is 0.7 cm. There is no reflux. The right proximal thigh diameter is 0.4 cm. There is no reflux. The right mid thigh diameter is 0.3 cm. There is 72,444 ms of reflux. The right above-knee diameter is 0.4 cm. There is 2732 ms of reflux. The right at-knee diameter is 0.1 cm. There is no reflux. The right below-knee diameter is 0.2 cm. There is no reflux. The right mid calf diameter is 0.2 cm. There is no reflux. The right ankle diameter is 0.2 cm. There is no reflux. MEDIAL ACCESSORY GREATER SAPHENOUS VEIN: The right saphenofemoral junction diameter is 0.4 cm. There is no reflux. The right mid thigh diameter is 0.4 cm. There is no reflux. LESSER SAPHENOUS VEIN: The right saphenopopliteal junction diameter is 0.1 cm. There is no reflux. The right mid calf diameter is 0.1 cm. There is no reflux. The right distal calf diameter is 0.2 cm. There is no reflux. SAPHENOUS PERFORATORS: At superficial saphenous vein mid aspect measures 0.2 cm. There is no reflux. At greater saphenous vein at the knee measures 0.2 cm. There is no reflux. At greater saphenous vein at the mid calf measures 0.2 cm. There is no reflux. At greater saphenous vein at the mid calf measures 0.2 cm. There is no reflux. At anterior saphenous vein medial mid measures 0.2 cm. There is no reflux. At anterior saphenous vein medial mid measures 0.3 cm. There is no reflux. VARICOSITIES: At Anterior saphenous vein medial, mid calf measures 0.3 cm, with 2772 ms of reflux. At greater saphenous vein distal thigh measures 0.5 cm, with 1688 ms of reflux. LEFT SIDE: GREATER SAPHENOUS VEIN: The left saphenofemoral junction diameter is 0.7 cm. There is no reflux. The left proximal thigh diameter is 0.5 cm. There is no reflux. The left mid thigh diameter is 0.4 cm. There is 2368 ms of reflux. The left above-knee diameter is 0.3 cm. There is no reflux. The left at-knee diameter is 0.3 cm. There is no reflux. The left below-knee diameter is 0.2 cm. There is no reflux. The left mid calf diameter is 0.1 cm. There is no reflux. The left ankle diameter is 0.2 cm. There is no reflux. LATERAL ACCESSORY GREATER SAPHENOUS VEIN: The left saphenofemoral junction diameter is 0.6 cm. There is no reflux The left mid thigh diameter is 0.2 cm. There is no reflux. LESSER SAPHENOUS VEIN: The left saphenopopliteal junction diameter is 0.3 cm. There is no reflux. The left mid calf diameter is 0.2 cm. There is no reflux. The left distal calf diameter is 0.2 cm. There is no reflux. SAPHENOUS PERFORATORS: At superficial saphenous vein proximal aspect measures 0.2 cm. There is no reflux. At superficial saphenous vein mid aspect measures 0.2 cm. There is no reflux. At greater saphenous vein at the proximal thigh measures 0.3 cm. There is no reflux. At greater saphenous vein at the mid thigh measures 0.2 cm. There is no reflux. At greater saphenous vein at the proximal calf measures 0.2 cm. There is no reflux. At greater saphenous vein at the mid calf measures 0.2 cm. There is no reflux. At greater saphenous vein at the distal calf measures 0.2 cm. There is no reflux. VARICOSITIES: At the anterior saphenous vein lateral, proximal aspect measures 0.3 cm. There is no reflux. OTHER: None. US/ venous insuf bilat IMPRESSION: 1. There is 72,444 ms of reflux identified in the RIGHT mid thigh greater saphenous vein, which measures 0.3 cm.. 2. There is 2732 ms of reflux identified in the RIGHT above knee greater saphenous vein, which measures 0.4 cm. 3. There is 2368 ms of reflux in the LEFT mid thigh greater saphenous vein, which measures 0.4 cm. 4. No additional hemodynamically significant reflux is seen of the bilateral greater or lesser saphenous veins. 5. Varicosity at RIGHT anterior saphenous vein medial, mid calf measures 0.3 cm, with 2772 ms of reflux. 6. Varicosity at RIGHT greater saphenous vein distal thigh measures 0.5 cm, with 1688 ms of reflux. 7. Varicosity at the LEFT anterior saphenous vein lateral, proximal aspect measures 0.3 cm. No reflux. Electronically signed by: Ford Pemberton MD 08/30/2024 02:45 PM [facility]
--- OUTSIDE RECORDS SUMMARY | 2024-08-30 12:05 | XMS_ITS ---
Author Organization [facility] Address [address] [place] [address] Care Team Providers Care Methodologist Name Role Phone Guillermo MURRAY, Jessica Espinoza Primary Care Provider Un available Mariluz Villeda Unavailable [phone] REASON FOR VISIT Cancel Encounters Encounter Location Date Provider Diagnosis [facility] [address] [place] [address] 07/12/2024 Mariluz Villeda Plan Of Treatment No Information Progress Notes * Morena BRONSON PDOB: [birth year] (79 yo F)Acc No.[id number]:07/12/2024 Patient:?Morena BRONSON :1945???Age:79 Y???Sex:Female Address:[address] [place], [address] * true * Date:? Generated for Gavi cruz/Armen/eTransmitting on:?08/30/2024 12:05 PM EST
--- OUTSIDE RECORDS SUMMARY | 2024-08-30 12:05 | XMS_ITS ---
Author Organization [facility] Address [address] [facility] [place] [address] Care Team Providers Care Yacht Master Name Role Phone Guillermo MURRAY, Jessica Espinoza Primary Care Provider Un available Mariluz Villeda Unavailable [phone] Allergies Allergen (clinical drug ingredient) Drug/Non Drug [...] nsmoker Encounters Encounter Location Date Provider [facility] [address] [place] [address] 07/13/2024 Mariluz Villeda Plan Of Treatment No Information Progress Notes * Morena BRONSON PDOB: [birth year] (79 yo F)Acc No.[id number]:07/13/2024 Progress Notes Patient:?Morena BRONSON Provider:?Mariluz Villeda DPM :1945???Age:79 Y???Sex:Female D ate:07/13/2024 Address:[address] [place], [place] [id number] Pcp:Hilda Wright Subjective: * Chief Complaints: * [...] Villeda DPM Date:?04/2025 Generated for Gavi cruz/Armen/eTransmitting on:?08/30/2024 12:05 PM EST
--- OUTSIDE RECORDS SUMMARY | 2024-08-30 12:05 | XMS_ITS ---
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 Generated for Benitoi anthony/Armen/eTransmitting on:?08/30/2024 12:04 PM EST
--- OUTSIDE RECORDS SUMMARY | 2024-08-30 12:05 | XMS_ITS | Patient Health Record ---
[facility] Address [address] [facility] [place] [address] Care Team Providers Care Medical Underwriter Name Role Phone Guillermo MURRAY, Jessica Espinoza Primary Care Provider Un available Mariluz Villeda Unavailable [phone] Allergies Allergen (clinical drug ingredient) Drug/Non Drug [...] nsmoker Encounters Encounter Location Date Provider Diagnosis [facility] [address] [address] 03/16/2024 Mariluz [facility] [address] [address] 07/03/2024 Mariluz [facility] [address] 07/12/2024 Mariluz Villeda Plan Of Treatment No Information Insurance Providers Payer Name Payer Address Payer Phone Subscriber Number Group Number Insured Name Patient Relationship to Insured Coverage Start Date Coverage End Date Medicare National Govt Sv[employer] [address] [place] [id number] [phone] Morena Estrada Self - patient is the [facility] [address] [place] [address] Morena Estrada Self - patient is the [...]
== END 2024-08-30 10:23 | disposition home or self-care (01) ==
LOC: HO.US 10:22
PROVIDERS: PCP Internal Medicine; Visit Provider Surgery Vascular Surgery
DX: I83.11 Varicose veins of right lower extremity with inflammation (principal)
CPT/HCPCS: 93970

== ENCOUNTER → 2024-08-30 10:24 | Outpatient (BNV) | payer MEDICARE, SELFPAY | PROVIDERS: PCP Internal Medicine; Visit Provider Radiology Diagnostic Radiology | DX: I87.2 Venous insufficiency (chronic) (peripheral) (principal) | CPT/HCPCS: 93970 ==

== ENCOUNTER 2024-09-11 10:01 | Outpatient (AMB) | payer MEDICARE, SELFPAY ==
--- NOTE | 2024-09-11 10:05 | A.OFFVIS_ITS ---
Intake Visit Reasons: follow up s/p US 08/30/24 Intake Note: Patient presents for follow up US performed on 08/30/24. No complaints. Accompanied by: Other Relationship Allergies bee pollen [bee stings] Allergy (Severe, Verified 09/11/24 10:06) Anaphylaxis tetanus toxoid, adsorbed [Tetanus Toxoid,Adsorbed] Allergy (Severe, Verified 09/11/24 10:06) LOCAL INJ.SITE SWELLING beeswax [BEESWAX] Allergy (Intermediate, Verified 09/11/24 10:06) Hives Iodinated Contrast Media [IV Dye, Iodine Containing] Allergy (Intermediate, Verified 09/11/24 10:06) HIVES-CAT SCAN DYE iodine [Iodine] Allergy (Intermediate, Verified 09/11/24 10:06) SWELLING, blister, hives Penicillins Allergy (Intermediate, Verified 09/11/24 10:06) SWELLING, hives, rash Sulfa (Sulfonamide Antibiotics) Allergy (Intermediate, Verified 09/11/24 10:06) Hives pneumococcal vaccine Adverse Reaction (Intermediate, Verified 09/11/24 10:06) fever, chills pollen Adverse Reaction (Mild, Uncoded 08/27/24 10:55) Nasal congestion HPI HPI follow up s/p US 08/30/24: Details: Morbidly obese 79-year-old female presents for follow-up regarding venous insufficiency testing. She has significantly swollen lower extremities. She has seen her primary care team which it appears that they have started her on a diuretic. She has a history of malignant neoplasm of the bladder hyperlipidemia obstructive sleep apnea COPD and is currently O2 dependent. In addition she has restrictive lung disease and GERD. Of note she has been not able to wear her compression stockings. She now presents for follow-up with venous insufficiency testing. At the time of examination she was in a wheelchair. [facility]LY [facility], [facility] Medical History Swelling of lower leg Respiratory failure with hypoxia Pain around toenail Hypertrophic toenail Acute bronchitis Anemia, macrocytic History of MS (myocardial infarction) Heartburn symptom Gait instability Restrictive lung disease Myocardial infarct Supplemental oxygen dependent Difficult intravenous access Intertrigo Pneumococcal vaccination declined Influenza vaccination declined NADEEM (obstructive sleep apnea) COPD (chronic obstructive pulmonary disease) Restrictive lung disease OAB (overactive bladder) Murmur Nocturnal leg cramps UTI (urinary tract infection) Endometrial cancer Immunization refused Mixed stress and urge urinary incontinence Morbid obesity Recurrent major 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 Impaired fasting glucose Dyslipidemia Osteopenia of neck of left femur Mild intermittent asthma without complication Essential hypertension Cataract Hx of gout Hx of Clostridium difficile infection Urinary incontinence Hiatal hernia GERD (gastroesophageal reflux disease) Sleep apnea, unspecified Snores Ex-smoker for more than 1 year Bladder cancer History of pneumonia Surgical History History of urologic surgery Hx of bilateral cataract extraction Cataract extraction status, right eye Hx of colonoscopy Hx of cystoscopy History of neck surgery History of vaginal hysterectomy History of bladder surgery Family History Father Heart disease Mother No problems noted. Maternal Grandfather Heart disease Maternal Grandmother Heart disease Paternal Grandfather Heart disease Paternal Grandmother Heart disease Social History Housing: House Are you a primary career services manager to a significant other at home: No Do you presently have visiting nurse or other home services: No Alcohol intake: never Patient Tobacco Use Status: Former Tobacco user Tobacco use type: Cigarette e-Cigarette/Vaping Use: Never Used Second Hand Smoke Exposure: No Advance Directives Date on File: 12/21/21 Current occupational status: disabled Cognitive needs: No Hearing needs: No Vision needs: Yes Review of Systems Const All systems reviewed & are unremarkable except as noted in HPI and below Reports no additional complaints ENT Reports Normal hearing present Card Denies chest pain, Denies chest pain at rest, Denies chest pain with activity and Denies pedal edema Resp Denies cough GI Denies abdominal pain Musc Denies abnormal gait, Denies muscle cramps and Denies radiating pain into limb Skin/Breast Denies skin ulcer and Denies wounds Neuro Reports Normal hearing present and Denies abnormal gait Psych Reports no additional complaints Physical Exam Const General: cooperative, healthy appearing and comfortable Orientation/consciousness: oriented to person, oriented to place and oriented to time HEENT Head: Yes normal to inspection Neck Neck: Yes normal visual inspection Carotids: no bruits Chest Chest palpation & inspection: normal inspection of the chest Resp Effort & Inspection: normal respiratory effort and able to speak in complete sentences Auscultation: clear to auscultation bilaterally, no crackles, no rales, no rhonchi and no wheezes Cardio Rate: regular rate Rhythm: regular rhythm Heart sounds: S1 normal heart sound present and S2 normal heart sound present Bruits: no carotid bruits Peripheral pulses: Peripheral pulses 2+ throughout GI Inspection: Yes normal to inspection Skin Wounds: no wounds Hair: normal Neuro General: oriented to person, oriented to place and oriented to time Cranial nerves: Yes CN's II-XII intact bilaterally and Yes Normal hearing present Cognition (Neuro): normal cognition Motor exam (neuro): 5/5 motor strength present throughout Extrem Other: venous exam: +3 edema. No evidence of ulceration Right in cm: Thigh 75 Knee 59 Calf 46 Ankle 26 Left in cm: Thigh 78 Knee 59 Calf 47 Ankle 24 Hip/waist unable to obtain General: No clubbing, No cyanosis and No edema Psych Appearance: grossly normal Mental Status: mental status grossly normal Speech and movement: Normal speech and movement present Results Reviewed Results Reviewed: Brief summary of venous insufficiency testing is as follows: right great saphenous vein: Focally positive at knee right small saphenous vein: negative right accessory vein: none present left great saphenous vein: Focally positive mid thigh left small saphenous vein: negative left accessory vein: none present Please note there is no evidence of any venous aneurysms or significant tortuosity Assessment & Plan Assessment & Plan (1) Varicose veins of right lower extremity with inflammation: Code(s): I83.11 - Varicose veins of right lower extremity with inflammation Category: Medical Plan: In short patient is minimally positive for venous insufficiency. Would not treat that at the current time. Would manage this as conservatively as possible. We will try to treat her for lymphedema. (2) Lymphedema: Code(s): I89.0 - Lymphedema, not elsewhere classified Category: Medical Plan: In short the patient has late on sent lymphedema. The patient has been on conservative treatment for at least 3 months with minimal relief. She has tried to use compression stockings but is unable to do so due to her mobility. She has attempted to try compression stockings but has provided minimal relief. In addition on physical we are noticing hyperpigmentation. It appears that she has stage 2 lymphedema. Patient has completed multiple forms of conservative therapy yet significant symptoms remain. Patient requires the use of a pneumatic compression device which we will assist in trying to have the patient obtain them. A pneumatic compression device will help reduce swelling and other lymphedema comorbidities. Thank you for allowing us to assist in this patient's care. Coding Level of Care Code Est Pt Level 4 (79919) Diagnoses Varicose veins of right lower extremity with inflammation I83.11 Lymphedema I89.0
--- OUTSIDE RECORDS SUMMARY | 2024-09-11 11:43 | XMS_ITS ---
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 Generated for Printi ng/Armen/eTransmitting on:?09/11/2024 11:42 AM EDT
--- OUTSIDE RECORDS SUMMARY | 2024-09-11 11:43 | XMS_ITS ---
Author Organization [facility] Address [address] [place] [address] Care Team Providers Care Making Machine Catcher Name Role Phone Guillermo MURRAY, Jessica Espinoza Primary Care Provider Un available Mariluz Villeda Unavailable [phone] REASON FOR VISIT Cancel Encounters Encounter Location Date Provider Diagnosis [facility] [address] [place] [address] 07/12/2024 Mariluz Villeda Plan Of Treatment No Information Progress Notes * Morena BRONSON PDOB: [birth year] (79 yo F)Acc No.[id number]:07/12/2024 Patient:?Morena BRONSON :1945???Age:79 Y???Sex:Female Address:[address] [place], [address] * true * Date:? Generated for Benitoi anthony/Armen/eTransmitting on:?09/11/2024 11:43 AM EDT
--- OUTSIDE RECORDS SUMMARY | 2024-09-11 11:43 | XMS_ITS ---
Author Organization [facility] Address [address] [facility] [place] [address] Care Team Providers Care First Aid Officer Name Role Phone Guillermo MURRAY, Jessica Espinoza Primary Care Provider Un available Mariluz Villeda Unavailable [phone] Allergies Allergen (clinical drug ingredient) Drug/Non Drug [...] nsmoker Encounters Encounter Location Date Provider [facility] [address] [place] [address] 07/13/2024 Mariluz Villeda Plan Of Treatment No Information Progress Notes * Morena BRONSON PDOB: [birth year] (79 yo F)Acc No.[id number]:07/13/2024 Progress Notes Patient:?Morena BRONSON Provider:?Mariluz Villeda DPM :1945???Age:79 Y???Sex:Female D ate:07/13/2024 Address:[address] [place], [place] [id number] Pcp:Hilda Wright Subjective: * Chief Complaints: * [...] Villeda DPM Date:?04/2025 Generated for Gavi cruz/Armen/eTransmitting on:?09/11/2024 11:42 AM EDT
--- OUTSIDE RECORDS SUMMARY | 2024-09-11 11:43 | XMS_ITS | Patient Health Record ---
Author [facility] Address [address] [facility] [place] [address] Care Team Providers Care Wood Last Maker Name Role Phone Guillermo MURRAY, Jessica Espinoza Primary Care Provider Un available Mariluz Villeda Unavailable [phone] Allergies Allergen (clinical drug ingredient) Drug/Non Drug [...] nsmoker Encounters Encounter Location Date Provider Diagnosis [facility] [address] [address] 03/16/2024 Mariluz [facility] [address] [address] 07/03/2024 Mariluz [facility] [address] 07/12/2024 Mariluz Villeda Plan Of Treatment No Information Insurance Providers Payer Name Payer Address Payer Phone Subscriber Number Group Number Insured Name Patient Relationship to Insured Coverage Start Date Coverage End Date Medicare National Govt Sv[employer] Inc [address] [place] [id number] [phone] Morena Estrada Self - [facility] [address] [place] [address] Morena Estrada Self - patient is the [...]
== END 2024-09-11 10:42 | disposition home or self-care (01) ==
LOC: HO.HVS 10:02
PROVIDERS: PCP Internal Medicine; Visit Provider Surgery Vascular Surgery
DX: I83.11 Varicose veins of right lower extremity with inflammation (principal); I89.0 Lymphedema, not elsewhere classified
CPT/HCPCS: 99214

== ENCOUNTER → 2024-09-11 10:01 | Outpatient (BNVA) | payer MEDICARE, SELFPAY | PROVIDERS: PCP Internal Medicine; Visit Provider Surgery Vascular Surgery | DX: I83.11 Varicose veins of right lower extremity with inflammation (principal); I89.0 Lymphedema, not elsewhere classified | CPT/HCPCS: 99212 ==

== ENCOUNTER 2024-09-20 10:04 | Outpatient (REF) | payer MEDICARE, SELFPAY ==
[2024-09-20 13:17] LABS: MANUAL DIFF FLAG NO
[2024-09-20 13:29] LABS: Basophils Percent Auto 0.7 % (0-2); Eosinophils Absolute Auto 0.1 X10*3/uL (0.0-0.4); Eosinophils Percent Auto 2.2 % (0-4); Hematocrit 35.2 % (37.0-47.0); Hemoglobin 11.3 g/dl (12.0-16.0); Imm Gran Abs Auto 0.03 X10*3/uL (0.00-0.03); Imm Gran Pct Auto 0.5 % (0.0-0.4); Lymphocytes Absolute Auto 1.1 X10*3/uL (1.2-4.9); Lymphocytes Percent Auto 19.1 % (20-40); Mean Corpuscular HGB Conc 32.1 g/dl (31.0-35.0); Mean Corpuscular Hemoglobin 31.9 pg (27.0-33.0); Mean Corpuscular Volume 99.4 fL (80.0-98.0); Mean Platelet Volume 11.7 fL (9.4-12.3); Monocytes Absolute Auto 0.4 X10*3/uL (0.1-1.2); Monocytes Percent Auto 6.8 % (2-11); Neutrophils Absolute Auto 3.9 x10*3/uL (2.0-8.3); Neutrophils Percent Auto 70.7 % (45-73); Platelet Count 150 X10*3/uL (160-400); Red Blood Count 3.54 X10*6/uL (4.20-5.50); Red Cell Distribution Width 14.5 % (11.0-16.0); White Blood Count 5.6 X10*3/uL (4.8-10.8)
[2024-09-20 13:55] LABS: Alanine Aminotransferase 34 U/L (0-31); Anion Gap 11 (12-20); Aspartate Amino Transferase 39 U/L (5-31); Blood Urea Nitrogen 18 mg/dL (9-16); Calcium 10.2 mg/dL (8.4-10.2); Carbon Dioxide 34 mmol/L (22-29); Chloride 101 mmol/L (96-108); Cholesterol 130 mg/dL (<200); Estimated Glomerular Filt Rate > 60; Glucose Fasting 102 mg/dL (60-99); HDL Cholesterol 39 mg/dL (>40); LDL Cholesterol Calculated 71 mg/dL (<100); Potassium 5.3 mmol/L (3.3-5.1); Sodium 141 mmol/L (135-145); Triglycerides 102 mg/dL (<150)
[2024-09-20 14:11] LABS: Vitamin D 25-OH Total 47.8 ng/mL (>30)
== END 2024-09-20 10:05 | disposition home or self-care (01) ==
LOC: HO.HMGCLDS 10:04
PROVIDERS: PCP Internal Medicine; Referring Provider Internal Medicine; Visit Provider Nurse Practitioner Family
DX: H65.92 Unspecified nonsuppurative otitis media, left ear (principal); D53.9 Nutritional anemia, unspecified; I25.2 Old myocardial infarction; R73.01 Impaired fasting glucose; F33.42 Major depressive disorder, recurrent, in full remission; E78.5 Hyperlipidemia, unspecified; I10 Essential (primary) hypertension
CPT/HCPCS: 36415; 80048; 80061; 82306; 84450; 84460; 85025; 99212

== ENCOUNTER 2024-09-20 10:04 | Outpatient (AMB) | payer MEDICARE, SELFPAY ==
--- NOTE | 2024-09-20 10:06 | AM.OFFWIN_ITS ---
Intake Vital Signs 09/20/24 10:09 BMI Reason not done Patient refused/unable BP 132/80 Blood Pressure Location Rt brachial Position Sitting Pulse 80 Pulse Source Pulse Oximeter Pulse Oximetry (%) 91 L Oxygen Delivery Method Nasal Cannula Intake Visit Reasons: EP-lt earache Intake Note: Patient here for left ear pain, teeth pain, coughing up green mucus that has been present for over 1 week. Patient Tobacco Use Status: Former Tobacco user Allergies bee pollen [bee stings] Allergy (Severe, Verified 09/20/24 10:07) Anaphylaxis tetanus toxoid, adsorbed [Tetanus Toxoid,Adsorbed] Allergy (Severe, Verified 09/20/24 10:07) LOCAL INJ.SITE SWELLING beeswax [BEESWAX] Allergy (Intermediate, Verified 09/20/24 10:07) Hives Iodinated Contrast Media [IV Dye, Iodine Containing] Allergy (Intermediate, Verified 09/20/24 10:07) HIVES-CAT SCAN DYE iodine [Iodine] Allergy (Intermediate, Verified 09/20/24 10:07) SWELLING, blister, hives Penicillins Allergy (Intermediate, Verified 09/20/24 10:07) SWELLING, hives, rash Sulfa (Sulfonamide Antibiotics) Allergy (Intermediate, Verified 09/20/24 10:07) Hives pneumococcal vaccine Adverse Reaction (Intermediate, Verified 09/20/24 10:07) fever, chills pollen Adverse Reaction (Mild, Uncoded 09/20/24 10:07) Nasal congestion Do you need a note to return to daycare/school/sports/work: No HPI HPI Comments History of Present Illness Details 79 y/o female patient who [facility] with c/o URI symptoms for 1 week.Pt c/o chronic cough, Left Ear pain and Teeth pain. [facility] Medical History (Updated 09/20/24 @ 10:32 by Lillian Cabezas NP) Otitis media with effusion Acute respiratory disease Swelling of lower leg Respiratory failure with hypoxia Pain around toenail Hypertrophic toenail Acute bronchitis Anemia, macrocytic History of ND (myocardial infarction) Heartburn symptom Gait instability Restrictive lung disease Myocardial infarct Supplemental oxygen dependent Difficult intravenous access Intertrigo Pneumococcal vaccination declined Influenza vaccination declined NADEEM (obstructive sleep apnea) COPD (chronic obstructive pulmonary disease) Restrictive lung disease OAB (overactive bladder) Murmur Nocturnal leg cramps UTI (urinary tract infection) Endometrial cancer Immunization refused Mixed stress and urge urinary incontinence Morbid obesity Recurrent major 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 Impaired fasting glucose Dyslipidemia Osteopenia of neck of left femur Mild intermittent asthma without complication Essential hypertension Cataract Hx of gout Hx of Clostridium difficile infection Urinary incontinence Hiatal hernia GERD (gastroesophageal reflux disease) Sleep apnea, unspecified Snores Ex-smoker for more than 1 year Bladder cancer History of pneumonia Surgical History History of urologic surgery Hx of bilateral cataract extraction Cataract extraction status, right eye Hx of colonoscopy Hx of cystoscopy History of neck surgery History of vaginal hysterectomy History of bladder surgery Family History Father Heart disease Mother No problems noted. Maternal Grandfather Heart disease Maternal Grandmother Heart disease Paternal Grandfather Heart disease Paternal Grandmother Heart disease Social History Housing: House Are you a primary hospice home care coordinator to a significant other at home: No Do you presently have visiting nurse or other home services: No Alcohol intake: never Patient Tobacco Use Status: Former Tobacco user Tobacco use type: Cigarette e-Cigarette/Vaping Use: Never Used Second Hand Smoke Exposure: No Advance Directives Date on File: 12/21/21 Current occupational status: disabled Cognitive needs: No Hearing needs: No Vision needs: Yes Review of Systems Const All systems reviewed & are unremarkable except as noted in HPI and below Physical Exam Vital Signs: Last Vital Signs Pulse 80 09/20/24 10:09 BP 132/80 09/20/24 10:09 Pulse Ox 91 L 09/20/24 10:09 Oxygen Delivery Method Nasal Cannula 09/20/24 10:09 Const General: no acute distress Nutritional Appearance: obese morbidly obese Orientation/consciousness: patient oriented x3 Limitations: wheelchair HEENT Head: Yes normocephalic Ears: external ears normal, TM normal on the right and TM abnormal bulging on the left, wth effusion purulent on the left and retracted on the left; not perforated Face and sinus: Yes sinuses nontender Mouth: other (Dry Mucous membranes) Teeth and gingiva: caries and poor dentition Throat: Yes uvula midline Resp Effort & Inspection: normal respiratory effort and able to speak in complete sentences Auscultation: clear to auscultation bilaterally, no crackles, no rales, no rhonchi and no wheezes Cardio Heart sounds: S1 normal heart sound present and S2 normal heart sound present Neuro General: patient oriented x3 Assessment & Plan Assessment & Plan (1) Otitis media with effusion: Code(s): H65.90 - Unspecified nonsuppurative otitis media, unspecified ear Qualifiers: Laterality: left Qualified Code(s): H65.92 - Unspecified nonsuppurative otitis media, left ear Plan: Ordered Abx Ear Drops Advised to f/u with Dentist regarding her Oral Care Acetaminophen for pain relief. Cough is chronic due to COPD. Medications: New ciprofloxacin-hydrocortisone 0.2-1 % 3 drps otic (ears) BID 7 days 10 mL 0RF H65.92 - Unspecified nonsuppurative otitis media, left ear Coding Level of Care Code Est Pt Level 4 (26609) Diagnoses Left otitis media with effusion H65.92 Laterality: left Time Spent (min) 20
[2024-09-20 10:09] VITALS: BP 132/80; PULSE 80; O2SAT 91
--- OUTSIDE RECORDS SUMMARY | 2024-09-20 11:17 | XMS_ITS | Patient Health Record ---
[facility] Organization [facility] Address [address] [facility] [place] [address] Care Team Providers Care Railway Signal Operator Name Role Phone Guillermo MURRAY, Jessica Espinoza Primary Care Provider Un available Mariluz Villeda Unavailable [phone] Allergies Allergen (clinical drug ingredient) Drug/Non Drug [...] nsmoker Encounters Encounter Location Date Provider Diagnosis [facility] [address] [address] 03/16/2024 Mariluz [facility] [address] [address] 07/03/2024 Mariluz [facility] [address] 07/12/2024 Mariluz Villeda Plan Of Treatment No Information Insurance Providers Payer Name Payer Address Payer Phone Subscriber Number Group Number Insured Name Patient Relationship to Insured Coverage Start Date Coverage End Date Medicare [employer] [address] [place] [id number] [phone] Morena Estrada Self - [facility] [address] [place] [address] [phone] Morena Estrada Self - patient is the [...]
--- OUTSIDE RECORDS SUMMARY | 2024-09-20 11:17 | XMS_ITS ---
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 Generated for Printi anthony/Armen/eTransmitting on:?09/20/2024 11:17 AM EDT
--- OUTSIDE RECORDS SUMMARY | 2024-09-20 11:18 | XMS_ITS ---
Author Organization [facility] Address [address] [place] [address] Care Team Providers Care Roll On Man Name Role Phone Guillermo MURRAY, Jessica Espinoza Primary Care Provider Un available Mariluz Villeda Unavailable [phone] REASON FOR VISIT Cancel Encounters Encounter Location Date Provider Diagnosis [facility] [address] [place] [address] 07/12/2024 Mariluz Villeda Plan Of Treatment No Information Progress Notes * Morena BRONSON PDOB: [birth year] (79 yo F)Acc No.[id number]:07/12/2024 Patient:?Morena BRONSON :1945???Age:79 Y???Sex:Female Address:[address] [place], [address] * true * Date:? Generated for Benitoi anthony/Armen/eTransmitting on:?09/20/2024 11:17 AM EDT
--- OUTSIDE RECORDS SUMMARY | 2024-09-20 11:18 | XMS_ITS ---
Author Organization [facility] Address [address] [facility] [place] [address] Care Team Providers Care Maintenance Operator Name Role Phone Guillermo MURRAY, Jessica Espinoza Primary Care Provider Un available Mariluz Villeda Unavailable [phone] Allergies Allergen (clinical drug ingredient) Drug/Non Drug [...] nsmoker Encounters Encounter Location Date [facility] [address] [place] [address] 07/13/2024 Mariluz Villeda Plan Of Treatment No Information Progress Notes * Morena BRONSON PDOB: [birth year] (79 yo F)Acc No.[id number]:07/13/2024 Progress Notes Patient:?Morena BRONSON Provider:?Mariluz Villeda DPM :1945???Age:79 Y???Sex:Female D ate:07/13/2024 Address:[address] [place], [place] [id number] Pcp:Hilda Wright Subjective: * Chief Complaints: * [...] Villeda DPM Date:?04/2025 Generated for Gavi cruz/Armen/eTransmitting on:?09/20/2024 11:17 AM EDT
== END 2024-09-20 10:27 | disposition home or self-care (01) ==
PROVIDERS: PCP Internal Medicine; Visit Provider Nurse Practitioner Family
DX: H65.92 Unspecified nonsuppurative otitis media, left ear (principal)

== ENCOUNTER 2024-09-24 09:09 | Outpatient (AMB) | payer MEDICARE, SELFPAY ==
--- NOTE | 2024-09-24 09:36 | A.OFFPC_ITS ---
Vital Signs 09/24/24 09:48 Height 4 ft 10 in Weight 248 lb BMI 51.8 BP 100/66 Blood Pressure Location Rt radial Position Sitting Respiration 17 Pulse 67 Pulse Source Pulse Oximeter Temp 97.8 F Temp Source Oral Pulse Oximetry (%) 99 Oxygen Delivery Method Nasal Cannula Intake Visit Reasons: 6m follow up Intake Note: Pt ism here today for her 6mo. f/u Allergies bee pollen [bee stings] Allergy (Severe, Verified 10/01/24 02:27) Anaphylaxis tetanus toxoid, adsorbed [Tetanus Toxoid,Adsorbed] Allergy (Severe, Verified 10/01/24 02:27) LOCAL INJ.SITE SWELLING beeswax [BEESWAX] Allergy (Intermediate, Verified 10/01/24 02:27) Hives Iodinated Contrast Media [IV Dye, Iodine Containing] Allergy (Intermediate, Verified 10/01/24 02:27) HIVES-CAT SCAN DYE iodine [Iodine] Allergy (Intermediate, Verified 10/01/24 02:27) SWELLING, blister, hives Penicillins Allergy (Intermediate, Verified 10/01/24 02:27) SWELLING, hives, rash Sulfa (Sulfonamide Antibiotics) Allergy (Intermediate, Verified 10/01/24 02:27) Hives pneumococcal vaccine Adverse Reaction (Intermediate, Verified 10/01/24 02:27) fever, chills pollen Adverse Reaction (Mild, Uncoded 10/01/24 02:27) Nasal congestion Medication List - Last Reconciled 09/24/24 by Jessica Li MD ascorbic acid (vitamin C) 1 g PO DAILY 90 days aspirin 81 mg PO DAILY atorvastatin 40 mg PO BEDTIME [bariatric transport wheelchair As directed] cholecalciferol (vitamin D3) (Vitamin D3) 25 mcg PO DAILY ciprofloxacin HCl 0.2% 5 drps otic (ears) Q12H 7 days citalopram 30 mg (1.5 x 20 mg) PO DAILY 3 months clotrimazole-betamethasone 1-0.05 % 1 appl topical BID 10 days coenzyme Q10 (CoQ-10) 300 mg PO DAILY commode (bedside commode) Bariatric commode estradiol 0.01%(0.1mg/gram) pea-sized to urethra daily; 30 days fluticasone propionate 50 mcg/actuation 1 spray intranasal QAM PRN 30 days furosemide 20 mg PO QAM ipratropium-albuterol 0.5 mg-3 mg(2.5 mg base)/3 mL 3 mL inhalation Q4-6H PRN lisinopril 10 mg PO DAILY methenamine hippurate 1 g PO DAILY metoprolol succinate ER 100 mg (2 x 50 mg) PO DAILY pantoprazole 40 mg PO DAILY [Transport chair As directed] turmeric 500 mg PO DAILY Tobacco use date assessed: 09/24/24 Fall risk assessment: No Falls in past year Last assessed Fall Risk: 09/24/24 Dental Screening Dental Screen Date: 09/24/24 Did you have a dental visit in the last 12 months?: No Did you have a dental problem in the last 6 months where you did not have access to dental care?: No Was dental information given to patient?: No HPI 6m follow up HPI Details 79 year old lady , with history of bladd er cancer , has dyslipidemia, obstructive sleep apnea, COPD, restrictive lung disease, morbid obesity, depression in remission, GERD, osteopenia, and hypertension,presents today for her follow-up. Blood pressure controlled with present treatment, [facility] Medical History (Updated 09/24/24 @ 10:22 by Jessica Li MD) Prediabetes Otitis media with effusion Acute respiratory disease Swelling of lower leg Respiratory failure with hypoxia Pain around toenail Hypertrophic toenail Acute bronchitis Anemia, macrocytic History of [place] (myocardial infarction) Heartburn symptom Gait instability Restrictive lung disease Myocardial infarct Supplemental oxygen dependent Difficult intravenous access Intertrigo Pneumococcal vaccination declined Influenza vaccination declined NADEEM (obstructive sleep apnea) COPD (chronic obstructive pulmonary disease) Restrictive lung disease OAB (overactive bladder) Murmur Nocturnal leg cramps UTI (urinary tract infection) Endometrial cancer Immunization refused Mixed stress and urge urinary incontinence Morbid obesity Recurrent major 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 Impaired fasting glucose Dyslipidemia Osteopenia of neck of left femur Mild intermittent asthma without complication Essential hypertension Cataract Hx of gout Hx of Clostridium difficile infection Urinary incontinence Hiatal hernia GERD (gastroesophageal reflux disease) Sleep apnea, unspecified Snores Ex-smoker for more than 1 year Bladder cancer History of pneumonia Surgical History History of urologic surgery Hx of bilateral cataract extraction Cataract extraction status, right eye Hx of colonoscopy Hx of cystoscopy History of neck surgery History of vaginal hysterectomy History of bladder surgery Family History Father Heart disease Mother No problems noted. Maternal Grandfather Heart disease Maternal Grandmother Heart disease Paternal Grandfather Heart disease Paternal Grandmother Heart disease Social History Housing: House Are you a primary palliative care coordinator to a significant other at home: No Do you presently have visiting nurse or other home services: No Alcohol intake: never Patient Tobacco Use Status: Former Tobacco user Tobacco use type: Cigarette e-Cigarette/Vaping Use: Never Used Second Hand Smoke Exposure: No Advance Directives Date on File: 12/21/21 Current occupational status: disabled Cognitive needs: No Hearing needs: No Vision needs: Yes Questionnaire PHQ-9 Over the last 2 weeks, how often have you been bothered by any of the following problems? 1. Little interest or pleasure in doing things: several days 2. Feeling down, depressed, or hopeless: several days Source: Developed by Drs. Flaco Banuelos, Gracia aCsh, Roque Seo and colleagues, with an educational glory from [employer]. Thrive Questionnaire Date Thrive assessed: 09/17/24 I am a: Patient What is your living situation today?: I have a steady place to live Within the past 12 months, did the food you bought not last and you didn't have the money to get more?: Never true Within the past 12 months, did you worry whether your food would run out before you got money to buy more?: Never true Do you have trouble paying for medicines?: No Do you have trouble getting transportation to medical appointments?: No Do you have trouble paying your heating and electricity bill?: No Do you have trouble taking care of your child, family member or friend?: No Do you have trouble with day-to-day activities such as bathing, preparing meals, shopping, managing finances, etc.?: Yes Are you currently unemployed and looking for a job?: No Are you interested in more education?: No Please select the resources that you would like help with: None Currently or been in a relationship where the following occur: No concerns reported THRIVE Score: 0 AUDIT C Alcohol Use Questionnaire (AUDIT-C) 1. How often do you have a drink containing alcohol?: Never 2. How many drinks containing alcohol do you have on a typical day when you are drinking?: 1 or 2 3. How often do you have six or more drinks on one occasion?: Never Total Score: 0 DEONTE-7 AMB Questionnaire DEONTE-7 Date DEONTE - 7 assessed: 09/24/24 Feeling nervous, anxious, or on edge: 1 = Several days Not being able to stop or control worryin = Several days Worrying too much about different things: 1 = Several days Trouble relaxin = Several days Being so restless that it is hard to sit still: 0 = Not at all Becoming easily annoyed or irritable: 1 = Several days Feeling afraid as if something awful might happen: 1 = Several days Total DEONTE-7 score (0-4 normal; 5-9 mild; 10-14 moderate; 15-21 severe): 6 Source: Developed by Drs. Flaco Banuelos, Gracia Cash, Roque Seo and colleagues, with an educational glory from [employer]. Review of Systems Const All systems reviewed & are unremarkable except as noted in HPI and below Reports no additional complaints Eyes Reports no additional complaints ENT Reports Normal hearing present Card Denies chest pain, Denies chest pain at rest, Denies chest pain with activity and Denies pedal edema Resp Denies cough GI Denies abdominal pain Reports urinary incontinence and Reports urinary urgency Musc Denies abnormal gait, Denies muscle cramps and Denies radiating pain into limb Skin/Breast Denies skin ulcer and Denies wounds Neuro Reports Normal hearing present and Denies abnormal gait Psych Reports no additional complaints Endo Reports no additional complaints Chuck/Lymph Reports no additional complaints Aller/Immun Reports no additional complaints Physical exam (Primary Care) Vital Signs: Last Vital Signs Temp 97.8 F 09/24/24 09:48 Pulse 67 09/24/24 09:48 Resp 17 09/24/24 09:48 BP 100/66 09/24/24 09:48 Pulse Ox 99 09/24/24 09:48 Oxygen Delivery Method Nasal Cannula 09/24/24 09:48 BMI result Body Mass Index 51.8 Tobacco/Smoking Status: Tobacco use Status Tobacco use date assessed 09/24/24 09/24/24 09:38 Patient Tobacco Use Status Former Tobacco user 09/24/24 09:38 Tobacco use type Cigarette 09/24/24 09:38 e-Cigarette/Vaping Use Never Used 09/24/24 09:38 Thrive Assessment: Date of Thrive Assessment Date Thrive assessed 09/17/24 09/24/24 09:38 Currently or been in a relationship where the following occur: No concerns reported Const Other: Alert oriented x3, no acute cardiorespiratory distress noted morbidly obese, partner present in room Orientation/consciousness: patient oriented x3 HENNJ Head: Yes normocephalic and Yes atraumatic Mouth: Normal oral and palatal mucosa present and moist mucous membranes Eyes General: appearance normal, both eyes and all related structures Neck Neck: Yes full ROM, Yes no lymphadenopathy and Yes supple Resp Auscultation: clear to auscultation bilaterally and other (Oxygen supplementation by nasal cannula) Cardio Other: S1-S2 present regular rate and rhythm GI Inspection: Yes obesity Palpation (GI): Soft to palpation, nontender, no guarding and no masses Auscultation: normal bowel sounds General: Yes no CVA tenderness Back/Spine/Pelvis Back: no CVA tenderness and No back tenderness Skin General skin exam: no rashes or lesions noted Neuro General: patient oriented x3, moves all extremities, Normal light touch and pain sensation, no focal motor deficits and CN's II-XI intact bilaterally Cranial nerves: Yes Normal hearing present Psych Appearance: grossly normal and well kempt Mental Status: mental status grossly normal Speech and movement: Normal speech and movement present Affect: normal affect Attitude: cooperative Thought process: Normal thought process present Results Reviewed Results Reviewed: Name: Morena Estrada Age/Sex: 79/F : 1945 Unit#: [id number] Attend Dr: Lillian Cabezas NP Re09/20/24 Status: DEP [facility]F [facility] Disch: SPEC : [id number] SANDEE: 09/20/24 STATUS: COMP REQ : [id number] RECD: 09/20/[address]: Jessica iL MD COMP: 09/20/24 ENTERED: 09/20/[address]: Lillian Cabezas NP ORDERED: CBC Auto Diff Test Result Flag Reference WBC 5.6 4.8-10.8 X10*3/uL RBC 3.54 L 4.20-5.50 X10*6/uL HGB 11.3 L 12.0-16.0 g/dl HCT 35.2 L 37.0-47.0 % MCV 99.4 H 80.0-98.0 fL MCH 31.9 27.0-33.0 pg MCHC 32.1 31.0-35.0 g/dl RDW 14.5 11.0-16.0 % PLT 150 L 160-400 X10*3/uL MPV 11.7 9.4-12.3 fL Neut Pct Auto 70.7 45-73 % ImGran Pct Auto 0.5 H 0.0-0.4 % Lymp Pct Auto 19.1 L 20-40 % Gonzales Pct Auto 6.8 2-11 % Eos Pct Auto 2.2 0-4 % Baso Pct Auto 0.7 0-2 % NRBC Pct Auto 0.0 0.0-0.2 /100WBC ANC Neut Abs # 3.9 2.0-8.3 x10*3/uL ImGran Abs Auto 0.03 0.00-0.03 X10*3/uL Lymph Abs Auto 1.1 L 1.2-4.9 X10*3/uL Gonzales Abs Auto 0.4 0.1-1.2 X10*3/uL Eos Abs Auto 0.1 0.0-0.4 X10*3/uL Baso Abs Auto 0.0 0.0-0.2 X10*3/uL NRBC Abs Auto 0.000 0.0-0.012 X10*3/uL Name: Morena Estrada Age/Sex: 79/F : 1945 Unit#: [id number] Attend Dr: Lillian Cabezas NURSING STAFF DEVELOPMENT COORDINATOR Re09/20/24 Status: DEP REF [facility] Disch: SPEC : [id number] SANDEE: 09/20/24 STATUS: COMP REQ : [id number] RECD: 09/20/[address]: Jessica Li MD COMP: 09/20/24 ENTERED: 09/20/24 ANDRE ASHLEY: Lillian Cabezas NURSING STAFF DEVELOPMENT COORDINATOR ORDERED: Met Prof Fast, AST, ALT, Lipid Panel, Vitamin D 25-OH Test Result Flag Reference Sodium 141 135-145 mmol/L Potassium 5.3 H 3.3-5.1 mmol/L CL 101 96-108 mmol/L CO2 34 H 22-29 mmol/L Gap 11 L 12-20 BUN 18 H 9-16 mg/dL Creat 0.64 0.5-1.4 mg/dL eGFR > 60 Chronic Kidney Disease: Estimated GFR < 60 mL/min/1.73m2 Severe Kidney Disease: Estimated GFR < 15 mL/min/1.73m2 FBS 102 H 60-99 mg/dL A fasting glucose from 100-125 mg/dl is considered impaired (pre-diabetes). CA 10.2 # 8.4-10.2 mg/dL AST (GOT) 39 H 5-31 U/L ALT (GPT) 34 H 0-31 U/L Triglyceride 102 <150 mg/dL Desirable Triglyceride: less than 150 mg/dL Borderline High Triglyceride 150-199 mg/dL High Triglyceride: 200-499 mg/dL Very High Triglyceride: greater than or equal to 5OO mg/dL Cholesterol 130 <200 mg/dL Desirable Cholesterol: less than 200 mg/dL Borderline High Cholesterol: 200-239 mg/dL High Cholesterol: greater than 239 mg/dL LDL Calculated 71 <100 mg/dL Desirable LDL: less than 100 mg/dL Near Optimal/Above Optimal LDL: 110-129 mg/dL Borderline High LDL: 130-159 mg/dL High LDL: 160-189 mg/dL Very High LDL: greater than or equal to 190 mg/dL HDL 39 L >40 mg/dL Desirable HDL: greater than 40 mg/dL Note: This HDL assay may give artificially low results in patients with liver disease. Vitamin D 25-OH 47.8 >30 ng/mL Health Based Reference Values* < 20 ng/mL Deficient 20-30 ng/mL Insufficient > 30 ng/mL Sufficient Coding Level of Care Code Est Pt Level 4 (01187) Complex EM visit Add On G2211 Diagnoses Essential hypertension I10 Dyslipidemia E78.5 NADEEM (obstructive sleep apnea) G47.33 Lymphedema I89.0 Prediabetes R73.03 Morbid obesity E66.01 Assessment & Plan Assessment & Plan (1) Essential hypertension: Code(s): I10 - Essential (primary) hypertension Category: Medical Plan: Blood pressure at goal of less than 130/80. Continue with current medication. Reinforced importance of following a low sodium diet, getting regular exercise, and lowering stress levels. (2) Dyslipidemia: Code(s): E78.5 - Hyperlipidemia, unspecified Category: Medical Plan: Fasting lipids are within normal limits. Continue with atorvastatin 40 mg a day (3) NADEEM (obstructive sleep apnea): Comment: *BECAUSE OF HER MORBID OBESITY SHE HAS FEATURES OF OBSTRUCTIVE SLEEP APNEA. HOWEVER SHE WOULD NOT CONSENT FOR ANY WORKUP OR TREATMENT AT THIS TIME . Code(s): G47.33 - Obstructive sleep apnea (adult) (pediatric) Category: Medical Plan: . Declines getting any procedures done (4) Lymphedema: Code(s): I89.0 - Lymphedema, not elsewhere classified Category: Medical Plan: Currently followed by vascular surgery. Continued on furosemide 20 mg daily in a.m. (5) Prediabetes: Code(s): R73.03 - Prediabetes Category: Medical Plan: Your previous fasting blood sugars were elevated above 100 mg/dL. Impaired glucose metabolism increases the risk for developing diabetes mellitus type 2, as well as heart attack and stroke later on. Lifestyle changes that promotes weight loss, healthy eating habits, and regular exercise are important, and can prevent the progression to diabetes (6) Morbid obesity: Comment: THIS PATIENT HAS SUPER MORBID OBESITY. THERE IS NO POTENTIAL FOR HER TO LOSE WEIGHT. Code(s): E66.01 - Morbid (severe) obesity due to excess calories Category: Medical Plan: Patient unable to lose weight on her own, will try on Mounjaro started at 2.5 mg injected once a week subcutaneously. Patient and partner taught on how to use medication properly, side effects of medication was discussed with patient. Will see her back for follow-up in 4 weeks to starting medication Medications: New Mounjaro (tirzepatide) for 4 weeks 2.5 mg (0.5 mL) subcut QWEEK 30 days 2 mL 3RF NS E78.5 - Hyperlipidemia, unspecified, G47.33 - Obstructive sleep apnea (adult) (pediatric), I10 - Essential (primary) hypertension, I89.0 - Lymphedema, not elsewhere classified, J44.9 - Chronic obstructive pulmonary disease, unspecified, R73.03 - Prediabetes
[2024-09-24 09:48] VITALS: BP 100/66; PULSE 67; RESP 17; TEMP 36.6; O2SAT 99; BMI 51.8
== END 2024-09-24 10:40 | disposition home or self-care (01) ==
LOC: HO.HMCC 09:11
PROVIDERS: PCP Internal Medicine; Visit Provider Internal Medicine
DX: I10 Essential (primary) hypertension (principal); E78.5 Hyperlipidemia, unspecified; E66.01 Morbid (severe) obesity due to excess calories; Z68.43 Body mass index [BMI] 50.0-59.9, adult; G47.33 Obstructive sleep apnea (adult) (pediatric); I89.0 Lymphedema, not elsewhere classified; R73.03 Prediabetes

== ENCOUNTER → 2024-09-24 09:09 | Outpatient (BNVA) | payer MEDICARE, SELFPAY | PROVIDERS: PCP Internal Medicine; Visit Provider Internal Medicine | DX: E78.5 Hyperlipidemia, unspecified (principal); I10 Essential (primary) hypertension; G47.33 Obstructive sleep apnea (adult) (pediatric); I89.0 Lymphedema, not elsewhere classified; R73.03 Prediabetes; E66.01 Morbid (severe) obesity due to excess calories; Z68.43 Body mass index [BMI] 50.0-59.9, adult; Z71.3 Dietary counseling and surveillance | CPT/HCPCS: 99212 ==

== ENCOUNTER 2024-10-17 15:12 | Outpatient (AMB) | payer MEDICARE, SELFPAY ==
--- NOTE | 2024-10-17 15:12 | A.OFFVIS_ITS ---
Intake Visit Reasons: med discussion (gemtessa denial) Intake Note: Patient is present for MED DISCUSSION (GEMTESA DENIAL) Urology Medication:ESTRADIOL,VITAMIN C,METHENAMINE HIPPURATE Antibiotic Allergy:PENICILLINS,SULFA Blood Thinner:ASPIRIN Medical Assistant Per Diem Required: No Allergies bee pollen [bee stings] Allergy (Severe, Verified 10/17/24 15:13) Anaphylaxis tetanus toxoid, adsorbed [Tetanus Toxoid,Adsorbed] Allergy (Severe, Verified 10/17/24 15:13) LOCAL INJ.SITE SWELLING beeswax [BEESWAX] Allergy (Intermediate, Verified 10/17/24 15:13) Hives Iodinated Contrast Media [IV Dye, Iodine Containing] Allergy (Intermediate, Verified 10/17/24 15:13) HIVES-CAT SCAN DYE iodine [Iodine] Allergy (Intermediate, Verified 10/17/24 15:13) SWELLING, blister, hives Penicillins Allergy (Intermediate, Verified 10/17/24 15:13) SWELLING, hives, rash Sulfa (Sulfonamide Antibiotics) Allergy (Intermediate, Verified 10/17/24 15:13) Hives pneumococcal vaccine Adverse Reaction (Intermediate, Verified 10/17/24 15:13) fever, chills pollen Adverse Reaction (Mild, Uncoded 10/17/24 15:13) Nasal congestion HPI Comments Details: Morena is a pleasant female. She is a patient Dr. Li. She is seen for the following urologic conditions - bladder cancer - urinary frequency urgency Telemedicine Evaluation 15 min Consultation [facility] Video Trial Toviaz 8 mg Two month follow-up Discussion regarding biopsy Chronic cystitis Add methenamine to vitamin-C Continue with estradiol and Myrbetriq Bladder cancer - low-grade superficial Diagnosed by Dr. Betancourt 2019 Underwent TURBT with 6 week gemcitabine induction Cystoscopy - 03/24 NAD, 09/22 NAD - significant trabeculation, 03/25 diverticulum in bladder, redness right sidewall, 10/24 persistence area redness, 10/25 persistent red area Cytology 03/25 NAD Urinary frequency/urgency Has InterStim had been placed many years ago InterStim revision 12/23 - new lead and battery InterStim had been working but decreased efficacy when came off medications Previous Trial and failure of following medications oxybutynin and tolterodine Myrbetriq and Gemtesa have not been covered [facility] Medical History (Updated 09/24/24 @ 10:22 by Jessica Li MD) Prediabetes Otitis media with effusion Acute respiratory disease Swelling of lower leg Respiratory failure with hypoxia Pain around toenail Hypertrophic toenail Acute bronchitis Anemia, macrocytic History of [place] (myocardial infarction) Heartburn symptom Gait instability Restrictive lung disease Myocardial infarct Supplemental oxygen dependent Difficult intravenous access Intertrigo Pneumococcal vaccination declined Influenza vaccination declined NADEEM (obstructive sleep apnea) COPD (chronic obstructive pulmonary disease) Restrictive lung disease OAB (overactive bladder) Murmur Nocturnal leg cramps UTI (urinary tract infection) Endometrial cancer Immunization refused Mixed stress and urge urinary incontinence Morbid obesity Recurrent major 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 Impaired fasting glucose Dyslipidemia Osteopenia of neck of left femur Mild intermittent asthma without complication Essential hypertension Cataract Hx of gout Hx of Clostridium difficile infection Urinary incontinence Hiatal hernia GERD (gastroesophageal reflux disease) Sleep apnea, unspecified Snores Ex-smoker for more than 1 year Bladder cancer History of pneumonia Surgical History History of urologic surgery Hx of bilateral cataract extraction Cataract extraction status, right eye Hx of colonoscopy Hx of cystoscopy History of neck surgery History of vaginal hysterectomy History of bladder surgery Family History Father Heart disease Mother No problems noted. Maternal Grandfather Heart disease Maternal Grandmother Heart disease Paternal Grandfather Heart disease Paternal Grandmother Heart disease Social History Housing: House Are you a primary family day care provider to a significant other at home: No Do you presently have visiting nurse or other home services: No Alcohol intake: never Patient Tobacco Use Status: Former Tobacco user Tobacco use type: Cigarette e-Cigarette/Vaping Use: Never Used Second Hand Smoke Exposure: No Advance Directives Date on File: 12/21/21 Current occupational status: disabled Cognitive needs: No Hearing needs: No Vision needs: Yes Review of Systems Const All systems reviewed & are unremarkable except as noted in HPI and below Reports no additional complaints Resp Reports no additional complaints GI Reports no additional complaints Reports as per HPI Musc Reports no additional complaints Physical Exam Telemedicine evaluation Appropriate responses Regular breathing rate and rhythm HEENT Head: Yes normal to inspection Ears: hearing grossly normal bilaterally Eyes General: appearance normal, both eyes and all related structures Neck Neck: Yes normal visual inspection Chest Chest palpation & inspection: normal inspection of the chest Resp Effort & Inspection: normal respiratory effort and able to speak in complete sentences Telehealth Telehealth Telehealth Platform: [facility] Location of provider rendering services: practice address Location of patient: address on file Patient Identification confirmed using: Name, : Yes Telehealth method: video Patient verbally consented to treatment: Yes Patient verbally consented to billing insurance company: Yes Patient informed of any privacy concerns related to visit: Yes Minutes spent on Phone/Video with Pt.: 15 Assessment & Plan Assessment & Plan (1) Bladder cancer: Comment: 2019 low-grade Code(s): C67.9 - Malignant neoplasm of bladder, unspecified Category: Medical (2) Mixed stress and urge urinary incontinence: Code(s): N39.46 - Mixed incontinence Category: Medical (3) Overactive bladder: Comment: InterStim revision in 2021 Code(s): N32.81 - Overactive bladder Category: Medical Plan Trial festerodine Medications: New fesoterodine ER 8 mg PO DAILY 30 tabs 1RF 30 days N30.20 - Other chronic cystitis without hematuria Patient Instructions: This note is constructed using voice recognition software. While every effort has been made to ensure accuracy heating and cooling technician errors may have been included. Imaging studies, laboratory and physical exam results were discussed and reviewed in detail. No major barriers to patient understanding were identified. An opportunity to ask questions regarding the treatment plan was provided. All questions were answered. The patient expressed understanding and agreement with the above treatment plan. The patient is aware they should contact our office by phone for worsening of their current condition or the appearance of new urologic symptoms. Compliance is encouraged with any medications and followup testing that is ordered. It is a privilege to participate in the urologic care of your patient. If you have any questions or concerns regarding treatment for the above conditions, or other urologic issues, please do not hesitate to contact me. The office telephone contact is [phone]. Sincerely, Dr Sánchez Mcmillan MD, [facility] - Urology Compassionate Specialist Care for the Genitourinary System Coding Level of Care Code Tele Est Pt Level 4 (31565) Complex EM visit Add On G2211 Diagnoses Bladder cancer C67.9 Mixed stress and urge urinary incontinence N39.46 Overactive bladder N32.81
--- OUTSIDE RECORDS SUMMARY | 2024-10-17 17:44 | XMS_ITS ---
Author Organization [facility] Address [address] [place] [address] Care Team Providers Care Orange Peel Operator Name Role Phone Guillermo MURRAY, Jessica Espinoza Primary Care Provider Un available Mariluz Villeda Unavailable [phone] REASON FOR VISIT FLIGHT COMMUNICATIONS SPECIALIST [facility]WK Entered Encounters Encounter Location Date Provider Diagnosis [facility] [address] [place] [address] 07/03/2024 Mariluz Villeda Plan Of Treatment No Information Progress Notes * Morena BRONSON PDOB: [birth year] (79 yo F)Acc No.[id number]:07/03/2024 Patient:?Morena BRONSON :1945???Age:79 Y???Sex:Female Address:[address] [place], [address] * true * Date:? Generated for Printi anthony/Armen/eTransmitting on:?10/17/2024 05:44 PM EDT
--- OUTSIDE RECORDS SUMMARY | 2024-10-17 17:44 | XMS_ITS | Patient Health Record ---
[facility] Address [address] [facility] [place] [address] Care Team Providers Care Traveling Clerk Name Role Phone Guillermo MURRAY, Jessica Espinoza Primary Care Provider Un available Mariluz Villeda Unavailable [phone] Allergies Allergen (clinical drug ingredient) Drug/Non Drug [...] nsmoker Encounters Encounter Location Date Provider Diagnosis [facility] [address] [address] 03/16/2024 Mariluz [facility] [address] [address] 07/03/2024 Mariluz [facility] [address] 07/12/2024 Mariluz Villeda Plan Of Treatment No Information Insurance Providers Payer Name Payer Address Payer Phone Subscriber Number Group Number Insured Name Patient Relationship to Insured Coverage Start Date Coverage End Date Medicare National Govt Sv[employer] Inc [address] [place] [id number] Morena Estrada Self - [facility] [address] [place] [address] Morena Estrada Self - patient is the [...]
--- OUTSIDE RECORDS SUMMARY | 2024-10-17 17:44 | XMS_ITS ---
Author Organization [facility] Address [address] [facility] [place] [address] Care Team Providers Care Grocery Specialist Name Role Phone Guillermo MURRAY, Jessica Espinoza Primary Care Provider Un available Mariluz Villeda Unavailable [phone] Allergies Allergen (clinical drug ingredient) Drug/Non Drug [...] nsmoker Encounters Encounter Location Date Provider Diagnosis [facility] [address] [place] [address] 07/13/2024 Mariluz Villeda Plan Of Treatment No Information Progress Notes * Morena BRONSON PDOB: [birth year] (79 yo F)Acc No.[id number]:07/13/2024 Progress Notes Patient:?Morena BRONSON Provider:?Mariluz Villeda DPM :1945???Age:79 Y???Sex:Female D ate:07/13/2024 Address:[address] [place], [place] [id number] Pcp:Hilda Wright Subjective: * Chief Complaints: * [...] Villeda DPM Date:?04/2025 Generated for Gavi cruz/Armen/eTransmitting on:?10/17/2024 05:44 PM EDT
--- OUTSIDE RECORDS SUMMARY | 2024-10-17 17:45 | XMS_ITS ---
Author Organization [facility] Address [address] [place] [address] Care Team Providers Care Airport Duty Manager Name Role Phone Guillermo MURRAY, Jessica Espinoza Primary Care Provider Un available Mariluz Villeda Unavailable [phone] REASON FOR VISIT Cancel Encounters Encounter Location Date Provider Diagnosis [facility] [address] [place] [address] 07/12/2024 Mariluz Villeda Plan Of Treatment No Information Progress Notes * Morena BRONSON PDOB: [birth year] (79 yo F)Acc No.[id number]:07/12/2024 Patient:?Morena BRONSON :1945???Age:79 Y???Sex:Female Address:[address] [place], [address] * true * Date:? Generated for Benitoi anthony/Armen/eTransmitting on:?10/17/2024 05:44 PM EDT
== END 2024-10-17 15:59 | disposition home or self-care (01) ==
LOC: HO.HUSH 15:12
PROVIDERS: PCP Internal Medicine; Visit Provider Urology
DX: C67.9 Malignant neoplasm of bladder, unspecified (principal); N39.46 Mixed incontinence; N32.81 Overactive bladder
CPT/HCPCS: 99214; G2211

== ENCOUNTER → 2024-10-17 15:12 | Outpatient (BNVA) | payer MEDICARE, SELFPAY | PROVIDERS: PCP Internal Medicine; Visit Provider Urology ==

== ENCOUNTER 2024-11-14 13:27 | Outpatient (AMB) | payer MEDICARE, SELFPAY ==
--- NOTE | 2024-11-14 13:32 | MHC.OFFVIS ---
Intake Visit Reasons: lymphedema clinic Intake Note: Patient presents for lymphedema clinic. Accompanied by: Unknown Allergies bee pollen [bee stings] Allergy (Severe, Verified 11/14/24 13:39) Anaphylaxis tetanus toxoid, adsorbed [Tetanus Toxoid,Adsorbed] Allergy (Severe, Verified 11/14/24 13:39) LOCAL INJ.SITE SWELLING beeswax [BEESWAX] Allergy (Intermediate, Verified 11/14/24 13:39) Hives Iodinated Contrast Media [IV Dye, Iodine Containing] Allergy (Intermediate, Verified 11/14/24 13:39) HIVES-CAT SCAN DYE iodine [Iodine] Allergy (Intermediate, Verified 11/14/24 13:39) SWELLING, blister, hives Penicillins Allergy (Intermediate, Verified 11/14/24 13:39) SWELLING, hives, rash Sulfa (Sulfonamide Antibiotics) Allergy (Intermediate, Verified 11/14/24 13:39) Hives pneumococcal vaccine Adverse Reaction (Intermediate, Verified 11/14/24 13:39) fever, chills pollen Adverse Reaction (Mild, Uncoded 10/17/24 15:13) Nasal congestion HPI HPI lymphedema clinic: Details: Morena is presenting today to our lymphedema clinic. She continues with bilateral lower extremity swelling and discomfort. She has been experiencing these symptoms for months now. She has recently been ruled out for venous insufficiency. She states this has been causing issues with her ambulation and life. She has been trialed on several diuretics, which she states initially helped, but she does not feel that they are helping anymore. She has no new concerns today. [facility] Medical History Prediabetes Otitis media with effusion Acute respiratory disease Swelling of lower leg Respiratory failure with hypoxia Pain around toenail Hypertrophic toenail Acute bronchitis Anemia, macrocytic History of UT (myocardial infarction) Heartburn symptom Gait instability Restrictive lung disease Myocardial infarct Supplemental oxygen dependent Difficult intravenous access Intertrigo Pneumococcal vaccination declined Influenza vaccination declined NADEEM (obstructive sleep apnea) COPD (chronic obstructive pulmonary disease) Restrictive lung disease OAB (overactive bladder) Murmur Nocturnal leg cramps UTI (urinary tract infection) Endometrial cancer Immunization refused Mixed stress and urge urinary incontinence Morbid obesity Recurrent major 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 Impaired fasting glucose Dyslipidemia Osteopenia of neck of left femur Mild intermittent asthma without complication Essential hypertension Cataract Hx of gout Hx of Clostridium difficile infection Urinary incontinence Hiatal hernia GERD (gastroesophageal reflux disease) Sleep apnea, unspecified Snores Ex-smoker for more than 1 year Bladder cancer History of pneumonia Surgical History History of urologic surgery Hx of bilateral cataract extraction Cataract extraction status, right eye Hx of colonoscopy Hx of cystoscopy History of neck surgery History of vaginal hysterectomy History of bladder surgery Family History Father Heart disease Mother No problems noted. Maternal Grandfather Heart disease Maternal Grandmother Heart disease Paternal Grandfather Heart disease Paternal Grandmother Heart disease Social History Housing: House Are you a primary career development associate to a significant other at home: No Do you presently have visiting nurse or other home services: No Alcohol intake: never Patient Tobacco Use Status: Former Tobacco user Tobacco use type: Cigarette e-Cigarette/Vaping Use: Never Used Second Hand Smoke Exposure: No Advance Directives Date on File: 12/21/21 Current occupational status: disabled Cognitive needs: No Hearing needs: No Vision needs: Yes Review of Systems Const Reports as per HPI and Denies weakness ENT Reports Normal hearing present and Denies dizziness Card Reports as per HPI, Denies chest pain, Denies chest pain at rest, Denies chest pain with activity, Denies dyspnea and Denies dyspnea on exertion Resp Reports as per HPI, Denies cough, Denies dyspnea and Denies dyspnea on exertion GI Reports as per HPI, Denies abdominal pain, Denies nausea and Denies vomiting Musc Denies numbness Skin/Breast Reports as per HPI, Denies erythema and Denies wounds Neuro Reports Normal hearing present, Denies dizziness, Denies numbness, Denies Sensory deficit (Neuro) and Denies weakness Psych Reports no additional complaints Endo Reports no additional complaints Physical Exam Const General: healthy appearing and no acute distress Orientation/consciousness: patient oriented x3 HEENT Head: Yes normal to inspection Ears: hearing grossly normal bilaterally Mouth: Normal oral and palatal mucosa present Resp Effort & Inspection: normal respiratory effort and able to speak in complete sentences Auscultation: clear to auscultation bilaterally Cardio Jugular venous distension: no JVD Rate: regular rate Rhythm: regular rhythm Heart sounds: S1 normal heart sound present and S2 normal heart sound present Bruits: no abdominal aortic bruits, no carotid bruits, no femoral bruits and no renal bruits Peripheral pulses: Peripheral pulses 2+ throughout GI Inspection: Yes normal to inspection Palpation (GI): No Abdominal aortic bruit present Skin General skin exam: no rashes or lesions noted Wounds: no wounds Hair: normal Neuro General: patient oriented x3 Cranial nerves: Yes Normal hearing present Cognition (Neuro): normal cognition Gait exam (Neuro): Normal gait present Motor exam (neuro): 5/5 motor strength present throughout Sensory Exam: No Sensory deficit (Neuro) Extrem Other: Bilateral lower extremities: +2 peripheral edema noted with hyperkeratosis and hyperpigmentation. No wounds or ulcerations noted. Hip measurement: 150.75cm General: Yes normal to inspection, Yes full ROM, Yes capillary refill normal and Yes normal gait Assessment & Plan Assessment & Plan (1) Lymphedema: Code(s): I89.0 - Lymphedema, not elsewhere classified Category: Medical Plan: Morena is presenting today for our lymphedema clinic. She continues with bilateral lower extremity swelling and discomfort for over 4 weeks. She has been doing conservative treatments with elevation, compression stockings daily use with 20-30mmHg, and physical activity with minimal relief since 09/11/24. They continue to have persistent symptoms despite conservative treatments. They are presenting with hyperpigmentation, lymphorrhea, hyperkeratosis, and 2+ pitting edema. She states both legs are swollen and painful and there is extension into her thighs and abdominal area. It appears that they has stage II lymphedema. Jin from [facility] will be fitting them for a pneumatic compression device, which will get mailed to their house. The patient has lymphedema that extends to her upper thigh and abdominal region. The basic pneumatic compression device will likely not be adequate for the patient. The advanced compression device will likely be the best in this case; but she will trial starting with the basic pumps. Thank you allowing us to care for the patient. Coding Level of Care Code Est Pt Level 3 (73003) Diagnoses Lymphedema I89.0
--- OUTSIDE RECORDS SUMMARY | 2024-11-14 13:35 | XMS_ITS ---
Author Organization [facility] Address [address] [place] [address] Care Team Providers Care Post Acute Care Nurse Name Role Phone Guillermo MURRAY, Jessica Espinoza Primary Care Provider Un available Mariluz Villeda Unavailable [phone] REASON FOR VISIT VEHICLE MAINTENANCE TECHNICIAN PPWK Entered Encounters Encounter Location Date Provider Diagnosis [facility] [address] [place] [address] 07/03/2024 Mariluz Villeda Plan Of Treatment No Information Progress Notes * Morena BRONSON PDOB: [birth year] (79 yo F)Acc No.[id number]:07/03/2024 Patient:?Morena BRONSON :1945???Age:79 Y???Sex:Female Address:[address] [place], [address] * true * Date:? Generated for Printi ng/Armen/eTransmitting on:?11/14/2024 01:35 PM EDT
--- OUTSIDE RECORDS SUMMARY | 2024-11-14 13:35 | XMS_ITS | Patient Health Record ---
Author Organization [facility] Address [address] [facility] [place] [address] Care Team Providers Care Replanting Machine Operator Name Role Phone Guillermo MURRAY, Jessica Espinoza Primary Care Provider Un available Mariluz Villeda Unavailable [phone] Allergies Allergen (clinical drug ingredient) Drug/Non Drug [...] nsmoker Encounters Encounter Location Date Provider Diagnosis [facility] [address] [address] 03/16/2024 Mariluz [facility] [address] [address] 07/03/2024 Mariluz [facility] [address] 07/12/2024 Mariluz Villeda Plan Of Treatment No Information Insurance Providers Payer Name Payer Address Payer Phone Subscriber Number Group Number Insured Name Patient Relationship to Insured Coverage Start Date Coverage End Date Medicare National Govt Svcs Inc [address] [place] [id number] Morena Estrada Self - [facility] [address] [place] [address] Morena Estrada Self - patient is the [...]
--- OUTSIDE RECORDS SUMMARY | 2024-11-14 13:36 | XMS_ITS ---
Author Organization [facility] Address [address] [place] [address] Care Team Providers Care Institution Librarian Name Role Phone Guillermo MURRAY, Jessica Espinoza Primary Care Provider Un available Mariluz Villeda Unavailable [phone] Allergies Allergen (clinical drug ingredient) Drug/Non Drug [...] nsmoker Encounters Encounter Location Date Provider [facility] [address] [place] [address] 07/13/2024 Mariluz Villeda Plan Of Treatment No Information Progress Notes * Morena BRONSON PDOB: [birth year] (79 yo F)Acc No.[id number]:07/13/2024 Progress Notes Patient:?Morena BRONSON Provider:?Mariluz Villeda DPM :1945???Age:79 Y???Sex:Female D ate:07/13/2024 Address:[address] [place], [place] [id number] Pcp:Hilda Wright Subjective: * Chief Complaints: * [...] Villeda DPM Date:?04/2025 Generated for Gavi cruz/Armen/eTransmitting on:?11/14/2024 01:35 PM EDT
--- OUTSIDE RECORDS SUMMARY | 2024-11-14 13:36 | XMS_ITS ---
Author Organization [facility] Address [address] [place] [address] Care Team Providers Care Bung Driver Name Role Phone Guillermo MURRAY, Jessica Espinoza Primary Care Provider Un available Mariluz Villeda Unavailable [phone] REASON FOR VISIT Cancel Encounters Encounter Location Date Provider Diagnosis [facility] [address] [place] [address] 07/12/2024 Mariluz Villeda Plan Of Treatment No Information Progress Notes * Morena BRONSON PDOB: [birth year] (79 yo F)Acc No.[id number]:07/12/2024 Patient:?Morena BRONSON :1945???Age:79 Y???Sex:Female Address:[address] [place], [address] * true * Date:? Generated for Benitoi anthony/Armen/eTransmitting on:?11/14/2024 01:35 PM EDT
== END 2024-11-14 14:03 | disposition home or self-care (01) ==
LOC: HO.HVS 13:28
PROVIDERS: PCP Internal Medicine; Visit Provider Physician Assistant Surgical
DX: I89.0 Lymphedema, not elsewhere classified (principal)
CPT/HCPCS: 99213

== ENCOUNTER → 2024-11-14 13:27 | Outpatient (BNVA) | payer MEDICARE, SELFPAY | PROVIDERS: PCP Internal Medicine; Visit Provider Physician Assistant Surgical | DX: I89.0 Lymphedema, not elsewhere classified (principal) | CPT/HCPCS: 99212 ==

== ENCOUNTER 2024-12-12 09:03 | Outpatient (REF) | payer MEDICARE, SELFPAY | END 2024-12-12 09:04 | disposition home or self-care (01) | LOC: HO.LAB 09:03 | PROVIDERS: PCP Internal Medicine; Visit Provider Urology | DX: C67.9 Malignant neoplasm of bladder, unspecified (principal); N39.0 Urinary tract infection, site not specified; N32.81 Overactive bladder; Z13.9 Encounter for screening, unspecified | CPT/HCPCS: 81003; 88121; 99212 ==

== ENCOUNTER 2024-12-12 09:03 | Outpatient (AMB) | payer MEDICARE, SELFPAY ==
--- NOTE | 2024-12-12 09:07 | A.OFFVIS_ITS ---
Intake Visit Reasons: 6m followup Intake Note: Patient is present for 6M F/U Urology Medication:ESTRADIOL,FESOTERODINE,VITAMIN C,METHENAMINE HIPPURATE Antibiotic Allergy:PENICILLINS,SULFA Blood Thinner:ASPIRIN Qualitative Field Project Manager Required: No Allergies bee pollen [bee stings] Allergy (Severe, Verified 12/12/24 09:08) Anaphylaxis tetanus toxoid, adsorbed [Tetanus Toxoid,Adsorbed] Allergy (Severe, Verified 12/12/24 09:08) LOCAL INJ.SITE SWELLING beeswax [BEESWAX] Allergy (Intermediate, Verified 12/12/24 09:08) Hives Iodinated Contrast Media [IV Dye, Iodine Containing] Allergy (Intermediate, Verified 12/12/24 09:08) HIVES-CAT SCAN DYE iodine [Iodine] Allergy (Intermediate, Verified 12/12/24 09:08) SWELLING, blister, hives Penicillins Allergy (Intermediate, Verified 12/12/24 09:08) SWELLING, hives, rash Sulfa (Sulfonamide Antibiotics) Allergy (Intermediate, Verified 12/12/24 09:08) Hives pneumococcal vaccine Adverse Reaction (Intermediate, Verified 12/12/24 09:08) fever, chills pollen Adverse Reaction (Mild, Uncoded 12/12/24 09:08) Nasal congestion HPI Comments Details: Morena is a pleasant female. She is a patient Dr. Li. She is seen for the following urologic conditions - bladder cancer - urinary frequency urgency Two month follow-up from Toviaz trial UA today clear Did not see benefit with Toviaz Has been slowly losing weight Continues with methenamine vitamin-C plus estradiol topical Bladder cancer - low-grade superficial Diagnosed by Dr. Betancourt 2018 Underwent TURBT with 6 week gemcitabine induction Cystoscopy - 03/24 NAD, 09/22 NAD - significant trabeculation, 03/25 diverticulum in bladder, redness right sidewall, 10/24 persistence area redness, 10/25 persistent red area Cytology 03/25 NAD Urinary frequency/urgency Has InterStim had been placed many years ago InterStim revision 12/23 - new lead and battery InterStim had been working but decreased efficacy when came off medications Previous Trial and failure of following medications oxybutynin and tolterodine Myrbetriq and Gemtesa have not been covered [facility] Medical History Prediabetes Otitis media with effusion Acute respiratory disease Swelling of lower leg Respiratory failure with hypoxia Pain around toenail Hypertrophic toenail Acute bronchitis Anemia, macrocytic History of NM (myocardial infarction) Heartburn symptom Gait instability Restrictive lung disease Myocardial infarct Supplemental oxygen dependent Difficult intravenous access Intertrigo Pneumococcal vaccination declined Influenza vaccination declined NADEEM (obstructive sleep apnea) COPD (chronic obstructive pulmonary disease) Restrictive lung disease OAB (overactive bladder) Murmur Nocturnal leg cramps UTI (urinary tract infection) Endometrial cancer Immunization refused Mixed stress and urge urinary incontinence Morbid obesity Recurrent major 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 Impaired fasting glucose Dyslipidemia Osteopenia of neck of left femur Mild intermittent asthma without complication Essential hypertension Cataract Hx of gout Hx of Clostridium difficile infection Urinary incontinence Hiatal hernia GERD (gastroesophageal reflux disease) Sleep apnea, unspecified Snores Ex-smoker for more than 1 year Bladder cancer History of pneumonia Surgical History History of urologic surgery Hx of bilateral cataract extraction Cataract extraction status, right eye Hx of colonoscopy Hx of cystoscopy History of neck surgery History of vaginal hysterectomy History of bladder surgery Family History Father Heart disease Mother No problems noted. Maternal Grandfather Heart disease Maternal Grandmother Heart disease Paternal Grandfather Heart disease Paternal Grandmother Heart disease Social History Housing: House Are you a primary attending ambulatory care to a significant other at home: No Do you presently have visiting nurse or other home services: No Alcohol intake: never Patient Tobacco Use Status: Former Tobacco user Tobacco use type: Cigarette e-Cigarette/Vaping Use: Never Used Second Hand Smoke Exposure: No Advance Directives Date on File: 12/21/21 Current occupational status: disabled Cognitive needs: No Hearing needs: No Vision needs: Yes Review of Systems Const Denies chills and Denies fever(s) Card Reports no additional complaints and Denies syncope Resp Denies cough GI Denies abdominal pain and Denies heartburn Reports as per HPI and Denies change in libido Neuro Denies syncope Psych Denies change in libido Endo Denies change in libido Physical Exam Const General: cooperative, healthy appearing, comfortable and no acute distress Orientation/consciousness: patient oriented x3 HEENT Face and sinus: Yes normal facial exam Mouth: moist mucous membranes Neck Neck: Yes normal visual inspection, Yes full ROM and Yes trachea midline Chest Chest palpation & inspection: normal inspection of the chest Resp Effort & Inspection: normal respiratory effort, able to speak in complete sentences and no respiratory distress GI Inspection: Yes normal to inspection Back/Spine/Pelvis Cervical Spine: normal cervical lordosis Thoracic/Lumbar Spine: thoracic and lumbar spine normal to inspection Skin General skin exam: no rashes or lesions noted Neuro General: patient oriented x3, gait normal, tone normal and moves all extremities Extrem General: Yes normal to inspection and Yes capillary refill normal Results AMB Urinalysis, Automated UA Leukoctes 0 Brodie/uL Last Edit by JS Vazquez on 12/12/24 09:26 UA Nitrite Negative Last Edit by JS Vazquez on 12/12/24 09:26 UA Urobilinogen 0.2 mg/dL Last Edit by Mallory Spring CCM on 12/12/24 09:2 6 UA Protein 0 mg/dL Last Edit by Mallory Spring CCM on 12/12/24 09:26 UA pH 6.0 Last Edit by Mallory Spring CCM on 12/12/24 09:26 UA Blood 0 Kye/uL Last Edit by JS Vazquez on 12/12/24 09:26 UA Specific Norman 1.015 Last Edit by Mallory Spring CCM on 12/12/24 09: 26 UA Ketone Negative Last Edit by JS Vazquez on 12/12/24 09:26 UA Bilirubin 0 mg/dL Last Edit by Mallory Spring CCM on 12/12/24 09:26 UA Glucose 0 mg/dL Last Edit by Mallory Spring CCM on 12/12/24 09:26 Results Reviewed Results Reviewed: Laboratory Last Values Urine pH (Auto) 6.0 12/12/24 09:25 Specific Norman (Auto) 1.015 12/12/24 09:25 Urine Protein (Auto) 0 mg/dL 12/12/24 09:25 Glucose (UA)(Auto) 0 mg/dL 12/12/24 09:25 Urine Ketones (Auto) Negative 12/12/24 09:25 Urine Blood (Auto) 0 Kye/uL 12/12/24 09:25 Urine Nitrite (Auto) Negative 12/12/24 09:25 Urine Bilirubin (Auto) 0 mg/dL 12/12/24 09:25 Urine Urobilinogen (Auto) 0.2 mg/dL 12/12/24 09:25 Leukocyte Esterase (Auto) 0 Brodie/uL 12/12/24 09:25 Assessment & Plan Assessment & Plan (1) Bladder cancer: Comment: 2018 low-grade Code(s): C67.9 - Malignant neoplasm of bladder, unspecified Category: Medical (2) Recurrent UTI: Code(s): N39.0 - Urinary tract infection, site not specified Category: Medical (3) Chronic cystitis: Code(s): N30.20 - Other chronic cystitis without hematuria Category: Medical (4) Overactive bladder: Comment: InterStim revision in 2021 Code(s): N32.81 - Overactive bladder Category: Medical Plan Six-month follow-up Orders: Orders FISH Bladder Cancer Today C67.9 - Malignant neoplasm of bladder, unspecified AMB Urinalysis Automated Today Z13.9 - Encounter for screening, unspecified Medications: Changed From methenamine hippurate 1 g PO DAILY N32.81 - Overactive bladder To methenamine hippurate 1 g PO DAILY 90 days 90 tabs 1RF N32.81 - Overactive bladder Refilled ascorbic acid (vitamin C) 1 g PO DAILY 90 days 90 tabs 1RF N39.0 - Urinary tract infection, site not specified Discontinued fesoterodine ER Discontinued Reason: Doctor's Order 8 mg PO DAILY 30 days 30 tabs 1RF N30.20 - Other chronic cystitis without hematuria Patient Instructions: This note is constructed using voice recognition software. While every effort has been made to ensure accuracy warehouse sorter errors may have been included. Imaging studies, laboratory and physical exam results were discussed and reviewed in detail. No major barriers to patient understanding were identified. An opportunity to ask questions regarding the treatment plan was provided. All questions were answered. The patient expressed understanding and agreement with the above treatment plan. The patient is aware they should contact our office by phone for worsening of their current condition or the appearance of new urologic symptoms. Compliance is encouraged with any medications and followup testing that is ordered. It is a privilege to participate in the urologic care of your patient. If you goss ve any questions or concerns regarding treatment for the above conditions, or other urologic issues, please do not hesitate to contact me. The office telephone contact is [phone]. Sincerely, Dr Sánchez Mcmillan MD, [facility] - Urology Compassionate Specialist Care for the Genitourinary System Coding Level of Care Code Est Pt Level 3 (26987) Complex EM visit Add On G2211 Diagnoses Bladder cancer C67.9 Recurrent UTI N39.0 Chronic cystitis N30.20 Overactive bladder N32.81
--- OUTSIDE RECORDS SUMMARY | 2024-12-12 09:33 | XMS_ITS ---
Author Organization [facility] Address [address] [place] [address] Care Team Providers Care Medical Education Coordinator Name Role Phone Guillermo MURRAY, Jessica Primary Care Provider Flaco Stringer [phone] Encounters Encounter Location Date Provider Diagnosis [facility] [address] [place] [address] 11/19/2024 Flaco Acosta Plan Of Treatment No Information Progress Notes * GORDO BRONSON PDOB: [birth year] (79 yo F)Acc No.[id number]:11/19/2024 Patient:?GORDO BRONSON :1945???Age:79 Y???Sex:Female Address:[address] [place] [address] * true * Date:? Generated for Gavi cruz/Armen/eTransmitting on:?12/12/2024 09:32 AM EDT
== END 2024-12-12 09:47 | disposition home or self-care (01) ==
LOC: HO.HUSH 09:04
PROVIDERS: PCP Internal Medicine; Visit Provider Urology
DX: C67.9 Malignant neoplasm of bladder, unspecified (principal); N39.0 Urinary tract infection, site not specified; N30.20 Other chronic cystitis without hematuria; N32.81 Overactive bladder; Z13.9 Encounter for screening, unspecified
CPT/HCPCS: 99213; G2211

== ENCOUNTER 2024-12-24 10:03 | Outpatient (AMB) | payer MEDICARE, SELFPAY ==
[2024-12-24 10:21] VITALS: BP 104/64; PULSE 67; O2SAT 97
--- NOTE | 2024-12-24 10:21 | A.OFFVIS_ITS ---
Vital Signs 12/24/24 10:21 Height 4 ft 10 in BP 104/64 Blood Pressure Location Lt brachial Position Sitting Pulse 67 Pulse Source Pulse Oximeter Pulse Oximetry (%) 97 Oxygen Delivery Method Nasal Cannula Oxygen Flow Rate 2.5 Intake Visit Reasons: COPD Intake Note: pt is here for follow up and states she is using oxygen at night and using oxygen 24 hours a day., some coughing and wheezing, worse in am Facilities Maintenance Manager Required: No Allergies bee pollen (bee stings) Allergy (Severe, Verified 12/24/24 10:43) Anaphylaxis tetanus toxoid, adsorbed (Tetanus Toxoid,Adsorbed) Allergy (Severe, Verified 12/24/24 10:43) LOCAL INJ.SITE SWELLING beeswax (BEESWAX) Allergy (Intermediate, Verified 12/24/24 10:43) Hives Iodinated Contrast Media (IV Dye, Iodine Containing) Allergy (Intermediate, Verified 12/24/24 10:43) HIVES-CAT SCAN DYE iodine (Iodine) Allergy (Intermediate, Verified 12/24/24 10:43) SWELLING, blister, hives Penicillins Allergy (Intermediate, Verified 12/24/24 10:43) SWELLING, hives, rash Sulfa (Sulfonamide Antibiotics) Allergy (Intermediate, Verified 12/24/24 10:43) Hives pneumococcal vaccine Adverse Reaction (Intermediate, Verified 12/24/24 10:43) fever, chills pollen Adverse Reaction (Mild, Uncoded 12/24/24 10:43) Nasal congestion Medication List - Last Reconciled 12/24/24 by Bonnie Lozano MD ascorbic acid (vitamin C) 1 g PO DAILY 90 days aspirin 81 mg PO DAILY atorvastatin 40 mg PO BEDTIME [bariatric transport wheelchair As directed] cholecalciferol (vitamin D3) (Vitamin D3) 25 mcg PO DAILY citalopram 30 mg (1.5 x 20 mg) PO DAILY 3 months clotrimazole-betamethasone 1-0.05 % 1 appl topical BID 10 days coenzyme Q10 (CoQ-10) 300 mg PO DAILY commode (bedside commode) Bariatric commode estradiol 0.01%(0.1mg/gram) pea-sized to urethra daily; 30 days fesoterodine ER 8 mg PO DAILY 30 days fluticasone propionate 50 mcg/actuation 1 spray intranasal QAM PRN 30 days furosemide 20 mg PO QAM ipratropium-albuterol 0.5 mg-3 mg(2.5 mg base)/3 mL 3 mL inhalation Q4-6H PRN lisinopril 10 mg PO DAILY methenamine hippurate 1 g PO DAILY 90 days metoprolol succinate ER 100 mg (2 x 50 mg) PO DAILY Mounjaro (tirzepatide) 2.5 mg (0.5 mL) subcut QWEEK 30 days NS pantoprazole 40 mg PO DAILY [Transport chair As directed] turmeric 500 mg PO DAILY Do you need a note to return to daycare/school/sports/work: No HPI HPI COPD: Details: 79 YEARS OLD FEMALE WITH MORBID OBESITY AND IMPAIRED LOCOMOTION CONFINED TO THE WHEELCHAIR, DOES HAVE OBSTRUCTIVE SLEEP APNEA WITH HYPOXEMIA. NOT ABLE TO USE THE CPAP, SO DEPENDS UPON OXYGEN WHICH HE IS USING ALMOST 24 HOURS A DAY AT 2.5 L/MINUTE. THERE IS NO SCOPE FOR THE WEIGHT LOSS. SHE IS STAYING MOSTLY IN THE WHEELCHAIR DURING THE DAYTIME. COMPLAINS OF SOME WHEEZING AND CHEST CONGESTION ESPECIALLY IN THE MORNING HOURS. USE OF NEBULIZER DOES HELP WHICH SHE USES ABOUT 3 TO 4 TIMES A DAY. LUCKILY THERE HAS BEEN NO CHEST INFECTION. COUNT INCLUDES THE [facility] Medical History Prediabetes Otitis media with effusion Acute respiratory disease Swelling of lower leg Respiratory failure with hypoxia Pain around toenail Hypertrophic toenail Acute bronchitis Anemia, macrocytic History of MN (myocardial infarction) Heartburn symptom Gait instability Restrictive lung disease Myocardial infarct Supplemental oxygen dependent Difficult intravenous access Intertrigo Pneumococcal vaccination declined Influenza vaccination declined NADEEM (obstructive sleep apnea) COPD (chronic obstructive pulmonary disease) Restrictive lung disease OAB (overactive bladder) Murmur Nocturnal leg cramps UTI (urinary tract infection) Endometrial cancer Immunization refused Mixed stress and urge urinary incontinence Morbid obesity Recurrent major 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 Impaired fasting glucose Dyslipidemia Osteopenia of neck of left femur Mild intermittent asthma without complication Essential hypertension Cataract Hx of gout Hx of Clostridium difficile infection Urinary incontinence Hiatal hernia GERD (gastroesophageal reflux disease) Sleep apnea, unspecified Snores Ex-smoker for more than 1 year Bladder cancer History of pneumonia Surgical History History of urologic surgery Hx of bilateral cataract extraction Cataract extraction status, right eye Hx of colonoscopy Hx of cystoscopy History of neck surgery History of vaginal hysterectomy History of bladder surgery Family History Father Heart disease Mother No problems noted. Maternal Grandfather Heart disease Maternal Grandmother Heart disease Paternal Grandfather Heart disease Paternal Grandmother Heart disease Social History Housing: House Are you a primary director of home care hospice to a significant other at home: No Do you presently have visiting nurse or other home services: No Alcohol intake: never Patient Tobacco Use Status: Former Tobacco user Tobacco use type: Cigarette e-Cigarette/Vaping Use: Never Used Second Hand Smoke Exposure: No Advance Directives Date on File: 12/21/21 Current occupational status: disabled Cognitive needs: No Hearing needs: No Vision needs: Yes Review of Systems Const All systems reviewed & are unremarkable except as noted in HPI and below Eyes Reports no additional complaints ENT Reports no additional complaints Card Denies chest pain, Denies irregular heart rhythm and Reports leg edema Resp Reports cough (mild intermittent ) and Denies wheezing GI Reports no additional complaints Reports urinary incontinence Musc Reports no additional complaints and Reports abnormal gait (Non ambulatory) Skin/Breast Reports system reviewed and no additional complaints, except as documented Neuro Reports abnormal gait (Non ambulatory) Psych Reports no additional complaints Aller/Immun Denies wheezing Physical Exam Vital Signs: Last Vital Signs Pulse 67 12/24/24 10:21 BP 104/64 12/24/24 10:21 Pulse Ox 97 12/24/24 10:21 Oxygen Delivery Method Nasal Cannula 12/24/24 10:21 Oxygen Flow Rate 2.5 12/24/24 10:21 Const Other: SHE IS GROSSLY OBESE, BUT CANNOT BE WEIGHED. HAS A LARGE AND SHORT NECK. WITH A ROUND FACE. TYPICAL PHYSICAL FEATURES OF OBSTRUCTIVE SLEEP APNEA. General: comfortable (In a wheelchair), no acute distress, alert and awake Orientation/consciousness: patient oriented x3 HEENT Head: Yes normal to inspection General nose exam: No nasal polyps present and No nasal discharge present Face and sinus: Yes sinuses nontender Mouth: oropharynx abnormals (Oropharynx is crowded, Mallampati class 4) Throat: Yes posterior oropharynx normal Eyes General: appearance normal, both eyes and all related structures Neck Neck: Yes normal visual inspection, Yes no lymphadenopathy, Yes trachea midline, Yes no JVD and Yes other (Very obese and short) Thyroid: Thyroid normal Chest Chest palpation & inspection: normal inspection of the chest, normal palpation of entire chest wall and no tenderness Resp Other: Percussion note is not perceptible because of gross obesity. Breath sounds are heard equally in the upper parts of the chest and diminished over the lower lobes. No wheezes rhonchi or crepitations were heard. NO COUGH with breathing efforts . Cardio Palpation: normal PMI Rate: regular rate Rhythm: regular rhythm Heart sounds: no gallops and no murmurs GI Palpation (GI): Soft to palpation, nontender, No hepatosplenomegaly present, no masses and Other GI palpation findings present (Abdomen grossly obese) Auscultation: normal bowel sounds Back/Spine/Pelvis Thoracic/Lumbar Spine: thoracic and lumbar spine normal to inspection and thoraco-lumbar ROM limited Skin General skin exam: no rashes or lesions noted Neuro General: patient oriented x3, No gait normal (Gait is impaired because of her morbid obesity) and no focal motor deficits Cranial nerves: Yes CN's II-XII intact bilaterally Extrem General: Yes normal to inspection, Yes no calf tenderness, Yes edema (Edema around the ankles, stasis edema) and Yes venous stasis dermatitis Psych Appearance: grossly normal and well kempt Speech and movement: Normal speech and movement present Assessment & Plan Assessment & Plan (1) Morbid obesity: Comment: THIS PATIENT HAS SUPER MORBID OBESITY. THERE IS NO POTENTIAL FOR HER TO LOSE WEIGHT. Code(s): E66.01 - Morbid (severe) obesity due to excess calories Category: Medical Plan: DISCUSSED ABOUT THE MORBID OBESITY AND ITS CONSEQUENCES. SHE TRIES TO CONTROL HER DIET, AND IS CURRENTLY ON MOUNJERO INJECTIONS, . HOPING TO LOSE SOME WEIGHT (2) Restrictive lung disease: Comment: PATIENT MUST HAVE SIGNIFICANT RESTRICTIVE LUNG DISORDER BECAUSE OF HER MORBID OBESITY. SHE CAN NOT LOSE WEIGHT Code(s): J98.4 - Other disorders of lung Category: Medical Plan: SHE DOES HAVE INCENTIVE SPIROMETRY DEVICE AT HOME AND IS INSTRUCTED TO DO DEEP BREATHING EXERCISES 3 TO 4 TIMES A DAY. (3) Respiratory failure with hypoxia: Comment: SHE HAS BEEN NOTED TO BE HYPOXEMIC EVEN AT REST. HAS BEEN ON OXYGEN THERAPY 24 HOURS A DAY . CURRENTLY SHE NEEDS TO USE 2.5 L PER MINUTE TO KEEP HER O2 SAT ABOVE 90%. SHE IS USING O2 MOST OF THE TIME AND IS FEELING MUCH BETTER. Code(s): J96.91 - Respiratory failure, unspecified with hypoxia Category: Medical Plan: ADVISED TO CONTINUE USING THE OXYGEN 2.5 L/MINUTES (4) NADEEM (obstructive sleep apnea): Comment: *BECAUSE OF HER MORBID OBESITY SHE HAS FEATURES OF OBSTRUCTIVE SLEEP APNEA. HOWEVER SHE WOULD NOT CONSENT FOR ANY WORKUP OR TREATMENT AT THIS TIME . Code(s): G47.33 - Obstructive sleep apnea (adult) (pediatric) Category: Medical Plan: SHE IS GETTING ADEQUATE SLEEP MOSTLY IN THE UPRIGHT POSITION. Coding Level of Care Code Est Pt Level 3 (21329) Diagnoses Morbid obesity E66.01 Restrictive lung disease J98.4 Respiratory failure with hypoxia J96.91 NADEEM (obstructive sleep apnea) G47.33
--- OUTSIDE RECORDS SUMMARY | 2024-12-24 11:09 | XMS_ITS | Patient Health Record ---
Author Organization [facility] Address [address] [place] [address] Care Team Providers Care Pole Setter Name Role Phone Guillermo MURRAY, Jessica Primary Care Provider Flaco Stringer Unavailable [phone] Allergies Allergen (clinical drug ingredient) Drug/Non Drug Allergy documented on EMR Reaction Allergy Type Onset Date Status Penicillin Unknown Drug Allergy Active Iodine Unknown Drug Allergy Active bees (uncoded) Unknown Allergy Activ e horse tetneus (uncoded) Unknown Allergy Active IVP Dye (uncoded) Unknown Allergy Ac tive Reason For Referral No Information Medications Medication SIG (Take, Route, Frequency, Duration) Notes Start Date End Date Status Atorvastatin Calcium 40 MG 1 tablet Oral ly Once a day Active Metoprolol Succinate ER 100 MG 1 tablet Orally Once a day Active Esomeprazole Magnesium 20 MG 2 capsules Orally Once a day for 30 day(s) 08/22/2015 Active Co Q 10 200mg 1 capsule with a janet l Orally Once a day Active Turmeric Curcumin 500 MG 1 capsule Orall y once a day Active Lisinopril 2.5 MG 1 tablet Orally Once a day Active Vitamin D-3 2000 IU 1 capsule Orally Onc e a day Active Vitamin C 1000 MG 1 tablet Orally Once a day Active Aspir-81 81 MG 1 tablet Orally Once a day Active Citalopram & Diet Manage Prod 10 MG 1 tablet Orally once a day Active NexIUM 20 MG 1 capsule Orally Onc e a day Generic Active Problems Problem Type SNOMED Code ICD Code Onset Dates Problem Status W/U Status Risk Notes Problem 439441655 Encounter for screening for malignant neoplasm of colon (Z12.11) Active confirmed Problem 464099013 History of adenomatous polyp of colon (Z86.010) Active confirmed Problem 27035133 Other dysphagia (R13.19) Active confirmed Problem 878011406 Gastroesophageal reflux disease without esophagitis (K21.9) Active confirmed Problem 405366312 Preprocedural examination (Z01.818) Active confirmed Problem 674693256 Long-term use of aspirin therapy (Z79.82) Active confirmed Encounters Encounter Location Date Provider Diagnosis [facility] [address] [place] [address] 11/19/2024 Flaco Acosta Plan Of Treatment Pending Test Test Name Order Date XR BARIUM SWALLOW-ESOPHAGUS 07/30/2015 Future Test Test Name Order Date COLONOSCOPY 04/02/2011 COLONOSCOPY 01/20/2017 Insurance Providers Payer Name Payer Address Payer Phone Subscriber Number Group Number Insured Name Patient Relationship to Insured Coverage Start Date Coverage End Date MEDICARE OF [place] [address] [place] [address] [phone] [id number] GORDO BRONSON Self - patient is the insured [employer] CLAIMS [address] [place] [address] [phone] [id number] GORDO BRONSON Self - patient is the insured Medical (General) History Medical History History ICD Code Uterine cancer as below Bladder cancer--periodic cystoscopies wi Dr. Betancourt Denies DM,CVA,Lung disease,renal disease GERD--E[place] [address] Danny wetzel--large HH; EGD in 2016 with the finding of her hiatal hernia, but no esophagitis nor Arellano's esophagus HTN Denies DM,CVA,Lung disease,renal disease Reports [place] in her 40's--no problems sinc e Hyperlipidemia Depression Tubular adenoma--removed in 2006--- she had a negative colonoscopy in May 2011 and also in 2001 Ischemic colitis in June of 2010-- a colonoscopy showed changes of the ischemic colitis in the transverse colon Diverticulitis in 09/2016 Probable sleep apnea--- snores alot Surgical History Surgery Date(Month/Year) SAM for uterine cancer in December 2010 Bladder suspension and cystoscopy in Dec--bladder cancer Interstim bladder stimulator for inconti nence
== END 2024-12-24 10:44 | disposition home or self-care (01) ==
LOC: HO.HPS 10:04
PROVIDERS: PCP Internal Medicine; Visit Provider Internal Medicine
DX: E66.01 Morbid (severe) obesity due to excess calories (principal); J98.4 Other disorders of lung; J96.91 Respiratory failure, unspecified with hypoxia; G47.33 Obstructive sleep apnea (adult) (pediatric)
CPT/HCPCS: 99213

== ENCOUNTER → 2024-12-24 10:03 | Outpatient (BNVA) | payer MEDICARE, SELFPAY | PROVIDERS: PCP Internal Medicine; Visit Provider Internal Medicine | DX: J98.4 Other disorders of lung (principal); J96.91 Respiratory failure, unspecified with hypoxia; E66.01 Morbid (severe) obesity due to excess calories; G47.33 Obstructive sleep apnea (adult) (pediatric); Z99.81 Dependence on supplemental oxygen | CPT/HCPCS: 99212 ==

== ENCOUNTER 2025-01-17 15:53 | Outpatient (REF) | payer MEDICARE, SELFPAY ==
[2025-01-17 15:58] LABS: Appearance Urine Cloudy; Glucose Urine UA Negative (Negative); PH 5.5 (5.0-9.0); Specific Gravity - Urine 1.010 (1.005-1.025); UMIC TRIGGER UACC YES
[2025-01-17 16:05] LABS: UACC Culture Trigger YES
--- OUTSIDE RECORDS SUMMARY | 2025-01-17 16:19 | XMS_ITS | Patient Health Record ---
Author Organization [facility] Address [address] [place] [address] Care Team Providers Care Modeling Agency Manager Name Role Phone Guillermo MURRAY, Jessica Primary Care Provider Flaco Stringer Unavailable [phone] Allergies Allergen (clinical drug ingredient) Drug/Non Drug Allergy documented on EMR Reaction Allergy Type Onset Date Status Iodine Unknown Drug Allergy Active bees (uncoded) Unknown Allergy Activ e horse tetneus (uncoded) Unknown Allergy Active IVP Dye (uncoded) Unknown Allergy Ac tive Penicillin Unknown Drug Allergy Active Reason For Referral [...] Problem Status W/U Status Risk Notes Problem [id number] Encounter for screening for malignant neoplasm of colon (Z12.11) Active confirmed Problem 825370197 History of adenomatous polyp of colon (Z86.010) Active confirmed Problem 11484128 Other dysphagia (R13.19) Active confirmed Problem 428552593 Gastroesophageal reflux disease without esophagitis (K21.9) Active confirmed Problem 665309199 Preprocedural examination (Z01.818) Active confirmed Problem 554522996 Long-term use of aspirin therapy (Z79.82) Active confirmed Encounters Encounter Location Date Provider Diagnosis [facility] [address] [place] [address] 11/19/2024 Flaco Acosta Plan Of Treatment Pending Test Test Name Order Date XR BARIUM SWALLOW-ESOPHAGUS 07/30/2015 Future Test Test Name Order Date COLONOSCOPY 04/02/2011 COLONOSCOPY 01/20/2017 Insurance Providers Payer Name Payer Address Payer Phone Subscriber Number Group Number Insured Name Patient Relationship to Insured Coverage Start Date Coverage End Date MEDICARE OF [place] [address] [place] [address] [id number] GORDO BRONSON Self - patient is the insured MED[employer] ATT[employer] CLAIMS [address] [place] [address] [id number] GORDO BRONSON Self - patient is the insured Medical (General) History Medical History History ICD Code Uterine cancer as below Bladder cancer--periodic cystoscopies wi Dr. Betancourt Denies DM,CVA,Lung disease,renal disease GERD--[place] [address] Danny wetzel--large HH; EGD in 2016 with the finding of her hiatal hernia, but no esophagitis nor Arellano's esophagus HTN Denies DM,CVA,Lung disease,renal disease Reports [place] in her 40's--no problems sinc e Hyperlipidemia [...]
--- OUTSIDE RECORDS SUMMARY | 2025-01-17 16:20 | XMS_ITS | Patient Health Record ---
[facility] Address [address] [place] [address] Care Team Providers Care Health Education Assistant Name Role Phone Guillermo MURRAY, Jessica Espinoza Primary Care Provider Un available Mariluz Villeda Unavailable [phone] Allergies Allergen (clinical drug ingredient) Drug/Non Drug [...] EVERY DAY Oral; Duration: 90 Days Active Fluticasone Propionate 50 MCG/ACT 1 spray in each nostril Nasally Once a day; Duration: 30 day(s) 02/20/2024 Active Estradiol 0.1 MG/GM Vaginal; Duration: 9 0 Days Active Ipratropium-Albuterol 0.5-2.5 (3) MG/3ML INHALE 1 VIAL EVERY 4 TO 6 HOURS NEEDED FOR WHEEZING/COPD Inhalation; Duration: 30 Days Active Myrbetriq 50 MG Oral; Duration: 90 Days Active Turmeric 400 [...] nsmoker Encounters Encounter Location Date Provider Diagnosis [facility] [address] [address] [facility] [address] [address] 07/03/2024 Mariluz [facility] [address] 07/12/2024 Mariluz Villeda Plan Of Treatment No Information Insurance Providers Payer Name Payer Address Payer Phone Subscriber Number Group Number Insured Name Patient Relationship to Insured Coverage Start Date Coverage End Date Medicare National [employer] [address] [facility] [place] [id number] [phone] Morena Estrada Self - patient is the [facility] [address] [place] [address] [phone] Morena Estrada Self - patient is the [...]
== END 2025-01-17 15:54 | disposition home or self-care (01) ==
LOC: HO.LNP 15:53
PROVIDERS: Visit Provider Internal Medicine
DX: R30.0 Dysuria (principal)
CPT/HCPCS: 81001; 87086; 87088; 87186

== ENCOUNTER 2025-04-08 09:04 | Outpatient (AMB) | payer MEDICARE, SELFPAY ==
--- OUTSIDE RECORDS SUMMARY | 2024-03-20 04:30 | XMS_ITS ---
Author Organization [facility] Address [address] [facility] [place] [address] Care Team Providers Care Manager Food Safety Name Role Phone Guillermo MURRAY, Jessica Espinoza Primary Care Provider Un available Mariluz Villeda Unavailable [phone] Allergies Allergen (clinical drug ingredient) Drug/Non Drug [...] 03/20/2024 Encounters Encounter Location Date [facility] [address] [place] [address] 03/20/2024 Mariluz Villeda Plan Of Treatment No Information Progress Notes * Morena BRONSON PDOB: [birth year] (79 yo F)Acc No.[id number]:03/20/2024 Progress Notes Patient: Daisy SANTACRUZMASHAMorena Provider: Precious Villeda DPM :1945 A ge:78 Y S ex:Female Date:03/20/2024 Address:[address] [place] [address] Pcp:Hilda Wright Subjective: * Chief Complaints: * [...] dmits. C ardiovascular: Pacemaker d enies. M REFINERY OPERATOR d enies. W PW d enies. C [...] 0 03/20/2024 Generated for Gavi cruz/Armen/Danuta on: 1 10:09 AM EDT
--- OUTSIDE RECORDS SUMMARY | 2024-07-13 06:30 | XMS_ITS ---
Author Organization [facility] Address [address] [place] [address] Care Team Providers Care Automatic Brine Mixer Operator Name Role Phone Guillermo MURRAY, Jessica Espinoza Primary Care Provider Un available Mariluz Villeda Unavailable [phone] Allergies Allergen (clinical drug ingredient) Drug/Non Drug [...] nsmoker Encounters Encounter Location Date Provider Diagnosis [facility] [address] [address] 07/13/2024 Mariluz Villeda Plan Of Treatment No Information Progress Notes * Bandar BRONSONie PDOB: [birth year] (79 yo F)Acc No.[id number]:07/13/2024 Progress Notes Patient: Morena HARDIN Provider: Precious Villeda DPM :1945 A ge:79 Y S ex:Female Date:07/13/2024 Address:[address] [place], [place] [id number] Pcp:Hilda Wright Subjective: * Chief Complaints: * [...] dmits. C ardiovascular: Pacemaker d enies. 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 W PW d enies. [...] 0 07/13/2024 Generated for Gavi cruz/Armen/Danuta on: 10:09 AM EDT
[2025-04-08 09:14] VITALS: BP 100/60; PULSE 68; RESP 16; TEMP 36.8; O2SAT 98; BMI 50.6
--- NOTE | 2025-04-08 09:14 | A.OFFVIS_ITS ---
Intake Vital Signs 04/08/25 09:14 Height 4 ft 10 in Weight 242 lb BMI 50.6 BP 100/60 Blood Pressure Location Rt brachial Position Sitting Respiration 16 Pulse 68 Pulse Source Pulse Oximeter Temp 98.2 F Temp Source Oral Pulse Oximetry (%) 98 Oxygen Delivery Method Room Air Intake Visit Reasons: SWV G0439 Intake Note: Pt is here today for her SWV Allergies bee pollen (bee stings) Allergy (Severe, Verified 04/13/25 23:05) Anaphylaxis tetanus toxoid, adsorbed (Tetanus Toxoid,Adsorbed) Allergy (Severe, Verified 04/13/25 23:05) LOCAL INJ.SITE SWELLING beeswax (BEESWAX) Allergy (Intermediate, Verified 04/13/25 23:05) Hives Iodinated Contrast Media (IV Dye, Iodine Containing) Allergy (Intermediate, Verified 04/13/25 23:05) HIVES-CAT SCAN DYE iodine (Iodine) Allergy (Intermediate, Verified 04/13/25 23:05) SWELLING, blister, hives Penicillins Allergy (Intermediate, Verified 04/13/25 23:05) SWELLING, hives, rash Sulfa (Sulfonamide Antibiotics) Allergy (Intermediate, Verified 04/13/25 23:05) Hives pneumococcal vaccine Adverse Reaction (Intermediate, Verified 04/13/25 23:05) fever, chills pollen Adverse Reaction (Mild, Uncoded 04/13/25 23:05) Nasal congestion Medication List - Last Reconciled 04/13/25 by Jessica Li MD ascorbic acid (vitamin C) 1 g PO DAILY 90 days aspirin 81 mg PO DAILY atorvastatin 40 mg PO BEDTIME [bariatric transport wheelchair As directed] cholecalciferol (vitamin D3) (Vitamin D3) 25 mcg PO DAILY citalopram 30 mg (1.5 x 20 mg) PO DAILY 3 months clotrimazole-betamethasone 1-0.05 % 1 appl topical BID 10 days coenzyme Q10 (CoQ-10) 300 mg PO DAILY commode (bedside commode) Bariatric commode estradiol 0.01%(0.1mg/gram) pea-sized to urethra daily; 30 days fesoterodine ER 8 mg PO DAILY 30 days fluticasone propionate 50 mcg/actuation 1 spray intranasal QAM PRN 30 days furosemide 20 mg PO QAM ipratropium-albuterol 0.5 mg-3 mg(2.5 mg base)/3 mL 3 mL inhalation Q4-6H PRN lisinopril 10 mg PO DAILY methenamine hippurate 1 g PO DAILY 90 days metoprolol succinate ER 100 mg (2 x 50 mg) PO DAILY Mounjaro (tirzepatide) 2.5 mg (0.5 mL) subcut QWEEK 30 days NS nitrofurantoin monohyd/m-cryst 100 mg 100 mg PO Q12H 10 days pantoprazole 40 mg PO DAILY [Transport chair As directed] turmeric 500 mg PO DAILY HPI SWV G0439 HPI Details SWV ? 79 year old lady , with history of bladder cancer , dyslipidemia, obstructive sleep apnea, COPD, restrictive lung disease, morbid obesity, depression in remission, GERD, osteopenia, and hypertension,presents for her ? subsequent Annual Wellness Visit. She had her screening? mammogram 01/28/2021, does not want to get any further testing. Tried having a bone density scan done but had a panic attack, while lying on the exam table, does not want to do any further testing. She had screening colonoscopy done by Dr. Acosta 05/02/2017 , which only showed presence of internal hemorrhoids and sigmoid diverticulosis, no further testing needed. Her last fasting lipids and fasting blood sugar check was done September 2024 which showed normal lipids, but mildly elevated fasting glucose 102 mg/dL. She declines getting any vaccination , had COVID vaccine in the past , received 2 Ketty vaccine, initial and booster dose. ?? Medical / Social History Reviewed? Past Medical History ?Yes . ? [place] of Care / Care Team list updated ?Yes . ? Surgical/Hospitalization History ?Yes . ? Current Medications (including OTC and supplements) ?Yes . ? Family History ?Yes . ? Tobacco Control form ?Yes . ? AUDIT-C (Alcohol use) form ?Yes . ? Illicit drug use in Social History ?Yes . ? Current diagnosis of depression? ?Yes ? Appropriate PHQ2/PHQ9 completed ?Yes . ? Data entered by ?Field Artillery Operations Specialist and reviewed by provider ? Fall Risk ? Fall History? Have you had any falls with injury in the past year? ?No . ? Have you had two or more falls in the past year? ?No . ? Fall Risk Assessment: ?No falls in the past year . ? HRA filled out by the patient, reviewed by Provider and scanned. ? AWV ? Balance? Romberg ?unable ? Tandem walk ?unable to do . ? Walk and Turn ?Yes, but with assistance . ? Rise from sit to stand ?Yes . ?Vision? Corrective lens ?Yes ? Vision screen ? Up-to-date, seen by Dr. Mckeon 01/03/2025, who diagnosed her to have hypertensive retinopathy in both eyes. ?Hearing? Whisper test ?pass . ?Written Plan?Completed. See Patient Documents.? She is up-to-date with her healthcare proxy and MOLST form, copy in her medical record [facility] Medical History (Updated 04/13/25 @ 23:17 by Jessica Li MD) Osteoarthritis involving multiple joints on both sides of body Prediabetes Otitis media with effusion Acute respiratory disease Swelling of lower leg Respiratory failure with hypoxia Pain around toenail Hypertrophic toenail Acute bronchitis Anemia, macrocytic History of ID (myocardial infarction) Gait instability Restrictive lung disease Myocardial infarct Supplemental oxygen dependent Difficult intravenous access Intertrigo Pneumococcal vaccination declined Influenza vaccination declined NADEEM (obstructive sleep apnea) COPD (chronic obstructive pulmonary disease) Restrictive lung disease OAB (overactive bladder) Murmur Nocturnal leg cramps UTI (urinary tract infection) Endometrial cancer Immunization refused Mixed stress and urge urinary incontinence Morbid obesity Recurrent major 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 Impaired fasting glucose Dyslipidemia Osteopenia of neck of left femur Mild intermittent asthma without complication Essential hypertension Cataract Hx of gout Hx of Clostridium difficile infection Urinary incontinence Hiatal hernia GERD (gastroesophageal reflux disease) Sleep apnea, unspecified Snores Ex-smoker for more than 1 year Bladder cancer History of pneumonia Surgical History History of urologic surgery Hx of bilateral cataract extraction Cataract extraction status, right eye Hx of colonoscopy Hx of cystoscopy History of neck surgery History of vaginal hysterectomy History of bladder surgery Family History Father Heart disease Mother No problems noted. Maternal Grandfather Heart disease Maternal Grandmother Heart disease Paternal Grandfather Heart disease Paternal Grandmother Heart disease Social History Housing: House Are you a primary care management coordinator to a significant other at home: No Do you presently have visiting nurse or other home services: No Alcohol intake: never Patient Tobacco Use Status: Former Tobacco user Tobacco use type: Cigarette e-Cigarette/Vaping Use: Never Used Second Hand Smoke Exposure: No Advance Directives Date on File: 12/21/21 Current occupational status: disabled Cognitive needs: No Hearing needs: No Vision needs: Yes Questionnaire Medicare Wellness Checkup What is your age?: 79 or older What gender do you identify with?: female During the past 4 weeks, how much have you been bothered by emotional problems such as feeling anxious, depressed, irritable, sad or downhearted, and blue?: moderately During the past 4 weeks, has your physical & emotional health limited your social activities with family, friends, neighbors, or groups?: extremely During the past 4 weeks, how much bodily pain have you generally had?: moderate pain During the past 4 weeks, was someone available to help you if you needed & wanted help?: yes, as much as I wanted During the past 4 weeks, what was the hardest physical activity you could do for at least 2 minutes?: very light Can you get to places out of walking distance without help? (For eg., can you travel alone on buses, taxis or drive your car?): No Can you go shopping for groceries or clothes without someone's help?: No Can you prepare your own meals?: No Can you do your housework without help?: No Because of any health problems, do you need the help of another person with your personal care needs such as eating, bathing, dressing or getting around the house?: Yes Can you handle your own money without help?: Yes During the past 4 weeks, how would you rate your health in general?: fair During the past 4 weeks how have things been going for you?: good & bad parts about equal Are you having difficulties driving your car?: not applicable, I don't use a car Do you always fasten your seat belt when you are in a car?: no During past 4 weeks, have you been bothered by the following: never: Sexual problems?, Trouble eating well? and Problems using the telephone?, seldom: Falling or dizzy when standing up and always: Teeth or denture problems? and Tiredness or fatigue? Have you fallen 2 or more times in the past year?: No Are you afraid of falling?: Yes Are you a smoker?: no During the past 4 weeks, how many drinks of wine, beer, or other alcoholic beverages did you have?: no alcohol at all Do you exercise for about 20 minutes 3 or more times a week?: yes, all the time Have you been given information to help with the following?: yes: Hazards in your house that might hurt you? and yes: Keeping track of your medications? How often do you have trouble taking medicines the way you have been told to take them?: I always take medicine as prescribed How confident are you that you can control & manage most of your health problems?: somewhat confident What is your race?: White Mini Mental State Exam (MMSE) Orientation What is the (year) (season) (date) (day) (month)?: year (2024), season (fall ), date (04/08/25), day (Tuesday) and month (April) Where are we (state) (county) (town or city) (hospital) (floor)?: state ([facility]), [facility] town or city ([place] ) and hospital/clinic Score Score: 9 PHQ-9 Over the last 2 weeks, how often have you been bothered by any of the following problems? 1. Little interest or pleasure in doing things: not at all 2. Feeling down, depressed, or hopeless: not at all 3. Trouble falling or staying asleep, or sleeping too much: several days 4. Feeling tired or having little energy: several days 5. Poor appetite or overeating: not at all 6. Feeling bad about yourself - or that you are a failure or have let yourself or your family down: not at all 7. Trouble concentrating on things, such as reading the newspaper or watching television: not at all 8. Moving or speaking so slowly that other people could have noticed. Or the opposite - being so fidgety or restless that you have been moving around a lot more than usual: not at all 9. Thoughts that you would be better off or of hurting yourself in some way: not at all Total score: 2 Depression Screening Interpretation: Negative Depression Screening Done: Yes Source: Developed by Drs. Flaco Banuelos, Gracia Cash, Roque Seo and colleagues, with an educational glory from [employer]. Physical Exam Vital Signs: Last Vital Signs Temp 98.2 F 04/08/25 09:14 Pulse 68 04/08/25 09:14 Resp 16 04/08/25 09:14 BP 100/60 04/08/25 09:14 Pulse Ox 98 04/08/25 09:14 Oxygen Delivery Method Room Air 04/08/25 09:14 BMI result Body Mass Index 50.6 Assessment & Plan Assessment & Plan (1) Encounter for subsequent annual wellness visit (AWV) in Medicare patient: Code(s): Z00.00 - Encounter for general adult medical examination without abnormal findings Plan: Medical wellness checklist reviewed, discussed with patient and updated. Copy given to patient, declined further breast cancer, colon cancer and osteoporosis screening. Does not want to get any vaccines. Up-to-date with her MOLST and healthcare proxy form, copy in medical record (2) NADEEM (obstructive sleep apnea): Comment: *BECAUSE OF HER MORBID OBESITY SHE HAS FEATURES OF OBSTRUCTIVE SLEEP APNEA. HOWEVER SHE WOULD NOT CONSENT FOR ANY WORKUP OR TREATMENT AT THIS TIME . Code(s): G47.33 - Obstructive sleep apnea (adult) (pediatric) Plan: Followed by Pulmonary Clinic, declines further workup and treatment (3) Lymphedema: Code(s): I89.0 - Lymphedema, not elsewhere classified Plan: Currently has been using compression wraps (4) COPD (chronic obstructive pulmonary disease): Comment: PATIENT DOES HAVE CHRONIC COUGH WITH CHEST CONGESTION PROBABLY DUE TO CHRONIC OBSTRUCTIVE PULMONARY DISORDER. She is prone to have recurrent acute bronchitis causing acute exacerbation. Code(s): J44.9 - Chronic obstructive pulmonary disease, unspecified Plan: Followed by Pulmonary Clinic, using DuoNeb via nebulizer every 4-6 hours as needed (5) Osteoarthritis involving multiple joints on both sides of body: Code(s): M15.9 - Polyosteoarthritis, unspecified Plan: Takes Tylenol as needed, takes turmeric 500 mg daily (6) Chronic cystitis: Code(s): N30.20 - Other chronic cystitis without hematuria Plan: Sees Urology, currently on methenamine hippurate 1 g daily (7) Overactive bladder: Comment: InterStim revision in 2021 Code(s): N32.81 - Overactive bladder Plan: Followed by Urology, currently on fesoterodine ER 8 mg daily (8) Mixed stress and urge urinary incontinence: Code(s): N39.46 - Mixed incontinence Plan: On fesoterodine ER 8 mg daily (9) GERD (gastroesophageal reflux disease): Code(s): K21.9 - Gastro-esophageal reflux disease without esophagitis Plan: Currently on pantoprazole 40 mg daily (10) Recurrent major 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: Code(s): F33.42 - Major depressive disorder, recurrent, in full remission Plan: Currently on citalopram 30 mg daily (11) Essential hypertension: Code(s): I10 - Essential (primary) hypertension Plan: Takes lisinopril 10 mg daily and metoprolol succinate ER 100 mg once a day (12) Dyslipidemia: Code(s): E78.5 - Hyperlipidemia, unspecified Plan: On atorvastatin 40 mg daily (13) Osteopenia of neck of left femur: Code(s): M85.852 - Other specified disorders of bone density and structure, left thigh Plan: Patient does not want to get any repeat bone density scan. Reminded to take adequate calcium from dietary sources and vitamin-D 3 at least 2000 units daily (14) Morbid obesity: Comment: THIS PATIENT HAS SUPER MORBID OBESITY. THERE IS NO POTENTIAL FOR HER TO LOSE WEIGHT. Code(s): E66.01 - Morbid (severe) obesity due to excess calories Plan: Prescription sent for Mounjaro 2.5 mg weekly Quality Reporting (2019) Depression/Bipolar (159/160/161/177) PHQ-9: Total score: 2 Coding Level of Care Code Medicare Subsequent (G0439) Diagnoses Encounter for subsequent annual wellness visit (AWV) in Medicare patient Z00.00 NADEEM (obstructive sleep apnea) G47.33 Lymphedema I89.0 COPD (chronic obstructive pulmonary disease) J44.9 Osteoarthritis involving multiple joints on both sides of body M15.9 Chronic cystitis N30.20 Overactive bladder N32.81 Mixed stress and urge urinary incontinence N39.46 GERD (gastroesophageal reflux disease) K21.9 Recurrent major 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 F33.42 Essential hypertension I10 Dyslipidemia E78.5 Osteopenia of neck of left femur M85.852 Morbid obesity E66.01 CPT Codes Advance Care Planning - Advance Care Planning discussion: On file, no changes ([id number]) Advance Care Planning - Time spent: 1-15 minutes, on File ([id number]) Advance Care Planning Advance Care Planning discussion: On file, no changes Date of discussion: 04/13/25 Who was present: Patient and partner Forms completed: Health Care Proxy and MOLST Time spent: 1-15 minutes, on File Actual minutes spent: 1
--- OUTSIDE RECORDS SUMMARY | 2025-04-08 10:09 | XMS_ITS | Patient Health Record ---
Author Organization [facility] Address [address] [place] [address] Care Team Providers Care Last Repairer Name Role Phone Guillermo MURRAY, Jessica Primary Care Provider Flaco Stringer Unavailable [phone] Allergies Allergen (clinical drug ingredient) Drug/Non Drug [...] Problem Status W/U Status Risk Notes Problem [id number] Encounter for screening for malignant neoplasm of colon (Z12.11) Active confirmed Problem 344941615 History of adenomatous polyp of colon (Z86.010) Active confirmed Problem 70121208 Other dysphagia (R13.19) Active confirmed Problem 004121062 Gastroesophageal reflux disease without esophagitis (K21.9) Active confirmed Problem 626778583 Preprocedural examination (Z01.818) Active confirmed Problem 750434601 Long-term use of aspirin therapy (Z79.82) Active confirmed Encounters Encounter Location Date Provider Diagnosis [facility] [address] [place] [address] 11/19/2024 Flaco Acosta Plan Of Treatment Pending Test Test Name Order Date XR BARIUM SWALLOW-ESOPHAGUS 07/30/2015 Future Test Test Name Order Date COLONOSCOPY 04/02/2011 COLONOSCOPY 01/20/2017 Insurance Providers Payer Name Payer Address Payer Phone Subscriber Number Group Number Insured Name Patient Relationship to Insured Coverage Start Date Coverage End Date MEDICARE OF [place] [address] [place] [address] [id number] GORDO BRONSON Self - patient is the insured [employer] CLAIMS [address] [place] [phone] [id number] GORDO BRONSON Self - patient is the insured Medical (General) History Medical History History ICD Code Uterine cancer as below Bladder cancer--periodic cystoscopies wi Dr. Betancourt Denies DM,CVA,Lung disease,renal disease GERD--EGD [place] [address] Danny wetzel--large HH; EGD in 2016 with the finding of her hiatal hernia, but no esophagitis nor Arellano's esophagus HTN Denies DM,CVA,Lung disease,renal disease Reports [place] in her 40's--no problems sinc e Hyperlipidemia [...]
--- OUTSIDE RECORDS SUMMARY | 2025-04-08 10:10 | XMS_ITS | Patient Health Record ---
Author Organization [facility] Address [address] [place] [address] Care Team Providers Care Features Reporter Name Role Phone Guillermo MURRAY, Jessica Espinoza Primary Care Provider Un available Mariluz Villeda Unavailable [phone] Allergies Allergen (clinical drug ingredient) Drug/Non Drug [...] nsmoker Encounters Encounter Location Date Provider Diagnosis [facility] [address] [address] 07/03/2024 Mariluz Villeda [facility] [address] [address] 07/12/2024 Mariluz Villeda Plan Of Treatment No Information Insurance Providers Payer Name Payer Address Payer Phone Subscriber Number Group Number Insured Name Patient Relationship to Insured Coverage Start Date Coverage End Date Medicare [employer] [address] [facility] [place] [id number] Morena Estrada Self - patient is the insured [facility] [address] [place] [address] Morena Estrada Self - patient is the [...]
== END 2025-04-08 10:06 | disposition home or self-care (01) ==
LOC: HO.HMCC 09:05
PROVIDERS: PCP Internal Medicine; Visit Provider Internal Medicine
DX: Z00.00 Encounter for general adult medical examination without abnormal findings (principal); G47.33 Obstructive sleep apnea (adult) (pediatric); J44.9 Chronic obstructive pulmonary disease, unspecified; E66.01 Morbid (severe) obesity due to excess calories; I89.0 Lymphedema, not elsewhere classified; M15.9 Polyosteoarthritis, unspecified; N30.20 Other chronic cystitis without hematuria; N32.81 Overactive bladder; N39.46 Mixed incontinence; K21.9 Gastro-esophageal reflux disease without esophagitis; F33.42 Major depressive disorder, recurrent, in full remission; I10 Essential (primary) hypertension

== ENCOUNTER 2025-05-08 12:06 | Inpatient (IN) | payer MEDICARE, SELFPAY ==
--- OUTSIDE RECORDS SUMMARY | 2024-03-20 03:30 | XMS_ITS ---
Author Organization [facility] Address [address] [facility] [place] [address] Care Team Providers Care Pet Care Technician Name Role Phone Guillermo MURRAY, Jessica Espinoza Primary Care Provider Un available Mariluz Villeda Unavailable [phone] Allergies Allergen (clinical drug ingredient) Drug/Non Drug Allergy documented on EMR Reaction Allergy Type Onset Date Status sulfamethoxazole / trimethoprim Bactrim Unknown Drug Allergy Active Iodine blistered skin Drug Allergy Ac tive Merthiolate blistered skin Drug Allergy Active Bee Sting Unknown Allergy Active Penicillin shortness of breath Drug Allergy Active Substance with sulfonamide structure and antibacterial mechanism of action (substance) Sulfa Antibiotics Unknown Drug Allergy Active tetanus immune globulin Tetanus Immune Globulin Unknown Drug Allergy Active Medications Medication SIG (Take, Route, Frequency, Duration) Notes Start Date End Date Status Atorvastatin Calcium 40 MG TAKE 1 TABLET (40 MG) ORALLY BEDTIME Oral; Duration: 90 Days Active Co Q 10 100 MG as directed Orally 02/20/2024 Active Turmeric 400 MG as directed Orally Active Furosemide 20 MG 1 tablet Orally Once a day Active Vitamin D3 25 MCG (1000 UT) 1 tablet Ora lly Once a day; Duration: 30 day(s) 02/20/2024 Active Myrbetriq 50 MG Oral; Duration: 90 Days Active Vitamin C 500 MG as directed Orally 02/20/2024 Active Estradiol 0.1 MG/GM Vaginal; Duration: 9 0 Days Active Fluticasone Propionate 50 MCG/ACT 1 spray in each nostril Nasally Once a day; Duration: 30 day(s) 02/20/2024 Active Ipratropium-Albuterol 0.5-2.5 (3) MG/3ML INHALE 1 VIAL EVERY 4 TO 6 HOURS NEEDED FOR WHEEZING/COPD Inhalation; Duration: 30 Days Active Pantoprazole Sodium 40 MG TAKE 1 TABLET BY MOUTH EVERY DAY Oral; Duration: 90 Days Active Lisinopril 2.5 MG Oral; Duration: 90 Days Active Metoprolol Succinate ER 50 MG TAKE 2 TABLETS BY MOUTH EVERY DAY Oral; Duration: 90 Days Active Citalopram Hydrobromide 20 MG TAKE 1 TABLET BY MOUTH EVERY DAY Oral; Duration: 90 Days Active Social History Tobacco Use: Social History Observation Description Date Details (start date - stop date) Former Smoker NA - NA Tobacco Use/Smoking Question Answer Notes Are you a: former smoker Additional Findings: Tobacco Non-User Ex-heavy c igarette smoker (20-30/day) Alcohol Screen Question Answer Notes Did you have a drink containing alcohol in the p ast year? No Points 0 Interpretation Negative Tobacco use other than smoking: Question Answer Notes Are you an other tobacco user? No Vital Signs Height 4 ft 11 in in 03/20/2024 Weight 262 lbs lbs 03/20/2024 BMI 52.91 kg/m2 03/20/2024 Encounters Encounter Location Date Provider [facility] [address] [place] [address] 03/20/2024 Mariluz Villeda Plan Of Treatment No Information Progress Notes * Morena BRONSON PDOB: [birth year] (79 yo F)Acc No.[id number]:03/20/2024 Progress Notes Patient: Daisy SANTACRUZMASHAMorena Provider: Precious Villeda DPM :1945 A ge:78 Y S ex:Female Date:03/20/2024 Address:[address] [place] [address] Pcp:Hilda Wright Subjective: * Chief Complaints: * * ROS: G eneral/Constitutional: Nausea d enies. V omiting d enies. H tyrell Thirst d enies. L oss appetite d enies. C hills d enies. F atigue a dmits.?Fever d enies. N ight Sweats d enies. U nexplained weight loss d enies. U nexplained weight gain d enies. H EENTM: Dentures d enies. D izziness d enies. G lasses/contacts a dmits. R etinopathy d enies. B lurred/double vision d enies. T MJ?denies. D ischarge/drainage d enies. I mplants d enies. S ore throat d enies. D ental implants d enies. H annette of hearing d enies. D ifficulty chewing/swallowing/speaking d enies. N ose bleeds d enies. S ore mouth d enies. ? R espiratory: On Oxygen a dmits. P neumonia/pleurisy a dmits.?Bronchitis a dmits. E mphysema a dmits. C oughing a dmits. C ough blood?denies. S hortness of breath a dmits. W heezing a dmits. C ardiovascular: Pacemaker d enies. M FIRE SAFETY MANAGER d enies. W PW d enies. C HF d enies. H eart attack d enies. S eptal defect d enies. R apid beat d enies. C hest pain d enies. A trial Fib. d enies. M urmur/Palpitations d enies. G astrointestinal: Hemorrhoids d enies. S tomach/Abdominal pain d enies. D ark blood stool d enies. I rritable bowel d enies. C onstipation d enies. D iarrhea d enies. H ematology: Swelling d enies. C lots d enies. V aricose Veins d enies. B ruising d enies. B leeding problem d enies. G enitourinary: Blood urine d enies. F requent/Painfu/urination/bladder control a dmits. K idney stones d enies. I nfection (UTI) d enies. N ephropathy d enies. s ex trans dis (STD) d enies. P rostate d enies. M usculoskeletal: Hammertoes d enies. B unions d enies. B ack Pain d enies. M uscle Cramps/ Resting a dmits. M uscle cramps / walking a dmits.?Generalized aches and pains a dmits. W eakness d enies. I nteg.: Zhao d enies. S cars d enies. C orns/calluses?denies. I ngrown nails d enies. P ainful nails a dmits. O pen Sores d enies. R ashes d enies. N eurologic: Difficulty sleeping d enies. B rain disorder d enies. N umbness d enies. B alance trouble d enies. C onfusion d enies. F ainting/blackouts d enies. T ingling d enies. T remors d enies. * Medical History: A nemia, Angina, Anxiety, Arthritis, Asthma, Back,Hip,and Knee pain, CAD (Cholesterol), Bladder cancer, Cataracts, Depression, Gout, Headaches/Migraines, Hiatal hernia, High blood pressure, Lung disease, Poor circulation, Reflux ( GERD), Sinusitis, Measles, Mumps, Chicken pox. * Surgical History: h ysterectomy 11/2010, insertion of bladder sling , removal of bladder sling , bilated cataract 04/2020, bladder tumor removal 12/06/2022, cystoscopy . * Family History: M other: , heart attack, diagnosed with Family history of arthritis, Unspecified essential hypertension. F ather: , heart attack, diagnosed with Family history of arthritis, Unspecified essential hypertension. M aternal uncle: stroke. S iblings: unknown, strokeheart attack- sisterkidney/liver disease- brother, diagnosed with Unspecified essential hypertension.? * Social History: T obacco Use: T obacco Use/Smoking A re you a: f ormer smoker A dditional Findings: Tobacco Non-User E x-heavy cigarette smoker (20-30/day) Tobacco use other than smoking A re you an other tobacco user? N o D rugs/Alcohol: D rugs H ave you used drugs other than those for medical reasons in the past 12 months? N o Alcohol Screen D id you have a drink containing alcohol in the past year? N o P oints 0 I nterpretation N egative M iscellaneous: C affeine: yes, frequency:, 1-2 cups per day. Children: yes, 1. Exercise: none- sedentary due to illness. Marital status: . Occupation: Retired. * Medications: T aking Turmeric 400 MG Capsule as directed Orally , Taking Furosemide 20 MG Tablet 1 tablet Orally Once a day , Taking Atorvastatin Calcium 40 MG Tablet TAKE 1 TABLET (40 MG) ORALLY BEDTIME Oral , Taking Citalopram Hydrobromide 20 MG Tablet TAKE 1 TABLET BY MOUTH EVERY DAY Oral , Taking Lisinopril 2.5 MG Tablet Oral , Taking Metoprolol Succinate ER 50 MG Tablet Extended Release 24 Hour TAKE 2 TABLETS BY MOUTH EVERY DAY Oral , Taking Pantoprazole Sodium 40 MG Tablet Delayed Release TAKE 1 TABLET BY MOUTH EVERY DAY Oral , Taking Myrbetriq 50 MG Tablet Extended Release 24 Hour Oral , Taking Ipratropium-Albuterol 0.5-2.5 (3) MG/3ML Solution INHALE 1 VIAL EVERY 4 TO 6 HOURS NEEDED FOR WHEEZING/COPD Inhalation , Taking Estradiol 0.1 MG/GM Cream Vaginal , Taking Fluticasone Propionate 50 MCG/ACT Suspension 1 spray in each nostril Nasally Once a day , Taking Vitamin C 500 MG Capsule as directed Orally , Taking Vitamin D3 25 MCG (1000 UT) Tablet 1 tablet Orally Once a day , Taking Co Q 10 100 MG Capsule as directed Orally * Allergies: P enicillin: shortness of breath, Sulfa Antibiotics, Iodine: blistered skin, Merthiolate: blistered skin, Bactrim, Bee Sting: Allergy, Tetanus Immune Globulin: Allergy. Objective: * Vitals: H t: 4 ft 11 in, Wt: 262 lbs, BMI: 52.91, Shoe size: 7-7.5, Ht-cm: 149.86 cm, Wt- k.84 kg. Assessment: Plan: * Treatment: * Images: * The named appointment provid er may or may not be the originator of this progress note, and it is not deemed complete until electronically signed by the appointment provider. Sign off status: Pending * Provider: Precious Villeda, LATOSHA Date: 0 03/20/2024 Generated for Gavi cruz/Armen/Danuta on: 07/08/2024 03:07 PM EST
--- OUTSIDE RECORDS SUMMARY | 2024-07-13 05:30 | XMS_ITS ---
Author Organization [facility] Address [address] [place] [address] Care Team Providers Care Voltmeter Operator Name Role Phone Guillermo MURRAY, Jessica Espinoza Primary Care Provider Un available Mariluz Villeda Unavailable [phone] Allergies Allergen (clinical drug ingredient) Drug/Non Drug [...] Duration) Notes Start Date End Date Status Pantoprazole Sodium 40 MG TAKE 1 TABLET BY MOUTH EVERY DAY Oral; Duration: 90 Days Active Metoprolol Succinate ER 50 MG TAKE 2 TABLETS BY MOUTH EVERY DAY Oral; Duration: 90 Days Active Estradiol 0.1 MG/GM Vaginal; Duration: 9 0 Days Active Ipratropium-Albuterol 0.5-2.5 (3) MG/3ML INHALE 1 VIAL EVERY 4 TO 6 HOURS NEEDED FOR WHEEZING/COPD Inhalation; Duration: 30 Days Active Myrbetriq 50 MG Oral; Duration: 90 Days Active Lisinopril 2.5 MG Oral; Duration: 90 Days Active Citalopram Hydrobromide 20 MG TAKE 1 TABLET BY MOUTH EVERY DAY Oral; Duration: 90 Days Active Turmeric 400 MG as directed Orally Active Atorvastatin Calcium 40 MG TAKE 1 TABLET (40 MG) ORALLY BEDTIME Oral; Duration: 90 Days Active Furosemide 20 MG 1 tablet Orally Once a day Active Fluticasone Propionate 50 MCG/ACT 1 spray in each nostril Nasally Once a day; Duration: 30 day(s) 02/20/2024 Active Co Q 10 100 MG as directed Orally 02/20/2024 Active Vitamin D3 25 MCG (1000 UT) 1 tablet Ora lly Once a day; Duration: 30 day(s) 02/20/2024 Active Vitamin C 500 MG as directed Orally 02/20/2024 Active Social History Tobacco Use: Social History Observation Description Date Details (start date - stop date) Former Smoker NA - NA Alcohol Screen Question Answer Notes Did you have a drink containing alcohol in the p ast year? No Points 0 Interpretation Negative Tobacco use other than smoking: Question Answer Notes Are you an other tobacco user? No Tobacco Control (Standard) Question Answer Notes Tobacco use: Former smoker Additional Findings: Tobacco non-user Current no nsmoker Encounters Encounter Location Date Provider Diagnosis [facility] [address] [address] 07/13/2024 Mariluz Villeda Plan Of Treatment No Information Progress Notes * Bandar BRONSONie PDOB: [birth year] (79 yo F)Acc No.[id number]:07/13/2024 Progress Notes Patient: Morena HARDIN Provider: Precious Villeda DPM :1945 A ge:79 Y S ex:Female Date:07/13/2024 Address:[address] [place], [place] [id number] Pcp:Hilda Wright Subjective: * Chief Complaints: * [...] dmits. C ardiovascular: Pacemaker d enies. 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 W PW d enies. C [...] D iarrhea d enies. H ematology: Swelling a dmits. C lots d enies. V aricose Veins [...] sling , removal of bladder sling , bilateral cataract 04/2020, bladder tumor removal 12/06/2022, cystoscopy . * Family History: M other: , heart attack, diagnosed with Unspecified essential hypertension, Family history of arthritis. F ather: , heart attack, diagnosed with Unspecified essential hypertension, Family history of arthritis. M aternal uncle: stroke. S iblings: unknown, strokeheart attack- sisterkidney/liver disease- brother, diagnosed with Unspecified essential hypertension.? Nephew - defects. * Social History: T obacco Use: T obacco use other than smoking A re you an other tobacco user? N o Tobacco Control (Standard) T obacco use: F ormer smoker A dditional Findings: Tobacco non-user C urrent nonsmoker D rugs/Alcohol: D rugs H ave you [...] sedentary due to illness. Marital status: . * Medications: T aking Turmeric 400 MG [...] Tetanus Immune Globulin: Allergy. Objective: * Vitals: Assessment: Plan: * Treatment: * Images: * The named appointment provid er may or may not be the originator of this progress note, and it is not deemed complete until electronically signed by the appointment provider. Sign off status: Pending * Provider: Precious Villeda DPM Date: 0 07/13/2024 Generated for Gavi cruz/Armen/Danuta on: 07/08/2024 03:07 PM EST
[2025-05-08] VITALS (13 sets, daily range): BP systolic 100–146; BP diastolic 31–66; PULSE 75–94; RESP 12–22; TEMP 36.4–36.9; O2SAT 86–99; BMI 44.5; BMI 44.4
--- NOTE | 2025-05-08 | ECG_ITS ---
Test Reason : sob Blood Pressure : */* mmHG Vent. Rate : 90 BPM Atrial Rate : 90 BPM P-R Int : 138 ms QRS Dur : 68 ms QT Int : 382 ms P-R-T Axes : 37 21 33 degrees QTcB Int : 467 ms Normal sinus rhythm Normal ECG When compared with ECG of 23-Nov-2022 15:09, No significant change was found Referred By: Fabiola Sexton Electronically Signed By: Cameron Kirby
--- NOTE | ~2025-05-08 | XR_ITS ---
CLINICAL HISTORY: Sob 2 view chest x-ray. Comparison: 05/08/2025 Findings: No consolidation or effusion. Cardiac and mediastinal contours are stable. Bones unremarkable. Impression: 1. No acute pulmonary disease. This document has been electronically signed by: Wilbert Whelan MD on 05/11/2025 15:27:18
--- NOTE | ~2025-05-08 | XR_ITS ---
EXAMINATION: XR CHEST CLINICAL INFORMATION: sob COMPARISON: 06/22/2024. TECHNIQUE: 2 views of the chest were obtained. FINDINGS: There is mild cardiac enlargement. The mediastinal and hilar contours appear normal. There is aortic mural calcification. The lungs demonstrate patchy opacity in the right middle and lower lobe distribution. Left lung appears clear. There is no pneumothorax or pleural effusion. There is no focal osseous or soft tissue abnormality. There are degenerative changes of the shoulder joints and spine. XR/XR chest 2V IMPRESSION: 1. Mild cardiac enlargement. 2. Patchy opacities right middle lobe and lower lobe distribution, could represent pneumonia in the appropriate clinical setting. Electronically signed by: Ford Pemberton MD 05/08/2025 12:41 PM [facility]
--- NOTE | 2025-05-08 12:15 | ED.GENADULT ---
[facility] - General Adult General Chief complaint: Dyspnea Stated complaint: SOB Source: patient Mode of arrival: ambulatory Limitations: no limitations History of Present Illness ED Provider: Dr. Sexton [facility] narrative: 79-year-old female history of COPD, chronic respiratory failure on 3 L nasal cannula oxygen, lymphedema in the bilateral lower extremities, recurrent UTI, GERD, hyperlipidemia, hypertension presented to ER today for evaluation of shortness of breath. Patient stated that she has been gradually having increased shortness of breath for the past month. Yesterday she has been having episode of nausea and vomiting. She denies any abdominal pain. Denies any diarrhea. She has been complaining of balance subjective fever at home. Patient states she does follow up with shipper for her COPD. She has not been using her spirometer. Related Data Home Medications ?Medication ?Instructions ?Recorded ?Confirmed aspirin 81 mg tablet,delayed 81 mg PO DAILY 04/22/20 04/13/25 release cholecalciferol (vitamin D3) 25 25 mcg PO DAILY 04/22/20 04/13/25 mcg (1,000 unit) tablet (Vitamin D3) turmeric 400 mg capsule 500 mg PO DAILY 02/07/23 04/13/25 coenzyme Q10 100 mg capsule 300 mg PO DAILY 03/30/23 04/13/25 (CoQ-10) Previous Rx's ?Medication ?Instructions ?Recorded fluticasone propionate 50 1 spray intranasal QAM PRN allergy 06/02/21 mcg/actuation nasal symptoms 30 days #16 mL spray,suspension clotrimazole-betamethasone 1 1 appl topical BID rash 10 days 11/18/22 %-0.05 % topical cream #45 grams bariatric transport wheelchair #1 ea 02/09/23 commode (bedside commode) #1 ea 09/01/23 Transport chair #1 ea 09/30/23 estradiol 0.01% (0.1 mg/gram) See Rx Instructions .Route DAILY 06/04/24 vaginal cream 30 days #42.5 grams Mounjaro 2.5 mg/0.5 mL 2.5 mg (0.5 mL) subcut QWEEK 30 09/24/24 subcutaneous pen injector days #2 mL (tirzepatide) metoprolol succinate 50 mg 100 mg (2 x 50 mg) PO DAILY #180 12/04/24 tablet,extended release 24 hr tabs ascorbic acid (vitamin C) 1,000 mg 1 g PO DAILY 90 days #90 tabs 12/12/24 tablet methenamine hippurate 1 gram tablet 1 g PO DAILY 90 days #90 tabs 12/12/24 atorvastatin 40 mg tablet 40 mg PO BEDTIME #90 tabs 01/13/25 nitrofurantoin 100 mg PO Q12H 10 days #20 caps 01/18/25 monohydrate/macrocrystals 100 mg capsule lisinopril 10 mg tablet 10 mg PO DAILY #90 tabs 01/23/25 citalopram 20 mg tablet 30 mg (1.5 x 20 mg) PO DAILY 3 01/28/25 months #135 tabs pantoprazole 40 mg tablet,delayed 40 mg PO DAILY #90 tabs 04/11/25 release fesoterodine 8 mg tablet,extended 8 mg PO DAILY 30 days #30 tabs 04/29/25 release 24 hr furosemide 20 mg tablet 20 mg PO QAM #30 tabs 04/29/25 ipratropium 0.5 mg-albuterol 3 mg 3 ml inhalation Q4-6H PRN for 04/30/25 (2.5 mg base)/3 mL nebulization wheezing #360 mL soln Allergies Allergy/AdvReac Type Severity Reaction Status Date / Time bee pollen (bee stings) Allergy Severe Anaphylaxis Verified 05/08/25 12:14 tetanus toxoid, adsorbed Allergy Severe LOCAL Verified 05/08/25 12:14 (Tetanus Toxoid,Adsorbed) INJ.SITE SWELLING beeswax (BEESWAX) Allergy Intermediate Hives Verified 05/08/25 12:14 Iodinated Contrast Media (IV Allergy Intermediate HIVES-CAT Verified 05/08/25 12:14 Dye, Iodine Containing) SCAN DYE iodine (Iodine) Allergy Intermediate SWELLING, Verified 05/08/25 12:14 blister, hives Penicillins Allergy Intermediate SWELLING, Verified 05/08/25 12:14 hives, rash Sulfa (Sulfonamide Allergy Intermediate Hives Verified 05/08/25 12:14 Antibiotics) pneumococcal vaccine AdvReac Intermediate fever, Verified 05/08/25 12:14 chills pollen AdvReac Mild Nasal Uncoded 05/08/25 12:14 congestion Review of Systems Review of Systems: Pertinent review of systems as mentioned in HPI. All other system otherwise negative. [facility] Past Medical History [facility] Narrative: Medical history as mentioned in HPI Medical History (Updated 05/08/25 @ 15:07 by Fabiola Sexton DO) Osteoarthritis involving multiple joints on both sides of body Prediabetes Otitis media with effusion Acute respiratory disease Swelling of lower leg Respiratory failure with hypoxia Pain around toenail Hypertrophic toenail Acute bronchitis Anemia, macrocytic History of SC (myocardial infarction) Gait instability Restrictive lung disease Myocardial infarct Supplemental oxygen dependent Difficult intravenous access Intertrigo Pneumococcal vaccination declined Influenza vaccination declined NADEEM (obstructive sleep apnea) COPD (chronic obstructive pulmonary disease) Restrictive lung disease OAB (overactive bladder) Murmur Nocturnal leg cramps UTI (urinary tract infection) Endometrial cancer Immunization refused Mixed stress and urge urinary incontinence Morbid obesity Recurrent major 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 Impaired fasting glucose Dyslipidemia Osteopenia of neck of left femur Mild intermittent asthma without complication Essential hypertension Cataract Hx of gout Hx of Clostridium difficile infection Urinary incontinence Hiatal hernia GERD (gastroesophageal reflux disease) Sleep apnea, unspecified Snores Ex-smoker for more than 1 year Bladder cancer History of pneumonia Surgical History History of urologic surgery Hx of bilateral cataract extraction Cataract extraction status, right eye Hx of colonoscopy Hx of cystoscopy History of neck surgery History of vaginal hysterectomy History of bladder surgery Family History Family History Father Heart disease Mother No problems noted. Maternal Grandfather Heart disease Maternal Grandmother Heart disease Paternal Grandfather Heart disease Paternal Grandmother Heart disease Social History Social History Housing: House Are you a primary managed care coordinator to a significant other at home: No Do you presently have visiting nurse or other home services: No Alcohol intake: never Patient Tobacco Use Status: Former Tobacco user Tobacco use type: Cigarette e-Cigarette/Vaping Use: Never Used Second Hand Smoke Exposure: No Advance Directives: Yes Advance Directives on File: Yes Advance Directives Date on File: 12/21/21 Do you have a plan to hurt others: No Plan Current occupational status: disabled Cognitive needs: No Hearing needs: No Vision needs: Yes Physical Exam ED Exam Exam: General: Pleasant, no distress, interacting appropriately Head: Normacephalic, atraumatic ENT: oral mucosa moist, neck supple, no tracheal deviation Cardiovascular: regular rate, regular rhythm, no murmurs, rubbing, gallops Respiratory: CTAB, no wheeze, rales, rhonchi Gastrointestinal: Soft, non distended, non tender, non guarding Extremities: Trace edema in bilateral lower extremities Neurological: Awake and alert, no facial droop noted Skin: Warm and dry Psychiatric: Appropriate mood and thoughts Vital Signs: Vital Signs - 24 hr 05/08/25 12:13 05/08/25 13:12 05/08/25 14:35 Temperature 98.4 F Pulse Rate 94 90 75 Respiratory Rate 18 14 22 H Blood Pressure 125/47 L 123/66 Pulse Oximetry 94 94 96 Oxygen Delivery Method Nasal Cannula Nasal Cannula Nasal Cannula Oxygen Flow Rate 3 3 05/08/25 14:45 Temperature 97.7 F Pulse Rate 78 Respiratory Rate 14 Blood Pressure 100/31 L Pulse Oximetry 96 Oxygen Delivery Method Nasal Cannula Oxygen Flow Rate 3 BMI result Body Mass Index 44.5 Medications Administered Discontinued Medications Generic Name Dose Route Start Last Admin Trade Name Freq PRN Reason Stop Dose Admin Sodium Chloride 1,000 mls @ 999 mls/hr 05/08/25 12:45 05/08/25 14:24 Ns IV 05/08/25 13:45 Infused .Q1H1M ALEXIS Infusion Levofloxacin 750 mg in 150 mls @ 100 mls/hr 05/08/25 12:50 05/08/25 14:37 Levaquin IV 05/08/25 14:19 Infused ONCE ONE Infusion Ondansetron HCl 4 mg 05/08/25 12:43 05/08/25 13:07 Ondansetron Hcl 4 Mg/2 Ml Vial IVPUSH 05/08/25 12:44 4 mg ONCE ONE Administration Medical Decision Making Medical Decision Making [facility] Narrative: This is a 79-year-old female history of COPD, chronic respiratory failure 3 L nasal cannula presented hospital today for evaluation of increased dyspnea and shortness of breath for the past month or so. X-ray was obtained the patient. Basic lab work obtained the patient. BNP was obtained as well to rule out CHF. Patient has no history of CHF in the past. I reviewed patient's x-ray. She does have some infiltrate on a chest x-ray Patchy opacity in the right middle lobe and lower lobe. We will plan to cover patient with IV Levaquin. Patient has hives and swelling from penicillin. She is also allergic to sulfa antibiotic. Patient has right-sided pneumonia. I have leukocytosis at 18. Patient will be admitted to the hospital. IV Levaquin given to the patient. Differential Diagnosis Differential Diagnoses: The differential diagnosis associated with the presentation includes Pneumonia, COPD exacerbation, pulmonary edema, CHF Lab Data MDM Lab Attestation statement: I reviewed the patient's lab results. 05/08/25 13:02 05/08/25 13:02 Labs: Lab Results 05/08/25 05/08/25 Range/Units 12:55 13:02 WBC 18.8 H (4.8-10.8) X10*3/uL RBC 2.87 L (4.20-5.50) X10*6/uL Hgb 8.9 L D (12.0-16.0) g/dl Hct 28.0 L D (37.0-47.0) % MCV 97.6 (80.0-98.0) fL MCH 31.0 (27.0-33.0) pg MCHC 31.8 (31.0-35.0) g/dl RDW 16.7 H (11.0-16.0) % Plt Count 144 L (160-400) X10*3/uL MPV 10.8 (9.4-12.3) fL Immature Gran % (Auto) 4.2 H (0.0-0.4) % Neut % (Auto) 84.6 H (45-73) % Lymph % (Auto) 4.2 L (20-40) % Clarke % (Auto) 6.8 (2-11) % Eos % (Auto) 0.0 (0-4) % Baso % (Auto) 0.2 (0-2) % Lymph # (Auto) 0.8 L (1.2-4.9) X10*3/uL Clarke # (Auto) 1.3 H (0.1-1.2) X10*3/uL Eos # (Auto) 0.0 (0.0-0.4) X10*3/uL Baso # (Auto) 0.0 (0.0-0.2) X10*3/uL Abs Immat Gran (auto) 0.80 H (0.00-0.03) X10*3/uL Absolute Neuts (auto) 15.9 H (2.0-8.3) x10*3/uL Absolute Nucleated RBC 0.000 (0.0-0.012) X10*3/uL Nucleated RBC % (auto) 0.0 (0.0-0.2) /100WBC Sodium 133 L (135-145) mmol/L Potassium 3.8 D (3.3-5.1) mmol/L Chloride 93 L (96-108) mmol/L Carbon Dioxide 32 H (22-29) mmol/L Anion Gap 12 (12-20) BUN 32 H (9-16) mg/dL Creatinine 1.42 H (0.5-1.4) mg/dL Estim Creat Clear Calc 37.0 Estimated GFR 36 Random Glucose 128 H (60-115) mg/dL Lactic Acid 1.3 (0.5-2.0) mmol/L Calcium 8.7 D (8.4-10.2) mg/dL Magnesium 1.6 (1.6-2.6) mg/dL Total Bilirubin 1.6 H (0.0-1.0) mg/dL AST 19 (5-31) U/L ALT < 6 (0-31) U/L Alkaline Phosphatase 85 (39-117) U/L Troponin I High Sens 16.3 (<3.5-17.0) ng/L NT-Pro-B Natriuret Pep 5165.0 H (<300) pg/mL Total Protein 6.8 (6.5-8.0) g/dL Albumin 3.5 (3.5-5.0) g/dL Independent Interpretation I performed an independent interpretation of an: Plain X-Ray Radiology Impression Discussion of test interpretation with radiology: I have reviewed the radiologist's reading. Chronic Conditions COPD, Crhonic Respiratory Failure Critical Care Time Critical Care Time Critical Care Time: Yes Total Critical Care Time: 40 Attestation: Time is exclusive of separately billable procedures. Time includes: direct patient care, patient reassessment, coordination of patient care, interpretation of data (laboratory data, pulse oximetry, arterial blood gases and chest xrays), review of patient's medical records, medical consultation and documentation of patient care. Procedures excluded from critical care time: central intravenous line placement and electrocardiography. Discharge Plan Discharge Clinical Impression: Pneumonia, Leukocytosis Patient Disposition: Admitted As Inpatient
--- NOTE | 2025-05-08 13:05 | PC.NURSE ---
biba from home c/o increased dyspnea w/ exertion x 1 month. pt reports sx increased x yesterday. hx asthma/copd - 3L via NC baseline. pt reports multiple episodes of nausea and nonbloody vomiting w/ subjective chills. denies any chest pain/palpitations. upon ED arrival - pt a&ox4. vss and up to date. nsr on the front desk monitor. pt currently on (baseline) 3L via NC w/o difficulty. no sob/wob noted. respirations even/unlabored. 20gIV in the left wrist via EMS that remains patent/intact. pt pending scan results at this time. plan of care ongoing. call steward placed within reach.
[2025-05-08 13:08] LABS: MANUAL DIFF FLAG NO
[2025-05-08 13:09] LABS: Hematocrit 28.0 % (37.0-47.0); Hemoglobin 8.9 g/dl (12.0-16.0); Imm Gran Abs Auto 0.80 X10*3/uL (0.00-0.03); Imm Gran Pct Auto 4.2 % (0.0-0.4); Lymphocytes Absolute Auto 0.8 X10*3/uL (1.2-4.9); Mean Corpuscular HGB Conc 31.8 g/dl (31.0-35.0); Mean Corpuscular Hemoglobin 31.0 pg (27.0-33.0); Mean Corpuscular Volume 97.6 fL (80.0-98.0); NRBC Abs Auto 0.000 X10*3/uL (0.0-0.012); NRBC Pct Auto 0.0 /100WBC (0.0-0.2); Platelet Count 144 X10*3/uL (160-400); Red Blood Count 2.87 X10*6/uL (4.20-5.50); White Blood Count 18.8 X10*3/uL (4.8-10.8)
[2025-05-08 13:32] LABS: Alanine Aminotransferase < 6 U/L (0-31); Albumin Level 3.5 g/dL (3.5-5.0); Alkaline Phosphatase 85 U/L (39-117); Anion Gap 12 (12-20); Aspartate Amino Transferase 19 U/L (5-31); Blood Urea Nitrogen 32 mg/dL (9-16); Calcium 8.7 mg/dL (8.4-10.2); Carbon Dioxide 32 mmol/L (22-29); Chloride 93 mmol/L (96-108); Creatinine Clr Calc Pharmacy 37.0; Estimated Glomerular Filt Rate 36; Magnesium 1.6 mg/dL (1.6-2.6); Potassium 3.8 mmol/L (3.3-5.1); Sodium 133 mmol/L (135-145); Total Protein 6.8 g/dL (6.5-8.0)
[2025-05-08 13:34] LABS: Troponin-I High Sensitivity 16.3 ng/L (<3.5-17.0)
--- OUTSIDE RECORDS SUMMARY | 2025-05-08 15:06 | XMS_ITS | Patient Health Record ---
Author Organization [facility] Address [address] [place] [id number] Care Team Providers Care Executive Legal Secretary Name Role Phone Guillermo MURRAY, Jessica Primary Care Provider Flaco Stringer Unavailable [phone] Allergies Allergen (clinical drug ingredient) Drug/Non Drug [...] 20 MG 2 capsules Orally Once a day; Duration: 30 day(s) 08/22/2015 Active Co Q 10 [...] Problem Status W/U Status Risk Notes Problem Screening for malignant neoplasm of colon (348970881) Encounter for screening for malignant neoplasm of colon (Z12.11) Active confirmed Problem History of adenomatous polyp of colon (187219692) History of adenomatous polyp of colon (Z86.010) Active confirmed Problem Dysphagia (18851906) Other dysphagia (R13.19) Active confirmed Problem Gastroesophageal reflux disease without esophagitis (969165682) Gastroesophageal reflux disease without esophagitis (K21.9) Active confirmed Problem Preprocedural examination (502872667700390) Preprocedural examination (Z01.818) Active confirmed Problem Long-term current use of antiplatelet drug (273224018141888) Long-term use of aspirin therapy (Z79.82) Active confirmed Encounters Encounter Location Date Provider Diagnosis [facility] [address] [place] [address] 11/19/2024 Flaco Acosta Plan Of Treatment Pending Test Test Name Order Date XR BARIUM SWALLOW-ESOPHAGUS 07/30/2015 Future Test Test Name Order Date COLONOSCOPY 04/02/2011 COLONOSCOPY 01/20/2017 Insurance Providers Payer Name Payer Address Payer Phone Subscriber Number Group Number Insured Name Patient Relationship to Insured Coverage Start Date Coverage End Date MEDICARE OF [place] [address] [place] [address] [id number] GORDO BRONSON Self - patient is the insured [employer] CLAIMS [address] [place] [address] [phone] [id number] GORDO BRONSON Self - patient is the insured Medical (General) History Medical History History ICD Code Uterine cancer as below Bladder cancer--periodic cystoscopies wi th Dr. Betancourt Denies DM,CVA,Lung disease,renal disease GERD--E[place] [address] Danny wetzel--large HH; EGD in 2016 with the finding of her hiatal hernia, but no esophagitis nor Arellano's esophagus HTN Denies DM,CVA,Lung disease,renal disease Reports [place] in her 40's--no problems sinc e Hyperlipidemia [...] in Dec--bladder cancer Interstim bladder stimulator for richard bee
--- OUTSIDE RECORDS SUMMARY | 2025-05-08 15:07 | XMS_ITS | Patient Health Record ---
Author Organization [facility] Address [address] [facility] [place] [address] Care Team Providers Care Economic Manager Name Role Phone Guillermo MURRAY, Jessica Espinoza Primary Care Provider Un available Mariluz Villeda Unavailable [phone] Allergies Allergen (clinical drug ingredient) Drug/Non Drug [...] nsmoker Encounters Encounter Location Date Provider Diagnosis [facility] [address] [address] 07/03/2024 Mariluz Villeda [facility] [address] [address] 07/12/2024 Mariluz Villeda Plan Of Treatment No Information Insurance Providers Payer Name Payer Address Payer Phone Subscriber Number Group Number Insured Name Patient Relationship to Insured Coverage Start Date Coverage End Date Medicare [employer] [address] [place] [place] [id number] [phone] Morena Estrada Self - patient is the insured [facility] [address] [place] [address] Morena Estrada Self - patient is the [...]
--- NOTE | 2025-05-08 15:23 | P.HPHOSP_ITS ---
History of Present Illness Date of Service: 05/08/25 Attending physician on admission: Dontrell Carrillo Chief Complaint: SOB 79-year-old female with past medical history significant for COPD on 3 L of oxygen, who presented to the hospital for worsening shortness of breath. Patient states that she has been having worsening shortness of breath, as well as associated fevers, chills. Today began with multiple episodes of nausea and vomiting. In the ED, leukocyte count of 18.8, hemoglobin 8.9, chest x-ray with patchy opacity right middle lobe and lower lobe distribution. Patient received levofloxacin and IV fluids. Patient states that she follows up with pulmonology in outpatient setting. Review of Systems 2 Review of Systems: 14 point review of systems obtained, neg ative except as stated above. FORMERLY [facility], [facility] Medical History (Updated 05/08/25 @ 15:26 by Dontrell Carrillo MD) Osteoarthritis involving multiple joints on both sides of body Prediabetes Otitis media with effusion Acute respiratory disease Swelling of lower leg Respiratory failure with hypoxia Pain around toenail Hypertrophic toenail Acute bronchitis Anemia, macrocytic History of DC (myocardial infarction) Gait instability Restrictive lung disease Myocardial infarct Supplemental oxygen dependent Difficult intravenous access Intertrigo Pneumococcal vaccination declined Influenza vaccination declined [place] (obstructive sleep apnea) COPD (chronic obstructive pulmonary disease) Restrictive lung disease OAB (overactive bladder) Murmur Nocturnal leg cramps UTI (urinary tract infection) Endometrial cancer Immunization refused Mixed stress and urge urinary incontinence Morbid obesity Recurrent major 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 Impaired fasting glucose Dyslipidemia Osteopenia of neck of left femur Mild intermittent asthma without complication Essential hypertension Cataract Hx of gout Hx of Clostridium difficile infection Urinary incontinence Hiatal hernia GERD (gastroesophageal reflux disease) Sleep apnea, unspecified Snores Ex-smoker for more than 1 year Bladder cancer History of pneumonia Family History Father Heart disease Mother No problems noted. Maternal Grandfather Heart disease Maternal Grandmother Heart disease Paternal Grandfather Heart disease Paternal Grandmother Heart disease Surgical History History of urologic surgery Hx of bilateral cataract extraction Cataract extraction status, right eye Hx of colonoscopy Hx of cystoscopy History of neck surgery History of vaginal hysterectomy History of bladder surgery Social History Housing: House Are you a primary health care aide to a significant other at home: No Do you presently have visiting nurse or other home services: No Alcohol intake: never Patient Tobacco Use Status: Former Tobacco user Tobacco use type: Cigarette e-Cigarette/Vaping Use: Never Used Second Hand Smoke Exposure: No Advance Directives: Yes Advance Directives on File: Yes Advance Directives Date on File: 12/21/21 Do you have a plan to hurt others: No Plan Current occupational status: disabled Cognitive needs: No Hearing needs: No Vision needs: Yes Meds Allergies Allergy/AdvReac Type Severity Reaction Status Date / Time bee pollen (bee stings) Allergy Severe Anaphylaxis Verified 05/08/25 12:14 tetanus toxoid, adsorbed Allergy Severe LOCAL Verified 05/08/25 12:14 (Tetanus Toxoid,Adsorbed) INJ.SITE SWELLING beeswax (BEESWAX) Allergy Intermediate Hives Verified 05/08/25 12:14 Iodinated Contrast Media (IV Allergy Intermediate HIVES-CAT Verified 05/08/25 12:14 Dye, Iodine Containing) SCAN DYE iodine (Iodine) Allergy Intermediate SWELLING, Verified 05/08/25 12:14 blister, hives Penicillins Allergy Intermediate SWELLING, Verified 05/08/25 12:14 hives, rash Sulfa (Sulfonamide Allergy Intermediate Hives Verified 05/08/25 12:14 Antibiotics) pneumococcal vaccine AdvReac Intermediate fever, Verified 05/08/25 12:14 chills pollen AdvReac Mild Nasal Uncoded 05/08/25 12:14 congestion Active Medications: Current Medications Acetaminophen (Acetaminophen 325 Mg Tablet) 650 mg PO Q6H PRN PRN Reason: Pain, Mild 1-3,fever,headache Albuterol/Ipratropium (Albuterol/Iprat 2.5/0.5mg 3 Ml Ampul.Neb) 3 ml INHALE RQ6H ALEXIS Calcium Carbonate (Calcium Carbonate 750 Mg Tab.Chew) 750 mg PO Q4H PRN PRN Reason: Heartburn Dextrose (Dextrose 50 % 25 Gm/50 Ml Syringe) 25 gm IVPUSH Q15M PRN; Protocol PRN Reason: per Hypoglycemia Standing Ord. Glucose (Glucose Gel 15 Gm Gel..Gram.) 15 gm PO Q15M PRN; Protocol PRN Reason: per Hypoglycemia Standing Ord. Heparin Sodium (Porcine) (Heparin Sodium,Porcine 5,000 Unit/Ml Vial) 5,000 unit SUBCUT Q12H [facility] Azithromycin 500 mg/ Sodium (Chloride) 250 mls @ 125 mls/hr IV Q24H [facility] Stop: 05/13/25 14:59 Ceftriaxone Sodium 1 gm/ (Sodium Chloride) 100 mls @ 200 mls/hr IV Q24H [facility] Sodium Chloride (Ns) 1,000 mls @ 100 mls/hr IVCONT .Q10H [facility] Insulin Human Lispro (Insulin Lispro 100 Unit/Ml 3 Ml Vial) 0 unit SUBCUT QIDACHS [facility]; Protocol Magnesium Hydroxide (Milk Of Magnesia 30 Ml Oral.Susp) 30 ml PO DAILY PRN PRN Reason: Constipation Melatonin (Melatonin 3 Mg Tablet) 6 mg PO BEDTIME PRN PRN Reason: Insomnia Methylprednisolone Sodium Succinate (Methylprednisolone Sod Succ 40 Mg/Ml Vial) 40 mg IVPUSH Q6H [facility] Pantoprazole Sodium (Pantoprazole Sodium 40 Mg/10 Ml Vial) 40 mg IVPUSH DAILY@0630 [facility] Sodium Chloride (0.9 % Sodium Chloride Flush 3 Ml Syringe) 3 ml IVFLUSH QSHIFT [facility] Home Medications ?Medication ?Instructions ?Recorded ?Confirmed ?Last Taken ?Type aspirin 81 mg tablet,delayed 81 mg PO DAILY 04/22/20 1 06/03/24 History release cholecalciferol (vitamin D3) 25 25 mcg PO DAILY 04/13/25 Unknown History mcg (1,000 unit) tablet (Vitamin D3) turmeric 400 mg capsule 500 mg PO DAILY 02/07/2305/2806/03/24 History coenzyme Q10 100 mg capsule 300 mg PO DAILY 03/30/23 1 Unknown History (CoQ-10) Physical Exam 2 Vital Signs and Narrative: Vital Signs: Last Vital Signs Temp 97.7 F 05/08/25 14:45 Pulse 78 05/08/25 14:45 Resp 14 05/08/25 14:45 BP 100/31 L 05/08/25 14:45 Pulse Ox 96 05/08/25 14:45 O2 Del Method Nasal Cannula 05/08/25 14:45 O2 Flow Rate 3 05/08/25 14:45 Oxygen Flow Rate 3 05/08/25 12:13 BMI result Body Mass Index 44.5 General: AxOx3, in mild acute distress Head: AT/NC ENT: Moist mucous membranes Neck: supple CVS; RRR, S1 S2 normal Lungs: Decreased bilateral breath sounds, wheezing Abd: Soft non tender, non distended Ext: no calf tenderness MSK: moving all 4 limbs Skin: No cyanosis, mild edema Psych: Cooperative with exam Neurology: no focal deficit Results Labs 05/08/25 13:02 05/08/25 13:02 Labs: Laboratory Results - last 24 hr 05/08/25 05/08/25 12:55 13:02 MCV 97.6 MCH 31.0 MCHC 31.8 RDW 16.7 H Plt Count 144 L MPV 10.8 Immature Gran % (Auto) 4.2 H Neut % (Auto) 84.6 H Lymph % (Auto) 4.2 L [place] % (Auto) 6.8 Eos % (Auto) 0.0 Baso % (Auto) 0.2 Lymph # (Auto) 0.8 L [place] # (Auto) 1.3 H Eos # (Auto) 0.0 Baso # (Auto) 0.0 Abs Immat Gran (auto) 0.80 H Absolute Neuts (auto) 15.9 H Absolute Nucleated RBC 0.000 Nucleated RBC % (auto) 0.0 Anion Gap 12 Estim Creat Clear Calc 37.0 Estimated GFR 36 Random Glucose 128 H Lactic Acid 1.3 Calcium 8.7 D Magnesium 1.6 Total Bilirubin 1.6 H AST 19 ALT < 6 Alkaline Phosphatase 85 Troponin I High Sens 16.3 NT-Pro-B Natriuret Pep 5165.0 H Total Protein 6.8 Albumin 3.5 Imaging Radiologist's Impressions: Impressions Chest X-Ray 05/08/25 12:35 IMPRESSION: 1. Mild cardiac enlargement. 2. Patchy opacities right middle lobe and lower lobe distribution, could represent pneumonia in the appropriate clinical setting. Electronically signed by: Ford Pemberton MD 05/08/2025 12:41 PM [facility] Assessment and Plan (1) COPD (chronic obstructive pulmonary disease): Qualifiers: COPD type: unspecified COPD Qualified Code(s): J44.9 - Chronic obstructive pulmonary disease, unspecified Status: Acute (2) COPD exacerbation: Status: Acute (3) Acute and chronic respiratory failure: Qualifiers: Respiratory failure complication: hypoxia Qualified Code(s): J96.21 - Acute and chronic respiratory failure with hypoxia Status: Acute (4) Sepsis: Qualifiers: Severe sepsis acute organ dysfunction type: acute respiratory failure Status: Acute Plan Assessment: 79-year-old female with past medical history significant for COPD, who presented to the hospital for worsening shortness of breath, subjective fevers, nausea and vomiting. Impression Sepsis secondary to COPD exacerbation, Acute on chronic hypoxic respiratory failure COPD exacerbation COPD on 3L of O2 at home -labs and imaging reviewed -status post IV bolus given, patient with elevated BNP as well as mild cardiomegaly, unable to complete full sepsis bolus, we will continue with IV fluids at conservative rate -continue IVF with normal saline at 100 mL/hour -monitor and titrate oxygen for SpO2 greater than 88%, Incentive spirometer ordered -status post IV levofloxacin, we will continue with ceftriaxone and azithromycin for COPD exacerbation -we will initiate IV methylprednisolone 40 mg q.6 hours -scheduled DuoNebs as well as p.r.n. ordered -respiratory panel, sputum culture and blood cultures ordered and pending -pulmonology consulted Hyponatremia, likely secondary to decreased PO fluid intake, to consider SIADH in the stetting of MDD medications -Urine sodium, urine osmo and serum osmo ordered -IVF initiated at lower dose, given patients hypotension T2DM, chronic -we will initiate insulin sliding scale, in the setting of high-dose steroids. Depression, chronic No SI/HI at this time -restart home meds once med rec is complete FEN: NS, replete as needed, cardiac GI PPx: Protonix DVT PPx: Heparin Code Status: Full Code, however does not wish to be permanently connected to a machine Disposition: All questions and concerns with the patient were answered to satisfaction. All pertinent clinical documents, images and labs were reviewed. 75 minute spent with regarding patient admission as stated above. DISCLAIMER: This document was created using voice recognition software. Any mistakes in the prescription are unintentional. An attempt was made to focus for accuracy, but to expedite availability, some errors may persist. Please contact with any need for correction or further clarification Total time managing care of this patient today: 75 minutes. Quality Stroke Does the patient have a stroke diagnosis?: No VTE Prior VTE?: No VTE Risk Level:: Medical - moderate - high VTE Device Contraindication: N/A - Device Ordered VTE Drug Contraindication: N/A - Med Ordered
--- NOTE | 2025-05-08 16:09 | PC.NURSE ---
IVF/abx infusing per provider order. otherwise, vss and up to date. nsr on the site monitor. pt remains on baseline 3L via NC w/o difficulty - no sob/wob noted. respirations even/unlabored. pending bed assignment. plan of care ongoing. call steward placed within reach.
[2025-05-08 16:27] LABS: Osmolality, Serum 283 mosm/kg (281-305)
[2025-05-08] MEDS: Albuterol/Iprat 2.5/0.5MG 3 ML AMPUL.NEB INHALE ×2 (17:45→23:40)
[2025-05-08 18:19] LABS: Glucose, Whole Blood 125 mg/dL (60-115)
--- NOTE | 2025-05-08 18:19 | PHA.MEDREC ---
Addendum entered by Tommie Mojica, PharmD 05/08/25 19:17: MED REC CHECKED BY [facility] Original Note: Pharmacy Consult ? Medication Reconciliation Pharmacy has completed the medication reconciliation. Spoke to patient and patients spouse to confirm med list. Spouse was able to confirm all of patient medications. Patient is no longer taking Clotrimazole-Betamethasone cream and Mounjaro 2.5 mg. Patient confirmed she uses Estradiol 0.01% Vag cream 3 times a week, however she doesn't have set days she takes on.
--- NOTE | 2025-05-08 19:17 | HO.NURTONUR ---
a&ox4. vss and up to date aside from slightly soft BP. nsr on the front desk monitor. hx asthma/copd - on 3L via NC baseline as well as currently w/o difficulty. no sob/wob noted. respirations even/unlabored. cardiac diet. on sliding scale d/t hx of steroids/high blood sugar. swallows pills whole w/ water w/o difficulty. incontinent of urine/stool baseline. purewick in place. cane/walker baseline. lives at home w/ who is her sales analytics manager. 20gIV in the left wrist - NS infusing @ 100mls/hr. pt biba from home c/o increased dyspnea w/ exertion and nonproductive cough x 1 month. pt reports sx increased x yesterday. pt reports multiple episodes of nausea and nonbloody vomiting w/ subjective chills. denies any chest pain/palpitations. scans display PNA. pt will be admitted for IV abx and further evaluation. pt otherwise received multiple breathing tx in the ED w/ good effect. pending pulmonology consult. calm/cooperative/pleasant.
--- NOTE | 2025-05-08 19:37 | HO.NURTONUR ---
a&ox4. vss and up to date aside from slightly soft BP. nsr on the satellite project site monitor. hx asthma/copd - on 3L via NC baseline as well as currently w/o difficulty. no sob/wob noted. respirations even/unlabored. cardiac diet. on sliding scale d/t hx of steroids/high blood sugar. swallows pills whole w/ water w/o difficulty. incontinent of urine/stool baseline. purewick in place. cane/walker baseline. 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 20gIV in the left wrist - NS infusing @ 100mls/hr. pt biba from home c/o increased dyspnea w/ exertion and nonproductive cough x 1 month. pt reports sx increased x yesterday. pt reports multiple episodes of nausea and nonbloody vomiting w/ subjective chills. denies any chest pain/palpitations. scans display PNA. pt will be admitted for IV abx and further evaluation. pt otherwise received multiple breathing tx in the ED w/ good effect. pending pulmonology consult. calm/cooperative/pleasant.
--- NOTE | 2025-05-08 20:48 | PC.NURSE ---
1 assist stretcher to bed. mild WILSON, SPO2 desat to 86% on 3L NC. recovered quickly sitting on side of bed to 89%. sitting now in high fowlers position joking with staff. charge in room completing admission
[2025-05-08 20:58] LABS: Glucose, Whole Blood 176 mg/dL (60-115)
[2025-05-08] MEDS: 0.9 % Sodium Chloride Flush 3 ML SYRINGE IVFLUSH (21:10)
[2025-05-09] VITALS (9 sets, daily range): BP systolic 125–184; BP diastolic 60–74; PULSE 77–103; RESP 17–18; TEMP 36.2–36.7; O2SAT 89–98
[2025-05-09 07:32] LABS: Hematocrit 27.6 % (37.0-47.0); Hemoglobin 8.6 g/dl (12.0-16.0); Imm Gran Abs Auto 0.18 X10*3/uL (0.00-0.03); Imm Gran Pct Auto 1.5 % (0.0-0.4); Lymphocytes Absolute Auto 0.4 X10*3/uL (1.2-4.9); MANUAL DIFF FLAG SCAN; Mean Corpuscular HGB Conc 31.2 g/dl (31.0-35.0); Mean Corpuscular Hemoglobin 31.2 pg (27.0-33.0); Mean Corpuscular Volume 100.0 fL (80.0-98.0); NRBC Abs Auto 0.000 X10*3/uL (0.0-0.012); NRBC Pct Auto 0.0 /100WBC (0.0-0.2); Platelet Count 125 X10*3/uL (160-400); Red Blood Count 2.76 X10*6/uL (4.20-5.50); SCAN SMEAR FLAG 1; White Blood Count 11.8 X10*3/uL (4.8-10.8)
[2025-05-09 07:46] LABS: Alanine Aminotransferase < 6 U/L (0-31); Albumin Level 3.3 g/dL (3.5-5.0); Alkaline Phosphatase 80 U/L (39-117); Anion Gap 12 (12-20); Aspartate Amino Transferase 19 U/L (5-31); Blood Urea Nitrogen 32 mg/dL (9-16); Calcium 8.5 mg/dL (8.4-10.2); Carbon Dioxide 29 mmol/L (22-29); Chloride 100 mmol/L (96-108); Creatinine Clr Calc Pharmacy 49.0; Estimated Glomerular Filt Rate 49; Potassium 4.4 mmol/L (3.3-5.1); Sodium 137 mmol/L (135-145); Total Protein 6.6 g/dL (6.5-8.0)
[2025-05-09 07:49] LABS: Glucose, Whole Blood 152 mg/dL (60-115)
[2025-05-09] MEDS: 0.9 % Sodium Chloride Flush 3 ML SYRINGE IVFLUSH ×2 (08:29→14:53)
[2025-05-09 08:42] LABS: Thyroid Stimulating Hormone 0.65 uIU/mL (0.32-4.0)
[2025-05-09 09:42] LABS: Chlamydia pneumoniae PCR Not Detected (Not Detect.); Coronavirus 229E PCR Not Detected (Not Detect.); Coronavirus HKU1 PCR Not Detected (Not Detect.); Coronavirus NL63 PCR Not Detected (Not Detect.); Coronavirus OC43 PCR Not Detected (Not Detect.); RSV PCR Not Detected (Not Detect.); Rhino/Enterovirus PCR Not Detected (Not Detect.)
--- NOTE | 2025-05-09 10:20 | P.CONPL_ITS ---
History of Present Illness History of Present Illness Consult date: 05/09/25 Chief complaint: Dyspnea Narrative: 79-year-old lady with underlying COPD and NADEEM/ohs on oxygen 2-3 L, morbid obesity, CAD admitted on 05/08/2025 with progressive shortness of. On ER evaluation patient was deemed to be in COPD exacerbation secondary to community- acquired pneumonia and started on empiric treatment. Patient complains of significantly worsening orthopnea and lower extremity edema. Review of Systems 2 Constitutional: Constitutional: Denies daytime sleepiness, Denies excessive sweating, Denies fatigue, Denies fever(s), Denies lethargy, Denies malaise, Denies night sweats, Denies snoring and Denies weight loss Eyes: Eyes: Denies blurry vision and Denies itchy eyes ENT: Denies nasal congestion, Denies post nasal drip, Denies sinus pain, Denies sinus pressure and Denies other ( Thrush) Cardiovascular: Cardiovascular: Denies chest pain, Reports pedal edema, Reports dyspnea, Reports dyspnea on exertion, Reports orthopnea and Reports paroxysmal nocturnal dyspnea Respiratory: Respiratory: Denies cough, Denies hemoptysis, Denies excessive phlegm production, Reports dyspnea, Reports dyspnea on exertion, Denies snoring and Denies wheezing Gastrointestinal: Gastrointestinal: Denies abdominal pain and Denies heartburn Musculoskeletal: Musculoskeletal: Denies myalgias, Denies arthralgias and Denies joint swelling Integumentary/Breasts: Skin/Breast: Denies rash Neurologic: Denies memory loss and Denies seizure-like activity Psychiatric: Psychiatric: Denies abnormal sleep pattern, Denies anxiety and Denies memory loss Endocrine: Endocrine: Denies excessive sweating, Denies fatigue and Denies heat intolerance Hematologic/Lymphatic: Hematologic/Lymphatic: Denies easy bruising Allergic/Immunologic: Allergic/Immunologic: Denies itchy eyes, Denies seasonal rhinorrhea and Denies wheezing PMFSH Past Medical History Medical History (Updated 05/09/25 @ 10:41 by Fadi Vicente MD) Osteoarthritis involving multiple joints on both sides of body Prediabetes Otitis media with effusion Acute respiratory disease Swelling of lower leg Respiratory failure with hypoxia Pain around toenail Hypertrophic toenail Acute bronchitis Anemia, macrocytic History of DC (myocardial infarction) Gait instability Restrictive lung disease Myocardial infarct Supplemental oxygen dependent Difficult intravenous access Intertrigo Pneumococcal vaccination declined Influenza vaccination declined NADEEM (obstructive sleep apnea) COPD (chronic obstructive pulmonary disease) Restrictive lung disease OAB (overactive bladder) Murmur Nocturnal leg cramps UTI (urinary tract infection) Endometrial cancer Immunization refused Mixed stress and urge urinary incontinence Morbid obesity Recurrent major 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 Impaired fasting glucose Dyslipidemia Osteopenia of neck of left femur Mild intermittent asthma without complication Essential hypertension Cataract Hx of gout Hx of Clostridium difficile infection Urinary incontinence Hiatal hernia GERD (gastroesophageal reflux disease) Sleep apnea, unspecified Snores Ex-smoker for more than 1 year Bladder cancer History of pneumonia Family History Family History Father Heart disease Mother No problems noted. Maternal Grandfather Heart disease Maternal Grandmother Heart disease Paternal Grandfather Heart disease Paternal Grandmother Heart disease Surgical History Surgical History History of urologic surgery Hx of bilateral cataract extraction Cataract extraction status, right eye Hx of colonoscopy Hx of cystoscopy History of neck surgery History of vaginal hysterectomy History of bladder surgery Social History Social History Household Members: Family Housing: House Are you a primary home care nurse to a significant other at home: No Do you presently have visiting nurse or other home services: No Alcohol intake: never Patient Tobacco Use Status: Former Tobacco user Tobacco use type: Cigarette e-Cigarette/Vaping Use: Never Used Second Hand Smoke Exposure: No Advance Directives Date on File: 12/21/21 Current occupational status: disabled Cognitive needs: No Hearing needs: No Vision needs: Yes Meds Allergies Allergy/AdvReac Type Severity Reaction Status Date / Time bee pollen (bee stings) Allergy Severe Anaphylaxis Verified 05/08/25 12:14 tetanus toxoid, adsorbed Allergy Severe LOCAL Verified 05/08/25 12:14 (Tetanus Toxoid,Adsorbed) INJ.SITE SWELLING beeswax (BEESWAX) Allergy Intermediate Hives Verified 05/08/25 12:14 Iodinated Contrast Media (IV Allergy Intermediate HIVES-CAT Verified 05/08/25 12:14 Dye, Iodine Containing) SCAN DYE iodine (Iodine) Allergy Intermediate SWELLING, Verified 05/08/25 12:14 blister, hives Penicillins Allergy Intermediate SWELLING, Verified 05/08/25 12:14 hives, rash Sulfa (Sulfonamide Allergy Intermediate Hives Verified 05/08/25 12:14 Antibiotics) pneumococcal vaccine AdvReac Intermediate fever, Verified 05/08/25 12:14 chills pollen AdvReac Mild Nasal Uncoded 05/08/25 12:14 congestion Active Medications: Current Medications Acetaminophen (Acetaminophen 325 Mg Tablet) 650 mg PO Q6H PRN PRN Reason: Pain, Mild 1-3,fever,headache Albuterol/Ipratropium (Albuterol/Iprat 2.5/0.5mg 3 Ml Ampul.Neb) 3 ml INHALE RQ6H [facility] Last Admin: 05/09/25 05:24 Dose: Not Given Calcium Carbonate (Calcium Carbonate 750 Mg Tab.Chew) 750 mg PO Q4H PRN PRN Reason: Heartburn Dextrose (Dextrose 50 % 25 Gm/50 Ml Syringe) 25 gm IVPUSH Q15M PRN; Protocol PRN Reason: per Hypoglycemia Standing Ord. Glucose (Glucose Gel 15 Gm Gel..Gram.) 15 gm PO Q15M PRN; Protocol PRN Reason: per Hypoglycemia Standing Ord. Heparin Sodium (Porcine) (Heparin Sodium,Porcine 5,000 Unit/Ml Vial) 5,000 unit SUBCUT Q12H [facility] Last Admin: 05/09/25 03:39 Dose: 5,000 unit Azithromycin 500 mg/ Sodium (Chloride) 250 mls @ 125 mls/hr IV Q24H [facility] Stop: 05/13/25 14:59 Last Infusion: 05/08/25 17:53 Dose: Infused Ceftriaxone Sodium 1 gm/ (Sodium Chloride) 50 mls @ 100 mls/hr IV Q24H [facility] Insulin Human Lispro (Insulin Lispro 100 Unit/Ml 3 Ml Vial) 0 unit SUBCUT QIDACHS [facility]; Protocol Last Admin: 05/09/25 08:28 Dose: 2 unit Magnesium Hydroxide (Milk Of Magnesia 30 Ml Oral.Susp) 30 ml PO DAILY PRN PRN Reason: Constipation Melatonin (Melatonin 3 Mg Tablet) 6 mg PO BEDTIME PRN PRN Reason: Insomnia Last Admin: 05/08/25 21:09 Dose: 6 mg Methylprednisolone Sodium Succinate (Methylprednisolone Sod Succ 40 Mg/Ml Vial) 40 mg IVPUSH Q6H [facility] Last Admin: 05/09/25 08:27 Dose: 40 mg Pantoprazole Sodium (Pantoprazole Sodium 40 Mg/10 Ml Vial) 40 mg IVPUSH DAILY@0630 [facility] Last Admin: 05/09/25 06:12 Dose: 40 mg Sodium Chloride (0.9 % Sodium Chloride Flush 3 Ml Syringe) 3 ml IVFLUSH QSHIFT [facility] Last Admin: 05/09/25 08:29 Dose: 3 ml Home Medications ?Medication ?Instructions ?Recorded ?Confirmed ?Last Taken ?Type aspirin 81 mg tablet,delayed 81 mg PO DAILY 04/22/20 1 07/08/24 05/08/25 History release cholecalciferol (vitamin D3) 25 25 mcg PO DAILY 05/08/25 05/08/25 History mcg (1,000 unit) tablet (Vitamin D3) turmeric 400 mg capsule 500 mg PO DAILY 02/07/2311/2505/08/25 History coenzyme Q10 100 mg capsule 300 mg PO DAILY 03/30/23 1 07/08/24 05/08/25 History (CoQ-10) docusate sodium 100 mg capsule 100 mg PO DAILY 5 05/08/25 05/07/25 History estradiol 0.01% (0.1 mg/gram) 1 appl vaginal 3XW 05/0805/08/25 Unknown History vaginal cream furosemide 20 mg tablet 20 mg PO DAILY 05/08/2511/2505/08/25 History pantoprazole 40 mg tablet,delayed 40 mg PO DAILY@0630 05/08/25 05/08/25 05/08/25 History release Physical Exam 2 Vital Signs: Vital Signs: Last Vital Signs Temp 98.1 F 05/09/25 08:00 Pulse 77 05/09/25 08:00 Resp 18 05/09/25 08:00 BP 150/67 H 05/09/25 08:00 Pulse Ox 95 05/09/25 08:00 O2 Del Method Nasal Cannula 05/09/25 08:00 O2 Flow Rate 2 05/09/25 08:00 Oxygen Flow Rate 3 05/08/25 12:13 BMI result Body Mass Index 44.4 Const: General: no acute distress, alert and awake Nutritional Appearance: obese Eyes: Sclerae: sclerae normal EOM: EOMs intact bilaterally Neck: Neck: Yes no lymphadenopathy, Yes trachea midline and Yes supple Resp: Effort & Inspection: normal respiratory effort and no respiratory distress Auscultation: clear to auscultation bilaterally Cardio: Rate: regular rate Rhythm: regular rhythm Heart sounds: no gallops, no murmurs and no rubs GI: Palpation (GI): Soft to palpation and Other GI palpation findings present ( Nontender) Auscultation: normal bowel sounds Extrem: General: No clubbing, No cyanosis and Yes edema (2+ bilateral) Results Laboratory Findings 05/09/25 07:03 05/09/25 07:03 Abnormal lab findings: Abnormal Labs 05/08/25 05/08/25 05/08/25 13:02 18:04 20:54 WBC 18.8 H RBC 2.87 L Hgb 8.9 L D Hct 28.0 L D MCV RDW 16.7 H Plt Count 144 L Immature Gran % (Auto) 4.2 H Neut % (Auto) 84.6 H Lymph % (Auto) 4.2 L Isabella % (Auto) Lymph # (Auto) 0.8 L Isabella # (Auto) 1.3 H Abs Immat Gran (auto) 0.80 H Absolute Neuts (auto) 15.9 H Sodium 133 L Chloride 93 L Carbon Dioxide 32 H BUN 32 H Creatinine 1.42 H POC Glucose 125 H 176 H Random Glucose 128 H Total Bilirubin 1.6 H NT-Pro-B Natriuret Pep 5165.0 H Albumin 05/09/25 05/09/25 07:03 07:11 WBC 11.8 H RBC 2.76 L Hgb 8.6 L Hct 27.6 L MCV 100.0 H RDW 16.4 H Plt Count 125 L Immature Gran % (Auto) 1.5 H Neut % (Auto) 93.1 H Lymph % (Auto) 3.5 L Isabella % (Auto) 1.8 L Lymph # (Auto) 0.4 L Isabella # (Auto) Abs Immat Gran (auto) 0.18 H Absolute Neuts (auto) 10.9 H Sodium Chloride Carbon Dioxide BUN 32 H Creatinine POC Glucose 152 H Random Glucose 159 H Total Bilirubin NT-Pro-B Natriuret Pep Albumin 3.3 L Microbiology: Microbiology 05/08/25 13:02 Blood - Venous Blood Culture - Preliminary Prelim: GNR Gram Stain only Assessment and Plan (1) COPD (chronic obstructive pulmonary disease): Qualifiers: COPD type: unspecified COPD Qualified Code(s): J44.9 - Chronic obstructive pulmonary disease, unspecified Status: Acute (2) Restrictive lung disease: Status: Acute (3) Acute and chronic respiratory failure: Qualifiers: Respiratory failure complication: hypoxia Qualified Code(s): J96.21 - Acute and chronic respiratory failure with hypoxia Status: Acute (4) NADEEM (obstructive sleep apnea): Status: Acute Plan Impression: 79-year-old lady with underlying COPD, NADEEM/ohs, on supplemental oxygen 2-3 L admitted with worsening dyspnea associated with orthopnea and lower extremity edema and empirically treated for community-acquired pneumonia/COPD exacerbation. Recommendations: Does not appear to have an acute COPD exacerbation, would consider discontinuation of systemic glucocorticoids. Agree with empiric coverage for community-acquired pneumonia. Also, suggest additional diuresis. Procedures Date of Service Date of Service: 05/09/25
--- NOTE | 2025-05-09 10:49 | MHC.CM.PN ---
IMM 05/09/25, Pt. lives with her Brittney, who is also her HCP. PCP confirmed: Jessica Li MD. She does not have home health aid services. For DME, she has a transport w/c that she uses when she goes to the [place], a cane and home O2 from [employer]. DCP: home with services, will need assistance with transport home at DC, CM to follow for DC needs.
[2025-05-09 10:53] LABS: Influenza A H1 PCR Not Detected (Not Detect.); Influenza A H1-2009 PCR Not Detected (Not Detect.); Influenza A H3 PCR Not Detected (Not Detect.); SARS-CoV-2 PCR Not Detected (Not Detect.)
[2025-05-09] MEDS: Albuterol/Iprat 2.5/0.5MG 3 ML AMPUL.NEB INHALE ×2 (11:34→18:38)
[2025-05-09] MEDS: Furosemide 40 MG/4 ML VIAL 60 MG IVPUSH (12:20)
[2025-05-09 12:23] LABS: Glucose, Whole Blood 146 mg/dL (60-115)
--- NOTE | 2025-05-09 13:00 | CA_ITS ---
Transthoracic Echocardiogram Patient (Last, First, Middle): Morena Estrada P Gender: Female Date of : 1945 Age: 79 Procedure Date: 05/09/2025 Procedure Type: Transthoracic Echocardiogram Location: [facility] [place] Height: 157.48 cm Weight: 109.77 kg BSA: 2.07 m2 Heart Rate: bpm BP: 150 / 67 mmHg Supervisor [employer]: LIZANDRO Referring MD: Dontrell Carrillo MD Symptoms: HF Study Quality: Adequate w contrast Conclusions: - Normal left ventricular size and systolic function. There is mildly increased left ventricular wall thickness. The visually estimated ejection fraction is between 65-70%. - Elevated filling pressures. - Normal right ventricular cavity size and systolic function. - MG across mitral valve of 8 mm Hg at HR 98/min. - There is moderate mitral annular calcification. - Mildly elevated right atrial pressure. Findings Procedure Information Contrast agent, definity, is being given per protocol without apparent complications. Left Ventricle Normal left ventricular size and systolic function. There is mildly increased left ventricular wall thickness. The visually estimated ejection fraction is between 65-70%. There is no evidence of regional wall motion abnormalities. Abnormal diastolic function is noted. Spectral Doppler is indicative of a pseudonormal filling pattern. Elevated filling pressures. Right Ventricle Normal right ventricular cavity size and systolic function. Atria The left atrium is mildly dilated. The right atrium is mildly dilated. Aortic Valve The aortic valve was not well visualized. There is no aortic valve stenosis. There is no aortic valve regurgitation. Mitral Valve There is moderate mitral annular calcification. There is no mitral valve regurgitation. MG across mitral valve of 8 mm Hg at HR 98/min. Tricuspid Valve Normal tricuspid valve structure. There is trace tricuspid valve regurgitation. Tricuspid regurgitation envelope is inadequate for calculation of right ventricular systolic pressure. Mildly elevated right atrial pressure. Great Vessels All visible segments of the aorta are normal in size. Venous The inferior vena cava is dilated and collapses greater than 50% with inspiration. Pericardium/Pleural Prominent epicardial adipose tissue noted. There is no evidence of pericardial effusion. Prior Study Comparison No prior study available for comparison. Measurements 2D Linear Measurements IVSd: 1.14 0.6-0.9/0.6-1.0 cm LVIDd: 3.66 3.9-5.3/4.2-5.9 cm LVIDd Index: 1.77 2.4-3.2/2.2-3.1 cm/m2 LVIDs: 2.40 2.0-3.6 cm LVPWd: 1.21 0.7-1.1 cm LA Diam: 4.30 2.7-3.8/3.0-4.0 cm LAIDs Index: 2.08 1.5-2.3 cm/m2 LV Mass: 174.78 67-162/88-224 g LV Mass Index: 84.43 43-95/49-115 g/m2 LVOT Diam: 1.80 3.0+(-)1.3 cm 2D Systolic Function EF 4C: 68.30 >55% EF 2C: 65.90 >55% EF BiP: 66.90 >55% Mitral Valve MV VTI: 0.36 MV Pk Sven: 2.00 MV Mn Sven: 1.27 MV Pk Grad: 16.00 MV Mn Grad: 8.00 MV Pk E: 1.45 MV PK A: 1.42 MV Decel Time: 157.00 E/A: 1.00 E'Lateral: 7.94 E'Medial: 7.51 E/E' Med: 19.30 E/E' Lat: 18.30 PHT: 46.00 MVA PHT: 4.78 MVA Continuity: 1.80 Decel Winkler: 9.27 Aortic Valve AoV Pk Sven: 1.68 AoV Mn Sven: 1.14 AoV VTI: 0.36 AoV Pk Grad: 11.00 Aov Mn Grad: 6.00 PAMELA Cont.VTI: 1.82 LVOT LVOT Pk Sven: 1.12 LVOT Mn Sven: 0.77 LVOT VTI: 0.26 LVOT Pk Grad: 5.00 LVOT Mn Grad: 3.00 LVOT Diam: 1.80 LVOT Area: 2.54 Diastolic Function MV Pk E: 1.45 MV Pk A: 1.42 E/A: 1.00 E'Medial: 7.51 E/E' Med: 19.30 E' Laterial: 7.94 E/E' Lat: 18.30 Right Ventricle TAPSE (mm): 22.40 TVS' Sven: 13.40 Tricuspid Valve RA Press: 8.00 Great Vessels Aorta Sinus of Valsalva: 2.70 2.0-3.5 cm Ao Asc: 2.80 2.1-3.4 cm Pulmonary Valve PV Pk Sven: 1.17 Peak PV Grad: 5.00 Updated in Other Vendor System with Status of Final Cameron Kirby MD electronically signed on 05/11/2025 3:19:00 PM with status of Final
--- NOTE | 2025-05-09 15:09 | HO.PM.IMPN ---
Subjective Subjective Date of Service: 05/09/25 Interval History: Patient seen and examined at bedside this morning, patient states that she is feeling better, breathing has improved. Pending respiratory panel results, white count decreased to 11.8, spoke with pulmonology, suggested on diuresing. Incentive spirometer ordered. Review of Systems Review of Systems: Yes all other systems are reviewed and are negative Physical Exam Exam: Exam: General: AxOx3, No acute distress Head: AT/NC ENT: Moist mucous membranes Neck: supple CVS; RRR, S1 S2 normal Lungs: Decreased bilateral breath sounds, mild wheezing Abd: Soft non tender, non distended Ext: No edema and no calf tenderness MSK: moving all 4 limbs Skin: No cyanosis or edema Psych: Cooperative with exam Neurology: no focal deficit Vital Signs: Vital Signs: Last Vital Signs Temp 97.7 F 05/09/25 12:00 Pulse 103 H 05/09/25 12:00 Resp 18 05/09/25 12:00 BP 167/74 H 05/09/25 12:00 Pulse Ox 95 05/09/25 12:00 O2 Del Method Nasal Cannula 05/09/25 12:00 O2 Flow Rate 3 05/09/25 12:00 Oxygen Flow Rate 3 05/08/25 12:13 BMI result Body Mass Index 44.4 Objective Data Active Medications Acetaminophen (Acetaminophen 325 Mg Tablet) 650 mg PO Q6H PRN PRN Reason: Pain, Mild 1-3,fever,headache Albuterol/Ipratropium (Albuterol/Iprat 2.5/0.5mg 3 Ml Ampul.Neb) 3 ml INHALE RQ6H [facility] Last Admin: 05/09/25 11:34 Dose: 3 ml Documented By: RAULITO Ascorbic Acid (Ascorbic Acid 500 Mg Tablet) 1,000 mg PO DAILY [facility] Aspirin (Aspirin Enteric Coated 81 Mg Tablet.Dr) 81 mg PO DAILY [facility] Atorvastatin Calcium (Atorvastatin Calcium 40 Mg Tablet) 40 mg PO BEDTIME [facility] Calcium Carbonate (Calcium Carbonate 750 Mg Tab.Chew) 750 mg PO Q4H PRN PRN Reason: Heartburn Dextrose (Dextrose 50 % 25 Gm/50 Ml Syringe) 25 gm IVPUSH Q15M PRN; Protocol PRN Reason: per Hypoglycemia Standing Ord. Docusate Sodium (Docusate Sodium 100 Mg Capsule) 100 mg PO DAILY [facility] Escitalopram Oxalate (Escitalopram Oxalate 10 Mg Tablet) 15 mg PO DAILY [facility] Furosemide (Furosemide 100 Mg/10 Ml Vial) 60 mg IVPUSH BID@0900,1800 [facility]; Protocol Glucose (Glucose Gel 15 Gm Gel..Gram.) 15 gm PO Q15M PRN; Protocol PRN Reason: per Hypoglycemia Standing Ord. Heparin Sodium (Porcine) (Heparin Sodium,Porcine 5,000 Unit/Ml Vial) 5,000 unit SUBCUT Q12H [facility] Last Admin: 05/09/25 14:53 Dose: 5,000 unit Documented By: GERALD Azithromycin 500 mg/ Sodium (Chloride) 250 mls @ 125 mls/hr IV Q24H [facility] Stop: 05/13/25 14:59 Last Infusion: 05/09/25 15:03 Dose: 0 mls/hr Documented By: GERALD Ceftriaxone Sodium 1 gm/ (Sodium Chloride) 50 mls @ 100 mls/hr IV Q24H [facility] Insulin Human Lispro (Insulin Lispro 100 Unit/Ml 3 Ml Vial) 0 unit SUBCUT QIDACHS [facility]; Protocol Last Admin: 05/09/25 12:20 Dose: Not Given Documented By: GERALD Non-Admin Reason: No Insulin Coverage Lisinopril (Lisinopril 10 Mg Tablet) 10 mg PO DAILY [facility]; Protocol Magnesium Hydroxide (Milk Of Magnesia 30 Ml Oral.Susp) 30 ml PO DAILY PRN PRN Reason: Constipation Melatonin (Melatonin 3 Mg Tablet) 6 mg PO BEDTIME PRN PRN Reason: Insomnia Last Admin: 05/08/25 21:09 Dose: 6 mg Documented By: STEVE Methylprednisolone Sodium Succinate (Methylprednisolone Sod Succ 40 Mg/Ml Vial) 40 mg IVPUSH Q6H [facility] Last Admin: 05/09/25 14:52 Dose: 40 mg Documented By: GERALD Non-Formulary Medication (Estradiol) 1 appl VAGINAL 3XW [facility] Non-Formulary Medication (Fesoterodine) 8 mg PO DAILY [facility] Omeprazole (Omeprazole 20 Mg Capsule.Dr) 20 mg PO DAILY@0630 [facility] Pantoprazole Sodium (Pantoprazole Sodium 40 Mg/10 Ml Vial) 40 mg IVPUSH DAILY@0630 [facility] Last Admin: 05/09/25 06:12 Dose: 40 mg Documented By: ELIZABETH Sodium Chloride (0.9 % Sodium Chloride Flush 3 Ml Syringe) 3 ml IVFLUSH QSHIFT [facility] Last Admin: 05/09/25 14:53 Dose: 3 ml Documented By: GERALD Vitamin D (Cholecalciferol (Vitamin D3) 25 Mcg Tablet) 25 mcg PO DAILY [facility] Labs 05/09/25 07:03 05/09/25 07:03 Labs: Laboratory Results - last 24 hr 05/08/25 05/08/25 05/08/25 16:07 16:25 18:04 MCV MCH MCHC RDW Plt Count MPV Immature Gran % (Auto) Neut % (Auto) Lymph % (Auto) [place] % (Auto) Eos % (Auto) Baso % (Auto) Lymph # (Auto) [place] # (Auto) Eos # (Auto) Baso # (Auto) Abs Immat Gran (auto) Absolute Neuts (auto) Absolute Nucleated RBC Nucleated RBC % (auto) Smear Tech's Comments Anion Gap Estim Creat Clear Calc Estimated GFR POC Glucose 125 H Random Glucose Osmolality 283 Calcium Total Bilirubin AST ALT Alkaline Phosphatase Total Protein Albumin TSH Urine Osmolality Ur Random Sodium Respiratory Panel Tobias See Note Adenovirus (Rapid PCR) Not Detected B.pert (TEM-PCR) Not Detected B.parapertussis DNA PCR Not Detected C. pneumoniae DNA (PCR) Not Detected Coronavirus OC43 (PCR) Not Detected Coronavirus HKU1 (PCR) Not Detected Coronavirus 229E (PCR) Not Detected Coronavirus NL63 (PCR) Not Detected Human Metapneumovir PCR Not Detected Influenza A (RT-PCR) Not Detected Influenza A (H1) PCR Not Detected Influ A (H1/09) PCR Not Detected Influenza A (H3) PCR Not Detected Influenza B (RT-PCR) Not Detected M. pneumoniae (PCR) Not Detected Parainfluenza 1 (PCR) Not Detected Parainfluenza 2 (PCR) Not Detected Parainfluenza 3 (PCR) Not Detected Parainfluenza 4 (PCR) Not Detected RSV (PCR) Not Detected Entero/Rhino (PCR) Not Detected SARS-CoV-2 RNA (RT-PCR) Not Detected 05/08/25 05/08/25 05/09/25 18:15 20:54 07:03 MCV 100.0 H MCH 31.2 MCHC 31.2 RDW 16.4 H Plt Count 125 L MPV 11.4 Immature Gran % (Auto) 1.5 H Neut % (Auto) 93.1 H Lymph % (Auto) 3.5 L [place] % (Auto) 1.8 L Eos % (Auto) 0.0 Baso % (Auto) 0.1 Lymph # (Auto) 0.4 L [place] # (Auto) 0.2 Eos # (Auto) 0.0 Baso # (Auto) 0.0 Abs Immat Gran (auto) 0.18 H Absolute Neuts (auto) 10.9 H Absolute Nucleated RBC 0.000 Nucleated RBC % (auto) 0.0 Smear Tech's Comments VERIFIED Anion Gap 12 Estim Creat Clear Calc 49.0 Estimated GFR 49 POC Glucose 176 H Random Glucose 159 H Osmolality Calcium 8.5 Total Bilirubin 0.6 AST 19 ALT < 6 Alkaline Phosphatase 80 Total Protein 6.6 Albumin 3.3 L TSH 0.65 Urine Osmolality 428 Ur Random Sodium < 20.0 Respiratory Panel Tobias Adenovirus (Rapid PCR) B.pert (TEM-PCR) B.parapertussis DNA PCR C. pneumoniae DNA (PCR) Coronavirus OC43 (PCR) Coronavirus HKU1 (PCR) Coronavirus 229E (PCR) Coronavirus NL63 (PCR) Human Metapneumovir PCR Influenza A (RT-PCR) Influenza A (H1) PCR Influ A (H1/09) PCR Influenza A (H3) PCR Influenza B (RT-PCR) M. pneumoniae (PCR) Parainfluenza 1 (PCR) Parainfluenza 2 (PCR) Parainfluenza 3 (PCR) Parainfluenza 4 (PCR) RSV (PCR) Entero/Rhino (PCR) SARS-CoV-2 RNA (RT-PCR) 05/09/25 05/09/25 07:11 12:19 MCV MCH MCHC RDW Plt Count MPV Immature Gran % (Auto) Neut % (Auto) Lymph % (Auto) [place] % (Auto) Eos % (Auto) Baso % (Auto) Lymph # (Auto) [place] # (Auto) Eos # (Auto) Baso # (Auto) Abs Immat Gran (auto) Absolute Neuts (auto) Absolute Nucleated RBC Nucleated RBC % (auto) Smear Tech's Comments Anion Gap Estim Creat Clear Calc Estimated GFR POC Glucose 152 H 146 H Random Glucose Osmolality Calcium Total Bilirubin AST ALT Alkaline Phosphatase Total Protein Albumin TSH Urine Osmolality Ur Random Sodium Respiratory Panel Tobias Adenovirus (Rapid PCR) B.pert (TEM-PCR) B.parapertussis DNA PCR C. pneumoniae DNA (PCR) Coronavirus OC43 (PCR) Coronavirus HKU1 (PCR) Coronavirus 229E (PCR) Coronavirus NL63 (PCR) Human Metapneumovir PCR Influenza A (RT-PCR) Influenza A (H1) PCR Influ A (H1/09) PCR Influenza A (H3) PCR Influenza B (RT-PCR) M. pneumoniae (PCR) Parainfluenza 1 (PCR) Parainfluenza 2 (PCR) Parainfluenza 3 (PCR) Parainfluenza 4 (PCR) RSV (PCR) Entero/Rhino (PCR) SARS-CoV-2 RNA (RT-PCR) Microbiology Microbiology Results: Microbiology 05/08/25 13:02 Blood Culture - Preliminary Blood - Venous No growth after 24 hours. 05/08/25 13:02 Blood Culture - Preliminary Blood - Venous Prelim: GNR Gram Stain only Assessment and Plan (1) Sepsis: Status: Acute (2) COPD (chronic obstructive pulmonary disease): Status: Acute (3) COPD exacerbation: Status: Acute (4) Acute and chronic respiratory failure: Status: Acute Plan Assessment: 79-year-old female with past medical history significant for COPD, who presented to the hospital for worsening shortness of breath, subjective fevers, nausea and vomiting. Impression Sepsis secondary to COPD exacerbation, improvement Acute on chronic hypoxic respiratory failure COPD exacerbation COPD on 3L of O2 at home -labs and imaging reviewed -status post IV bolus given, patient with elevated BNP as well as mild cardiomegaly, unable to complete full sepsis bolus, IVF discontinued -monitor and titrate oxygen for SpO2 greater than 88%, Incentive spirometer ordered -status post IV levofloxacin, we will continue with ceftriaxone and azithromycin for COPD exacerbation -continue IV methylprednisolone 40 mg q.6 hours -scheduled DuoNebs as well as p.r.n. ordered -respiratory panel negative -pulmonology consulted Cardiomegaly -TTE ordered -continue IV lasix Hyponatremia, likely secondary to decreased PO fluid intake, resolved -s/p IVFluids T2DM, chronic -continue insulin sliding scale, in the setting of high-dose steroids. Depression, chronic No SI/HI at this time -continue home meds FEN: NI, replete as needed, cardiac GI PPx: Protonix DVT PPx: Heparin Code Status: Full Code, however does not wish to be permanently connected to a machine Disposition: All questions and concerns with the patient were answered to satisfaction. All pertinent clinical documents, images and labs were reviewed. DISCLAIMER: This document was created using voice recognition software. Any mistakes in the prescription are unintentional. An attempt was made to focus for accuracy, but to expedite availability, some errors may persist. Please contact with any need for correction or further clarification Total time managing care of this patient today: 55 minutes. Quality Stroke Does the patient have a stroke diagnosis?: No VTE Prior VTE?: No VTE Risk Level:: Medical - moderate - high VTE Device Contraindication: N/A - Device Ordered VTE Drug Contraindication: N/A - Med Ordered
[2025-05-09 16:07] LABS: Glucose, Whole Blood 169 mg/dL (60-115)
[2025-05-09] MEDS: Furosemide 100 MG/10 ML VIAL 60 MG IVPUSH (18:04)
[2025-05-09 20:51] LABS: Glucose, Whole Blood 186 mg/dL (60-115)
[2025-05-10] VITALS (11 sets, daily range): BP systolic 115–177; BP diastolic 61–73; PULSE 90–102; RESP 16–20; TEMP 36.3–37; O2SAT 92–98; BMI 46.0
[2025-05-10] MEDS: Albuterol/Iprat 2.5/0.5MG 3 ML AMPUL.NEB INHALE ×3 (06:20→19:27)
[2025-05-10 07:12] LABS: MANUAL DIFF FLAG NO
[2025-05-10 07:24] LABS: Hematocrit 41.8 % (37.0-47.0); Hemoglobin 13.0 g/dl (12.0-16.0); Imm Gran Abs Auto 0.06 X10*3/uL (0.00-0.03); Imm Gran Pct Auto 1.1 % (0.0-0.4); Lymphocytes Absolute Auto 0.3 X10*3/uL (1.2-4.9); Mean Corpuscular HGB Conc 31.1 g/dl (31.0-35.0); Mean Corpuscular Hemoglobin 30.5 pg (27.0-33.0); Mean Corpuscular Volume 98.1 fL (80.0-98.0); NRBC Abs Auto 0.000 X10*3/uL (0.0-0.012); NRBC Pct Auto 0.0 /100WBC (0.0-0.2); Red Blood Count 4.26 X10*6/uL (4.20-5.50); White Blood Count 5.3 X10*3/uL (4.8-10.8)
[2025-05-10 07:25] LABS: Platelet Count 81 X10*3/uL (160-400)
[2025-05-10 07:48] LABS: Glucose, Whole Blood 165 mg/dL (60-115)
[2025-05-10] MEDS: 0.9 % Sodium Chloride Flush 3 ML SYRINGE IVFLUSH ×3 (08:30→21:59)
[2025-05-10] MEDS: Furosemide 100 MG/10 ML VIAL 60 MG IVPUSH ×2 (08:41→18:23)
[2025-05-10] MEDS: Aspirin Enteric Coated 81 MG TABLET.DR PO (08:43)
--- NOTE | 2025-05-10 09:37 | MHC.CM.PN ---
Addendum entered by Aimee Solorzano 05/10/25 14:28: EMR REVIEWED AND PER MD ROUNDS, PATIENT IS NOT MEDICALLY CLEARED FOR DISCHARGE DUE TO MANAGEMENT OF SEPSIS/COPD EXACERBATION. Original Note: EMR REVIEWED, PT/OT EVALUATED PATIENT AND RECOMMENDED STR. THIS CM MET WITH PATIENT TO DISCUSS STR AND PROVIDED A LIST OF SNF OPTIONS PRINTED FROM [facility] FOR PATIENT TO REVIEW. PER PATIENT SHE DOES NOT WANT TO GO TO STR, BUT WILL LOOK AT THE LIST. CM WILL CONTINUE TO FOLLOW.
--- NOTE | 2025-05-10 11:13 | P.CDIM_ITS ---
PROVIDER RESPONSE TEXT: To clarify, the appropriate diagnosis supported by the clinical indicators: Obesity Due to excess calories QUERY TEXT: PHYSICIAN'S DOCUMENTATION REQUEST Date of Query: 05/10/2025 11:05 AM EST Patient Name: Morena Estrada Admit Date: 05/08/2025 Dear Dontrell Carrillo MD, A review of the medical record indicates additional documentation may be needed. Please review below and update the documentation accordingly. Clinical Indicators: Height: ( ) 5'2 Weight: ( ) 114 kg BMI: ( ) 46.0 Other Clinical Notes Supporting Significance of the BMI: per pulmonary consult 05/09/25 Morbid obesity /ohs If possible, please provide an associated diagnosis related to the abnormal BMI, such as: Overweight Obesity Due to excess calories Obesity Drug induced Obesity Due to other cause Specify the other cause Severe or Morbid Obesity With alveolar hypoventilation Severe or Morbid Obesity Without alveolar hypoventilation BMI is not significant Other (explain) Clinically unable to determine (explain) Thank you, María Elena Lama RN Use of terms such as suspected, likely, concern for, or probable (associated with a specific diagnosis that is being evaluated, monitored, or treated as if it exists) are acceptable and can be coded in the inpatient setting, when documented at the time of discharge. Please use your independent medical judgment in providing your response. THIS QUERY IS PART OF THE PERMANENT MEDICAL RECORD
[2025-05-10 11:59] LABS: Glucose, Whole Blood 153 mg/dL (60-115)
--- NOTE | 2025-05-10 13:52 | HO.PM.IMPN ---
Subjective Subjective Date of Service: 05/10/25 Interval History: Patient seen examined at bedside this morning, since breathing has improved, continues to have diuresis, at this time with negative fluid balance. Leukocytosis resolved. Patient does mentioned that she is having episodes of anxiety. Review of Systems Review of Systems: Yes all other systems are reviewed and are negative Physical Exam Exam: Exam: General: AxOx3, No acute distress Head: AT/NC ENT: Moist mucous membranes Neck: supple CVS; RRR, S1 S2 normal Lungs: Clear bilateral breath sounds, no wheezes or crackles Abd: Soft non tender, non distended Ext: No edema and no calf tenderness MSK: moving all 4 limbs Skin: No cyanosis or edema Psych: Cooperative with exam, anxious Neurology: no focal deficit Vital Signs: Vital Signs: Last Vital Signs Temp 98.2 F 05/10/25 12:00 Pulse 98 05/10/25 12:00 Resp 18 05/10/25 12:00 BP 142/61 H 05/10/25 12:00 Pulse Ox 95 05/10/25 12:00 O2 Del Method Nasal Cannula 05/10/25 12:00 O2 Flow Rate 3 05/10/25 12:00 Oxygen Flow Rate 3 05/08/25 12:13 BMI result Body Mass Index 46.0 Objective Data Active Medications Acetaminophen (Acetaminophen 325 Mg Tablet) 650 mg PO Q6H PRN PRN Reason: Pain, Mild 1-3,fever,headache Last Admin: 05/09/25 20:56 Dose: 650 mg Documented By: ELIZABETH Albuterol/Ipratropium (Albuterol/Iprat 2.5/0.5mg 3 Ml Ampul.Neb) 3 ml INHALE RQ6H [facility] Last Admin: 05/10/25 11:33 Dose: 3 ml Documented By: GARY Ascorbic Acid (Ascorbic Acid 500 Mg Tablet) 1,000 mg PO DAILY [facility] Last Admin: 05/10/25 08:42 Dose: 1,000 mg Documented By: CHRISTIANO Aspirin (Aspirin Enteric Coated 81 Mg Tablet.) 81 mg PO DAILY [facility] Last Admin: 05/10/25 08:43 Dose: 81 mg Documented By: CHRISTIANO Atorvastatin Calcium (Atorvastatin Calcium 40 Mg Tablet) 40 mg PO BEDTIME [facility] Last Admin: 05/09/25 20:56 Dose: 40 mg Documented By: ELIZABETH Calcium Carbonate (Calcium Carbonate 750 Mg Tab.Chew) 750 mg PO Q4H PRN PRN Reason: Heartburn Dextrose (Dextrose 50 % 25 Gm/50 Ml Syringe) 25 gm IVPUSH Q15M PRN; Protocol PRN Reason: per Hypoglycemia Standing Ord. Docusate Sodium (Docusate Sodium 100 Mg Capsule) 100 mg PO DAILY [facility] Last Admin: 05/10/25 08:43 Dose: 100 mg Documented By: CHRISTIANO Escitalopram Oxalate (Escitalopram Oxalate 10 Mg Tablet) 15 mg PO DAILY [facility] Last Admin: 05/10/25 08:42 Dose: 15 mg Documented By: CHRISTIANO Furosemide (Furosemide 100 Mg/10 Ml Vial) 60 mg IVPUSH BID@0900,1800 [facility]; Protocol Last Admin: 05/10/25 08:41 Dose: 60 mg Documented By: CHRISTIANO Glucose (Glucose Gel 15 Gm Gel..Gram.) 15 gm PO Q15M PRN; Protocol PRN Reason: per Hypoglycemia Standing Ord. Heparin Sodium (Porcine) (Heparin Sodium,Porcine 5,000 Unit/Ml Vial) 5,000 unit SUBCUT Q12H [facility] Last Admin: 05/10/25 03:11 Dose: 5,000 unit Documented By: ELIZABETH Hydroxyzine HCl (Hydroxyzine Hcl 10 Mg Tablet) 10 mg PO Q6H PRN PRN Reason: Anxiety Azithromycin 500 mg/ Sodium (Chloride) 250 mls @ 125 mls/hr IV Q24H [facility] Stop: 05/13/25 14:59 Last Infusion: 05/09/25 18:45 Dose: Infused Documented By: ELIZABETH Ceftriaxone Sodium 1 gm/ (Sodium Chloride) 50 mls @ 100 mls/hr IV Q24H [facility] Last Infusion: 05/10/25 09:53 Dose: Infused Documented By: CHRISTIANO Insulin Human Lispro (Insulin Lispro 100 Unit/Ml 3 Ml Vial) 0 unit SUBCUT QIDACHS [facility]; Protocol Last Admin: 05/10/25 12:06 Dose: 2 unit Documented By: JAY Lisinopril (Lisinopril 10 Mg Tablet) 10 mg PO DAILY [facility]; Protocol Last Admin: 05/10/25 08:43 Dose: 10 mg Documented By: CHRISTIANO Magnesium Hydroxide (Milk Of Magnesia 30 Ml Oral.Susp) 30 ml PO DAILY PRN PRN Reason: Constipation Melatonin (Melatonin 3 Mg Tablet) 6 mg PO BEDTIME PRN PRN Reason: Insomnia Last Admin: 05/09/25 20:56 Dose: 6 mg Documented By: ELIZABETH Methylprednisolone Sodium Succinate (Methylprednisolone Sod Succ 40 Mg/Ml Vial) 40 mg IVPUSH Q8H [facility] Pt Owned (Estradiol 0.01 % (0.1 Mg/Gram) Cream) 1 appl VAGINAL MoWeFr [facility] Pt Owned Med ( Fesoterodine 8mg Extended Tablets) 1 each PO DAILY [facility] Omeprazole (Omeprazole 20 Mg Capsule.Dr) 20 mg PO DAILY@629 [facility] Last Admin: 05/10/25 05:56 Dose: Not Given Documented By: ELIZABETH Non-Admin Reason: Duplicate Order Pantoprazole Sodium (Pantoprazole Sodium 40 Mg/10 Ml Vial) 40 mg IVPUSH DAILY@629 [facility] Last Admin: 05/10/25 06:15 Dose: 40 mg Documented By: ELIZABETH Sodium Chloride (0.9 % Sodium Chloride Flush 3 Ml Syringe) 3 ml IVFLUSH QSHIFT [facility] Last Admin: 05/10/25 03:15 Dose: Not Given Documented By: ELIZABETH Non-Admin Reason: Previously Administered Sodium Chloride (Sodium Chloride 0.65 % Nasal 44 Ml Sprbtl) 1 spray NOSTRIL-B Q6H PRN PRN Reason: Dry Nasal Passages Vitamin D (Cholecalciferol (Vitamin D3) 25 Mcg Tablet) 25 mcg PO DAILY [facility] Last Admin: 05/10/25 08:43 Dose: 25 mcg Documented By: CHRISTIANO Labs 05/10/25 06:49 05/09/25 07:03 Labs: Laboratory Results - last 24 hr 05/09/25 05/09/25 05/10/25 15:58 20:48 06:49 MCV 98.1 H MCH 30.5 MCHC 31.1 RDW 16.0 Plt Count 81 L D MPV 11.4 Immature Gran % (Auto) 1.1 H Neut % (Auto) 89.2 H Lymph % (Auto) 6.5 L [place] % (Auto) 3.2 Eos % (Auto) 0.0 Baso % (Auto) 0.0 Lymph # (Auto) 0.3 L [place] # (Auto) 0.2 Eos # (Auto) 0.0 Baso # (Auto) 0.0 Abs Immat Gran (auto) 0.06 H Absolute Neuts (auto) 4.7 Absolute Nucleated RBC 0.000 Nucleated RBC % (auto) 0.0 POC Glucose 169 H 186 H 05/10/25 05/10/25 07:22 11:52 MCV MCH MCHC RDW Plt Count MPV Immature Gran % (Auto) Neut % (Auto) Lymph % (Auto) [place] % (Auto) Eos % (Auto) Baso % (Auto) Lymph # (Auto) [place] # (Auto) Eos # (Auto) Baso # (Auto) Abs Immat Gran (auto) Absolute Neuts (auto) Absolute Nucleated RBC Nucleated RBC % (auto) POC Glucose 165 H 153 H Microbiology Microbiology Results: Microbiology 05/08/25 13:02 Blood Culture - Preliminary Blood - Venous Gram negative chace 05/08/25 13:02 Blood Culture - Preliminary Blood - Venous No growth after 24 hours. Assessment and Plan (1) Sepsis: Status: Acute (2) COPD exacerbation: Status: Acute (3) Acute and chronic respiratory failure: Status: Acute Plan Assessment: 79-year-old female with past medical history significant for COPD, who presented to the hospital for worsening shortness of breath, subjective fevers, nausea and vomiting. Impression Sepsis secondary to COPD exacerbation, improving Acute on chronic hypoxic respiratory failure, improving COPD exacerbation, improving COPD on 3L of O2 at home -labs and imaging reviewed -status post IV bolus given, patient with elevated BNP as well as mild cardiomegaly, unable to complete full sepsis bolus, IVF discontinued -monitor and titrate oxygen for SpO2 greater than 88%, Incentive spirometer ordered -status post IV levofloxacin, we will continue with ceftriaxone and azithromycin for COPD exacerbation -decrease IV methylprednisolone 40 mg to q8 hours -scheduled DuoNebs as well as p.r.n. ordered -respiratory panel negative -pulmonology consulted Cardiomegaly -TTE ordered -continue IV lasix Hyponatremia, likely secondary to decreased PO fluid intake, resolved -s/p IVFluids T2DM, chronic -continue insulin sliding scale, in the setting of high-dose steroids. Depression, chronic No SI/HI at this time -continue home meds FEN: NI, replete as needed, cardiac GI PPx: Protonix DVT PPx: Heparin Code Status: Full Code, however does not wish to be permanently connected to a machine Disposition: All questions and concerns with the patient were answered to satisfaction. All pertinent clinical documents, images and labs were reviewed. DISCLAIMER: This document was created using voice recognition software. Any mistakes in the prescription are unintentional. An attempt was made to focus for accuracy, but to expedite availability, some errors may persist. Please contact with any need for correction or further clarification Total time managing care of this patient today: 55 minutes. Quality Stroke Does the patient have a stroke diagnosis?: No VTE Prior VTE?: No VTE Risk Level:: Medical - moderate - high VTE Device Contraindication: N/A - Device Ordered VTE Drug Contraindication: N/A - Med Ordered
[2025-05-10 16:27] LABS: Glucose, Whole Blood 146 mg/dL (60-115)
[2025-05-10 20:40] LABS: Glucose, Whole Blood 149 mg/dL (60-115)
[2025-05-11] VITALS (11 sets, daily range): BP systolic 136–178; BP diastolic 58–84; PULSE 82–120; RESP 16–20; TEMP 36.2–36.9; O2SAT 94–98; BMI 44.4
--- NOTE | 2025-05-11 | ECG_ITS ---
Test Reason : sinus tachy Blood Pressure : */* mmHG Vent. Rate : 114 BPM Atrial Rate : 114 BPM P-R Int : 148 ms QRS Dur : 80 ms QT Int : 330 ms P-R-T Axes : 49 27 45 degrees QTcB Int : 454 ms Sinus tachycardia with Premature supraventricular complexes Nonspecific ST abnormality Abnormal ECG When compared with ECG of 08-May-2025 12:40, Premature supraventricular complexes are now Present Referred By: Dontrell Carrillo Electronically Signed By: Cameron Kirby
[2025-05-11 05:41] LABS: Hematocrit 28.3 % (37.0-47.0); Hemoglobin 9.0 g/dl (12.0-16.0); Imm Gran Abs Auto 0.12 X10*3/uL (0.00-0.03); Imm Gran Pct Auto 1.6 % (0.0-0.4); Lymphocytes Absolute Auto 0.4 X10*3/uL (1.2-4.9); MANUAL DIFF FLAG NO; Mean Corpuscular HGB Conc 31.8 g/dl (31.0-35.0); Mean Corpuscular Hemoglobin 30.6 pg (27.0-33.0); Mean Corpuscular Volume 96.3 fL (80.0-98.0); NRBC Abs Auto 0.000 X10*3/uL (0.0-0.012); NRBC Pct Auto 0.0 /100WBC (0.0-0.2); PLT CLUMP 1; Red Blood Count 2.94 X10*6/uL (4.20-5.50); SCAN SMEAR FLAG 1; White Blood Count 7.5 X10*3/uL (4.8-10.8)
[2025-05-11 05:57] LABS: Platelet Count 152 X10*3/uL (160-400)
[2025-05-11] MEDS: Albuterol/Iprat 2.5/0.5MG 3 ML AMPUL.NEB INHALE ×3 (07:38→18:55)
[2025-05-11 08:01] LABS: Glucose, Whole Blood 133 mg/dL (60-115)
[2025-05-11] MEDS: 0.9 % Sodium Chloride Flush 3 ML SYRINGE IVFLUSH ×2 (08:20→17:03)
[2025-05-11] MEDS: Furosemide 100 MG/10 ML VIAL 60 MG IVPUSH ×2 (08:20→17:03)
[2025-05-11] MEDS: Aspirin Enteric Coated 81 MG TABLET.DR PO (08:21)
[2025-05-11 11:42] LABS: Glucose, Whole Blood 138 mg/dL (60-115)
--- NOTE | 2025-05-11 13:03 | P.PNIM_ITS ---
Subjective Subjective Date of Service: 05/11/25 Interval History: Patient seen examined at bedside this morning, patient states that she has feeling agitated, patient overnight was tachycardic, as well as elevated blood pressure. Patient mentioned that her breathing has improved, continues with swelling in lower extremities. Review of Systems Review of Systems: Yes all other systems are reviewed and are negative Physical Exam 2 Exam: Exam: General: AxOx3, No acute distress Head: AT/NC ENT: Moist mucous membranes Neck: supple CVS; RRR, S1 S2 normal Lungs: Clear bilateral breath sounds, no wheezes or crackles Abd: Soft non tender, non distended Ext: No calf tenderness MSK: moving all 4 limbs Skin: No cyanosis, lower extremity edema, improving Psych: Cooperative with exam Neurology: no focal deficit Vital Signs: Vital Signs: Last Vital Signs Temp 97.3 F 05/11/25 11:46 Pulse 116 H 05/11/25 11:46 Resp 20 05/11/25 11:46 BP 150/72 H 05/11/25 11:46 Pulse Ox 96 05/11/25 11:46 O2 Del Method Nasal Cannula 05/11/25 11:46 O2 Flow Rate 3 05/11/25 11:46 Oxygen Flow Rate 3 05/08/25 12:13 BMI result Body Mass Index 44.4 Objective Data Active Medications Acetaminophen (Acetaminophen 325 Mg Tablet) 650 mg PO Q6H PRN PRN Reason: Pain, Mild 1-3,fever,headache Last Admin: 05/09/25 20:56 Dose: 650 mg Documented By: ELIZABETH Albuterol/Ipratropium (Albuterol/Iprat 2.5/0.5mg 3 Ml Ampul.Neb) 3 ml INHALE RQ6H WHILE AWAKE [facility] Last Admin: 05/11/25 07:38 Dose: 3 ml Documented By: JANEE Ascorbic Acid (Ascorbic Acid 500 Mg Tablet) 1,000 mg PO DAILY [facility] Last Admin: 05/11/25 08:22 Dose: 1,000 mg Documented By: ONEIDA Aspirin (Aspirin Enteric Coated 81 Mg Tablet.) 81 mg PO DAILY [facility] Last Admin: 05/11/25 08:21 Dose: 81 mg Documented By: ONEIDA Atorvastatin Calcium (Atorvastatin Calcium 40 Mg Tablet) 40 mg PO BEDTIME [facility] Last Admin: 05/10/25 21:58 Dose: 40 mg Documented By: NILSON Calcium Carbonate (Calcium Carbonate 750 Mg Tab.Chew) 750 mg PO Q4H PRN PRN Reason: Heartburn Dextrose (Dextrose 50 % 25 Gm/50 Ml Syringe) 25 gm IVPUSH Q15M PRN; Protocol PRN Reason: per Hypoglycemia Standing Ord. Docusate Sodium (Docusate Sodium 100 Mg Capsule) 100 mg PO DAILY [facility] Last Admin: 05/11/25 08:21 Dose: 100 mg Documented By: ONEIDA Escitalopram Oxalate (Escitalopram Oxalate 10 Mg Tablet) 15 mg PO DAILY [facility] Last Admin: 05/11/25 08:21 Dose: 15 mg Documented By: ONEIDA Furosemide (Furosemide 100 Mg/10 Ml Vial) 60 mg IVPUSH BID@0900,1800 [facility]; Protocol Last Admin: 05/11/25 08:20 Dose: 60 mg Documented By: ONEIDA Glucose (Glucose Gel 15 Gm Gel..Gram.) 15 gm PO Q15M PRN; Protocol PRN Reason: per Hypoglycemia Standing Ord. Heparin Sodium (Porcine) (Heparin Sodium,Porcine 5,000 Unit/Ml Vial) 5,000 unit SUBCUT Q12H [facility] Last Admin: 05/11/25 02:31 Dose: 5,000 unit Documented By: NILSON Hydroxyzine HCl (Hydroxyzine Hcl 10 Mg Tablet) 10 mg PO Q6H PRN PRN Reason: Anxiety Azithromycin 500 mg/ Sodium (Chloride) 250 mls @ 125 mls/hr IV Q24H [facility] Stop: 05/13/25 14:59 Last Infusion: 05/10/25 17:57 Dose: Infused Documented By: CHRISTIANO Ceftriaxone Sodium 1 gm/ (Sodium Chloride) 50 mls @ 100 mls/hr IV Q24H [facility] Last Infusion: 05/11/25 09:18 Dose: Infused Documented By: ONEIDA Insulin Human Lispro (Insulin Lispro 100 Unit/Ml 3 Ml Vial) 0 unit SUBCUT QIDACHS [facility]; Protocol Last Admin: 05/11/25 11:48 Dose: Not Given Documented By: ONEIDA Non-Admin Reason: No Insulin Coverage Lisinopril (Lisinopril 10 Mg Tablet) 10 mg PO DAILY [facility]; Protocol Last Admin: 05/11/25 08:21 Dose: 10 mg Documented By: ONEIDA Magnesium Hydroxide (Milk Of Magnesia 30 Ml Oral.Susp) 30 ml PO DAILY PRN PRN Reason: Constipation Melatonin (Melatonin 3 Mg Tablet) 6 mg PO BEDTIME PRN PRN Reason: Insomnia Last Admin: 05/09/25 20:56 Dose: 6 mg Documented By: ELIZABETH Methylprednisolone Sodium Succinate (Methylprednisolone Sod Succ 40 Mg/Ml Vial) 40 mg IVPUSH BID [facility] Metoprolol Succinate (Metoprolol Succinate Er 100 Mg Tab.Er.24h) 100 mg PO DAILY [facility]; Protocol Pt Owned (Estradiol 0.01 % (0.1 Mg/Gram) Cream) 1 appl VAGINAL MoWeFr [facility] Last Admin: 05/10/25 15:33 Dose: Not Given Documented By: CHRISTIANO Non-Admin Reason: dont have the applicator needed Pt Owned Med ( Fesoterodine 8mg Extended Tablets) 1 each PO DAILY [facility] Last Admin: 05/11/25 08:24 Dose: 1 each Documented By: ONEIDA Omeprazole (Omeprazole 20 Mg Capsule.Dr) 20 mg PO DAILY@629 [facility] Last Admin: 05/11/25 06:30 Dose: Not Given Documented By: NILSON Non-Admin Reason: Duplicate Order Pantoprazole Sodium (Pantoprazole Sodium 40 Mg/10 Ml Vial) 40 mg IVPUSH DAILY@629 [facility] Last Admin: 05/11/25 06:28 Dose: 40 mg Documented By: NILSON Sodium Chloride (0.9 % Sodium Chloride Flush 3 Ml Syringe) 3 ml IVFLUSH QSHIFT [facility] Last Admin: 05/11/25 08:20 Dose: 3 ml Documented By: ONEIDA Sodium Chloride (Sodium Chloride 0.65 % Nasal 44 Ml Sprbtl) 1 spray NOSTRIL-B Q6H PRN PRN Reason: Dry Nasal Passages Vitamin D (Cholecalciferol (Vitamin D3) 25 Mcg Tablet) 25 mcg PO DAILY [facility] Last Admin: 05/11/25 08:22 Dose: 25 mcg Documented By: ONEIDA Labs 05/11/25 05:33 05/09/25 07:03 Labs: Laboratory Results - last 24 hr 11/07/25 11/07/25 11/08/25 16:23 20:25 05:33 MCV 96.3 MCH 30.6 MCHC 31.8 RDW 16.0 Plt Count 152 L D MPV 10.3 Immature Gran % (Auto) 1.6 H Neut % (Auto) 89.3 H Lymph % (Auto) 5.7 L Tompkins % (Auto) 3.3 Eos % (Auto) 0.0 Baso % (Auto) 0.1 Lymph # (Auto) 0.4 L Tompkins # (Auto) 0.3 Eos # (Auto) 0.0 Baso # (Auto) 0.0 Abs Immat Gran (auto) 0.12 H Absolute Neuts (auto) 6.7 Absolute Nucleated RBC 0.000 Nucleated RBC % (auto) 0.0 POC Glucose 146 H 149 H 05/11/25 05/11/25 07:53 11:38 MCV MCH MCHC RDW Plt Count MPV Immature Gran % (Auto) Neut % (Auto) Lymph % (Auto) Tompkins % (Auto) Eos % (Auto) Baso % (Auto) Lymph # (Auto) Tompkins # (Auto) Eos # (Auto) Baso # (Auto) Abs Immat Gran (auto) Absolute Neuts (auto) Absolute Nucleated RBC Nucleated RBC % (auto) POC Glucose 133 H 138 H Microbiology Microbiology Results: Microbiology 05/10/25 14:42 Gram Stain - Final Sputum - Expectorated Sputum Culture - Preliminary Culture in progress. 05/08/25 13:02 Blood Culture - Final Blood - Venous Escherichia coli 05/08/25 13:02 Blood Culture - Preliminary Blood - Venous No growth after 48 hours. Assessment and Plan (1) Sepsis: Status: Acute (2) COPD (chronic obstructive pulmonary disease): Status: Acute (3) Acute and chronic respiratory failure: Status: Acute Plan Assessment: 79-year-old female with past medical history significant for COPD, who presented to the hospital for worsening shortness of breath, subjective fevers, nausea and vomiting. Impression Sepsis secondary to COPD exacerbation, improving Acute on chronic hypoxic respiratory failure, improving COPD exacerbation, improving COPD on 3L of O2 at home -labs and imaging reviewed -status post IV bolus given, patient with elevated BNP as well as mild cardiomegaly, unable to complete full sepsis bolus, IVF discontinued -monitor and titrate oxygen for SpO2 greater than 88%, Incentive spirometer ordered -status post IV levofloxacin, respiratory panel negative, will dc ceftriaxone today and azithromycin tomorrow due to it's anti-inflammatory effects. -decrease IV methylprednisolone 40 mg to q12 hours -scheduled DuoNebs as well as p.r.n. ordered -pulmonology consulted Cardiomegaly Sinus tachy -TTE ordered -EKG ordered -continue IV lasix, will restart metoprolol -cardiology consulted T2DM, chronic -continue insulin sliding scale, in the setting of high-dose steroids. Depression, chronic No SI/HI at this time -continue home meds FEN: NI, replete as needed, cardiac GI PPx: Protonix DVT PPx: Heparin Code Status: Full Code, however does not wish to be permanently connected to a machine Disposition: All questions and concerns with the patient were answered to satisfaction. All pertinent clinical documents, images and labs were reviewed. DISCLAIMER: This document was created using voice recognition software. Any mistakes in the prescription are unintentional. An attempt was made to focus for accuracy, but to expedite availability, some errors may persist. Please contact with any need for correction or further clarification Total time managing care of this patient today: 55 minutes. Quality Stroke Does the patient have a stroke diagnosis?: No VTE Prior VTE?: No VTE Risk Level:: Medical - moderate - high VTE Device Contraindication: N/A - Device Ordered VTE Drug Contraindication: N/A - Med Ordered
[2025-05-11 16:29] LABS: Glucose, Whole Blood 124 mg/dL (60-115)
--- NOTE | 2025-05-11 18:13 | PM.EVENT ---
Event Note Date of Service: 05/11/25 Event Note: Per staff, patient experience generalized erythema and redness after receiving labetalol dose, we will give diphenhydramine and closely monitor. Patient is on IV steroids. Time Spent With Patient Time: Total time managing care of this patient today ____ minutes.
[2025-05-11 21:18] LABS: Glucose, Whole Blood 117 mg/dL (60-115)
[2025-05-12] VITALS (9 sets, daily range): BP systolic 130–170; BP diastolic 58–70; PULSE 89–110; RESP 16–20; TEMP 36.4–36.8; O2SAT 93–98; BMI 45.2
[2025-05-12 07:45] LABS: Glucose, Whole Blood 132 mg/dL (60-115)
[2025-05-12] MEDS: Albuterol/Iprat 2.5/0.5MG 3 ML AMPUL.NEB INHALE ×2 (08:01→13:54)
[2025-05-12] MEDS: Metoprolol Succinate ER 100 MG TAB.ER.24H PO (09:35)
[2025-05-12] MEDS: Aspirin Enteric Coated 81 MG TABLET.DR PO (09:35)
[2025-05-12] MEDS: 0.9 % Sodium Chloride Flush 3 ML SYRINGE IVFLUSH ×3 (09:36→20:52)
[2025-05-12] MEDS: Furosemide 100 MG/10 ML VIAL 60 MG IVPUSH (09:36)
[2025-05-12 11:19] LABS: Glucose, Whole Blood 104 mg/dL (60-115)
--- NOTE | 2025-05-12 12:13 | P.PNIM_ITS ---
Subjective Subjective Date of Service: 05/12/25 Interval History: Patient seen and examined at bedside this morning, patient yesterday had episode of generalized erythema, as well as tachycardia. The patient was given labetalol. Labetalol discontinued, placed on diphenhydramine. Patient states that she is feeling better. Review of Systems Review of Systems: Yes all other systems are reviewed and are negative Physical Exam 2 Exam: Exam: General: AxOx3, No acute distress Head: AT/NC ENT: Moist mucous membranes Neck: supple CVS; RRR, S1 S2 normal Lungs: Clear bilateral breath sounds, no wheezes or crackles Abd: Soft non tender, non distended Ext: No edema and no calf tenderness MSK: moving all 4 limbs Skin: No cyanosis or edema Psych: Cooperative with exam Neurology: no focal deficit Vital Signs: Vital Signs: Last Vital Signs Temp 98.3 F 05/12/25 10:51 Pulse 93 05/12/25 10:51 Resp 18 05/12/25 10:51 BP 132/68 05/12/25 10:51 Pulse Ox 98 05/12/25 10:51 O2 Del Method Nasal Cannula 05/12/25 10:51 O2 Flow Rate 2 05/12/25 10:51 Oxygen Flow Rate 3 05/08/25 12:13 BMI result Body Mass Index 45.2 Objective Data Active Medications Acetaminophen (Acetaminophen 325 Mg Tablet) 650 mg PO Q6H PRN PRN Reason: Pain, Mild 1-3,fever,headache Last Admin: 05/09/25 20:56 Dose: 650 mg Documented By: ELIZABETH Albuterol/Ipratropium (Albuterol/Iprat 2.5/0.5mg 3 Ml Ampul.Neb) 3 ml INHALE RQ6H WHILE AWAKE [facility] Last Admin: 05/12/25 08:01 Dose: 3 ml Documented By: NANCY Ascorbic Acid (Ascorbic Acid 500 Mg Tablet) 1,000 mg PO DAILY [facility] Last Admin: 05/12/25 09:35 Dose: 1,000 mg Documented By: ONEIDA Aspirin (Aspirin Enteric Coated 81 Mg Tablet.) 81 mg PO DAILY [facility] Last Admin: 05/12/25 09:35 Dose: 81 mg Documented By: ONEIDA Atorvastatin Calcium (Atorvastatin Calcium 40 Mg Tablet) 40 mg PO BEDTIME [facility] Last Admin: 05/11/25 22:14 Dose: 40 mg Documented By: SALEEM Calcium Carbonate (Calcium Carbonate 750 Mg Tab.Chew) 750 mg PO Q4H PRN PRN Reason: Heartburn Dextrose (Dextrose 50 % 25 Gm/50 Ml Syringe) 25 gm IVPUSH Q15M PRN; Protocol PRN Reason: per Hypoglycemia Standing Ord. Docusate Sodium (Docusate Sodium 100 Mg Capsule) 100 mg PO DAILY [facility] Last Admin: 05/12/25 09:34 Dose: 100 mg Documented By: ONEIDA Escitalopram Oxalate (Escitalopram Oxalate 10 Mg Tablet) 15 mg PO DAILY [facility] Last Admin: 05/12/25 09:34 Dose: 15 mg Documented By: ONEIDA Furosemide (Furosemide 100 Mg/10 Ml Vial) 60 mg IVPUSH BID@0900,1800 [facility]; Protocol Last Admin: 05/12/25 09:36 Dose: 60 mg Documented By: ONEIDA Glucose (Glucose Gel 15 Gm Gel..Gram.) 15 gm PO Q15M PRN; Protocol PRN Reason: per Hypoglycemia Standing Ord. Heparin Sodium (Porcine) (Heparin Sodium,Porcine 5,000 Unit/Ml Vial) 5,000 unit SUBCUT Q12H [facility] Last Admin: 05/12/25 03:37 Dose: 5,000 unit Documented By: SALEEM Hydroxyzine HCl (Hydroxyzine Hcl 10 Mg Tablet) 10 mg PO Q6H PRN PRN Reason: Anxiety Last Admin: 05/12/25 09:36 Dose: 10 mg Documented By: ONEIDA Azithromycin 500 mg/ Sodium (Chloride) 250 mls @ 125 mls/hr IV Q24H [facility] Stop: 05/13/25 14:59 Last Infusion: 05/11/25 19:05 Dose: Infused Documented By: SALEEM Insulin Human Lispro (Insulin Lispro 100 Unit/Ml 3 Ml Vial) 0 unit SUBCUT QIDACHS [facility]; Protocol Last Admin: 05/12/25 11:22 Dose: Not Given Documented By: ONEIDA Non-Admin Reason: No Insulin Coverage Comments: POC 104 Lisinopril (Lisinopril 10 Mg Tablet) 10 mg PO DAILY [facility]; Protocol Last Admin: 05/12/25 09:36 Dose: 10 mg Documented By: ONEIDA Magnesium Hydroxide (Milk Of Magnesia 30 Ml Oral.Susp) 30 ml PO DAILY PRN PRN Reason: Constipation Melatonin (Melatonin 3 Mg Tablet) 6 mg PO BEDTIME PRN PRN Reason: Insomnia Last Admin: 05/09/25 20:56 Dose: 6 mg Documented By: ELIZABETH Methylprednisolone Sodium Succinate (Methylprednisolone Sod Succ 40 Mg/Ml Vial) 40 mg IVPUSH BID [facility] Last Admin: 05/12/25 09:36 Dose: 40 mg Documented By: ONEIDA Metoprolol Succinate (Metoprolol Succinate Er 100 Mg Tab.Er.24h) 100 mg PO DAILY [facility]; Protocol Last Admin: 05/12/25 09:35 Dose: 100 mg Documented By: ONEIDA Pt Owned (Estradiol 0.01 % (0.1 Mg/Gram) Cream) 1 appl VAGINAL MoWeFr [facility] Last Admin: 05/10/25 15:33 Dose: Not Given Documented By: CHRISTIANO Non-Admin Reason: dont have the applicator needed Pt Owned Med ( Fesoterodine 8mg Extended Tablets) 1 each PO DAILY [facility] Last Admin: 05/12/25 09:38 Dose: 1 each Documented By: ONEIDA Omeprazole (Omeprazole 20 Mg Capsule.Dr) 20 mg PO DAILY@0630 [facility] Last Admin: 05/12/25 06:14 Dose: Not Given Documented By: SALEEM Non-Admin Reason: Duplicate Order Sodium Chloride (0.9 % Sodium Chloride Flush 3 Ml Syringe) 3 ml IVFLUSH QSHIFT [facility] Last Admin: 05/12/25 09:36 Dose: 3 ml Documented By: ONEIDA Sodium Chloride (Sodium Chloride 0.65 % Nasal 44 Ml Sprbtl) 1 spray NOSTRIL-B Q6H PRN PRN Reason: Dry Nasal Passages Vitamin D (Cholecalciferol (Vitamin D3) 25 Mcg Tablet) 25 mcg PO DAILY [facility] Last Admin: 05/12/25 09:36 Dose: 25 mcg Documented By: ONEIDA Labs 05/11/25 05:33 05/09/25 07:03 Labs: Laboratory Results - last 24 hr 05/11/25 05/11/25 05/12/25 16:25 21:11 07:26 POC Glucose 124 H 117 H 132 H 05/12/25 10:59 POC Glucose 104 Microbiology Microbiology Results: Microbiology 05/10/25 14:42 Gram Stain - Final Sputum - Expectorated Sputum Culture - Preliminary Culture in progress. 05/08/25 13:02 Blood Culture - Final Blood - Venous Escherichia coli Assessment and Plan (1) COPD (chronic obstructive pulmonary disease): Status: Acute (2) Acute and chronic respiratory failure: Status: Acute (3) COPD exacerbation: Status: Acute Plan Assessment: 79-year-old female with past medical history significant for COPD, who presented to the hospital for worsening shortness of breath, subjective fevers, nausea and vomiting. Impression Sepsis secondary to COPD exacerbation, improving Acute on chronic hypoxic respiratory failure, improving COPD exacerbation, improving COPD on 3L of O2 at home -labs and imaging reviewed -status post IV bolus given, patient with elevated BNP as well as mild cardiomegaly, unable to complete full sepsis bolus, IVF discontinued -monitor and titrate oxygen for SpO2 greater than 88%, Incentive spirometer ordered -status post IV levofloxacin, respiratory panel negative, s/p ceftriaxone and azithro -continue IV methylprednisolone 40 mg q12 hours -scheduled DuoNebs as well as p.r.n. ordered Cardiomegaly Sinus tachy -TTE ordered -continue IV lasix and metoprolol -cardiology consulted T2DM, chronic -continue insulin sliding scale, in the setting of high-dose steroids. Depression, chronic No SI/HI at this time -continue home meds FEN: NI, replete as needed, cardiac GI PPx: Protonix DVT PPx: Heparin Code Status: Full Code, however does not wish to be permanently connected to a machine Disposition: All questions and concerns with the patient were answered to satisfaction. All pertinent clinical documents, images and labs were reviewed. DISCLAIMER: This document was created using voice recognition software. Any mistakes in the prescription are unintentional. An attempt was made to focus for accuracy, but to expedite availability, some errors may persist. Please contact with any need for correction or further clarification Total time managing care of this patient today: 35 minutes. Quality Stroke Does the patient have a stroke diagnosis?: No VTE Prior VTE?: No VTE Risk Level:: Medical - moderate - high VTE Device Contraindication: N/A - Device Ordered VTE Drug Contraindication: N/A - Med Ordered
--- NOTE | 2025-05-12 12:36 | PM.CNCAR ---
History of Present Illness History of Present Illness Date of Service: 05/12/25 Requesting physician: Dontrell Carrillo Chief complaint: Dyspnea, sinus tachycardia Narrative: 79-year-old lady who we has been asked to see for sinus tachycardia. She currently is not tachycardic. She is here with COPD exacerbation. She is oxygen dependent at home and has morbid obesity. Not very active in her day-to-day life. She was not feeling well and was getting some chills and shortness of breath and presented and was diagnosed with COPD exacerbation. She is on IV antibiotics. She is also getting some IV diuretics at this point. She is saying that she is feeling better. She has strong family history of coronary disease. She does not have any personal history of heart disease. [facility] Past Medical History Medical History Osteoarthritis involving multiple joints on both sides of body Prediabetes Otitis media with effusion Acute respiratory disease Swelling of lower leg Respiratory failure with hypoxia Pain around toenail Hypertrophic toenail Acute bronchitis Anemia, macrocytic History of DC (myocardial infarction) Gait instability Restrictive lung disease Myocardial infarct Supplemental oxygen dependent Difficult intravenous access Intertrigo Pneumococcal vaccination declined Influenza vaccination declined NADEEM (obstructive sleep apnea) COPD (chronic obstructive pulmonary disease) Restrictive lung disease OAB (overactive bladder) Murmur Nocturnal leg cramps UTI (urinary tract infection) Endometrial cancer Immunization refused Mixed stress and urge urinary incontinence Morbid obesity Recurrent major 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 Impaired fasting glucose Dyslipidemia Osteopenia of neck of left femur Mild intermittent asthma without complication Essential hypertension Cataract Hx of gout Hx of Clostridium difficile infection Urinary incontinence Hiatal hernia GERD (gastroesophageal reflux disease) Sleep apnea, unspecified Snores Ex-smoker for more than 1 year Bladder cancer History of pneumonia Family History Family History Father Heart disease Mother No problems noted. Maternal Grandfather Heart disease Maternal Grandmother Heart disease Paternal Grandfather Heart disease Paternal Grandmother Heart disease Surgical History Surgical History History of urologic surgery Hx of bilateral cataract extraction Cataract extraction status, right eye Hx of colonoscopy Hx of cystoscopy History of neck surgery History of vaginal hysterectomy History of bladder surgery Social History Social History Household Members: Family Housing: House Are you a primary health care / medical job titles to a significant other at home: No Do you presently have visiting nurse or other home services: No Alcohol intake: never Patient Tobacco Use Status: Former Tobacco user Tobacco use type: Cigarette e-Cigarette/Vaping Use: Never Used Second Hand Smoke Exposure: No Advance Directives Date on File: 12/21/21 Current occupational status: disabled Cognitive needs: No Hearing needs: No Vision needs: Yes Meds Allergies Allergy/AdvReac Type Severity Reaction Status Date / Time bee pollen (bee stings) Allergy Severe Anaphylaxis Verified 05/08/25 12:14 tetanus toxoid, adsorbed Allergy Severe LOCAL Verified 05/08/25 12:14 (Tetanus Toxoid,Adsorbed) INJ.SITE SWELLING beeswax (BEESWAX) Allergy Intermediate Hives Verified 05/08/25 12:14 Iodinated Contrast Media (IV Allergy Intermediate HIVES-CAT Verified 05/08/25 12:14 Dye, Iodine Containing) SCAN DYE iodine (Iodine) Allergy Intermediate SWELLING, Verified 05/08/25 12:14 blister, hives Penicillins Allergy Intermediate SWELLING, Verified 05/08/25 12:14 hives, rash Sulfa (Sulfonamide Allergy Intermediate Hives Verified 05/08/25 12:14 Antibiotics) pneumococcal vaccine AdvReac Intermediate fever, Verified 05/08/25 12:14 chills pollen AdvReac Mild Nasal Uncoded 05/08/25 12:14 congestion Active Medications: Current Medications Acetaminophen (Acetaminophen 325 Mg Tablet) 650 mg PO Q6H PRN PRN Reason: Pain, Mild 1-3,fever,headache Last Admin: 05/09/25 20:56 Dose: 650 mg Albuterol/Ipratropium (Albuterol/Iprat 2.5/0.5mg 3 Ml Ampul.Neb) 3 ml INHALE RQ6H WHILE AWAKE [facility] Last Admin: 05/12/25 08:01 Dose: 3 ml Ascorbic Acid (Ascorbic Acid 500 Mg Tablet) 1,000 mg PO DAILY [facility] Last Admin: 05/12/25 09:35 Dose: 1,000 mg Aspirin (Aspirin Enteric Coated 81 Mg Tablet.) 81 mg PO DAILY [facility] Last Admin: 05/12/25 09:35 Dose: 81 mg Atorvastatin Calcium (Atorvastatin Calcium 40 Mg Tablet) 40 mg PO BEDTIME [facility] Last Admin: 05/11/25 22:14 Dose: 40 mg Calcium Carbonate (Calcium Carbonate 750 Mg Tab.Chew) 750 mg PO Q4H PRN PRN Reason: Heartburn Dextrose (Dextrose 50 % 25 Gm/50 Ml Syringe) 25 gm IVPUSH Q15M PRN; Protocol PRN Reason: per Hypoglycemia Standing Ord. Docusate Sodium (Docusate Sodium 100 Mg Capsule) 100 mg PO DAILY [facility] Last Admin: 05/12/25 09:34 Dose: 100 mg Escitalopram Oxalate (Escitalopram Oxalate 10 Mg Tablet) 15 mg PO DAILY [facility] Last Admin: 05/12/25 09:34 Dose: 15 mg Furosemide (Furosemide 100 Mg/10 Ml Vial) 60 mg IVPUSH BID@0900,1800 [facility]; Protocol Last Admin: 05/12/25 09:36 Dose: 60 mg Glucose (Glucose Gel 15 Gm Gel..Gram.) 15 gm PO Q15M PRN; Protocol PRN Reason: per Hypoglycemia Standing Ord. Heparin Sodium (Porcine) (Heparin Sodium,Porcine 5,000 Unit/Ml Vial) 5,000 unit SUBCUT Q12H [facility] Last Admin: 05/12/25 03:37 Dose: 5,000 unit Hydroxyzine HCl (Hydroxyzine Hcl 10 Mg Tablet) 10 mg PO Q6H PRN PRN Reason: Anxiety Last Admin: 05/12/25 09:36 Dose: 10 mg Azithromycin 500 mg/ Sodium (Chloride) 250 mls @ 125 mls/hr IV Q24H [facility] Stop: 05/13/25 14:59 Last Infusion: 05/11/25 19:05 Dose: Infused Insulin Human Lispro (Insulin Lispro 100 Unit/Ml 3 Ml Vial) 0 unit SUBCUT QIDACHS [facility]; Protocol Last Admin: 05/12/25 11:22 Dose: Not Given Lisinopril (Lisinopril 10 Mg Tablet) 10 mg PO DAILY [facility]; Protocol Last Admin: 05/12/25 09:36 Dose: 10 mg Magnesium Hydroxide (Milk Of Magnesia 30 Ml Oral.Susp) 30 ml PO DAILY PRN PRN Reason: Constipation Melatonin (Melatonin 3 Mg Tablet) 6 mg PO BEDTIME PRN PRN Reason: Insomnia Last Admin: 05/09/25 20:56 Dose: 6 mg Methylprednisolone Sodium Succinate (Methylprednisolone Sod Succ 40 Mg/Ml Vial) 40 mg IVPUSH BID [facility] Last Admin: 05/12/25 09:36 Dose: 40 mg Metoprolol Succinate (Metoprolol Succinate Er 100 Mg Tab.Er.24h) 100 mg PO DAILY [facility]; Protocol Last Admin: 05/12/25 09:35 Dose: 100 mg Pt Owned (Estradiol 0.01 % (0.1 Mg/Gram) Cream) 1 appl VAGINAL MoWeFr [facility] Last Admin: 05/10/25 15:33 Dose: Not Given Pt Owned Med ( Fesoterodine 8mg Extended Tablets) 1 each PO DAILY [facility] Last Admin: 05/12/25 09:38 Dose: 1 each Omeprazole (Omeprazole 20 Mg Capsule.Dr) 20 mg PO DAILY@0630 [facility] Last Admin: 05/12/25 06:14 Dose: Not Given Sodium Chloride (0.9 % Sodium Chloride Flush 3 Ml Syringe) 3 ml IVFLUSH QSHIFT [facility] Last Admin: 05/12/25 09:36 Dose: 3 ml Sodium Chloride (Sodium Chloride 0.65 % Nasal 44 Ml Sprbtl) 1 spray NOSTRIL-B Q6H PRN PRN Reason: Dry Nasal Passages Vitamin D (Cholecalciferol (Vitamin D3) 25 Mcg Tablet) 25 mcg PO DAILY [facility] Last Admin: 05/12/25 09:36 Dose: 25 mcg Home Medications ?Medication ?Instructions ?Recorded ?Confirmed ?Last Taken ?Type aspirin 81 mg tablet,delayed 81 mg PO DAILY 04/22/20 05/08/25 05/08/25 History release cholecalciferol (vitamin D3) 25 25 mcg PO DAILY 04/22/20 05/08/25 05/08/25 History mcg (1,000 unit) tablet (Vitamin D3) turmeric 400 mg capsule 500 mg PO DAILY 02/07/23 05/08/25 05/08/25 History coenzyme Q10 100 mg capsule 300 mg PO DAILY 03/30/23 05/08/25 05/08/25 History (CoQ-10) docusate sodium 100 mg capsule 100 mg PO DAILY 05/08/25 05/08/25 05/07/25 History estradiol 0.01% (0.1 mg/gram) 1 appl vaginal 3XW 05/08/25 05/08/25 Unknown History vaginal cream furosemide 20 mg tablet 20 mg PO DAILY 05/08/25 05/08/25 05/08/25 History pantoprazole 40 mg tablet,delayed 40 mg PO DAILY@0630 11/05/25 11/05/25 11/05/25 History release Physical Exam Vital Signs: Vital Signs: Last Vital Signs Temp 98.3 F 05/12/25 10:51 Pulse 93 05/12/25 10:51 Resp 18 05/12/25 10:51 BP 132/68 05/12/25 10:51 Pulse Ox 98 05/12/25 10:51 O2 Del Method Nasal Cannula 05/12/25 10:51 O2 Flow Rate 2 05/12/25 10:51 Oxygen Flow Rate 3 05/08/25 12:13 BMI result Body Mass Index 45.2 GENERAL APPEARANCE: in no acute distress, morbidly obese. NECK: no carotid bruit, no jugular venous distention. SKIN: no suspicious lesions, warm and dry. HEART: no murmurs, regular rate and rhythm. LUNGS: clear to auscultation bilaterally. ABDOMEN: soft, nontender. EXTREMITIES: no edema. PERIPHERAL PULSES: equal. NEUROLOGIC: No gross deficits, AAO X 3 Objective Labs and Meds 05/11/25 05:33 05/09/25 07:03 Lab results: Laboratory Results - last 24 hr 05/11/25 05/11/25 05/12/25 16:25 21:11 07:26 POC Glucose 124 H 117 H 132 H 05/12/25 10:59 POC Glucose 104 Assessment and Plan (1) Essential hypertension: Status: Acute (2) COPD (chronic obstructive pulmonary disease): Qualifiers: COPD type: unspecified COPD Qualified Code(s): J44.9 - Chronic obstructive pulmonary disease, unspecified Status: Acute Plan 79-year-old female presenting with shortness of breath and COPD exacerbation. Chest x-ray was normal. NT pro BNP 5 165 on admission. She has been on IV diuretics. Sinus tachycardia is linked with COPD exacerbation and infection. She also was receiving inhalers/nebulizer which will cause some tachycardia. Her heart rates are reasonably controlled currently. She has been on IV diuretics for elevated BNP and peripheral edema. I think she can be transitioned to oral diuretics. Echocardiography has shown hyperdynamic left ventricular function with elevated filling pressures. Mildly elevated right atrial pressures were noted. Thank you for allowing me to participate in the care of your patient. Please feel free to contact me if you have any questions. Procedures Date of Service Date of Service: 05/12/25
[2025-05-12 16:27] LABS: Glucose, Whole Blood 136 mg/dL (60-115)
[2025-05-12 21:57] LABS: Glucose, Whole Blood 118 mg/dL (60-115)
[2025-05-13] VITALS: BP 164/66; PULSE 91; RESP 16; TEMP 36.3; O2SAT 96
[2025-05-13 04:00] VITALS: BP 144/82; PULSE 84; RESP 18; TEMP 36.3; O2SAT 92
[2025-05-13 06:00] VITALS: BMI 43.5
[2025-05-13 07:35] VITALS: BP 132/82; PULSE 86; RESP 20; TEMP 36.8; O2SAT 94
[2025-05-13 07:43] LABS: Glucose, Whole Blood 111 mg/dL (60-115)
[2025-05-13] MEDS: Albuterol/Iprat 2.5/0.5MG 3 ML AMPUL.NEB INHALE ×2 (07:51→13:51)
[2025-05-13 07:54] VITALS: PULSE 86; RESP 20; O2SAT 96
[2025-05-13] MEDS: Metoprolol Succinate ER 100 MG TAB.ER.24H PO (08:20)
[2025-05-13] MEDS: Aspirin Enteric Coated 81 MG TABLET.DR PO (08:20)
[2025-05-13] MEDS: 0.9 % Sodium Chloride Flush 3 ML SYRINGE IVFLUSH (08:25)
[2025-05-13] MEDS: Sodium Chloride 0.65 % Nasal 44 ML SPRBTL 1 SPRAY NOSTRIL-B (09:40)
--- NOTE | 2025-05-13 10:33 | MHC.CM.PN ---
Addendum entered by Cammy Jones 05/13/25 13:54: CORRECTION: REFERRAL MADE TO [facility], NOT [facility] Addendum entered by Cammy Jones 05/13/25 13:49: CM MET WITH PT AGAIN TO DISCUSS DCP CM REITERATED THERE WOULD BE NO ONE TO ASSIST HER WITH PERSONAL CARE FOR SOME TIME AFTER SHE GETS HOME SHE SAYS HER CARES FOR HER, BUT PLANS TO HAVE SURGERY IN OCTOBER SHE STILL REPORTS WANTING TO DC HOME WITH [facility] WILL TRANSPORT RT CONTACTED FOR LOANER O2 TANK Addendum entered by Cammy Jones 05/13/25 12:07: CM MET WITH PT TO DISCUSS DCP SHE REPORTS SHE STILL DOES NOT WANT TO GO TO [facility], BUT DOES FEEL SHE NEEDS HELP AT HOME SHE WAS INFORMED THE MD DID ORDER [facility], AND JO[facility] WILL BE SEEING HER FOR SKILLED SERVICES PER DISCUSSION, A REFERRAL WILL ALSO BE MADE TO [facility] TO DETERMINE IF PT IS ELIGIBLE FOR HOME CARE SERVICES Addendum entered by Cammy Jones 05/13/25 10:42: PT WILL DC HOME WITH [facility] Original Note: PT REFUSING [facility], [facility] REFERRAL MADE, PER MD, Pt WILL NEED HOME PT SERVICES
[2025-05-13 11:16] LABS: Glucose, Whole Blood 116 mg/dL (60-115)
--- NOTE | 2025-05-13 11:40 | P.DS_ITS ---
DS: Providers Provider Date of Service: 05/13/25 Date of admission: 05/08/25 15:00 Date of discharge: 05/13/25 Primary care physician: Jessica Li MD Consults: 05/08/25 14:50 Consult to Pulmonology Routine Consulting Provider: [facility] Pul[facility]ology Services Reason for consultation: COPD exacerbation 05/11/25 12:45 Consult to Cardiology Routine Consulting Provider: [facility] Cardiovascular Specialists Reason for consultation: sinus tachy Has provider been notified: No Attending physician on discharge: Dontrell Carrillo Discharging clinician: Dontrell Carrillo DS: Diagnosis Discharge Diagnosis (1) Essential hypertension: Status: Acute (2) COPD (chronic obstructive pulmonary disease): Status: Acute DS: Summary Hospital Course Hospital Course: 79-year-old female with past medical history significant for COPD, who presented to the hospital for worsening shortness of breath, subjective fevers, nausea and vomiting. In the ED found to have leukocyte count of 18.8, hemoglobin 8.9, x- ray with patchy opacity right middle lobe and lower lobe distribution, patient admitted for COPD exacerbation and sepsis. Patient received IV fluid boluses, given IV levofloxacin and started on IV ceftriaxone and azithromycin for COPD exacerbation, was scheduled methylprednisolone and DuoNebs. Improvement of symptoms, patient able to be weaned down to her home oxygen, suggested on follow up in outpatient setting with PCP and pulmonology. Per PT/OT suggested on physical therapy. Patient today states that she is feeling better, breathing is at baseline. Sepsis secondary to COPD exacerbation, improved Acute on chronic hypoxic respiratory failure, resolved COPD exacerbation, improved COPD on 3L of O2 at home -labs and imaging reviewed -completed IVF -status post IV levofloxacin, respiratory panel negative, s/p ceftriaxone and azithro -s/p IV methylprednisolone 40 mg q12 hours, will dc with medrol dose edenilson -continue w/ home inhalers Cardiomegaly Sinus tachy -continue home lasix and metoprolol -follow up with cardiology as outpatient T2DM, chronic -continue home medications Depression, chronic No SI/HI at this time -continue home meds All new and continued medications were discussed in depth with the patient, and new prescriptions were given directly to patient and/or verification of the prescriptions were sent to patient's preferred pharmacy directly. All side effects were discussed. Follow-up instructions were given. Patient voiced understanding. Patient was given the opportunity ask questions and express concerns, all of which were answered to their satisfaction. Patient was instructed to follow-up with her PCP within 3 to 10 days of discharge and head to the nearest emergency room or call 911 if symptoms worsen or new symptoms develop. This is a summary of the patient's stay; for more complete details please see chart. More than 35 minutes was spent with patient regarding workup, diagnosis and follow-up. Time Attestation Discharge Coordination Time (in mins): 35 minutes Quality: Safe Use of Opioids Does Pt have an Active Cancer Diagnosis on the Problem List?: No Quality: Stroke Does the patient have a stroke diagnosis?: No Physical Exam Exam: Exam: General: AxOx3, No acute distress on 3L O2 Head: AT/NC ENT: Moist mucous membranes Neck: supple CVS; RRR, S1 S2 normal Lungs: Clear bilateral breath sounds, no wheezes or crackles Abd: Soft non tender, non distended Ext: LE edema and no calf tenderness MSK: moving all 4 limbs Skin: No cyanosis Psych: Cooperative with exam Neurology: no focal deficit Vital Signs: Vital Signs: Last Vital Signs Temp 98.2 F 05/13/25 07:35 Pulse 86 05/13/25 07:54 Resp 20 05/13/25 07:54 BP 132/82 05/13/25 07:35 Pulse Ox 94 05/13/25 07:35 O2 Del Method Nasal Cannula 05/13/25 07:35 O2 Flow Rate 2.5 05/13/25 07:35 Oxygen Flow Rate 3 05/08/25 12:13 BMI result Body Mass Index 43.5 DS: Data Data Completed and Pending Labs on day of discharge: Laboratory Results - last 24 hr 05/12/25 05/12/25 05/13/25 16:07 21:52 07:40 POC Glucose 136 H 118 H 111 05/13/25 10:57 POC Glucose 116 H Preliminary micro results at discharge 05/08/25 13:02 Blood Culture - Preliminary Blood - Venous No growth after 48 hours. Discharge Plan Discharge Anticipated Discharge Date/Time: 05/13/25 13:35 Patient Disposition: Home Health Service Discharge Diagnosis: COPD exacerbation, Heart failure Referrals: Jessica Li MD [Primary Care Provider, Internal Medicine] - 1 Week Cameron Kirby MD [Physician, Cardiology] - 2 Weeks Discharge Medications: New methylprednisolone [Medrol (Edenilson)] 4 mg tablets,dose pack 4 mg PO DAILY Qty: 21 0RF Rx Instructions: take per medrol dose edenilson recommendations Continued fluticasone propionate 50 mcg/actuation spray,suspension 1 spray intranasal QAM PRN (Reason: allergy symptoms) 30 Days Qty: 16 3RF (DME) bariatric transport wheelchair See Rx Instructions .Route .MEDSUPPLY Qty: 1 0RF Rx Instructions: As directed (DME) bedside commode Kit See Rx Instructions .Route Qty: 1 0RF Rx Instructions: Bariatric commode metoprolol succinate 50 mg tablet extended release 24 hr 100 mg PO DAILY Qty: 180 1RF atorvastatin 40 mg tablet 40 mg PO BEDTIME Qty: 90 1RF lisinopril 10 mg tablet 10 mg PO DAILY Qty: 90 1RF citalopram 20 mg tablet 30 mg PO DAILY 90 Days Qty: 135 3RF fesoterodine 8 mg tablet extended release 24 hr 8 mg PO DAILY 30 Days Qty: 30 2RF ipratropium-albuterol 0.5 mg-3 mg(2.5 mg base)/3 mL solution for nebulization 3 ml inhalation Q4-6H PRN (Reason: for wheezing) Qty: 360 3RF aspirin 81 mg Tablet,Delayed Release (Dr/Ec) 81 mg PO DAILY cholecalciferol (vitamin D3) [Vitamin D3] 25 mcg (1,000 unit) Tablet 25 mcg PO DAILY turmeric 400 mg capsule 500 mg PO DAILY coenzyme Q10 [CoQ-10] 100 mg capsule 300 mg PO DAILY docusate sodium 100 mg Capsule 100 mg PO DAILY pantoprazole 40 mg tablet,delayed release (DR/EC) 40 mg PO DAILY@0630 furosemide 20 mg tablet 20 mg PO DAILY estradiol 0.01 % (0.1 mg/gram) cream 1 appl vaginal 3XW Rx Instructions: pea-sized to urethra daily; (DME) Transport chair 22 in See Rx Instructions .Route .MEDSUPPLY Qty: 1 0RF Rx Instructions: As directed methenamine hippurate 1 gram tablet 1 g PO DAILY 90 Days Qty: 90 1RF ascorbic acid (vitamin C) 1,000 mg tablet 1 g PO DAILY 90 Days Qty: 90 1RF Discharge Orders: Discharge Order (Routine); Ordered 05/13/25 Ordered By: Dontrell Carrillo Activity on Discharge: As tolerated Stand Alone Forms: Patient Portal Discharge page Print Language: French Care Plan Goals: continue with medrol dose edenilson for copd exacerbation PT at home follow up with PCP, pulmonology and cardiology Health Concerns: COPD exacerbation, Heart failure and sinus tachycardia Plan of Treatment: Continue medrol dose edenilson continue Incentive spirometer follow up with cardiology as outpatient work with Physical therapy Assessment: 79-year-old female with past medical history significant for COPD, who presented to the hospital for worsening shortness of breath, subjective fevers, nausea and vomiting. In the ED found to have leukocyte count of 18.8, hemoglobin 8.9, x- ray with patchy opacity right middle lobe and lower lobe distribution, patient admitted for COPD exacerbation and sepsis. Patient received IV fluid boluses, given IV levofloxacin and started on IV ceftriaxone and azithromycin for COPD exacerbation, was scheduled methylprednisolone and DuoNebs. Improvement of symptoms, patient able to be weaned down to her home oxygen, suggested on follow up in outpatient setting with PCP and pulmonology. Per PT/OT suggested on physical therapy. Patient today states that she is feeling better, breathing is at baseline. Patient Instructions: Viral Pneumonia (DC), COPD (Chronic Obstructive Pulmonary Disease) (DC)
--- NOTE | 2025-05-13 11:43 | W.MHC.F2F ---
Service Date Service Date: 05/13/25 Encounter Date of encounter: 05/13/25 Encounter: Patient admitted to the hospital for COPD exacerbation and mild heart failure exacerbation, treated with IV fluids as well as antibiotics. Seen by Physical therapy, patient with physical deconditioning, will require physical therapy per physical therapy and occupational therapy suggestions. Reasons for Services Signs and symptoms assessed: Ambulatory dysfunction and generalized weakness Reason for physical therapy: home safety and mobility, therapeutic exercises, restore joint function, gait/transfer training and energy conservation Reason for occupational therapy: home safety and mobility, therapeutic exercises, restore joint function, gait/transfer training and energy conservation Homebound: Leaving the home is medically contraindicated at this time without the asist of a device and/or another person due th the listed conditions above and below. Reason homebound: unsteady gait / fall risk and shortness of breath with minimal effort Certification: Based on the above findings, I certify that this patient is confined to the home and needs intermittent intermediate care, physical therapy and/or speech therapy, or continues to need occupational therapy. The patient is under my care, and I have initiated the establishment of the plan of care. The patient will be followed by a physician who will periodically review the plan of care. Time Spent With Patient Time: Total time managing care of this patient today ____ minutes.
[2025-05-13 11:46] VITALS: BP 134/78; PULSE 92; RESP 16; TEMP 36.8; O2SAT 96
[2025-05-13 13:53] VITALS: PULSE 89; RESP 16; O2SAT 95
--- NOTE | 2025-05-13 13:56 | P.F2F_ITS ---
Service Date Service Date: 05/13/25 Encounter Date of encounter: 05/13/25 Encounter: Patient admitted to the hospital for COPD exacerbation and mild heart failure exacerbation, treated with IV fluids as well as antibiotics. Seen by Physical therapy, patient with physical deconditioning, will require physical therapy per physical therapy and occupational therapy suggestions. patient also requiring help with medication and medrol dose wayne Reasons for Services Signs and symptoms assessed: COPD exacerbation Reason for assisted: medication management and medication treatment Homebound: Leaving the home is medically contraindicated at this time without the asist of a device and/or another person due th the listed conditions above and below. Reason homebound: unsteady gait / fall risk Certification: Based on the above findings, I certify that this patient is confined to the home and needs intermittent assisted care, physical therapy and/or speech therapy, or continues to need occupational therapy. The patient is under my care, and I have initiated the establishment of the plan of care. The patient will be followed by a physician who will periodically review the plan of care. Time Spent With Patient Time: Total time managing care of this patient today ____ minutes.
== END 2025-05-13 15:21 | disposition home health service (06) | DRG 871 ==
LOC: HO.ED 12:28 → HO.EDOVER 15:00 → HO.IMC 19:13
PROVIDERS: Admitting Provider Student in an Organized Health Care Education/Training Program; Emergency Provider Student in an Organized Health Care Education/Training Program; PCP Internal Medicine; Visit Provider Student in an Organized Health Care Education/Training Program
DX: A41.9 Sepsis, unspecified organism (principal); J18.9 Pneumonia, unspecified organism; J96.21 Acute and chronic respiratory failure with hypoxia; J44.0 Chronic obstructive pulmonary disease with (acute) lower respiratory infection; J44.1 Chronic obstructive pulmonary disease with (acute) exacerbation; E87.1 Hypo-osmolality and hyponatremia; Z68.41 Body mass index [BMI] 40.0-44.9, adult; E66.09 Other obesity due to excess calories; E11.9 Type 2 diabetes mellitus without complications; Z20.822 Contact with and (suspected) exposure to COVID-19; Z99.81 Dependence on supplemental oxygen; Z79.82 Long term (current) use of aspirin; Z79.899 Other long term (current) drug therapy
CPT/HCPCS: 36415; 71046; 80053; 82947; 83605; 83735; 83880; 83930; 83935; 84300; 84443; 84484; 85025; 87040; 87070; 87077; 87186; 87205; 87633; 93005; 93306; 97110; 97162; 97165; 97530; 97535; 99285; J0456; J0696; J1644; J1920; J1938; J1956; J2405; J2470; J2919; Q9957

== ENCOUNTER → 2025-05-08 12:35 | Outpatient (BNV) | payer MEDICARE, SELFPAY | PROVIDERS: Emergency Provider Student in an Organized Health Care Education/Training Program; PCP Internal Medicine; Visit Provider Radiology Diagnostic Radiology | DX: I51.7 Cardiomegaly (principal); R91.8 Other nonspecific abnormal finding of lung field | CPT/HCPCS: 71046 ==

== ENCOUNTER → 2025-05-08 12:40 | Outpatient (BNV) | payer MEDICARE, SELFPAY | PROVIDERS: Admitting Provider Student in an Organized Health Care Education/Training Program; Emergency Provider Student in an Organized Health Care Education/Training Program; PCP Internal Medicine; Visit Provider Internal Medicine Cardiovascular Disease | DX: I49.1 Atrial premature depolarization (principal); R00.0 Tachycardia, unspecified | CPT/HCPCS: 93010 ==

== ENCOUNTER 2025-05-08 15:00 | Outpatient (BNV) | payer MEDICARE, SELFPAY | END 2025-05-11 09:47 | PROVIDERS: Admitting Provider Student in an Organized Health Care Education/Training Program; Emergency Provider Student in an Organized Health Care Education/Training Program; PCP Internal Medicine; Visit Provider Internal Medicine Cardiovascular Disease | DX: I49.1 Atrial premature depolarization (principal); R00.0 Tachycardia, unspecified | CPT/HCPCS: 93010 ==

== ENCOUNTER 2025-05-08 15:00 | Outpatient (BNV) | payer MEDICARE, SELFPAY | END 2025-05-09 13:00 | PROVIDERS: Admitting Provider Student in an Organized Health Care Education/Training Program; Emergency Provider Student in an Organized Health Care Education/Training Program; PCP Internal Medicine; Visit Provider Internal Medicine Cardiovascular Disease | DX: I34.81 Nonrheumatic mitral (valve) annulus calcification (principal); I51.89 Other ill-defined heart diseases | CPT/HCPCS: 93306 ==

== ENCOUNTER → 2025-05-08 15:00 | Outpatient (BNV) | payer MEDICARE, SELFPAY | PROVIDERS: Admitting Provider Student in an Organized Health Care Education/Training Program; Emergency Provider Student in an Organized Health Care Education/Training Program; PCP Internal Medicine; Visit Provider Internal Medicine Pulmonary Disease | DX: J44.1 Chronic obstructive pulmonary disease with (acute) exacerbation (principal); J96.21 Acute and chronic respiratory failure with hypoxia; J98.4 Other disorders of lung; G47.33 Obstructive sleep apnea (adult) (pediatric) | CPT/HCPCS: 99222 ==

== ENCOUNTER → 2025-05-08 15:00 | Outpatient (BNV) | payer MEDICARE, SELFPAY | PROVIDERS: Admitting Provider Student in an Organized Health Care Education/Training Program; Emergency Provider Student in an Organized Health Care Education/Training Program; PCP Internal Medicine; Visit Provider Internal Medicine Cardiovascular Disease | DX: I10 Essential (primary) hypertension (principal); J44.9 Chronic obstructive pulmonary disease, unspecified | CPT/HCPCS: 99223 ==

== ENCOUNTER → 2025-05-08 15:00 | Outpatient (BNV) | payer MEDICARE, SELFPAY | PROVIDERS: Admitting Provider Student in an Organized Health Care Education/Training Program; Emergency Provider Student in an Organized Health Care Education/Training Program; PCP Internal Medicine; Visit Provider Student in an Organized Health Care Education/Training Program | DX: A41.9 Sepsis, unspecified organism (principal); J44.1 Chronic obstructive pulmonary disease with (acute) exacerbation; J96.21 Acute and chronic respiratory failure with hypoxia | CPT/HCPCS: 99223; 99232; 99233; 99499 ==

== ENCOUNTER 2025-05-27 15:52 | Outpatient (AMB) | payer MEDICARE, SELFPAY ==
--- NOTE | 2025-05-27 16:03 | A.OFFPC_ITS ---
Vital Signs 05/27/25 16:07 Height 4 ft 11.5 in Weight 237 lb BMI 47.1 BP 128/62 Blood Pressure Location Lt radial Position Sitting Respiration 16 Pulse 80 Pulse Source Pulse Oximeter Temp 97.4 F Temp Source Oral Pulse Oximetry (%) 95 Oxygen Delivery Method Nasal Cannula Intake Visit Reasons: TCM Intake Note: Pt is here today for her TCM Allergies bee pollen (bee stings) Allergy (Severe, Verified 05/27/25 16:08) Anaphylaxis tetanus toxoid, adsorbed (Tetanus Toxoid,Adsorbed) Allergy (Severe, Verified 05/27/25 16:08) LOCAL INJ.SITE SWELLING beeswax (BEESWAX) Allergy (Intermediate, Verified 05/27/25 16:08) Hives Iodinated Contrast Media (IV Dye, Iodine Containing) Allergy (Intermediate, Verified 05/27/25 16:08) HIVES-CAT SCAN DYE iodine (Iodine) Allergy (Intermediate, Verified 05/27/25 16:08) SWELLING, blister, hives Penicillins Allergy (Intermediate, Verified 05/27/25 16:08) SWELLING, hives, rash Sulfa (Sulfonamide Antibiotics) Allergy (Intermediate, Verified 05/27/25 16:08) Hives pneumococcal vaccine Adverse Reaction (Intermediate, Verified 05/27/25 16:08) fever, chills pollen Adverse Reaction (Mild, Uncoded 05/27/25 16:08) Nasal congestion Medication List - Last Reconciled 05/27/25 by Jessica Li MD ascorbic acid (vitamin C) 1 g PO DAILY 90 days aspirin 81 mg PO DAILY atorvastatin 40 mg PO BEDTIME [bariatric transport wheelchair As directed] cholecalciferol (vitamin D3) (Vitamin D3) 25 mcg PO DAILY citalopram 30 mg (1.5 x 20 mg) PO DAILY 3 months coenzyme Q10 (CoQ-10) 300 mg PO DAILY commode (bedside commode) Bariatric commode docusate sodium 100 mg PO DAILY estradiol 0.01%(0.1mg/gram) 1 appl vaginal 3XW fesoterodine ER 8 mg PO DAILY 30 days fluticasone propionate 50 mcg/actuation 1 spray intranasal QAM PRN 30 days furosemide 20 mg PO DAILY ipratropium-albuterol 0.5 mg-3 mg(2.5 mg base)/3 mL 3 mL inhalation Q4-6H PRN lisinopril 10 mg PO DAILY methenamine hippurate 1 g PO DAILY 90 days metoprolol succinate ER 100 mg (2 x 50 mg) PO DAILY pantoprazole 40 mg PO DAILY@0630 [Transport chair As directed] turmeric 500 mg PO DAILY Tobacco use date assessed: 05/27/25 Fall risk assessment: No Falls in past year Last assessed Fall Risk: 05/27/25 Dental Screening Dental Screen Date: 05/27/25 Did you have a dental visit in the last 12 months?: No Did you have a dental problem in the last 6 months where you did not have access to dental care?: No Was dental information given to patient?: Patient declined HPI TCM HPI Details 79 year old lady , with history of bladd er cancer , dyslipidemia, obstructive sleep apnea, COPD, restrictive lung disease, morbid obesity, depression in remission, GERD, osteopenia, and hypertensionhere for her TCM visit .She was recently admitted 05/13/25 l for COPD exacerbation and mild heart failure exacerbation, treated with IV fluids as well as antibiotics. Seen by Physical therapy, found to have physical deconditioning, and will require physical therapy and occupational therapy suggestions. patient also requiring help with medication and medrol dose wayne . She needs correction for medication management and for PT OT, is homebound as leaving the home is medically contraindicated at this time without the asist of a device and/or another person due unsteady gait and is a high fall risk. At present patient states that her breathing is back to baseline but now has O2 by nasal cannula used at home at 2.5 L/min to keep her oxygen level above 90%. [facility] TCM Information Date of Discharge 05/13/25 Discharged From [facility] Interactive Contact Date (Reference documentation from this date) 05/16/25 COUNTS INCLUDE 234 BEDS AT THE [facility] Medical History (Updated 06/03/25 @ 02:04 by Jessica Li MD) Osteoarthritis involving multiple joints on both sides of body Prediabetes Otitis media with effusion Acute respiratory disease Swelling of lower leg Respiratory failure with hypoxia Pain around toenail Hypertrophic toenail Acute bronchitis Anemia, macrocytic History of [place] (myocardial infarction) Gait instability Restrictive lung disease Myocardial infarct Supplemental oxygen dependent Difficult intravenous access Intertrigo Pneumococcal vaccination declined Influenza vaccination declined NADEEM (obstructive sleep apnea) COPD (chronic obstructive pulmonary disease) Restrictive lung disease OAB (overactive bladder) Murmur Nocturnal leg cramps UTI (urinary tract infection) Endometrial cancer Immunization refused Mixed stress and urge urinary incontinence Morbid obesity Recurrent major 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 Impaired fasting glucose Dyslipidemia Osteopenia of neck of left femur Mild intermittent asthma without complication Essential hypertension Cataract Hx of gout Hx of Clostridium difficile infection Urinary incontinence Hiatal hernia GERD (gastroesophageal reflux disease) Sleep apnea, unspecified Snores Ex-smoker for more than 1 year Bladder cancer History of pneumonia Surgical History History of urologic surgery Hx of bilateral cataract extraction Cataract extraction status, right eye Hx of colonoscopy Hx of cystoscopy History of neck surgery History of vaginal hysterectomy History of bladder surgery Family History Father Heart disease Mother No problems noted. Maternal Grandfather Heart disease Maternal Grandmother Heart disease Paternal Grandfather Heart disease Paternal Grandmother Heart disease Social History Household Members: Family Housing: House Are you a primary primary health care nurse to a significant other at home: No Do you presently have visiting nurse or other home services: No Alcohol intake: never Patient Tobacco Use Status: Former Tobacco user Tobacco use type: Cigarette e-Cigarette/Vaping Use: Never Used Second Hand Smoke Exposure: No Advance Directives Date on File: 12/21/21 Current occupational status: disabled Cognitive needs: No Hearing needs: No Vision needs: Yes Questionnaire Thrive Questionnaire Date Thrive assessed: 09/17/24 I am a: Patient What is your living situation today?: I have a steady place to live Within the past 12 months, did the food you bought not last and you didn't have the money to get more?: Never true Within the past 12 months, did you worry whether your food would run out before you got money to buy more?: Never true Do you have trouble paying for medicines?: No Do you have trouble getting transportation to medical appointments?: No Do you have trouble paying your heating and electricity bill?: No Do you have trouble taking care of your child, family member or friend?: No Do you have trouble with day-to-day activities such as bathing, preparing meals, shopping, managing finances, etc.?: Yes Are you currently unemployed and looking for a job?: No Are you interested in more education?: No Please select the resources that you would like help with: None Currently or been in a relationship where the following occur: No concerns reported THRIVE Score: 0 DEONTE-7 AMB Questionnaire DEONTE-7 Date DEONTE - 7 assessed: 09/24/24 Source: Developed by Drs. Flaco Banuelos, Gracia Cash, Roque Seo and colleagues, with an educational glory from [employer]. Review of Systems Const All systems reviewed & are unremarkable except as noted in HPI and below Eyes Reports no additional complaints ENT Reports no additional complaints and Reports Normal hearing present Card Denies chest pain and Denies irregular heart rhythm Resp Reports cough (mild intermittent ) and Denies wheezing GI Reports no additional complaints Reports urinary incontinence Musc Reports no additional complaints and Reports abnormal gait (ambulatory for short distances) Skin/Breast Reports system reviewed and no additional complaints, except as documented Neuro Reports Normal hearing present and Reports abnormal gait (ambulatory for short distances) Psych Reports no additional complaints Aller/Immun Denies wheezing Physical exam (Primary Care) Vital Signs: Last Vital Signs Temp 97.4 F 05/27/25 16:07 Pulse 80 05/27/25 16:07 Resp 16 05/27/25 16:07 BP 128/62 05/27/25 16:07 Pulse Ox 95 05/27/25 16:07 Oxygen Delivery Method Nasal Cannula 05/27/25 16:07 BMI result Body Mass Index 47.1 Tobacco/Smoking Status: Tobacco use Status Tobacco use date assessed 05/27/25 05/27/25 16:13 Patient Tobacco Use Status Former Tobacco user 05/27/25 16:06 Tobacco use type Cigarette 05/27/25 16:06 e-Cigarette/Vaping Use Never Used 05/27/25 16:06 Thrive Assessment: Date of Thrive Assessment Date Thrive assessed 09/17/24 05/27/25 16:06 Currently or been in a relationship where the following occur: No concerns reported Const Other: Alert oriented x3, no acute cardiorespiratory distress noted morbidly obese, partner present in room HENMT Head: Yes normocephalic and Yes atraumatic Mouth: Normal oral and palatal mucosa present and moist mucous membranes Eyes General: appearance normal, both eyes and all related structures Neck Neck: Yes full ROM, Yes no lymphadenopathy and Yes supple Resp Auscultation: clear to auscultation bilaterally and other (Oxygen supplementation by nasal cannula) Cardio Other: S1-S2 present regular rate and rhythm GI Inspection: Yes obesity Palpation (GI): Soft to palpation, nontender, no guarding and no masses Auscultation: normal bowel sounds General: Yes no CVA tenderness Back/Spine/Pelvis Back: no CVA tenderness and No back tenderness Skin General skin exam: no rashes or lesions noted Neuro General: moves all extremities, Normal light touch and pain sensation, no focal motor deficits and CN's II-XI intact bilaterally Cranial nerves: Yes Normal hearing present Psych Appearance: grossly normal and well kempt Mental Status: mental status grossly normal Speech and movement: Normal speech and movement present Affect: normal affect Coding Level of Care Code TCM Mod MDM <= 14 Days Diagnoses History of sinus tachycardia Z86.79 Chronic obstructive pulmonary disease, unspecified COPD type J44.9 COPD type: unspecified COPD Prediabetes R73.03 Mixed stress and urge urinary incontinence N39.46 NADEEM (obstructive sleep apnea) G47.33 Gait instability R26.81 Lymphedema I89.0 Assessment & Plan Assessment & Plan (1) History of sinus tachycardia: Code(s): Z86.79 - Personal history of other diseases of the circulatory system Plan: With the during recent admission, currently on metoprolol succinate 100 mg daily. Cardiology consult ordered (2) COPD (chronic obstructive pulmonary disease): Code(s): J44.9 - Chronic obstructive pulmonary disease, unspecified Category: Medical Qualifiers: COPD type: unspecified COPD Qualified Code(s): J44.9 - Chronic obstructive pulmonary disease, unspecified Plan: Continue with DuoNeb by nebulizer treatment every 4-6 hours as needed. Follow- up with pulmonary (3) Prediabetes: Code(s): R73.03 - Prediabetes Category: Medical Plan: Your previous fasting blood sugars were elevated above 100 mg/dL. Impaired glucose metabolism increases the risk for developing diabetes mellitus type 2, as well as heart attack and stroke later on. Lifestyle changes that promotes weight loss, healthy eating habits, and regular exercise are important, and can prevent the progression to diabetes (4) Mixed stress and urge urinary incontinence: Code(s): N39.46 - Mixed incontinence Category: Medical Plan: Discontinued fesoterodine cholesterol constipation severe dry mouth. Will try on a background ER 25 mg daily (5) NADEEM (obstructive sleep apnea): Code(s): G47.33 - Obstructive sleep apnea (adult) (pediatric) Category: Medical Plan: Patient refusing to use CPAP (6) Gait instability: Code(s): R26.81 - Unsteadiness on feet Category: Medical Plan: Receiving home OT/PT (7) Lymphedema: Code(s): I89.0 - Lymphedema, not elsewhere classified Category: Medical Plan: Receiving home OT/PT Orders: Referrals Cardiology Referral Z86.79 - Personal history of other diseases of the circulatory system Medications: Discontinued fesoterodine ER Discontinued Reason: Doctor's Order 8 mg PO DAILY 30 days 30 tabs 2RF N30.20 - Other chronic cystitis without hematuria
[2025-05-27 16:07] VITALS: BP 128/62; PULSE 80; RESP 16; TEMP 36.3; O2SAT 95; BMI 47.1
== END 2025-05-27 16:53 | disposition home or self-care (01) ==
LOC: HO.HMCC 15:53
PROVIDERS: PCP Internal Medicine; Visit Provider Internal Medicine
DX: Z86.79 Personal history of other diseases of the circulatory system (principal); J44.9 Chronic obstructive pulmonary disease, unspecified; R73.03 Prediabetes; N39.46 Mixed incontinence; G47.33 Obstructive sleep apnea (adult) (pediatric); R26.81 Unsteadiness on feet; I89.0 Lymphedema, not elsewhere classified

== ENCOUNTER → 2025-05-27 15:52 | Outpatient (BNVA) | payer MEDICARE, SELFPAY | PROVIDERS: PCP Internal Medicine; Visit Provider Internal Medicine | DX: Z09 Encounter for follow-up examination after completed treatment for conditions other than malignant neoplasm (principal); J44.9 Chronic obstructive pulmonary disease, unspecified; R73.03 Prediabetes; N39.46 Mixed incontinence; G47.33 Obstructive sleep apnea (adult) (pediatric); R26.81 Unsteadiness on feet; Z86.79 Personal history of other diseases of the circulatory system | CPT/HCPCS: 99495 ==

== ENCOUNTER 2025-06-14 09:53 | Outpatient (REF) | payer MEDICARE, SELFPAY | END 2025-06-14 09:54 | disposition home or self-care (01) | LOC: HO.LAB 09:53 | PROVIDERS: PCP Internal Medicine; Visit Provider Urology | DX: N39.46 Mixed incontinence (principal); C67.9 Malignant neoplasm of bladder, unspecified; N30.20 Other chronic cystitis without hematuria; N32.81 Overactive bladder | CPT/HCPCS: 52000; 81003; 88112; 99212 ==

== ENCOUNTER 2025-06-14 09:53 | Outpatient (AMB) | payer MEDICARE, SELFPAY ==
--- NOTE | 2025-06-14 09:59 | MHC.OFFVIS ---
Intake Visit Reasons: Possible Cysto/PVR/UA(Set)Bladder Ca Intake Note: Reason for Visit: Med Follow Up Urology Meds: Myrbetriq(Insurance Pending), Vitamin C, Methenamine Blood Thinners: Aspirin Labs: None Last Cytology: 2023 Imaging: None Last PVR: None Cod Clerk Required: No Diamond Sizer: Diamond Sizer Present Accompanied by: Spouse Allergies bee pollen (bee stings) Allergy (Severe, Verified 06/14/25 10:23) Anaphylaxis tetanus toxoid, adsorbed (Tetanus Toxoid,Adsorbed) Allergy (Severe, Verified 06/14/25 10:23) LOCAL INJ.SITE SWELLING beeswax (BEESWAX) Allergy (Intermediate, Verified 06/14/25 10:23) Hives Iodinated Contrast Media (IV Dye, Iodine Containing) Allergy (Intermediate, Verified 06/14/25 10:23) HIVES-CAT SCAN DYE iodine (Iodine) Allergy (Intermediate, Verified 06/14/25 10:23) SWELLING, blister, hives Penicillins Allergy (Intermediate, Verified 06/14/25 10:23) SWELLING, hives, rash Sulfa (Sulfonamide Antibiotics) Allergy (Intermediate, Verified 06/14/25 10:23) Hives pneumococcal vaccine Adverse Reaction (Intermediate, Verified 06/14/25 10:23) fever, chills pollen Adverse Reaction (Mild, Uncoded 06/14/25 10:23) Nasal congestion HPI Comments Details: Morena is a pleasant female. She is a patient Dr. Li. She is seen for the following urologic conditions - bladder cancer - urinary frequency urgency Had done well with Myrbetriq however co-pay to high Continues with methenamine vitamin-C plus estradiol topical Cystoscopy today - NAD Twelve month follow-up Bladder cancer - low-grade superficial Diagnosed by Dr. Betancourt 2018 Underwent TURBT with 6 week gemcitabine induction Cystoscopy - 03/24 NAD, 09/22 NAD - significant trabeculation, 03/25 diverticulum in bladder, redness right sidewall, 10/24 persistence area redness, 10/25 persistent red area, 05/28 NAD Cytology 03/25 NAD Urinary frequency/urgency Has InterStim had been placed many years ago InterStim revision 12/23 - new lead and battery InterStim had been working but decreased efficacy when came off medications Previous Trial and failure of following medications oxybutynin and tolterodine Myrbetriq and Gemtesa have not been covered [facility] Medical History Osteoarthritis involving multiple joints on both sides of body Prediabetes Otitis media with effusion Acute respiratory disease Swelling of lower leg Respiratory failure with hypoxia Pain around toenail Hypertrophic toenail Acute bronchitis Anemia, macrocytic History of [place] (myocardial infarction) Gait instability Restrictive lung disease Myocardial infarct Supplemental oxygen dependent Difficult intravenous access Intertrigo Pneumococcal vaccination declined Influenza vaccination declined NADEEM (obstructive sleep apnea) COPD (chronic obstructive pulmonary disease) Restrictive lung disease OAB (overactive bladder) Murmur Nocturnal leg cramps UTI (urinary tract infection) Endometrial cancer Immunization refused Mixed stress and urge urinary incontinence Morbid obesity Recurrent major 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 Impaired fasting glucose Dyslipidemia Osteopenia of neck of left femur Mild intermittent asthma without complication Essential hypertension Cataract Hx of gout Hx of Clostridium difficile infection Urinary incontinence Hiatal hernia GERD (gastroesophageal reflux disease) Sleep apnea, unspecified Snores Ex-smoker for more than 1 year Bladder cancer History of pneumonia Surgical History History of urologic surgery Hx of bilateral cataract extraction Cataract extraction status, right eye Hx of colonoscopy Hx of cystoscopy History of neck surgery History of vaginal hysterectomy History of bladder surgery Family History Father Heart disease Mother No problems noted. Maternal Grandfather Heart disease Maternal Grandmother Heart disease Paternal Grandfather Heart disease Paternal Grandmother Heart disease Social History Household Members: Family Housing: House Are you a primary childbirth and infant care teacher to a significant other at home: No Do you presently have visiting nurse or other home services: No Alcohol intake: never Patient Tobacco Use Status: Former Tobacco user Tobacco use type: Cigarette e-Cigarette/Vaping Use: Never Used Second Hand Smoke Exposure: No Advance Directives Date on File: 12/21/21 Current occupational status: disabled Cognitive needs: No Hearing needs: No Vision needs: Yes Review of Systems Const Denies chills and Denies fever(s) Card Reports no additional complaints and Denies syncope Resp Denies cough GI Denies abdominal pain and Denies heartburn Reports as per HPI and Denies change in libido Neuro Denies syncope Psych Denies change in libido Endo Denies change in libido Physical Exam Const General: cooperative, healthy appearing, comfortable and no acute distress Orientation/consciousness: patient oriented x3 HEENT Face and sinus: Yes normal facial exam Mouth: moist mucous membranes Neck Neck: Yes normal visual inspection, Yes full ROM and Yes trachea midline Chest Chest palpation & inspection: normal inspection of the chest Resp Effort & Inspection: normal respiratory effort, able to speak in complete sentences and no respiratory distress GI Inspection: Yes normal to inspection Back/Spine/Pelvis Cervical Spine: normal cervical lordosis Thoracic/Lumbar Spine: thoracic and lumbar spine normal to inspection Skin General skin exam: no rashes or lesions noted Neuro General: patient oriented x3, gait normal, tone normal and moves all extremities Extrem General: Yes normal to inspection and Yes capillary refill normal Office Procedures Cystoscopy Consent Discussed risk and benefit or proposed procedure with the patient. Information consent for procedure given to the patient. Discussed technical aspects, risks, benefits and alternatives in full. Addressed all of the patient's questions and concerns regarding the procedure. The patient demonstrated knowledge and understanding. They wish to proceed with this procedure. Preparation The patient was prepped in the usual manner. A paradichlorobenzene machine operator was present and in the room. Genitalia was prepped with betadine solution in a sterile manner. Lidocaine Jelly 2% was placed into the urethra and 16Fr flexible Olympus cystoscope was inserted into the meatus after adequate lubrication. Procedure Consent confirmed Genitalia prepped and draped using topical antiseptic and lidocaine jelly Cystoscopy performed using a sterile disposable Urovue digital 16 Lao cystoscope Meatus normal position Urethra normal Bladder examination with retroflexion of cystoscope Bladder Orifices normal shape and position Trigone normal Bladder Capacity Normal Trabeculations Grade 0 Cellule Formation None Diverticulum Formation None Mucosal Erythema None Bladder Tumor None [id number] DISPOSABLE SCOPE URO-G FLEXIBLE SCOPE Procedure code (CPT) selection complete Office Meds lidocaine HCl 2 % mucosal jelly in applicator Performing Provider: Sánchez Mcmillan MD [facility] Administered by: Tello Lee LPN on 06/14/25 10:48 Dose Route Admin Location Dispensed Lot Number Expiration Date [facility] Dairy Equipment Mechanic 10 mL intra-urethral 10 mL nitrofurantoin monohydrate/macrocrystals 100 mg capsule Performing Provider: Sánchez Mcmillan MD [place] Administered by: Tello Lee LPN on 06/14/25 10:48 Dose Route Admin Location Dispensed Lot Number Expiration Date [employer] Equipment [employer] 100 mg PO 1 cap Results AMB Urinalysis, Automated UA Leukoctes 0 Brodie/uL Last Edit by Lisa Do, A on 06/14/25 10:30 UA Nitrite Negative Last Edit by Lisa Do, RMA on 06/14/25 10:30 UA Urobilinogen 0.2 mg/dL Last Edit by Lisa Do, A on 06/14/25 10:30 UA Protein 0 mg/dL Last Edit by Lisa Do A on 06/14/25 10:30 UA pH 6.0 Last Edit by Lisa Do, RMA on 06/14/25 10:30 UA Blood 0 Kye/uL Last Edit by Lisa Do, A on 06/14/25 10:30 UA Specific [place] 1.010 Last Edit by Lisa Do, A on 06/14/25 10:30 UA Ketone Negative Last Edit by Lisa Do, A on 06/14/25 10:30 UA Bilirubin 0 mg/dL Last Edit by Lisa Do A on 06/14/25 10:30 UA Glucose 0 mg/dL Last Edit by Lisa Do, A on 06/14/25 10:30 Results Reviewed Results Reviewed: Laboratory Last Values Urine pH (Auto) 6.0 06/14/25 10:29 Specific [place] (Auto) 1.010 06/14/25 10:29 Urine Protein (Auto) 0 mg/dL 06/14/25 10:29 Glucose (UA)(Auto) 0 mg/dL 06/14/25 10:29 Urine Ketones (Auto) Negative 06/14/25 10:29 Urine Blood (Auto) 0 Kye/uL 06/14/25 10:29 Urine Nitrite (Auto) Negative 06/14/25 10:29 Urine Bilirubin (Auto) 0 mg/dL 06/14/25 10:29 Urine Urobilinogen (Auto) 0.2 mg/dL 06/14/25 10:29 Leukocyte Esterase (Auto) 0 Brodie/uL 06/14/25 10:29 Assessment & Plan Assessment & Plan (1) Bladder cancer: Comment: 2019 low-grade Code(s): C67.9 - Malignant neoplasm of bladder, unspecified Category: Medical (2) Mixed stress and urge urinary incontinence: Code(s): N39.46 - Mixed incontinence Category: Medical Plan Twelve month follow-up Keep bladder medications Orders: Orders AMB Urinalysis Automated Today Z13.9 - Encounter for screening, unspecified Urine Cytology Today C67.9 - Malignant neoplasm of bladder, unspecified AMB Cystoscopy Today C67.9 - Malignant neoplasm of bladder, unspecified, N30.20 - Other chronic cystitis without hematuria, N32.81 - Overactive bladder Patient Instructions: This note is constructed using voice recognition software. While every effort has been made to ensure accuracy health technician hearing errors may have been included. Imaging studies, laboratory and physical exam results were discussed and reviewed in detail. No major barriers to patient understanding were identified. An opportunity to ask questions regarding the treatment plan was provided. All questions were answered. The patient expressed understanding and agreement with the above treatment plan. The patient is aware they should contact our office by phone for worsening of their current condition or the appearance of new urologic symptoms. Compliance is encouraged with any medications and followup testing that is ordered. It is a privilege to participate in the urologic care of your patient. If you have any questions or concerns regarding treatment for the above conditions, or other urologic issues, please do not hesitate to contact me. The office telephone contact is [phone]. Sincerely, Dr Sánchez Mcmillan MD, [facility] - Urology Compassionate Specialist Care for the Genitourinary System Coding Level of Care Code Est Pt Level 3 (12785) Add On Problem Visit Only Diagnoses Bladder cancer C67.9 Mixed stress and urge urinary incontinence N39.46 CPT Codes Cystoscopy - CPT: [id number] ([id number])
== END 2025-06-14 11:18 | disposition home or self-care (01) ==
PROVIDERS: PCP Internal Medicine; Visit Provider Urology
DX: N32.81 Overactive bladder (principal); N30.20 Other chronic cystitis without hematuria; C67.9 Malignant neoplasm of bladder, unspecified; N39.46 Mixed incontinence; Z13.9 Encounter for screening, unspecified
CPT/HCPCS: 52000; 99213

== ENCOUNTER 2025-06-19 10:01 | Outpatient (AMB) | payer MEDICARE, SELFPAY ==
--- OUTSIDE RECORDS SUMMARY | 2024-03-20 03:30 | XMS_ITS ---
Author Organization [facility] Address [address] [facility] [place] [address] Care Team Providers Care Movable Bulkhead Installer Name Role Phone Guillermo MURRAY, Jessica Espinoza Primary Care Provider Un available Mariluz Villeda Unavailable [phone] Allergies Allergen (clinical drug ingredient) Drug/Non Drug [...] 03/20/2024 Encounters Encounter Location Date [facility] [address] [place] [address] 03/20/2024 Mariluz Villeda Plan Of Treatment No Information Progress Notes * Morena BRONSON PDOB: [birth year] (80 yo F)Acc No.[id number]:03/20/2024 Progress Notes Patient: Daisy SANTACRUZMASHAMorena Provider: Precious Villeda DPM :1945 A ge:78 Y S ex:Female Date:03/20/2024 Address:[address] [place] [address] Pcp:Hilda Wright Subjective: * Chief Complaints: * [...] dmits. C ardiovascular: Pacemaker d enies. 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 W PW d enies. C [...] 0 03/20/2024 Generated for Gavi cruz/Armen/Danuta on: 08/20/2024 12:14 PM EST
--- OUTSIDE RECORDS SUMMARY | 2024-07-13 05:30 | XMS_ITS ---
Author Organization [facility] Address [address] [address] Care Team Providers Care Clothespin Machine Operator Name Role Phone Guillermo MURRAY, Jessica Espinoza Primary Care Provider Un available Mariluz Villeda Unavailable [phone] Allergies Allergen (clinical drug ingredient) Drug/Non Drug [...] nsmoker Encounters Encounter Location Date Provider Diagnosis [facility] [address] [address] 07/13/2024 Mariluz Villeda Plan Of Treatment No Information Progress Notes * Bandar BRONSONie PDOB: [birth year] (80 yo F)Acc No.[id number]:07/13/2024 Progress Notes Patient: Morena HARDIN Provider: Precious Villeda DPM :1945 A ge:79 Y S ex:Female Date:07/13/2024 Address:[address] [place], [place] [id number] Pcp:Hilda Wright Subjective: * Chief Complaints: * [...] dmits. C ardiovascular: Pacemaker d enies. 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 W PW d enies. C [...] 0 07/13/2024 Generated for Gavi cruz/Armen/Danuta on: 08/20/2024 12:14 PM EST
[2025-06-19 10:10] VITALS: BP 120/70; PULSE 69; O2SAT 100; BMI 48.1
--- NOTE | 2025-06-19 10:10 | A.OFFVIS_ITS ---
Vital Signs 06/19/25 10:10 Height 4 ft 11.5 in Weight 242 lb BMI 48.1 BP 120/70 Blood Pressure Location Lt brachial Position Sitting Pulse 69 Pulse Source Pulse Oximeter Pulse Oximetry (%) 100 Oxygen Delivery Method Nasal Cannula Oxygen Flow Rate 2.5 Intake Visit Reasons: COPD Intake Note: pt is here for follow up and had a stay at [facility] recently, and still has the cough with some phlegm, very thick Loss Prevention And Safety Manager Required: No Hairspring Truer: Hairspring Truer offered & declined Allergies bee pollen (bee stings) Allergy (Severe, Verified 06/19/25 10:36) Anaphylaxis tetanus toxoid, adsorbed (Tetanus Toxoid,Adsorbed) Allergy (Severe, Verified 06/19/25 10:36) LOCAL INJ.SITE SWELLING beeswax (BEESWAX) Allergy (Intermediate, Verified 06/19/25 10:36) Hives Iodinated Contrast Media (IV Dye, Iodine Containing) Allergy (Intermediate, Verified 06/19/25 10:36) HIVES-CAT SCAN DYE iodine (Iodine) Allergy (Intermediate, Verified 06/19/25 10:36) SWELLING, blister, hives Penicillins Allergy (Intermediate, Verified 06/19/25 10:36) SWELLING, hives, rash Sulfa (Sulfonamide Antibiotics) Allergy (Intermediate, Verified 06/19/25 10:36) Hives pneumococcal vaccine Adverse Reaction (Intermediate, Verified 06/19/25 10:36) fever, chills pollen Adverse Reaction (Mild, Uncoded 06/19/25 10:36) Nasal congestion Medication List - Last Reconciled 06/19/25 by Bonnie Lozano MD ascorbic acid (vitamin C) 1 g PO DAILY 90 days aspirin 81 mg PO DAILY atorvastatin 40 mg PO BEDTIME [bariatric transport wheelchair As directed] cholecalciferol (vitamin D3) (Vitamin D3) 25 mcg PO DAILY citalopram 30 mg (1.5 x 20 mg) PO DAILY 3 months coenzyme Q10 (CoQ-10) 300 mg PO DAILY commode (bedside commode) Bariatric commode docusate sodium 100 mg PO BID estradiol 0.01%(0.1mg/gram) 1 appl vaginal 3XW fluticasone propionate 50 mcg/actuation 1 spray intranasal QAM PRN 30 days furosemide 20 mg PO DAILY ipratropium-albuterol 0.5 mg-3 mg(2.5 mg base)/3 mL 3 mL inhalation Q4-6H PRN lisinopril 10 mg PO DAILY methenamine hippurate 1 g PO DAILY 90 days metoprolol succinate ER 100 mg (2 x 50 mg) PO DAILY pantoprazole 40 mg PO DAILY@0630 [Transport chair As directed] turmeric 500 mg PO DAILY Do you need a note to return to daycare/school/sports/work: No HPI HPI COPD: Details: 80 years old female with morbid obesity, impaired locomotion, comes in large bariatric chair , assisted by her daughter. At present she claims to be at her baseline, except for somewhat increased cough with thick mucus. She was admitted in [facility] with an acute exacerbation of COPD. And the chest x-ray did show a few patchy densities suggesting possible pneumonia. She was treated for acute exacerbation with steroids and antibiotics, and got better . She continues to use O2 3 L/minute 24 hours a day. Her main treatment is DuoNeb updrafts which she uses about 4 times a day. She thinks that at this time she is at baseline but has increased mucus production. [facility] Medical History Osteoarthritis involving multiple joints on both sides of body Prediabetes Otitis media with effusion Acute respiratory disease Swelling of lower leg Respiratory failure with hypoxia Pain around toenail Hypertrophic toenail Acute bronchitis Anemia, macrocytic History of AL (myocardial infarction) Gait instability Restrictive lung disease Myocardial infarct Supplemental oxygen dependent Difficult intravenous access Intertrigo Pneumococcal vaccination declined Influenza vaccination declined NADEEM (obstructive sleep apnea) COPD (chronic obstructive pulmonary disease) Restrictive lung disease OAB (overactive bladder) Murmur Nocturnal leg cramps UTI (urinary tract infection) Endometrial cancer Immunization refused Mixed stress and urge urinary incontinence Morbid obesity Recurrent major 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 Impaired fasting glucose Dyslipidemia Osteopenia of neck of left femur Mild intermittent asthma without complication Essential hypertension Cataract Hx of gout Hx of Clostridium difficile infection Urinary incontinence Hiatal hernia GERD (gastroesophageal reflux disease) Sleep apnea, unspecified Snores Ex-smoker for more than 1 year Bladder cancer History of pneumonia Surgical History History of urologic surgery Hx of bilateral cataract extraction Cataract extraction status, right eye Hx of colonoscopy Hx of cystoscopy History of neck surgery History of vaginal hysterectomy History of bladder surgery Family History Father Heart disease Mother No problems noted. Maternal Grandfather Heart disease Maternal Grandmother Heart disease Paternal Grandfather Heart disease Paternal Grandmother Heart disease Social History Household Members: Family Housing: House Are you a primary director long term care to a significant other at home: No Do you presently have visiting nurse or other home services: No Alcohol intake: never Patient Tobacco Use Status: Former Tobacco user Tobacco use type: Cigarette e-Cigarette/Vaping Use: Never Used Second Hand Smoke Exposure: No Advance Directives Date on File: 12/21/21 Current occupational status: disabled Cognitive needs: No Hearing needs: No Vision needs: Yes Review of Systems Const All systems reviewed & are unremarkable except as noted in HPI and below Eyes Reports no additional complaints ENT Reports no additional complaints Card Denies chest pain, Denies irregular heart rhythm and Reports leg edema Resp Reports cough (mild intermittent ) and Denies wheezing GI Reports no additional complaints Reports urinary incontinence Musc Reports no additional complaints and Reports abnormal gait (Non ambulatory) Skin/Breast Reports system reviewed and no additional complaints, except as documented Neuro Reports abnormal gait (Non ambulatory) Psych Reports no additional complaints Aller/Immun Denies wheezing Physical Exam Vital Signs: Last Vital Signs Pulse 69 06/19/25 10:10 BP 120/70 06/19/25 10:10 Pulse Ox 100 06/19/25 10:10 Oxygen Delivery Method Nasal Cannula 06/19/25 10:10 Oxygen Flow Rate 2.5 06/19/25 10:10 BMI result Body Mass Index 48.1 Const Other: SHE IS GROSSLY OBESE, BUT CANNOT BE WEIGHED. HAS A LARGE AND SHORT NECK. WITH A ROUND FACE. TYPICAL PHYSICAL FEATURES OF OBSTRUCTIVE SLEEP APNEA. General: comfortable (In a wheelchair), no acute distress, alert and awake Orientation/consciousness: patient oriented x3 HEENT Head: Yes normal to inspection General nose exam: No nasal polyps present and No nasal discharge present Face and sinus: Yes sinuses nontender Mouth: oropharynx abnormals (Oropharynx is crowded, Mallampati class 4) Throat: Yes posterior oropharynx normal Eyes General: appearance normal, both eyes and all related structures Neck Neck: Yes normal visual inspection, Yes no lymphadenopathy, Yes trachea midline, Yes no JVD and Yes other (Very obese and short) Thyroid: Thyroid normal Chest Chest palpation & inspection: normal inspection of the chest, normal palpation of entire chest wall and no tenderness Resp Other: Percussion note is not perceptible because of gross obesity. Breath sounds are heard equally in the upper parts of the chest and diminished over the lower lobes. No wheezes rhonchi or crepitations were heard. NO COUGH with breathing efforts . Cardio Palpation: normal PMI Rate: regular rate Rhythm: regular rhythm Heart sounds: no gallops and no murmurs GI Palpation (GI): Soft to palpation, nontender, No hepatosplenomegaly present, no masses and Other GI palpation findings present (Abdomen grossly obese) Auscultation: normal bowel sounds Back/Spine/Pelvis Thoracic/Lumbar Spine: thoracic and lumbar spine normal to inspection and thoraco-lumbar ROM limited Skin General skin exam: no rashes or lesions noted Neuro General: patient oriented x3, No gait normal (Gait is impaired because of her morbid obesity) and no focal motor deficits Cranial nerves: Yes CN's II-XII intact bilaterally Extrem General: Yes normal to inspection, Yes no calf tenderness, Yes edema (Edema around the ankles, stasis edema) and Yes venous stasis dermatitis Psych Appearance: grossly normal and well kempt Speech and movement: Normal speech and movement present Assessment & Plan Assessment & Plan (1) COPD (chronic obstructive pulmonary disease): Comment: We are treating her for COPD and restrictive pulmonary disease. She had acute exacerbation last month and treated in the hospital for 5 days. At present complains of increased cough with thick mucus. Code(s): J44.9 - Chronic obstructive pulmonary disease, unspecified Category: Medical Qualifiers: COPD type: unspecified COPD Qualified Code(s): J44.9 - Chronic obstructive pulmonary disease, unspecified Plan: Continue to use ipratropium-albuterol solution in the nebulizer Q 4-6 hours during the daytime , and maybe once during the night if she wakes up with cough. Advised to have vaporizer/humidifier in the house , running 24 hours a day. For cough and thick mucus she may use Mucinex 400 mg b.i.d. ( OTC ) (2) NADEEM (obstructive sleep apnea): Comment: Patient does have NADEEM due to her morbid obesity but she was not able to tolerate the CPAP so just uses O2 3 L/minute at night. Code(s): G47.33 - Obstructive sleep apnea (adult) (pediatric) Category: Medical Plan: O2 3 L/minute (3) Morbid obesity: Comment: THIS PATIENT HAS SUPER MORBID OBESITY. THERE IS NO POTENTIAL FOR HER TO LOSE WEIGHT. Code(s): E66.01 - Morbid (severe) obesity due to excess calories Category: Medical Plan: Nothing new in this case . Coding Level of Care Code Est Pt Level 3 (21660) Diagnoses Chronic obstructive pulmonary disease, unspecified COPD type J44.9 COPD type: unspecified COPD NADEEM (obstructive sleep apnea) G47.33 Morbid obesity E66.01
--- OUTSIDE RECORDS SUMMARY | 2025-06-19 12:14 | XMS_ITS | Patient Health Record ---
[facility] Address [address] [place] [address] Care Team Providers Care Courtesy Clerk Name Role Phone Guillermo MURRAY, Jessica Espinoza Primary Care Provider Un available Mariluz Villeda Unavailable [phone] Allergies Allergen (clinical drug ingredient) Drug/Non Drug [...] nsmoker Encounters Encounter Location Date Provider Diagnosis [facility] [address] [address] 07/03/2024 Mariluz Villeda [facility] [address] [address] 07/12/2024 Mariluz Villeda Plan Of Treatment No Information Insurance Providers Payer Name Payer Address Payer Phone Subscriber Number Group Number Insured Name Patient Relationship to Insured Coverage Start Date Coverage End Date Medicare National [employer] [address] [facility] [place] [phone] Morena Estrada Self - patient is the insured [facility] [address] [place] [address] Morena Estrada Self - patient is the [...]
--- OUTSIDE RECORDS SUMMARY | 2025-06-19 12:14 | XMS_ITS | Patient Health Record ---
Author Organization [facility] Address [address] [place] [id number] Care Team Providers Care Flake Or Shred Roll Operator Name Role Phone Guillermo MURRAY, Jessica Primary Care Provider Flaco Stringer Unavailable [phone] Allergies Allergen (clinical drug ingredient) Drug/Non Drug Allergy documented on EMR Reaction Allergy Type Onset Date Status bees (uncoded) Unknown Allergy Activ e horse tetneus (uncoded) Unknown Allergy Active IVP Dye (uncoded) Unknown Allergy Ac tive Iodine Unknown Drug Allergy Active Penicillin Unknown Drug Allergy Active Reason For Referral No Information Medications Medication SIG (Take, Route, Frequency, Duration) Notes Start Date End Date Status Atorvastatin Calcium 40 MG Tablet 1 tablet Orally Once a day Active Metoprolol Succinate ER 100 MG Tablet Extended Release 24 Hour 1 tablet Orally Once a day Active Esomeprazole Magnesium 20 MG Capsule Delayed Release 2 capsules Orally Once a day; Duration: 30 day(s) 08/22/2015 Active Co Q 10 200mg capsules 1 capsule with a meal Orally Once a day Active Turmeric Curcumin 500 MG Capsule 1 capsule Orally once a day Active Lisinopril 2.5 MG Tablet 1 tablet Orally Once a day Active Vitamin D-3 2000 IU 1 capsule Orally Onc e a day Active Vitamin C 1000 MG Tablet 1 tablet Orally Once a day Active Aspir-81 81 MG Tablet Delayed Release 1 tablet Orally Once a day Active Citalopram & Diet Manage Prod 10 MG Miscellaneous 1 tablet Orally once a day Active NexIUM 20 MG Capsule Delayed Release 1 capsule Orally Once a day Generic Active Social History Social History Additional Details Category Social Info Options Details Miscellaneous: Marital status: Occupation: retired Section Notes: Nonsmoker; no sig alcohol Problems Problem Type SNOMED Code ICD Code Onset Dates Problem Status W/U Status Risk Notes Problem Screening for malignant neoplasm of colon (351699189) Encounter for screening for malignant neoplasm of colon (Z12.11) Active confirmed Problem History of adenomatous polyp of colon (603515425) History of adenomatous polyp of colon (Z86.010) Active confirmed Problem Dysphagia (49569798) Other dysphagia (R13.19) Active confirmed Problem Gastroesophageal reflux disease without esophagitis (760952197) Gastroesophageal reflux disease without esophagitis (K21.9) Active confirmed Problem Preprocedural examination (881958981219778) Preprocedural examination (Z01.818) Active confirmed Problem Long-term current use of antiplatelet drug (412376966934912) Long-term use of aspirin therapy (Z79.82) Active confirmed Encounters Encounter Location Date Provider Diagnosis [facility] [address] [place] [address] 11/19/2024 Flaco Acosta Plan Of Treatment Pending Test Test Name Order Date XR BARIUM SWALLOW-ESOPHAGUS 07/30/2015 Future Test Test Name Order Date COLONOSCOPY 04/02/2011 COLONOSCOPY 01/20/2017 Insurance Providers Payer Name Payer Address Payer Phone Subscriber Number Group Number Insured Name Patient Relationship to Insured Coverage Start Date Coverage End Date MEDICARE OF [place] [address] [place] [address] [id number] GORDO BRONSON Self - patient is the insured [employer] CLAIM[employer] [address] [place] [address] [phone] [id number] GORDO BRONSON Self - patient is the insured Medical (General) History Medical History History ICD Code Uterine cancer as below Bladder cancer--periodic cystoscopies wi th Dr. Betancourt Denies DM,CVA,Lung disease,renal disease GERD--EGD [place] [address] Danny wetzel--large HH; EGD in 2015 with the finding of her hiatal hernia, but no esophagitis nor Arellano's esophagus HTN Denies DM,CVA,Lung disease,renal disease Reports ID in her 40's--no problems sinc e Hyperlipidemia Depression Tubular adenoma--removed in 2006--- she had a negative colonoscopy in May 2011 and also in 2001 Ischemic colitis in June of 2010-- a colonoscopy showed changes of the ischemic colitis in the transverse colon Diverticulitis in 09/2016 Probable sleep apnea--- miguel medina Surgical History Surgery Date(Month/Year) SAM for uterine cancer in December 2010 Bladder suspension and cystoscopy in Dec--bladder cancer Interstim bladder stimulator for inconti nence
--- OUTSIDE RECORDS SUMMARY | 2025-07-11 19:00 | XMS_ITS | Clinical Summary ---
Author Organization Unknown Care Team Providers Care Underwriter Mortgage Loan Name Role Phone MARTHA MURRAY, KAREN JAMES Unavailable Unavaila madeleine KOTHARI RN, GITA Unavailable Unavailable LOGAN PT, MILO Unavailable Unavailable FIDE DAILEY LPN, MAULIK Unavailable Unavai lable DEVENDRA OT, LALY Unavailable Unavailabl e Payers Payer Name Policy Type Policy Number Effective Date Expira tion Date MEDIC[place] - [place] PDGM [id number] Problems Condition Name Condition Details Condition Category Status Onset Date Resolution Date Last Treatment Date Treating Clinician Comments OTHER SPECIFIED CHRONIC OBSTRUCTIVE PULMONARY DISEASE Active 07-04 00:00: 00 MILD INTERMITTENT ASTHMA, UNCOMPLICATE D Active 07-04 00:00: 00 SEPSIS, UNSPECIFIED ORGANISM Active 07-04 00:00: 00 CHRONIC OBSTRUCTIVE PULMONARY DISEASE W (ACUTE) EXACERBATION Active 07-04 00:00: 00 TYPE 2 DIABETES MELLITUS WITHOUT COMPLICATION S Active 07-04 00:00: 00 HYPERTENSIVE HEART DISEASE WITH HEART FAILURE Active 07-04 00:00: 00 HEART FAILURE, UNSPECIFIED Active 07-04 00:00: 00 ANEMIA, UNSPECIFIED Active 07-04 00:00: 00 LYMPHEDEMA, NOT ELSEWHERE CLASSIFIED Active 07-04 00:00: 00 HYPERLIPIDEM IA, UNSPECIFIED Active 07-04 00:00: 00 MAJOR DEPRESSIVE DISORDER, RECURRENT, IN FULL REMISSION Active 07-04 00:00: 00 POLYOSTEOART HRITIS, UNSPECIFIED Active 07-04 00:00: 00 GOUT, UNSPECIFIED Active 07-04 00:00: 00 OTH DISRD OF BONE DENSITY AND STRUCTURE, OTHER SITE Active 07-04 00:00: 00 OBSTRUCTIVE SLEEP APNEA (ADULT) (PEDIATRIC) Active 07-04 00:00: 00 GASTRO-ESOPH AGEAL REFLUX DISEASE WITHOUT ESOPHAGITIS Active 07-04 00:00: 00 OVERACTIVE BLADDER Active 07-04 00:00: 00 OLD MYOCARDIAL INFARCTION Active 07-04 00:00: 00 MORBID (SEVERE) OBESITY DUE TO EXCESS CALORIES Active 07-04 00:00: 00 BODY MASS INDEX [BMI] 45.0-49.9, ADULT Active 07-04 00:00: 00 LONG-TERM (CURRENT) USE OF ASPIRIN Active 07-04 00:00: 00 DEPENDENCE ON SUPPLEMENTAL OXYGEN Active 07-04 00:00: 00 ACQUIRED ABSENCE OF BOTH CERVIX AND UTERUS Active 07-04 00:00: 00 PERSONAL HISTORY OF PNEUMONIA (RECURRENT) Active 07-04 00:00: 00 PERSONAL HISTORY OF URINARY (TRACT) INFECTIONS Active 07-04 00:00: 00 PERSONAL HISTORY OF NICOTINE DEPENDENCE Active 07-04 00:00: 00 Allergies, Adverse Reactions, Alerts Allergy Name Allergy Type Status Severity Reaction(s) Onset Date Inactive Date Treating Clinician Comments BEE POLLEN Propensity to adverse reactions Active 2024-07 19:03: 52 DIPHTHERIA-T ETANUS TOXOIDS Propensity to adverse reactions Active 2024-07 19:04: 47 BEE WAX Propensity to adverse reactions Active 2024-07 19:05: 03 IODINATED CONTRAST MEDIA Propensity to adverse reactions Active 2024-07 19:05: 42 IODINATED DYES Propensity to adverse reactions Active 2024-07 19:06: 10 PENICILLIN Propensity to adverse reactions Active 2024-07 19:06: 32 SULFA (SULFONAMIDE ANTIBIOTICS) Propensity to adverse reactions Active 2024-07 19:07: 54 PNEUMOCOCCAL VACCINE POLYVALENT Propensity to adverse reactions Active 2024-07 19:08: 13 POLLENS Propensity to adverse reactions Active 2024-07 19:08: 26 Medications Ordered Medication Name Filled Medication Name Start Date Stop Date Current Medication? Ordering Clinician Indication Dosage Frequency Signature (SIG) Comments Components fesoterodin e ER 8 mg tablet,exte nded release 24 hr 2024-07 0 00:00: 00 05-14 00:00 :00 No [id number] Per instruc tions DAILY Per instructio ns DAILY (route: oral) Med Classific ation: Genitouri nary Therapy furosemide 20 mg tablet 2024-07 0-27 00:00: 00 05-14 00:00 :00 No [id number] Per instruc tions EVERY Per instructio ns EVERY (route: oral) Med Classific ation: Cardiovas cular Therapy Agents ipratropium 0.5 mg-albutero l 3 mg (2.5 mg base)/3 mL nebulizatio n soln 2024-07 0-27 00:00: 00 05-14 00:00 :00 No [id number] Per instruc tions INHALED EVERY 4 TO 6 HOURS NEEDED Per instructio ns INHALED EVERY 4 TO 6 HOURS NEEDED (route: inhalation ) Med Classific ation: Respirato ry Therapy Agents lisinopril 10 mg tablet 2024-07 0-22 00:00: 00 05-14 00:00 :00 No [id number] Per instruc tions EVERY DAY Per instructio ns EVERY DAY (route: oral) Med Classific ation: Cardiovas cular Therapy Agents citalopram 20 mg tablet 2024-07 0-17 00:00: 00 05-14 00:00 :00 No [id number] Per instruc tions EVERY DAY FOR 90 DAYS Per instructio ns EVERY DAY FOR 90 DAYS (route: oral) Med Classific ation: Central Nervous System Agents ascorbic acid (vitamin C) 1,000 mg tablet 2024-07 00:00: 00 Yes [id number] 1 tablet DAILY 1 tablet DAILY (route: oral) Med Classific ation: Electroly te Balance-N utritiona l Products aspirin 81 mg tablet 2024-07 00:00: 00 Yes [id number] 1 tablet DAILY 1 tablet DAILY (route: oral) Med Classific ation: Hematolog ical Agents atorvastati n 40 mg tablet 2024-07 00:00: 00 Yes [id number] 1 tablet BEDTIME 1 tablet BEDTIME (route: oral) Med Classific ation: Cardiovas cular Therapy Agents cholecalcif karon (vitamin D3) 50 mcg (2,000 unit) capsule 2024-07 00:00: 00 Yes [id number] 1 capsule BEDTIME 1 capsule BEDTIME (route: oral) Med Classific ation: Electroly te Balance-N utritiona l Products citalopram 20 mg tablet 2024-07 00:00: 00 Yes [id number] 1.5 tablet DAILY 1.5 tablet DAILY (route: oral) Med Classific ation: Central Nervous System Agents CoQ-10 100 mg capsule 2024-07 00:00: 00 Yes [id number] 1 capsule BEDTIME 1 capsule BEDTIME (route: oral) Med Classific ation: Alternati ve Therapy docusate sodium 100 mg capsule 2024-07 00:00: 00 Yes [id number] 1 capsule DAILY 1 capsule DAILY (route: oral) Med Classific ation: Gastroint estinal Therapy Agents estradiol 0.01% (0.1 mg/gram) vaginal cream 2024-07 00:00: 00 Yes [id number] Per instruc tions 3 TIMES A WEEK Per instructio ns 3 TIMES A WEEK (route: vaginal) Med Classific ation: Vaginal Products fesoterodin e ER 8 mg tablet,exte nded release 24 hr 2024-07 00:00: 00 Yes [id number] 1 tablet DAILY 1 tablet DAILY (route: oral) Med Classific ation: Genitouri nary Therapy fluticasone propionate 50 mcg/actuati on nasal spray,suspe nsion 2024-07 00:00: 00 Yes [id number] 1 spray DAILY 1 spray DAILY (route: nasal) Med Classific ation: Respirato ry Therapy Agents furosemide 20 mg tablet 2024-07 00:00: 00 Yes [id number] 1 tablet DAILY 1 tablet DAILY (route: oral) Med Classific ation: Cardiovas cular Therapy Agents ipratropium 0.5 mg-albutero l 3 mg (2.5 mg base)/3 mL nebulizatio n soln 2024-07 00:00: 00 Yes [id number] 3 mL EVERY 4-6 HOURS NEEDED 3 mL EVERY 4-6 HOURS NEEDED (route: inhalation ) Med Classific ation: Respirato ry Therapy Agents lisinopril 10 mg tablet 2024-07 00:00: 00 Yes [id number] 1 tablet DAILY 1 tablet DAILY (route: oral) Med Classific ation: Cardiovas cular Therapy Agents methenamine hippurate 1 gram tablet 2024-07 00:00: 00 Yes [id number] 1 g DAILY 1 g DAILY (route: oral) Med Classific ation: Genitouri nary Therapy metoprolol succinate ER 50 mg tablet,exte nded release 24 hr 2024-07 00:00: 00 Yes [id number] 1 tablet DAILY 1 tablet DAILY (route: oral) Med Classific ation: Cardiovas cular Therapy Agents oxygen gas for inhalation 2024-07 00:00: 00 Yes [id number] 3 Liter O2 - CONTINUOUS 3 Liter O2 - CONTINUOUS (route: inhalation ) Med Classific ation: Medical Supplies and Durable Medical Equipment (DME) pantoprazol e 40 mg tablet,marry yed release 2024-07 00:00: 00 Yes [id number] 1 tablet DAILY 1 tablet DAILY (route: oral) Med Classific ation: Gastroint estinal Therapy Agents turmeric root extract 500 mg capsule 2024-07 00:00: 00 Yes [id number] 1 capsule DAILY 1 capsule DAILY (route: oral) Med Classific ation: Alternati ve Therapy Immunizations Ordered Immunization Name Filled Immunization Name Date Status Comments Refusal Reason REFUSED COVID, COVID-19 2025-05-14 00:00:00 REFUSED FLU, PPV 2025-05-14 00:00:00 Vital Signs Vital Name Observation Time Observation Value Commen ts Temperature 2025-06-18 11:48:00.000 97.8 [degF] Temperature 2025-06-14 12:27:00.000 97.4 [degF] Temperature 2025 10:40:00.000 96.8 [degF] Temperature 2025-06-07 14:29:00.000 97.4 [degF] Temperature 2025-06-06 09:58:00.000 98.1 [degF] Temperature 2025-06-05 12:05:00.000 97.6 [degF] Temperature 2025-05-29 11:24:00.000 97.7 [degF] Temperature 2025-05-29 10:44:00.000 97.3 [degF] Temperature 2025-05-28 10:23:00.000 97.2 [degF] Temperature 2025-05-21 11:16:00.000 97.4 [degF] Temperature 2025-05-20 11:43:00.000 97.9 [degF] Temperature 2025-05-20 10:56:00.000 97.3 [degF] Temperature 2025-05-16 14:56:00.000 97.9 [degF] Temperature 2025-05-14 12:06:00.000 97.4 [degF] BMI (%) 2025-05-14 12:06:00.000 46 kg/m2 Height 2025-05-14 12:06:00.000 60 [in_us] Pulse 2025-06-18 11:48:00.000 66 /min Pulse 2025-06-14 12:27:00.000 78 /min Pulse 2025 10:40:00.000 73 /min Pulse 2025-06-07 14:29:00.000 73 /min Pulse 2025-06-06 09:58:00.000 90 /min Pulse 2025-06-05 12:05:00.000 76 /min Pulse 2025-05-29 11:24:00.000 76 /min Pulse 2025-05-29 10:44:00.000 76 /min Pulse 2025-05-28 10:23:00.000 76 /min Pulse 2025-05-21 11:16:00.000 76 /min Pulse 2025-05-20 11:44:00.000 70 /min Pulse 2025-05-20 10:56:00.000 63 /min Pulse 2025-05-16 14:56:00.000 68 /min Pulse 2025-05-14 12:06:00.000 88 /min O2 Saturation (%) 2025-06-18 11:48:00.000 97 % O2 Saturation (%) 2025-06-14 12:27:00.000 99 % O2 Saturation (%) 2025 10:40:00.000 100 % O2 Saturation (%) 2025-06-07 14:29:00.000 97 % O2 Saturation (%) 2025-06-06 09:58:00.000 98 % O2 Saturation (%) 2025-06-05 12:05:00.000 97 % O2 Saturation (%) 2025-05-29 11:24:00.000 98 % O2 Saturation (%) 2025-05-29 10:44:00.000 94 % O2 Saturation (%) 2025-05-28 10:23:00.000 99 % O2 Saturation (%) 2025-05-21 11:16:00.000 99 % O2 Saturation (%) 2025-05-20 11:43:00.000 100 % O2 Saturation (%) 2025-05-20 10:57:00.000 97 % O2 Saturation (%) 2025-05-16 14:56:00.000 99 % O2 Saturation (%) 2025-05-14 12:06:00.000 99 % Respirations 2025-06-18 11:48:00.000 18 /min Respirations 2025-06-14 12:27:00.000 19 /min Respirations 2025 10:40:00.000 18 /min Respirations 2025-06-07 14:29:00.000 18 /min Respirations 2025-06-06 09:58:00.000 18 /min Respirations 2025-06-05 12:05:00.000 18 /min Respirations 2025-05-29 11:28:00.000 18 /min Respirations 2025-05-29 10:44:00.000 18 /min Respirations 2025-05-28 10:23:00.000 18 /min Respirations 2025-05-21 11:16:00.000 19 /min Respirations 2025-05-20 11:43:00.000 18 /min Respirations 2025-05-20 10:56:00.000 18 /min Respirations 2025-05-16 14:56:00.000 18 /min Respirations 2025-05-14 12:06:00.000 18 /min Weight (lbs) 2025-06-18 11:48:00.000 242 [lb_av] Weight (lbs) 2025-06-14 12:27:00.000 238 [lb_av] Weight (lbs) 2025-06-07 14:29:00.000 245 [lb_av] Weight (lbs) 2025-05-29 11:24:00.000 240 [lb_av] Weight (lbs) 2025-05-29 10:44:00.000 240 [lb_av] Weight (lbs) 2025-05-21 11:16:00.000 235 [lb_av] Weight (lbs) 2025-05-20 10:57:00.000 231 [lb_av] Weight (lbs) 2025-05-14 12:06:00.000 235.6 [lb_av] Systolic Blood Pressure 2025-06-18 11:48:00.000 128 mm [Hg] Systolic Blood Pressure 2025-06-14 12:27:00.000 142 mm [Hg] Systolic Blood Pressure 2025 10:40:00.000 132 mm [Hg] Systolic Blood Pressure 2025-06-07 14:29:00.000 137 mm [Hg] Systolic Blood Pressure 2025-06-06 09:58:00.000 124 mm [Hg] Systolic Blood Pressure 2025-06-05 12:05:00.000 128 mm [Hg] Systolic Blood Pressure 2025-05-29 11:24:00.000 134 mm [Hg] Systolic Blood Pressure 2025-05-29 10:44:00.000 142 mm [Hg] Systolic Blood Pressure 2025-05-28 10:23:00.000 140 mm [Hg] Systolic Blood Pressure 2025-05-21 11:16:00.000 122 mm [Hg] Systolic Blood Pressure 2025-05-20 11:43:00.000 150 mm [Hg] Systolic Blood Pressure 2025-05-20 10:56:00.000 160 mm [Hg] Systolic Blood Pressure 2025-05-16 14:56:00.000 130 mm [Hg] Systolic Blood Pressure 2025-05-14 12:06:00.000 142 mm [Hg] Diastolic Blood Pressure 2025-06-18 11:48:00.000 70 mm [Hg] Diastolic Blood Pressure 2025-06-14 12:27:00.000 70 mm [Hg] Diastolic Blood Pressure 2025 10:40:00.000 65 mm [Hg] Diastolic Blood Pressure 2025-06-07 14:29:00.000 64 mm [Hg] Diastolic Blood Pressure 2025-06-06 09:58:00.000 78 mm [Hg] Diastolic Blood Pressure 2025-06-05 12:05:00.000 64 mm [Hg] Diastolic Blood Pressure 2025-05-29 11:24:00.000 64 mm [Hg] Diastolic Blood Pressure 2025-05-29 10:44:00.000 90 mm [Hg] Diastolic Blood Pressure 2025-05-28 10:23:00.000 62 mm [Hg] Diastolic Blood Pressure 2025-05-21 11:16:00.000 60 mm [Hg] Diastolic Blood Pressure 2025-05-20 11:43:00.000 64 mm [Hg] Diastolic Blood Pressure 2025-05-20 10:56:00.000 71 mm [Hg] Diastolic Blood Pressure 2025-05-16 14:56:00.000 62 mm [Hg] Diastolic Blood Pressure 2025-05-14 12:06:00.000 67 mm [Hg] Plan of Treatment Planned Activity Planned Date Details Comments Future Scheduled Test SKILLED NU RSE TO EVALUATE PATIENT, IDENTIFY PRIMARY AND CO-MORBID CONDITIONS CODED PER CODING GUIDELINES, AND DEVELOP PATIENT SPECIFIC PLAN OF CARE THAT INCLUDES PATIENT GOAL FOR HOME HEALTH. PLAN OF CARE TO INCLUDE 3 PRN VISIT(S) FOR OASIS DATA COLLECTION/COMPREHENSIVE ASSESSMENT AT TIMEPOINTS PER FEDERAL REGULATIONS. THIS INCLUDES VISITS FOR FAUSTINO, RECERT, SCIC, AND/OR DC. [code = SKILLED NURSE TO EVALUATE PATIENT, IDENTIFY PRIMARY AND CO-MORBID CONDITIONS CODED PER CODING GUIDELINES, AND DEVELOP PATIENT SPECIFIC PLAN OF CARE THAT INCLUDES PATIENT GOAL FOR HOME HEALTH. PLAN OF CARE TO INCLUDE 3 PRN VISIT(S) FOR OASIS DATA COLLECTION/COMPREHENSIVE ASSESSMENT AT TIMEPOINTS PER FEDERAL REGULATIONS. THIS INCLUDES VISITS FOR FAUSTINO, RECERT, SCIC, AND/OR DC.] Future Scheduled Test SKILLED NU RSE TO PROVIDE TEACHING/REINFORCEMENT RELATED TO URINARY INCONTINENCE. [code = SKILLED NURSE TO PROVIDE TEACHING/REINFORCEMENT RELATED TO URINARY INCONTINENCE.] Future Scheduled Test OXYGEN VIA NASAL CANNULA @ 3 LITERS CONTINUOUS SKILLED NURSE FOR O/A AND SKILLED TEACHING OF SAFE OXYGEN USE IN THE HOME. [code = OXYGEN VIA NASAL CANNULA @ 3 LITERS CONTINUOUS SKILLED NURSE FOR O/A AND SKILLED TEACHING OF SAFE OXYGEN USE IN THE HOME.] Future Scheduled Test SKILLED NU RSE FOR O/A, TEACHING, AND MANAGEMENT OF CAD, HLD [code = SKILLED NURSE FOR O/A, TEACHING, AND MANAGEMENT OF CAD, HLD] Future Scheduled Test SKILLED NU RSE FOR O/A, TEACHING RELATED TO GERD FOR EARLY IDENTIFICATION OF EXACERBATION OF DISEASE PROCESS. [code = SKILLED NURSE FOR O/A, TEACHING RELATED TO GERD FOR EARLY IDENTIFICATION OF EXACERBATION OF DISEASE PROCESS.] Future Scheduled Test SKILLED NU RSE FOR O/A, TEACHING AND MANAGEMENT OF OVERACTIVE BLADDER FOR EARLY IDENTIFICATION OF EXACERBATION OF DISEASE PROCESS [code = SKILLED NURSE FOR O/A, TEACHING AND MANAGEMENT OF OVERACTIVE BLADDER FOR EARLY IDENTIFICATION OF EXACERBATION OF DISEASE PROCESS] Future Scheduled Test OCCUPATION AL THERAPIST TO EVALUATE PATIENT FOR ADLS DEFICIT [code = OCCUPATIONAL THERAPIST TO EVALUATE PATIENT FOR ADLS DEFICIT] Future Scheduled Test SKILLED NU RSE FOR O/A OF RESPIRATORY SYSTEM TO IDENTIFY CHANGES ASSOCIATED WITH EXACERBATION AND TO PROVIDE SKILLED TEACHING ON MANAGEMENT OF ASTHMA, NADEEM PROCESS. [code = SKILLED NURSE FOR O/A OF RESPIRATORY SYSTEM TO IDENTIFY CHANGES ASSOCIATED WITH EXACERBATION AND TO PROVIDE SKILLED TEACHING ON MANAGEMENT OF ASTHMA, NADEEM PROCESS.] Future Scheduled Test SKILLED NU RSE FOR O/A AND SKILLED TEACHING RELATED TO SIGNS AND SYMPTOMS OF INFECTION AND INFECTION CONTROL MEASURES. [code = SKILLED NURSE FOR O/A AND SKILLED TEACHING RELATED TO SIGNS AND SYMPTOMS OF INFECTION AND INFECTION CONTROL MEASURES.] Future Scheduled Test SKILLED NU RSE FOR O/A AND SKILLED TEACHING IN MANAGEMENT OF LYMPHEDEMA DISEASE. [code = SKILLED NURSE FOR O/A AND SKILLED TEACHING IN MANAGEMENT OF LYMPHEDEMA DISEASE.] Future Scheduled Test PHYSICAL T HERAPIST TO EVALUATE PATIENT FOR ENDURANCE [code = PHYSICAL THERAPIST TO EVALUATE PATIENT FOR ENDURANCE] Future Scheduled Test SKILLED NU RSE TO PROVIDE TEACHING ON SIGNS AND SYMPTOMS AND MANAGEMENT OF HYPERTENSION. [code = SKILLED NURSE TO PROVIDE TEACHING ON SIGNS AND SYMPTOMS AND MANAGEMENT OF HYPERTENSION.] Future Scheduled Test SKILLED NU RSE TO INSTRUCT PATIENT/CAREGIVER ON COPD TO INCLUDE TEACHING AND SELF-MANAGEMENT RELATED TO COPD DISEASE PROCESS, SIGNS AND SYMPTOMS, AND COMPLICATIONS. [code = SKILLED NURSE TO INSTRUCT PATIENT/CAREGIVER ON COPD TO INCLUDE TEACHING AND SELF-MANAGEMENT RELATED TO COPD DISEASE PROCESS, SIGNS AND SYMPTOMS, AND COMPLICATIONS.] Future Scheduled Test SKILLED NU RSE FOR O/A, TEACHING AND SELF-MANAGEMENT RELATED TO HEART FAILURE. INSTRUCT PATIENT/CAREGIVER ON SIGNS AND SYMPTOMS OF EXACERBATION TO REPORT AND IMPORTANCE OF OBTAINING AND RECORDING DAILY WEIGHT AND/OR MEASUREMENTS. SN OR TRAINED PATIENT/CAREGIVER TO OBTAIN WEIGHT DAILY AND WEIGHT GAIN OF 2 LBS OVERNIGHT OR 5 LBS IN 1 WEEK TO BE REPORTED TO PHYSICIAN/PROVIDER. IF UNABLE TO WEIGH PATIENT, SN OR TRAINED PATIENT/CAREGIVER TO OBTAIN MEASUREMENT OF L CALF IN CM DAILY AND REPORT AN INCREASE OF 2 CM TO PHYSICIAN/PROVIDER. [code = SKILLED NURSE FOR O/A, TEACHING AND SELF-MANAGEMENT RELATED TO HEART FAILURE. INSTRUCT PATIENT/CAREGIVER ON SIGNS AND SYMPTOMS OF EXACERBATION TO REPORT AND IMPORTANCE OF OBTAINING AND RECORDING DAILY WEIGHT AND/OR MEASUREMENTS. SN OR TRAINED PATIENT/CAREGIVER TO OBTAIN WEIGHT DAILY AND WEIGHT GAIN OF 2 LBS OVERNIGHT OR 5 LBS IN 1 WEEK TO BE REPORTED TO PHYSICIAN/PROVIDER. IF UNABLE TO WEIGH PATIENT, SN OR TRAINED PATIENT/CAREGIVER TO OBTAIN MEASUREMENT OF L CALF IN CM DAILY AND REPORT AN INCREASE OF 2 CM TO PHYSICIAN/PROVIDER.] Future Scheduled Test SKILLED NU RSE FOR O/A AND SKILLED TEACHING RELATED TO SIGNS AND SYMPTOMS AND MANAGEMENT OF ANEMIA. [code = SKILLED NURSE FOR O/A AND SKILLED TEACHING RELATED TO SIGNS AND SYMPTOMS AND MANAGEMENT OF ANEMIA.] Future Scheduled Test SKILLED NU RSE FOR O/A AND TEACHING OF DIABETIC MANAGEMENT INCLUDING BLOOD SUGAR MONITORING/USE OF GLUCOMETER, DIABETIC DIET, LOWER EXTREMITY SKIN INSPECTION, PROPER SKIN/FOOT CARE, AND SIGNS AND SYMPTOMS HYPO/HYPERGLYCEMIA TO REPORT. [code = SKILLED NURSE FOR O/A AND TEACHING OF DIABETIC MANAGEMENT INCLUDING BLOOD SUGAR MONITORING/USE OF GLUCOMETER, DIABETIC DIET, LOWER EXTREMITY SKIN INSPECTION, PROPER SKIN/FOOT CARE, AND SIGNS AND SYMPTOMS HYPO/HYPERGLYCEMIA TO REPORT.] Future Scheduled Test SKILLED NU RSE TO INSTRUCT PATIENT/CAREGIVER ON PREVENTION OF SEPSIS, AND SIGNS AND SYMPTOMS OF SEPSIS TO REPORT. [code = SKILLED NURSE TO INSTRUCT PATIENT/CAREGIVER ON PREVENTION OF SEPSIS, AND SIGNS AND SYMPTOMS OF SEPSIS TO REPORT.] Future Scheduled Test SKILLED NU RSE FOR O/A AND SKILLED TEACHING RELATED TO SIGNS AND SYMPTOMS AND MANAGEMENT OF MUSCLE WEAKNESS [code = SKILLED NURSE FOR O/A AND SKILLED TEACHING RELATED TO SIGNS AND SYMPTOMS AND MANAGEMENT OF MUSCLE WEAKNESS] Future Scheduled Test PATIENT SMITH S A RISK OF HOSPITALIZATION AND ED USE. SKILLED NURSE TO ESTABLISH SUPPORT MEASURES TO MINIMIZE RISK OF HOSPITALIZATION AND ED USE, AND INSTRUCT PATIENT/CAREGIVER ON METHODS TO REDUCE AVOIDABLE HOSPITALIZATION AND ED USE. [code = PATIENT HAS A RISK OF HOSPITALIZATION AND ED USE. SKILLED NURSE TO ESTABLISH SUPPORT MEASURES TO MINIMIZE RISK OF HOSPITALIZATION AND ED USE, AND INSTRUCT PATIENT/CAREGIVER ON METHODS TO REDUCE AVOIDABLE HOSPITALIZATION AND ED USE.] Future Scheduled Test SKILLED NU RSE TO PROVIDE INSTRUCTION TO PATIENT/CAREGIVER RELATED TO DISCHARGE PLANNING. [code = SKILLED NURSE TO PROVIDE INSTRUCTION TO PATIENT/CAREGIVER RELATED TO DISCHARGE PLANNING.] Future Scheduled Test SKILLED NU RSE TO PERFORM ENVIRONMENTAL SAFETY RISK ASSESSMENT AND FALL RISK ASSESSMENT AND PROVIDE INSTRUCTION TO IMPLEMENT ENVIRONMENTAL SAFETY AND FALL PREVENTION STRATEGIES THROUGHOUT THE CERTIFICATION PERIOD. SKILLED NURSE WILL MAINTAIN SITUATIONAL AWARENESS AND WILL NOTIFY CLINICAL ARCHIVAL STUDIES PROFESSOR AND PHYSICIAN/PROVIDER WITH ANY CHANGE IN CONDITION. [code = SKILLED NURSE TO PERFORM ENVIRONMENTAL SAFETY RISK ASSESSMENT AND FALL RISK ASSESSMENT AND PROVIDE INSTRUCTION TO IMPLEMENT ENVIRONMENTAL SAFETY AND FALL PREVENTION STRATEGIES THROUGHOUT THE CERTIFICATION PERIOD. SKILLED NURSE WILL MAINTAIN SITUATIONAL AWARENESS AND WILL NOTIFY CLINICAL ARCHIVAL STUDIES PROFESSOR AND PHYSICIAN/PROVIDER WITH ANY CHANGE IN CONDITION.] Future Scheduled Test SKILLED NU RSE FOR OBSERVATION AND ASSESSMENT OF PATIENT S PAIN LEVEL AND EFFECTIVENESS OF PAIN MANAGEMENT REGIMEN. SKILLED NURSE TO INSTRUCT PATIENT/CAREGIVER REGARDING PHARMACOLOGIC AND NON-PHARMACOLOGIC PAIN CONTROL MEASURES. SKILLED NURSE TO REPORT TO PHYSICIAN IF PAIN LEVEL IS OUTSIDE OF ESTABLISHED PARAMETERS. [code = SKILLED NURSE FOR OBSERVATION AND ASSESSMENT OF PATIENT S PAIN LEVEL AND EFFECTIVENESS OF PAIN MANAGEMENT REGIMEN. SKILLED NURSE TO INSTRUCT PATIENT/CAREGIVER REGARDING PHARMACOLOGIC AND NON-PHARMACOLOGIC PAIN CONTROL MEASURES. SKILLED NURSE TO REPORT TO PHYSICIAN IF PAIN LEVEL IS OUTSIDE OF ESTABLISHED PARAMETERS.] Future Scheduled Test SKILLED NU RSE TO ASSESS PATIENT'S SKIN INTEGRITY AND INSTRUCT PATIENT/CAREGIVER ON MEASURES TO PREVENT PRESSURE ULCERS. [code = SKILLED NURSE TO ASSESS PATIENT'S SKIN INTEGRITY AND INSTRUCT PATIENT/CAREGIVER ON MEASURES TO PREVENT PRESSURE ULCERS.] Future Scheduled Test SKILLED NU RSE TO PROVIDE ASSESSMENT AND TEACHING/REINFORCEMENT OF MANAGEMENT OF DEPRESSION INCLUDING DISEASE PROCESS, MEDICATION MANAGEMENT, COPING SKILLS AND IDENTIFY CHANGES ASSOCIATED WITH DEPRESSIVE DISORDERS FOR EARLY INTERVENTION. [code = SKILLED NURSE TO PROVIDE ASSESSMENT AND TEACHING/REINFORCEMENT OF MANAGEMENT OF DEPRESSION INCLUDING DISEASE PROCESS, MEDICATION MANAGEMENT, COPING SKILLS AND IDENTIFY CHANGES ASSOCIATED WITH DEPRESSIVE DISORDERS FOR EARLY INTERVENTION.] Future Scheduled Test SKILLED NU RSE TO REVIEW PATIENT MEDICATIONS (PRESCRIPTION/OTC). INSTRUCT PATIENT/CAREGIVER ON ALL MEDICATIONS INCLUDING PURPOSE, WHEN TO TAKE, IMPORTANCE OF MEDICATION ADHERENCE, MONITORING OF EFFECTIVENESS, ADVERSE DRUG REACTIONS, POSSIBLE SIDE EFFECTS, AND WHEN TO NOTIFY AGENCY OR PHYSICIAN/PROVIDER OF ANY CONCERNS. [code = SKILLED NURSE TO REVIEW PATIENT MEDICATIONS (PRESCRIPTION/OTC). INSTRUCT PATIENT/CAREGIVER ON ALL MEDICATIONS INCLUDING PURPOSE, WHEN TO TAKE, IMPORTANCE OF MEDICATION ADHERENCE, MONITORING OF EFFECTIVENESS, ADVERSE DRUG REACTIONS, POSSIBLE SIDE EFFECTS, AND WHEN TO NOTIFY AGENCY OR PHYSICIAN/PROVIDER OF ANY CONCERNS.] Future Scheduled Test OCCUPATION AL THERAPIST TO EVALUATE PATIENT SECONDARY TO FUNCTIONAL DEFICITS/SAFETY CONCERNS IDENTIFIED DURING EVALUATION OCCUPATIONAL THERAPIST TO ASSESS BEST PRACTICE INTERVENTIONS TO ASSIST PATIENTS TO IMPROVE OR STABILIZE MEDICAL STATUS AND PREVENT RE-HOSPITALIZATION. MEASURES INCLUDING REVIEW AND IDENTIFICATION OF CONCERNS FOR THE FOLLOWING AREAS: DIABETIC FOOT CARE, ENVIRONMENTAL SAFETY ISSUES AND FALLS, PRESSURE ULCERS, PAIN, AND DISEASE MANAGEMENT. OCCUPATIONAL THERAPY TO INSTRUCT PATIENT/CAREGIVER ON SAFE TRANSFER TECHNIQUES USING PROPER BODY MECHANICS AND EQUIPMENT TO ENHANCE PARTICIPATION IN ADL S. OCCUPATIONAL THERAPY TO PROVIDE PATIENT/CAREGIVER WITH INSTRUCTIONS AND RECOMMENDATIONS TO IMPROVE ADL S INCLUDING SHOWERING WHILE USING APPROPRIATE ADAPTIVE DEVICES RECOMMENDED. SUMMARY OF THERAPY EVAL/ASSESSMENT FINDINGS AND REASON(S) SKILLS OF A THERAPIST ARE INDICATED: SKILLED OT EVAL COMPLETED 05/20 REASON FOR REFERRAL: PATIENT IS AN 88 YEAR OLD FEMALE REFERRED TO HOME OT SERVICES S/P HOSPITALIZATION DUE TO RECENT COPD EXACERBATION AND SEPSIS. SHE WAS AT [facility] 05/08-05/13. SHE NOW RETURNS TO HOME WITH HER SPOUSE PMH: COPD, SEPSIS, O2 DEPENDENT, CHF, T2DM, DEPRESSION, CARDIOMEGALY HOMEBOUND STATUS: PATIENT QUALIFIES FOR IN HOME SERVICES DUE TO INABILITY TO SAFELY LEAVE HOME WITHOUT ASSISTANCE LEAVING HOME CAUSES CONSIDERABLE AND TAXING EFFORT D/T ASSIST IS NEEDED TO MANAGE THE WW ON THE STAIRS WELL SOB AND ASSIST TO MANAGE THE O2 TANK. OCCUPATIONAL PROFILE/HOME ENVIRONMENT/PLOF: PATIENT LIVES IN A [facility] WITH HER SPOUSE, ADULT SON WELL A DOG. SHE REPORTS THAT SHE USED A WW PREVIOUSLY. SHE REQUIRED ASSIST FOR ADLS AND IADLS. SHE NEEDED ASSIST FOR HYGIENE AFTER HER TOILETING NEEDS. SHE DID ASSIST SOME WITH SOME SIMPLE THINGS SUCH PREPPING SOME VEGGIES FOR THE MEAL. SHE SLEEPS IN A RECLINER. SHE IS ON CONTINUOUS O2 AT 3 L VIA NCE. EQUIPMENT AVAILABLE: WW, O2, GRAB BARS, HAND HELD SHOWER EQUIPMENT RECOMMENDED: TO BE DETERMINED PRECAUTIONS/RESTRICTIONS: FALL RISK, HX CHF VITALS: STABLE SENSATION: INTACT PAIN: REPORT GENERALIZED BODY ACHES INTEGUMENTARY: INTACT NEUROLOGICAL/TONE: WNL VISUAL: INTACT COGNITION: ALERT AND ORIENTED X4 CLOF: TOILETING- SHE IS DEPENDENT FOR HYGIENE AND MOD A FOR CLOTHING MANAGEMENT ; TXFR-ON/OFF THE TOILET INDEPENDENTLY BATHING- UBB ASSIST FOR BACK ; LBB ASSIST FOR PERIAREA, LEGS AND FEET ; TXFR-UNABLE TO GET HER TUB AT THIS TIME. DRESSING- UBD: SETUP ; LBD MIN TO MOD A DEPENDENT SHOES AND SOCKS SELF FEEDING-INDEPENDENT GROOMING-SETUP FUNCTIONAL TRANSFERS-FROM CHAIR MOD I, TOILET MOD I, UNABLE TO GET INTO THE TUB/SHOWER AT THIS TIME MEAL PREP-FAMILY LAUNDRY-FAMILY HOUSEKEEPING-FAMILY PET CARE-FAMILY FUNCTIONAL MOBILITY-USES CANE IN THE HOME MOD I JL SCORE: 79/100 MODERATE DEPENDENCY COORDINATION: WNL ROM: BUE WNL STRENGTH: BUE 4/5 FUNCTIONAL ACTIVITY TOLERANCE: FAIR+ THIS DATE, DID NEED TO REST SEVERAL TIMES STANDING BALANCE: STATIC: GOOD ; DYNAMIC GOOD- SITTING BALANCE: STATIC WNL ; DYNAMIC WNL CLINICAL IMPRESSION: PATIENT PRESENTS WITH IMPAIRED FUNCTIONAL TRANSFERS, IMPAIRED FUNCTIONAL MOBILITY, IMPAIRED STRENGTH, PRESENCE OF PAIN, IMPAIRED FUNCTIONAL ACTIVITY TOLERANCE/SOB/FATIGUE, IMPAIRED FUNCTIONAL BALANCE, ALL RESULTING IN INABILITY TO SAFELY PARTICIPATE IN SELF CARE AND OCCUPATIONS OF CHOICE WITHOUT ASSISTANCE. REHAB POTENTIAL: PATIENT DEMONSTRATES GOOD REHAB POTENTIAL AEB HER MOTIVATION TO PARTICIPATE IN THERAPY WELL GOOD FAMILY SUPPORT PATIENT IS CURRENTLY DEMONSTRATING ADL/IADL SKILLS BELOW FUNCTIONAL BASELINE AND WOULD BENEFIT FROM HOME OT SERVICES (1WK4) TO TRAIN IN COMPENSATORY/ADAPTIVE TECHNIQUES, TRAIN IN SAFE FUNCTIONAL MOBILITY/ FUNCTIONAL BALANCE TO REDUCE RISK OF FALLS AND PROMOTE OVERALL SAFETY WITH FUNCTIONAL TASKS, TRAIN IN ECTS/TASK SIMPLIFICATION/MODIFICATIONS TO REDUCE SOB/FATIGUE AND MAX INDEP PARTICIPATION, TRAIN IN SAFE FUNCTIONAL TRANSFERS USING DME APPROPRIATE, ESTABLISH HEP FOR FACILITATING UB STRENGTH TO ASSIST WITH SAFE FUNCTIONAL TRANSFERS AND ADLS/IADLS, TRAIN IN PAIN MGMT. TECHNIQUES/STRATEGIES TO REDUCE DISCOMFORT WITH FUNCTIONAL TASKS, TRAIN IN PROPER BODY MECHANICS TO FACILITATE SAFE PERFORMANCE OF ADLS/IADLS AND PROVIDE ONGOING PATIENT EDUCATION TO MAX OVERALL SAFETY AND INDEP WITH SELF CARE TASKS WITHIN HOME PATIENT WAS INFORMED OF THE OT POC AND IS IN AGREEMENT. FOCUS WILL BE SHOWER TRANSFERS WELL ECT/WS TECHNIQUES [code = OCCUPATIONAL THERAPIST TO EVALUATE PATIENT SECONDARY TO FUNCTIONAL DEFICITS/SAFETY CONCERNS IDENTIFIED DURING EVALUATION OCCUPATIONAL THERAPIST TO ASSESS BEST PRACTICE INTERVENTIONS TO ASSIST PATIENTS TO IMPROVE OR STABILIZE MEDICAL STATUS AND PREVENT RE-HOSPITALIZATION. MEASURES INCLUDING REVIEW AND IDENTIFICATION OF CONCERNS FOR THE FOLLOWING AREAS: DIABETIC FOOT CARE, ENVIRONMENTAL SAFETY ISSUES AND FALLS, PRESSURE ULCERS, PAIN, AND DISEASE MANAGEMENT. OCCUPATIONAL THERAPY TO INSTRUCT PATIENT/CAREGIVER ON SAFE TRANSFER TECHNIQUES USING PROPER BODY MECHANICS AND EQUIPMENT TO ENHANCE PARTICIPATION IN ADL S. OCCUPATIONAL THERAPY TO PROVIDE PATIENT/CAREGIVER WITH INSTRUCTIONS AND RECOMMENDATIONS TO IMPROVE ADL S INCLUDING SHOWERING WHILE USING APPROPRIATE ADAPTIVE DEVICES RECOMMENDED. SUMMARY OF THERAPY EVAL/ASSESSMENT FINDINGS AND REASON(S) SKILLS OF A THERAPIST ARE INDICATED: SKILLED OT EVAL COMPLETED 05/20 REASON FOR REFERRAL: PATIENT IS AN 88 YEAR OLD FEMALE REFERRED TO HOME OT SERVICES S/P HOSPITALIZATION DUE TO RECENT COPD EXACERBATION AND SEPSIS. SHE WAS AT [facility] 05/08-05/13. SHE NOW RETURNS TO HOME WITH HER SPOUSE PMH: COPD, SEPSIS, O2 DEPENDENT, CHF, T2DM, DEPRESSION, CARDIOMEGALY HOMEBOUND STATUS: PATIENT QUALIFIES FOR IN HOME SERVICES DUE TO INABILITY TO SAFELY LEAVE HOME WITHOUT ASSISTANCE LEAVING HOME CAUSES CONSIDERABLE AND TAXING EFFORT D/T ASSIST IS NEEDED TO MANAGE THE WW ON THE STAIRS WELL SOB AND ASSIST TO MANAGE THE O2 TANK. OCCUPATIONAL PROFILE/HOME ENVIRONMENT/PLOF: PATIENT LIVES IN A [facility] WITH HER SPOUSE, ADULT SON WELL A DOG. SHE REPORTS THAT SHE USED A WW PREVIOUSLY. SHE REQUIRED ASSIST FOR ADLS AND IADLS. SHE NEEDED ASSIST FOR HYGIENE AFTER HER TOILETING NEEDS. SHE DID ASSIST SOME WITH SOME SIMPLE THINGS SUCH PREPPING SOME VEGGIES FOR THE MEAL. SHE SLEEPS IN A RECLINER. SHE IS ON CONTINUOUS O2 AT 3 L VIA NCE. EQUIPMENT AVAILABLE: WW, O2, GRAB BARS, HAND HELD SHOWER EQUIPMENT RECOMMENDED: TO BE DETERMINED PRECAUTIONS/RESTRICTIONS: FALL RISK, HX CHF VITALS: STABLE SENSATION: INTACT PAIN: REPORT GENERALIZED BODY ACHES INTEGUMENTARY: INTACT NEUROLOGICAL/TONE: WNL VISUAL: INTACT COGNITION: ALERT AND ORIENTED X4 CLOF: TOILETING- SHE IS DEPENDENT FOR HYGIENE AND MOD A FOR CLOTHING MANAGEMENT ; TXFR-ON/OFF THE TOILET INDEPENDENTLY BATHING- UBB ASSIST FOR BACK ; LBB ASSIST FOR PERIAREA, LEGS AND FEET ; TXFR-UNABLE TO GET HER TUB AT THIS TIME. DRESSING- UBD: SETUP ; LBD MIN TO MOD A DEPENDENT SHOES AND SOCKS SELF FEEDING-INDEPENDENT GROOMING-SETUP FUNCTIONAL TRANSFERS-FROM CHAIR MOD I, TOILET MOD I, UNABLE TO GET INTO THE TUB/SHOWER AT THIS TIME MEAL PREP-FAMILY LAUNDRY-FAMILY HOUSEKEEPING-FAMILY PET CARE-FAMILY FUNCTIONAL MOBILITY-USES CANE IN THE HOME MOD I JL SCORE: 79/100 MODERATE DEPENDENCY COORDINATION: WNL ROM: BUE WNL STRENGTH: BUE 4/5 FUNCTIONAL ACTIVITY TOLERANCE: FAIR+ THIS DATE, DID NEED TO REST SEVERAL TIMES STANDING BALANCE: STATIC: GOOD ; DYNAMIC GOOD- SITTING BALANCE: STATIC WNL ; DYNAMIC WNL CLINICAL IMPRESSION: PATIENT PRESENTS WITH IMPAIRED FUNCTIONAL TRANSFERS, IMPAIRED FUNCTIONAL MOBILITY, IMPAIRED STRENGTH, PRESENCE OF PAIN, IMPAIRED FUNCTIONAL ACTIVITY TOLERANCE/SOB/FATIGUE, IMPAIRED FUNCTIONAL BALANCE, ALL RESULTING IN INABILITY TO SAFELY PARTICIPATE IN SELF CARE AND OCCUPATIONS OF CHOICE WITHOUT ASSISTANCE. REHAB POTENTIAL: PATIENT DEMONSTRATES GOOD REHAB POTENTIAL AEB HER MOTIVATION TO PARTICIPATE IN THERAPY WELL GOOD FAMILY SUPPORT PATIENT IS CURRENTLY DEMONSTRATING ADL/IADL SKILLS BELOW FUNCTIONAL BASELINE AND WOULD BENEFIT FROM HOME OT SERVICES (1WK4) TO TRAIN IN COMPENSATORY/ADAPTIVE TECHNIQUES, TRAIN IN SAFE FUNCTIONAL MOBILITY/ FUNCTIONAL BALANCE TO REDUCE RISK OF FALLS AND PROMOTE OVERALL SAFETY WITH FUNCTIONAL TASKS, TRAIN IN ECTS/TASK SIMPLIFICATION/MODIFICATIONS TO REDUCE SOB/FATIGUE AND MAX INDEP PARTICIPATION, TRAIN IN SAFE FUNCTIONAL TRANSFERS USING DME APPROPRIATE, ESTABLISH HEP FOR FACILITATING UB STRENGTH TO ASSIST WITH SAFE FUNCTIONAL TRANSFERS AND ADLS/IADLS, TRAIN IN PAIN MGMT. TECHNIQUES/STRATEGIES TO REDUCE DISCOMFORT WITH FUNCTIONAL TASKS, TRAIN IN PROPER BODY MECHANICS TO FACILITATE SAFE PERFORMANCE OF ADLS/IADLS AND PROVIDE ONGOING PATIENT EDUCATION TO MAX OVERALL SAFETY AND INDEP WITH SELF CARE TASKS WITHIN HOME PATIENT WAS INFORMED OF THE OT POC AND IS IN AGREEMENT. FOCUS WILL BE SHOWER TRANSFERS WELL ECT/WS TECHNIQUES] Future Scheduled Test PHYSICAL T HERAPIST TO EVALUATE PATIENT SECONDARY TO FUNCTIONAL DEFICITS/SAFETY CONCERNS. PHYSICAL THERAPIST TO ASSESS BEST PRACTICE INTERVENTIONS TO ASSIST PATIENTS TO IMPROVE OR STABILIZE MEDICAL STATUS AND PREVENT RE-HOSPITALIZATION. MEASURES INCLUDING REVIEW AND IDENTIFICATION OF CONCERNS FOR THE FOLLOWING AREAS: DEPRESSION, DRUG REGIMEN, DIABETIC FOOT CARE, ENVIRONMENTAL SAFETY ISSUES AND FALLS, PRESSURE ULCERS, PAIN, AND DISEASE MANAGEMENT. PHYSICAL THERAPY TO ESTABLISH /UPGRADE/DOWNGRADE THERAPEUTIC EXERCISE PROGRAM AND INSTRUCT PATIENT/CAREGIVER ON EXERCISE PRECAUTIONS WITH WRITTEN HOME PROGRAM. MAY INCLUDE PROM, AAROM, AROM, RROM APPROPRIATE TO IMPROVE FUNCTIONAL STRENGTH AND RANGE OF MOTION. PHYSICAL THERAPY TO INSTRUCT PATIENT/CAREGIVER ON GAIT TRAINING TECHNIQUES USING APPROPRIATE ASSISTIVE DEVICE, PROPER BODY MECHANICS TO IMPROVE MOBILITY, AND PREVENT INJURY OF PATIENT AND/OR CAREGIVER. PHYSICAL THERAPY TO ASSESS AND RECOMMEND HOME SAFETY ADAPTATIONS AND EDUCATE PATIENT /CAREGIVER ON FALL PREVENTION STRATEGIES. PHYSICAL THERAPY TO INSTRUCT PATIENT/CAREGIVER ON BALANCE AND BALANCE STRATEGIES TO IMPROVE SAFE MOBILITY AND REDUCE RISK FOR FALL AND INJURY SUMMARY OF THERAPY EVAL/ASSESSMENT FINDINGS AND REASON(S) SKILLS OF A THERAPIST ARE INDICATED: PHYSICAL THERAPY EVALUATION (05/20/25) PATIENT IS AN 79 YO FEMALE WITH PHYSICAL THERAPY REFERRAL AFTER ONSET OF SOB, N/V AND WEAKNESS, [facility], DX: COPD EXACERBATION AND SEPSIS, MILD HF EXACERBATION. PAST MD HX: COPD AND O2 DEPENDENT, DM2, DEPRESSION, HF, CARDIOMEGALY, HTN, OSTEOARTHRITIS, ANEMIA, HISTORY OF IL, HISTORY OF UTI, PNA, BLADDER INCONTINENCE. FALLS HISTORY: NO RECENT FALLS REPORTED. PLOF: PATIENT SLEPT IN RECLINER, PATIENT ABLE TO TRANSFER AND AMB WITH CANE MOD I IN HOME, ON O2 CONTINUOUS, ASSIST WITH STAIRS PATIENT LIVES IN SINGLE FAMILY HOME WITH DOG, SON, AND SUPPORTIVE GORDO, WHO ASSISTS WITH ALL ADLS/IADLS. 3 STAIRS WITH RAIL, 1 THRESHOLD STEP TO NEGOTIATE. CLOF: DME: OXYGEN CONCENTRATOR, OXYGEN SUPPLIES, CANE, FWW, GRAB BAR, LIFT RECLINER, TRANSPORT WHEELCHAIR, LEGXERCISER SAFETY RECOMMENDATIONS: CARRY CELLPHONE PATIENT ON 3L O2 CONTINUOUS. PATIENT HAS 1+ BLE EDEMA, EDUC ON EDEMA CONTROL. BILAT LE ROM WFL, BILAT LE STRENGTH 4- TO 4/5. INSTRUCTED PATIENT IN BILAT LE SEATED THER EXER X 10: PLANTAR/DORSIFLEX, ANKLE CIRCLES, HIP FLEX, KNEE EXT. DISPENSED HEP SHEETS. PATIENT CURRENTLY SLEEPING IN RECLINER. PATIENT COMPLETED SIT -->STAND MOD I WITH CANE. PATIENT ABLE TO AMB 40' X 2 WITH CANE AND SUPERVISION, VERBAL CUES FOR MANAGING O2 TUBING. PATIENT DEMO BILAT LE STEP LENGTHS WITH ADEQUATE FEET CLEARANCE, 0 LOB. TINETTI = 16/28, FALL RISK. RECOMMENDED PATIENT AMB EVERY HOUR TO INCREASE ENDURANCE. PATIENT PRESENTS WITH THE FOLLOWING DEFICITS: DECREASED ENDURANCE, BILAT LE WEAKNESS, RESULTING IN DIFFICULTY WITH AMB AND STAIR NEGOTIATION. SKILLED [facility] PHYSICAL THERAPY FREQ 1X4WKS TO ADDRESS DEFICITS, MAX SAFETY AND FUNCTIONAL LEVEL IN HOME ENVIRONMENT WITH THER EXER, ESTABLISH HEP, GAIT TRAINING, STAIR NEGOTIATION, BALANCE ACTIVITIES. PATIENT AND CG INFORMED ABOUT PHYSICAL THERAPY POC INCLUDING FREQ, VERBALIZED ACCEPTANCE. NOTIFIED ABOUT PATIENT STATUS AND POC. OXYGEN VIA NASAL CANNULA @ 3 LITERS CONTINUOUS. PHYSICAL THERAPIST FOR O/A AND SKILLED TEACHING OF SAFE OXYGEN USE IN THE HOME. [code = PHYSICAL THERAPIST TO EVALUATE PATIENT SECONDARY TO FUNCTIONAL DEFICITS/SAFETY CONCERNS. PHYSICAL THERAPIST TO ASSESS BEST PRACTICE INTERVENTIONS TO ASSIST PATIENTS TO IMPROVE OR STABILIZE MEDICAL STATUS AND PREVENT RE-HOSPITALIZATION. MEASURES INCLUDING REVIEW AND IDENTIFICATION OF CONCERNS FOR THE FOLLOWING AREAS: DEPRESSION, DRUG REGIMEN, DIABETIC FOOT CARE, ENVIRONMENTAL SAFETY ISSUES AND FALLS, PRESSURE ULCERS, PAIN, AND DISEASE MANAGEMENT. PHYSICAL THERAPY TO ESTABLISH /UPGRADE/DOWNGRADE THERAPEUTIC EXERCISE PROGRAM AND INSTRUCT PATIENT/CAREGIVER ON EXERCISE PRECAUTIONS WITH WRITTEN HOME PROGRAM. MAY INCLUDE PROM, AAROM, AROM, RROM APPROPRIATE TO IMPROVE FUNCTIONAL STRENGTH AND RANGE OF MOTION. PHYSICAL THERAPY TO INSTRUCT PATIENT/CAREGIVER ON GAIT TRAINING TECHNIQUES USING APPROPRIATE ASSISTIVE DEVICE, PROPER BODY MECHANICS TO IMPROVE MOBILITY, AND PREVENT INJURY OF PATIENT AND/OR CAREGIVER. PHYSICAL THERAPY TO ASSESS AND RECOMMEND HOME SAFETY ADAPTATIONS AND EDUCATE PATIENT /CAREGIVER ON FALL PREVENTION STRATEGIES. PHYSICAL THERAPY TO INSTRUCT PATIENT/CAREGIVER ON BALANCE AND BALANCE STRATEGIES TO IMPROVE SAFE MOBILITY AND REDUCE RISK FOR FALL AND INJURY SUMMARY OF THERAPY EVAL/ASSESSMENT FINDINGS AND REASON(S) SKILLS OF A THERAPIST ARE INDICATED: PHYSICAL THERAPY EVALUATION (05/20/25) PATIENT IS AN 79 YO FEMALE WITH PHYSICAL THERAPY REFERRAL AFTER ONSET OF SOB, N/V AND WEAKNESS, [facility], DX: COPD EXACERBATION AND SEPSIS, MILD HF EXACERBATION. PAST MD HX: COPD AND O2 DEPENDENT, DM2, DEPRESSION, HF, CARDIOMEGALY, HTN, OSTEOARTHRITIS, ANEMIA, HISTORY OF IL, HISTORY OF UTI, PNA, BLADDER INCONTINENCE. FALLS HISTORY: NO RECENT FALLS REPORTED. PLOF: PATIENT SLEPT IN RECLINER, PATIENT ABLE TO TRANSFER AND AMB WITH CANE MOD I IN HOME, ON O2 CONTINUOUS, ASSIST WITH STAIRS PATIENT LIVES IN SINGLE FAMILY HOME WITH DOG, SON, AND SUPPORTIVE GORDO, WHO ASSISTS WITH ALL ADLS/IADLS. 3 STAIRS WITH RAIL, 1 THRESHOLD STEP TO NEGOTIATE. CLOF: DME: OXYGEN CONCENTRATOR, OXYGEN SUPPLIES, CANE, FWW, GRAB BAR, LIFT RECLINER, TRANSPORT WHEELCHAIR, LEGXERCISER SAFETY RECOMMENDATIONS: CARRY CELLPHONE PATIENT ON 3L O2 CONTINUOUS. PATIENT HAS 1+ BLE EDEMA, EDUC ON EDEMA CONTROL. BILAT LE ROM WFL, BILAT LE STRENGTH 4- TO 4/5. INSTRUCTED PATIENT IN BILAT LE SEATED THER EXER X 10: PLANTAR/DORSIFLEX, ANKLE CIRCLES, HIP FLEX, KNEE EXT. DISPENSED HEP SHEETS. PATIENT CURRENTLY SLEEPING IN RECLINER. PATIENT COMPLETED SIT -->STAND MOD I WITH CANE. PATIENT ABLE TO AMB 40' X 2 WITH CANE AND SUPERVISION, VERBAL CUES FOR MANAGING O2 TUBING. PATIENT DEMO BILAT LE STEP LENGTHS WITH ADEQUATE FEET CLEARANCE, 0 LOB. TINETTI = 16/28, FALL RISK. RECOMMENDED PATIENT AMB EVERY HOUR TO INCREASE ENDURANCE. PATIENT PRESENTS WITH THE FOLLOWING DEFICITS: DECREASED ENDURANCE, BILAT LE WEAKNESS, RESULTING IN DIFFICULTY WITH AMB AND STAIR NEGOTIATION. SKILLED [facility] PHYSICAL THERAPY FREQ 1X4WKS TO ADDRESS DEFICITS, MAX SAFETY AND FUNCTIONAL LEVEL IN HOME ENVIRONMENT WITH THER EXER, ESTABLISH HEP, GAIT TRAINING, STAIR NEGOTIATION, BALANCE ACTIVITIES. PATIENT AND CG INFORMED ABOUT PHYSICAL THERAPY POC INCLUDING FREQ, VERBALIZED ACCEPTANCE. MD NOTIFIED ABOUT PATIENT STATUS AND POC. OXYGEN VIA NASAL CANNULA @ 3 LITERS CONTINUOUS. PHYSICAL THERAPIST FOR O/A AND SKILLED TEACHING OF SAFE OXYGEN USE IN THE HOME.] Goal Patient Goal - M ORE INDEPENDENT AND STAY OUT OF THE HOSPITAL Goal Provider Goal - A PLAN OF CARE WILL BE ESTABLISHED THAT MEETS PATIENT'S SNF NEEDS AND INCLUDES PATIENT GOAL FOR HOME HEALTH. Goal Provider Goal - PATIENT / CAREGIVER WILL VERBALIZE UNDERSTANDING OF EFFECTS OF URINARY INCONTINENCE BY THE END OF THE CERTIFICATION PERIOD. Goal Provider Goal - PATIENT/CAREGIVER WILL VERBALIZE/DEMONSTRATE UNDERSTANDING OF SAFE OXYGEN USE IN THE HOME THROUGHOUT THE EPISODE. Goal Provider Goal - PATIENT/CAREGIVER WILL VERBALIZE/DEMONSTRATE MANAGEMENT OF CARDIAC DISEASE PROCESS AND EXACERBATIONS WILL BE IDENTIFIED AND PROMPTLY REPORTED THROUGHOUT THE CERTIFICATION PERIOD. Goal Provider Goal - EXACERBATIONS OF GASTROINTESTINAL DISEASE WILL BE PROMPTLY IDENTIFIED AND INTERVENTIONS IMPLEMENTED TO MINIMIZE RISKS TO PATIENT BY END OF EPISODE. Goal Provider Goal - PATIENT/CAREGIVER WILL VERBALIZE UNDERSTANDING OF GENITOURINARY DISEASE PROCESS, AND EXACERBATIONS OF GENITOURINARY DISEASE WILL BE PROMPTLY IDENTIFIED FOR EARLY INTERVENTION THROUGHOUT THE CERTIFICATION PERIOD. Goal Provider Goal - OCCUPATIONAL THERAPY EVALUATION TO BE COMPLETED WITH RECOMMENDATIONS AND WRITTEN PLAN OF TREATMENT ESTABLISHED FOR THE PHYSICIAN S SIGNATURE. Goal Provider Goal - PATIENT/CAREGIVER WILL VERBALIZE/DEMONSTRATE MANAGEMENT OF RESPIRATORY DISEASE PROCESS. CHANGES IN RESPIRATORY STATUS WILL BE IDENTIFIED AND REPORTED TO PHYSICIAN FOR PROMPT INTERVENTION THROUGHOUT THE CERTIFICATION PERIOD. Goal Provider Goal - PATIENT/CAREGIVER WILL VERBALIZE/DEMONSTRATE UNDERSTANDING OF S/S OF INFECTION AND INFECTION CONTROL MEASURES. SIGNS AND SYMPTOMS OF INFECTION WILL BE IDENTIFIED AND PHYSICIAN NOTIFIED FOR PROMPT INTERVENTION THROUGHOUT THE CERTIFICATION PERIOD. Goal Provider Goal - PATIENT/CAREGIVER WILL VERBALIZE/DEMONSTRATE THE ABILITY TO MANAGE CIRCULATORY DISEASE PROCESS AND EXACERBATIONS WILL BE IDENTIFIED FOR EARLY INTERVENTION THROUGHOUT THE CERTIFICATION PERIOD. Goal Provider Goal - A PHYSICAL THERAPY EVALUATION TO BE COMPLETED WITH RECOMMENDATIONS AND/OR WRITTEN PLAN OF TREATMENT ESTABLISHED FOR PHYSICIAN S SIGNATURE. Goal Provider Goal - PATIENT/CAREGIVER WILL VERBALIZE SIGNS AND SYMPTOMS OF HYPERTENSION AND WILL BE ABLE TO DEMONSTRATE ABILITY TO MANAGE EXACERBATION BY END OF THE EPISODE. Goal Provider Goal - PATIENT/CAREGIVER WILL VERBALIZE/DEMONSTRATE KNOWLEDGE AND MANAGEMENT OF COPD BY END OF EPISODE. Goal Provider Goal - PATIENT/CAREGIVER WILL VERBALIZE/DEMONSTRATE KNOWLEDGE AND MANAGEMENT OF HEART FAILURE DISEASE PROCESS BY END OF EPISODE. Goal Provider Goal - PATIENT/CARGIVER WILL VERBALIZE UNDERSTANDING OF ANEMIA INCLUDING SIGNS AND SYMPTOMS, MANAGEMENT OF COMPLICATIONS, AND PRESCRIBED TREATMENT REGIMEN BY END OF EPISODE. Goal Provider Goal - PATIENT/CAREGIVER WILL VERBALIZE/DEMONSTRATE KNOWLEDGE OF DIABETIC MANAGEMENT. CHANGES IN DIABETIC STATUS WILL BE IDENTIFIED AND REPORTED TO PHYSICIAN FOR PROMPT INTERVENTION THROUGHOUT THE CERTIFICATION PERIOD. Goal Provider Goal - PATIENT WILL BE FREE FROM INFECTION AND PATIENT/CAREGIVER WILL VERBALIZE UNDERSTANDING OF SIGNS AND SYMPTOMS AND METHODS TO PREVENT SEPSIS BY END OF THE EPISODE. Goal Provider Goal - PATIENT/CAREGIVER WILL VERBALIZE UNDERSTANDING OF MUSCLE WEAKNESS MUSCULOSKELETAL DISEASE INCLUDING SIGNS AND SYMPTOMS, MANAGEMENT, AND PRESCRIBED TREATMENT REGIMEN BY END OF EPISODE. Goal Provider Goal - PATIENT WILL HAVE SUPPORT MEASURES ESTABLISHED TO PREVENT HOSPITALIZATION AND ED USE AND PATIENT/CAREGIVER WILL VERBALIZE/DEMONSTRATE METHODS TO REDUCE AVOIDABLE HOSPITALIZATION AND ED USE BY END OF EPISODE. Goal Provider Goal - PATIENT/CAREGIVER WILL VERBALIZE UNDERSTANDING OF DISCHARGE PLANNING INSTRUCTIONS BY DATE OF DISCHARGE. Goal Provider Goal - PATIENT/CAREGIVER WILL VERBALIZE/DEMONSTRATE EFFECTIVE ENVIRONMENTAL SAFETY AND FALL PREVENTION STRATEGIES, WILL REMAIN SAFE IN THE COMMUNITY, AND WILL BE FREE OF DANGER TO SELF AND OTHERS THROUGHOUT THE CERTIFICATION PERIOD. Goal Provider Goal - PATIENT/CAREGIVER WILL DEMONSTRATE UNDERSTANDING OF PHARMACOLOGIC AND NONPHARMACOLOGIC PAIN CONTROL MEASURES AND PATIENT WILL HAVE IMPROVEMENT IN PAIN INTERFERING WITH ACTIVITY EVIDENCED BY PAIN AT A LEVEL THAT IS ACCEPTABLE TO THE PATIENT AND PAIN LEVEL WITHIN ESTABLISHED PARAMETERS BY END OF CERTIFICATION PERIOD. Goal Provider Goal - PATIENT/CAREGIVER WILL VERBALIZE UNDERSTANDING OF PRESSURE ULCER PREVENTION BY END OF THE EPISODE. Goal Provider Goal - PATIENT/CAREGIVER WILL VERBALIZE/DEMONSTRATE UNDERSTANDING OF THE MANAGEMENT OF DEPRESSION THROUGHOUT THE CERTIFICATION PERIOD AND SYMPTOMS ARE IDENTIFIED AND MANAGED TO MAINTAIN PATIENT SAFETY IN THE HOME. Goal Provider Goal - PATIENT/CAREGIVER WILL VERBALIZE UNDERSTANDING OF EDUCATION PROVIDED ON MEDICATIONS BY THE END OF THE CERTIFICATION PERIOD. Goal Provider Goal - OCCUPATIONAL THERAPIST TO EVALUATE PATIENT SECONDARY TO FUNCTIONAL DEFICITS/SAFETY CONCERNS IDENTIFIED DURING EVALUATION. PATIENT/CAREGIVER VERBALIZES UNDERSTANDING OF THE INITIAL BEST PRACTICE RECOMMENDATIONS. PHYSICIAN TO BE NOTIFIED APPROPRIATE FOR ANY CHANGES OR COMPLICATIONS THROUGHOUT THE CERTIFICATION PERIOD. PATIENT/CAREGIVER WILL DEMONSTRATE SAFE TRANSFERS USING APPROPRIATE ASSISTIVE DEVICE, BODY MECHANICS AND EQUIPMENT. PATIENT/CAREGIVER WILL DEMONSTRATE IMPROVED ABILITY TO PERFORM ACTIVITIES OF DAILY LIVING. Goal Provider Goal - PHYSICAL THERAPY EVALUATION TO BE COMPLETED WITH RECOMMENDATIONS AND/OR WRITTEN TREATMENT PLAN OF CARE ESTABLISHED FOR THE PHYSICIAN S SIGNATURE PATIENT/CAREGIVER VERBALIZES UNDERSTANDING OF THE INITIAL BEST PRACTICE RECOMMENDATIONS. PHYSICIAN TO BE NOTIFIED APPROPRIATE FOR ANY CHANGES OR COMPLICATIONS THROUGHOUT THE CERTIFICATION PERIOD. PATIENT/CAREGIVER WILL PERFORM THERAPEUTIC EXERCISE/S AND DEMONSTRATE PARTICIPATION IN A HOME PROGRAM. PATIENT/CAREGIVER WILL DEMONSTRATE IMPROVED GAIT TECHNIQUES TO MINIMIZE RISK OF INJURY. PATIENT/CAREGIVER WILL DEMONSTRATE/VERBALIZE UNDERSTANDING OF RECOMMENDATIONS TO INCREASE SAFETY IN THE HOME AND FALL PREVENTION. PATIENT/CAREGIVER WILL DEMONSTRATE IMPROVED BALANCE AND REDUCE THE RISK OF FALLS AND INJURY. PATIENT/CAREGIVER WILL VERBALIZE/DEMONSTRATE UNDERSTANDING OF SAFE OXYGEN USE IN THE HOME THROUGHOUT THE EPISODE. 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 DX: COPD, SPESIS</paragraph><paragraph></paragraph><paragraph>SCHEDULED APPPOINTMENT: DR. FELIZ LAST WEEK- NO CHANGES </paragraph><paragraph></paragraph><paragraph>_ANY NEW/CHANGED MEDICATIONS SINCE LAST VIRTUAL/HOME VISIT? IF SO, SPECIFY NEW/CHANGED MED: DENIES </paragraph><paragraph></paragraph><paragraph>_ARE YOU TAKING MEDICATIONS ORDERED (DOSAGE, ROUTE, FREQUENCY)? YES </paragraph><paragraph></paragraph><paragraph>_ARE YOU EXPERIENCING ANY MEDICATION SIDE EFFECTS? DENIES</paragraph><paragraph></paragraph><paragraph>_DO YOU HAVE QUESTIONS RELATED TO MEDICATIONS? DENIES </paragraph><paragraph></paragraph><paragraph>SYMPTOM MANAGEMENT: ARE YOU EXPERIENCING ANY OF THE FOLLOWING SYMPTOMS?</paragraph><paragraph></paragraph><paragraph> _ ABNORMAL VITAL SIGNS (BP, HR, BLOOD SUGAR, O2 SAT, WT, TEMP). INDICATE READING, IF APPLICABLE: BP: 146/63 HR: 63 O2: 99% WEIGHT: 247LBS. </paragraph><paragraph></paragraph><paragraph>_PAIN- DENIES CHANGES</paragraph><paragraph></paragraph><paragraph>_ SOB DENIES</paragraph><paragraph></paragraph><paragraph>_COUGH- DENIES</paragraph><paragraph></paragraph><paragraph>_INCREASED WEAKNESS- DENIES</paragraph><paragraph></paragraph><paragraph>_DIZZINESS- DENIES</paragraph><paragraph></paragraph><paragraph>_DIFFICULTY WITH BLADDER/BOWEL- TAKING DULCOLAX FOR CONSTIPATION BUT HAS HAD BM. </paragraph><paragraph></paragraph><paragraph>_CHANGES IN SKIN INTEGRITY/RASH/WOUND- DENIES </paragraph><paragraph></paragraph><paragraph>_SWELLING/EDEMA- DENIES CHANGES.</paragraph><paragraph></paragraph><paragraph>_INSOMNIA/DIFFICULTY SLEEPING- DENIES ISSUES</paragraph><paragraph></paragraph><paragraph>_NUTRITION/HYDRATION DEFICITS- DENIES ISSUES. STATES SHE IS HUNGRY ALL THE TIME AND EVERYTHING TASTES GOOD. EDUCATED ON IMPORTANCE OF PROTEIN AND HELPING HER FEEL FULL. </paragraph><paragraph></paragraph><paragraph>_SAFETY: DENIES ISSUES. </paragraph><paragraph></paragraph><paragraph>_ANY FALLS (WITH OR WITHOUT INJURY) SINCE LAST VIRTUAL/HOME VISIT? DENIES </paragraph><paragraph></paragraph><paragraph>_ER VISITS: DENIES</paragraph><paragraph></paragraph><paragraph>DISEASE MANAGEMENT: </paragraph><paragraph></paragraph><paragraph>_INSTRUCT ON METHODS TO AVOID RE-HOSPITALIZATION/ACTION PLAN CALL JOSE SANTORO WITH ANY CHANGES OR COMPLICATIONS.</paragraph> <paragraph>[Visit Date: 2024 by GITA KOTHARI RN]:</paragraph><paragraph>SNV</paragraph><paragraph></paragraph><paragraph>ABNO RMAL VITALS: WNL</paragraph><paragraph></paragraph><paragraph>FALLS:N</paragraph><paragraph&g t;</p aragraph><paragraph>PHYSICAL ASSESSMENT FINDINGS: PT AWAKE AND ALERT VS WNL AFEBRILE LUNGS DIM THROUGHOUT SPEAKING IN FULL SENTENCES NAD NOTED SOBOE RECOVERS WELL. REVIEWED PACING ACTIVITY CLEAR PATHWAYS BE MINDFUL OF THEMDOG TRIPPING HAZARD PT VERBALIZED UNDERSTANDING. </paragraph><paragraph>APPETITE GOOD DENIES PROBLEMS WITH BOWEL OR BLADDER. WT STABLE LOW SALT OPTIONS REVIEWED. </paragraph><paragraph></paragraph><paragraph>MEDICATION CHANGES: NONE </paragraph><paragraph></paragraph><paragraph>OBSERVATION AND ASSESSMENT PROVIDED: </paragraph><paragraph></paragraph><paragraph>HANDS ON CARE: ASSESSMENT TEACHING SAFETY </paragraph><paragraph></paragraph><paragraph>PATIENT/CAREGIVER TEACH BACK:</paragraph><paragraph></paragraph><paragraph>NEXT APPOINTMENT: [facility]UL 06/19/25 </paragraph><paragraph></paragraph><paragraph>NEW ORDERS: NONE </paragraph><paragraph></paragraph><paragraph>INSTRUCTED PATIENT AND CAREGIVER TO CALL [facility] WITH ANY QUESTIONS OR CHANGES IN CONDITION</paragraph> Encounters Start Date/Time End Date/Time Encounter Type Admission Type Attending Clinicians Care Facility Care Department Encounter ID Discharge Date Discharge Status Discharge Condition Discharge Reason Percent Goals Met 2025-05-14 00:00:00 2025-07-12 00:00:00 Outpatient NEW ADMISSION GITA KOTHARI [facility] [id number]
== END 2025-06-19 10:39 | disposition home or self-care (01) ==
LOC: HO.HPS 10:02
PROVIDERS: PCP Internal Medicine; Visit Provider Internal Medicine
DX: J44.9 Chronic obstructive pulmonary disease, unspecified (principal); G47.33 Obstructive sleep apnea (adult) (pediatric); E66.01 Morbid (severe) obesity due to excess calories
CPT/HCPCS: 99213

== ENCOUNTER → 2025-06-19 10:01 | Outpatient (BNVA) | payer MEDICARE, SELFPAY | PROVIDERS: PCP Internal Medicine; Visit Provider Internal Medicine | DX: J44.9 Chronic obstructive pulmonary disease, unspecified (principal); G47.33 Obstructive sleep apnea (adult) (pediatric); E66.01 Morbid (severe) obesity due to excess calories | CPT/HCPCS: 99212 ==

== ENCOUNTER → 2025-07-02 15:08 | Outpatient (BNV) | payer MEDICARE, SELFPAY | PROVIDERS: Emergency Provider Student in an Organized Health Care Education/Training Program; PCP Internal Medicine; Visit Provider Radiology Diagnostic Radiology | DX: I51.7 Cardiomegaly (principal) | CPT/HCPCS: 71045 ==

== ENCOUNTER → 2025-07-02 19:31 | Outpatient (BNV) | payer MEDICARE, SELFPAY | PROVIDERS: Admitting Provider Family Medicine; Emergency Provider Student in an Organized Health Care Education/Training Program; PCP Internal Medicine; Visit Provider Family Medicine | DX: J11.1 Influenza due to unidentified influenza virus with other respiratory manifestations (principal) | CPT/HCPCS: 99233 ==